=== PATIENT | female | born 1980 | race Caucasian/White ===

== ENCOUNTER 2018-02-23 15:54 | Observation (INO) | payer BC, MEDICARE, MEDICAID, SELFPAY ==
[2018-02-23] VITALS (9 sets, daily range): BP systolic 96–131; BP diastolic 49–90; PULSE 81–98; RESP 16–18; TEMP 36.4–37.1; O2SAT 94–100; BMI 45.9; BMI 45.8
[2018-02-23 12:50] LABS: Bedside Glucose 111 mg/dL (70-110)
--- NOTE | 2018-02-23 14:00 | AMP_PTH ---
PATIENT: PAPITOOCTOBER FABIENNE LOC: 3 U#:[id number] AGE/SX: 37/F ROOM: VT310 RE02/23/[address]: Dr. Analia Benavides MD : 1980 BED: 1 DIS: 02/24/2018 SPEC #: [id number] RECD: 02/24/18 13:28 STATUS: TATE REQ #: [id number] JIM: 02/23/18 14:[address]: Aroldo Mon DEPT: SURGICAL PATHOLOGY RECD BY: Jin Rosales ENTERED: 02/24/18 13:32 SP TYPE: Amputation OTHR DR: MD Dr. Aroldo Oneal, DPM M ADELINA Bullock Tissues: A - Bone of foot, NOS B - Bone of foot, NOS C - Bone of foot, NOS D - Foot, NOS Procedures: Decalcification bone/plaque Surgery Specimen Level IV Surgery Specimen Level V Comments: @ Ordering doctor for DEC edited from to @ madhuri RAMOS at 02/24/18 153 @ Ordering doctor for SUIII edited from to @ madhuri RAMOS at 02/24/18 153 @ Ordering doctor for SUIV edited from to @ madhuri RAMOS at 02/24/18 1539 @ Submitting doctor edited from to @ madhuri RAMOS at 02/24/18 1539 HEADER OPERATION: Amputation transmetatarsal right foot PRE-OP DIAGNOSIS: Right transmetatarsal diabetic ulceration, hammertoes, possible osteomyelitis TISSUE SUBMITTED: A ? First metatarsal bone, B ? Third metatarsal bone, C ? Third toe, D ? Right transmetatarsal amputation MICROSCOPIC DIAGNOSIS A. First metatarsal bone, biopsy: Fragment of bone with mild reparative and reactive change. B. Third metatarsal bone, biopsy: Fragments of unremarkable bone. C. Bone of third toe, biopsy: Fragments of bone and overlying cartilage with reactive and focal reparative change. D. Right transmetatarsal amputation: Skin and soft tissue with ulceration and associated acute and chronic inflammation and early granulation. Bone underlying ulcer with reparative and reactive change. AM:namrata 02/27/18 COMMENT A-D. There is no evidence of osteomyelitis. Clinical correlation is suggested. MICROSCOPIC DESCRIPTION Slides are reviewed. GROSS DESCRIPTION A - Received in fixative is one container labeled with the patient's name and designated first metatarsal bone. The specimen consists of a piece of bone measuring 1 x 0.2 x 0.3 cm. The entire specimen is submitted in one cassette after decalcification. B - Received in fixative is one container labeled with the patient's name and designated third metatarsal bone. The specimen consists of two pieces of bone measuring in aggregate 1 x 0.3 x 0.3 cm. The entire specimen is submitted in one cassette after decalcification. C - Received in fixative is one container labeled with the patient's name and designated third toe. The specimen consists of a piece of bone measuring 1.1 x 1 x 0.4 cm. The entire specimen is submitted in one cassette after decalcification. D - Received in fixative is one container labeled with the patient's name and designated right metatarsal amputation. The specimen consists of a portion of foot containing four toes, second, third and fourth toes measuring 10 x 5 x 3.5 cm. The big toe is missing. The nails appear atrophic. A focal area of ulceration is noted at the tip of third toe measuring 1.5 x 1.5 cm. The resection margins appear unremarkable. A focal area of superficial ulceration is also noted at the medial surface of the third toe measuring 0.5 cm in greatest dimension. Software Program Manager sections are submitted in three cassettes as follows: 1 ? cutaneous resection margin, 2 ? ulcerated area at the tip of the third toe and medial surface of the toe, 3 ? bone underneath the ulcerated area and adjacent area of the toe after decalcification. / SJ:namrata 02/24/18 TC:2 CPT: 27498, 77881 x3, 21485 x4
--- NOTE | 2018-02-23 14:07 | OP.PCM_ITS ---
Report of Operation Date of Procedure: 02/23/18 Pre-Operative Diagnosis: diabetic foot ulceration. maria e. history of right 1st ray amputation Post-Operative Diagnosis: same Surgery/Procedure Performed:: right transmetatarsal amputation Description of Surgical Findings:: Patient is a 37 year old female with pmh for diabetic neuropathy who underwent first ray amputation of right foot last year for osteomyelitis. She did experience relative slow healing of that procedure but eventually went on to heal. In late winter, she developed wound to her right 2nd toe that was treated with local wound care and flexor tenotomy. The wound to 2nd toe eventually healed but prior to healing, she elected to avoid follow-up at her own choice as she felt that she was being a burden to our clinic. Apparently some time after the 2nd toe healed, she developed wound to her right 3rd toe but tried to treat the wound herself for several months. when the wound failed to improve, she presented to my clinic. When she presented to my clinic, she had a full thickness wound to her 3rd toe. xrays have not shown any signs of bone infection. Inflammatory markers including esr and crp have been elevated. she has been taking levaquin and her last dose was yesterday. I have discussed treatment options for this patient. I have proposed to this patient salvage of her toe and to attempt healing. she is tired of trying to heal this wound and would rather have this amputated. She has suggested that if this toe needs amputated, she would rather elect to have a procedure like the one that was done on her left foot, a transmetatarsal amputation. she does not wish to have a third toe amputation only to be left with 3 toes and then eventually require amputation of the remaining toes at future date. she wishes to have a transmetatarsal amputation at this time and be done with this. Again, I have discussed trying to salvage this toe but she has no interest in doing so. I have discussed alternatives to tma, that being 2nd,3rd, 4th and 5th toe amputation. she does not want this either. She would like to proceed with tma. I have discussed risk of tma not limited to infection, pain, swelling, bleeding, hematoma, wound dehiscence, need for advanced wound care not limited to wound vac. I have discussed possible equinus following procedure and I have discussed doing an achilles lengthening. She is not interested in achilles lengthening. when asked why she declines, she states she did not require on left foot and for that reason she is not interested. Further, she does not wish to have any procedure that could lengthen her recovery. She is fully aware that if she develops equinus following procedure, she could lead to ulceration. on exam, she has no evidence of equinus but certainly following tma , she could develop an equinus. again, we did discuss achilles lengthening and she again refused. I did discuss need to remain nwb following procedure. any walking can result in complications. she will have splint post-op and drain. drain will likely be removed several days post-op. All questions have been answered. no gurantees expressed. consent has been signed. Patient was transferred from pre-op holding area and was given spinal block by anesthesia department. She was later placed under mac anesthesia and tourniquet was applied to right ankle. She was administered light sedation. All hair of right foot that was along incision was shaved and cleansed. the right lower extremity was prepped and draped in usual aseptic technique. The right lower extremity was elevated and the tourniquet was inflated. Time out was performed making note of procedure and personal involved. A incision along the dorsal forefoot and then extending laterally along the first and 5th rays and then plantarly was performed. Full thickness flaps were made. Careful dissection was performed to avoid injury to any venous structures. all venous structures were clamped and bovied. I disarticulated toes 2-5 at mtpj. I passed the toes to the back table and they were placed on a separate table and no no cultures of these toes was performed until post-op dressing was applied. Inspection of deep space showed no evidence of infection. there was an abundant scar tissue present along the first ray amputation site and hypertrophic bone was present at distal 1st ray. Using a sagittal saw, the hypertrophic bone of first metatarsal was resected and the orientation of bone resection was proximal medial to distal lateral and dorsal distal to plantar proximal to avoid causing any plantar or medial bone prominence. The 2nd metatarsal was resected from dorsal distal to plantar proximal. In similar fashion, the 3rd and 4th metatarsals were resected dorsal distal to plantar proximal. Care was made to resect these bones with attention to metatarsal parabola. Lastly, the 5th metatarsal was resected with orientation proximal lateral to distal medial and dorsal distal to plantar proximal. Pulse lavage was performed with 3000 cc of normal saline. a bone sample was taken of first and 3rd metatarsal and sent for pathology and micro. Cautery was performed of all bleeding veins and digital artery. All bleeders were able to be slowed or completely stopped utilizing topical thrombin, gel foam, kendra and bovie. intra-operative xray was used to confirm bone resection. satisfactory alignment was noted. Tourniquet was deflated after 53 minutes and hemostasis was achieved and no bleeding was encountered. The deep tissue was reapproximated with 3-0 vicryl. TLS drain was placed percutaneous and directed at site of transmetatarsal amputation. The subcutaneous tissue was closed with 3-0 vicryl. skin was closed with 2-0 nylon in simple interrupted fashion. post -op injection was given using marcaine. post-op dressing was applied with adaptic, 4x4 guaze, alana, levine compression and posterior splint. she was awakened and found to be in stable condition. she was transferred to pacu in stable condition. counts were correct x 3 at time of closure. after patient was awakened, attention was directed to right 3rd toe. a sample of 3rd toe distal phalanx was sent for pathology and micro. of note, there was very minimal soft-tissue covering along distal tuft of right 3rd toe. Type of Anesthesia:: Spinal/Supplemental Specimen's removed: right 3rd toe distal phalanx. right 1st metatarsal. right 3rd metatarsal Drains: tls drain Estimated Blood Loss (mL): 75 - Complications none
--- NOTE | 2018-02-23 15:53 | PCM.HP.STD ---
Problem List (1) Diabetic foot ulcer Status: Acute Qualifiers: Diabetic foot ulcer location: toe Diabetes mellitus type: type 2 Laterality: right Non-pressure ulcer stage: with fat layer exposed Qualified Code(s): E11.621 - Type 2 diabetes mellitus with foot ulcer; L97.512 - Non-pressure chronic ulcer of other part of right foot with fat layer exposed; L97.512 - Non-pressure chronic ulcer of other part of right foot with fat layer exposed; L97.512 - Non-pressure chronic ulcer of other part of right foot with fat layer exposed; L97.512 - Non-pressure chronic ulcer of other part of right foot with fat layer exposed (2) Morbid obesity Status: Chronic (3) Diabetes mellitus type II, controlled Status: Chronic Qualifiers: Diabetes mellitus long wall mining machine helper insulin use: without snf use Diabetes mellitus complication status: with unspecified complications Qualified Code(s): E11.8 - Type 2 diabetes mellitus with unspecified complications (4) HTN (hypertension) Status: Chronic Qualifiers: Hypertension type: essential hypertension Qualified Code(s): I10 - Essential (primary) hypertension (5) GERD (gastroesophageal reflux disease) Status: Chronic Qualifiers: Esophagitis presence: esophagitis presence not specified Qualified Code(s): K21.9 - Gastro-esophageal reflux disease without esophagitis (6) Anxiety and depression Status: Chronic History of Present Illness Date of Admission: 02/23/18 Chief Complaint: R Non-healing diabetic foot ulcer for planned TMA The patient is a 37 y/o F w/ PMHx: HTN, Morbid obesity, GERD, Anxiety and Depression, Diabetes mellitus type II well controlled w/ recent HgBA1c 6% and normal vascular evaluations with history of BL LE diabetic foot and toe non-healing ulcers and wounds with eventual TMA of L foot who now presents to the [facility] on 02/23/18 for planned intervention per Dr. 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 She declined recommendation for focal 3rd toe intervention only secondary to desire to avoid recurrent surgical toe debridement. She underwent L TMA per Dr. Mon who requested hospitalist admission for observation overnight. Past Medical History Past Medical History (Chronic Problems): Chronic Problems Morbid obesity (Chronic) Diabetes mellitus type II, controlled (Chronic) HTN (hypertension) (Chronic) GERD (gastroesophageal reflux disease) (Chronic) Anxiety and depression (Chronic) Allergies No Known Allergies Allergy (Verified 02/19/18 15:05) Home Medications: Ambulatory Orders Medication Instructions Recorded Cholecalciferol (VIT D3) [Vitamin 2,000 unit PO DAILY 04/18/16 D3] Cyanocobalamin (Vitamin B-12) 100 mcg PO DAILY 04/18/16 [B-12] Duloxetine HCl 60 mg PO BID 04/18/16 Lisinopril [Zestril] 10 mg PO DAILY 04/18/16 Omeprazole 40 mg PO DAILY 06/12/17 buPROPion XL [Wellbutrin Xl] 150 mg PO DAILY 06/12/17 Levofloxacin [Levaquin] 500 mg PO DAILY 02/19/18 Meloxicam [Mobic] 15 mg PO DAILY 02/19/18 Surgical History: cholecystectomy, tonsillectomy, - - Left forefoot amputation, amputation of the proximal right great toe, Psychiatric History: Depression BUNDLE PACKER History: No pertinent BUNDLE PACKER history Smoking Status: Never smoker - *Family History Maternal History Items: Diabetes, Stroke Paternal History Items: Diabetes, Hypertension Review of Systems Constitutional: Denies: Chills, Fever, Weight Change HEENT: Denies: Head Aches, Sinus Congestion, Sinus Drainage Cardiovascular: Denies: Chest Pain, Palpitations Respiratory: Denies: Cough, Shortness of breath at rest, Sputum production Gastrointestinal: Denies: Abdominal Pain, Nausea, Vomiting Genitourinary: Denies: Dysuria Musculoskeletal: Denies: Joint Pain, Joint Tenderness Skin: Reports: Skin Changes, Wounds. Denies: Rash Neurological: Reports: Numbness, Tingling. Denies: Focal weakness Psychiatric: Reports: Anxiety, Depression. Denies: Homicidal Ideations, Suicidal Ideations Hematologic/ Lymphatic: Denies: Easy Bruising, Easy Bleeding VTE Information - Inpt Only VTE Present on Admission: No VTE Mechan Device Prophylaxis: SCD's VTE Pharm Prophylaxis ordered?: No Reason prophylaxis not ordered:: Medical Contraindication - Recent OR, defer chemoprophylaxis until AM given recent surgery. Subjective: Seated upright in the PACU bed, notes her diabetes well controlled, notes notable neuropathy but otherwise currently no acute complaints. Objective: Physical Examination: General: awake, alert, oriented x 3 and cooperative, seated upright in the PACU bed in no apparent distress. Skin: normal color, turgor, no icterus, cyanosis except s/p R TMA well appearing and L foot s/p prior 1st ray intervention and amputation w/ R 3rd toe w/ full thickness diabetic ulcer. HEENT: AT/NC, EOMI, PERRLA, MMM, no carotid bruits or JVD noted. Lungs: CTA bilaterally, moderate effort, mild decrease BL bases, no rales, ronchi or wheezing. Heart: Regular rate and rhythm; no gallop, rub audible. Abdomen: soft, morbidly obese, NTTP, ND, normal BS, no HSM; however, habitus makes examination difficult. Extremities: no cyanosis, clubbing, no marked edema, see skin. Neurological: patient awake, alert, oriented x 3; cognitive function intact; pupils equally reactive to light and accomodation; cranial nerves II-XII grossly normal, moving all 4 extremities, no focal deficits, strength mildly globally decreased. Psychiatric: affect appears normal, no acute evidence of depressive or anxiety feelings. - Physical Exam Vital Signs Temp Pulse Resp BP Pulse Ox 97.6 F L 89 16 115/79 100 02/23/18 12:39 02/23/18 12:39 02/23/18 12:39 02/23/18 12:39 02/23/18 12:39 Oxygen Delivery Method Room Air Weight: 320 lb 5.306 oz Body Mass Index (BMI) 45.9 Finger Stick Blood Glucose 99 POC Glucose 02/23/18 12:35 POC Glucose 111 H Assessment/Plan All Active Problems Right foot redness (Acute) Right foot drainage (Acute) Diabetic foot ulcer (Acute) The patient is a 37 y/o F w/ PMHx: HTN, Morbid obesity, GERD, Anxiety and Depression, Diabetes mellitus type II well controlled w/ recent HgBA1c 6% and normal vascular evaluations with history of BL LE diabetic foot and toe non-healing ulcers and wounds with eventual TMA of L foot who now presents to the [facility] on 02/23/18 for planned intervention per Dr. Mon with planned R TMA secondary to non-healing R 3rd toe full thickness ulcer. (1) RLE 3rd Toe Full Thickness Diabetic Wound, Ulcer: 02/23/18 OR R TMA per Dr. Mon. Following OR, will admit to [facility], maintain on oral antibiotics per Surgery discretion, noted allowance following OR for restart on her chronic mobic as was held pre-operatively, continue affected extremity elevation above heart when seated and in bed, planned PT for splint and training as non-weight bearing, PRN pain regimen, antiemetics, fall precautions. Planned discharge to home in AM. Nutrition consulted for education and teaching given DM history, although recent HgBA1c 6%, well controlled. (2) Diabetes mellitus type II, Diet controlled: Patient not on regimen, hemoglobin A1c 6%, will allow regular diet per patient insistence, given well controlled will defer Accu-Cheks at this time. (3) Morbid Obesity: Weight loss and lifestyle changes encouraged, nutrition consulted. (4) Hypertension: Continue home regimen including lisinopril, PRN hydralazine. (5) Anxiety and Depression: Continue home duloxetine regimen as well as Wellbutrin. (6) GERD: Continue home PPI. (7) DVT prophylaxis: SCDs, defer chemoprophylaxis until a.m. per discussion with podiatry given recent operative intervention. Code Visit OBSV E&M: 75527 Initial observation care L3
[2018-02-23] MEDS: Bupivacaine 0.5% PF 10 ML VIAL (17:30)
--- NOTE | 2018-02-23 18:01 | PCM.IMDPSTOP ---
Immediate Post-Op Note Date of Procedure: 02/23/18 Primary Surgeon/Physician: Aroldo Mon DPM hand turner: None hand turner: None Pre-Operative Diagnosis: hammertoe right 3rd toe with diabetic foot ulceration. history of first ray amputation Post-Operative Diagnosis: same Surgery/Procedure Performed:: right transmetatarsal amputation Description of Surgical Findings:: Patient is a 37 year old female with pmh for diabetic neuropathy who underwent first ray amputation of right foot last year for osteomyelitis. She did experience relative slow healing of that procedure but eventually went on to heal. In late winter, she developed wound to her right 2nd toe that was treated with local wound care and flexor tenotomy. The wound to 2nd toe eventually healed but prior to healing, she elected to avoid follow-up at her own choice as she felt that she was being a burden to our clinic. Apparently some time after the 2nd toe healed, she developed wound to her right 3rd toe but tried to treat the wound herself for several months. when the wound failed to improve, she presented to my clinic. When she presented to my clinic, she had a full thickness wound to her 3rd toe. xrays have not shown any signs of bone infection. Inflammatory markers including esr and crp have been elevated. she has been taking levaquin and her last dose was yesterday. I have discussed treatment options for this patient. I have proposed to this patient salvage of her toe and to attempt healing. she is tired of trying to heal this wound and would rather have this amputated. She has suggested that if this toe needs amputated, she would rather elect to have a procedure like the one that was done on her left foot, a transmetatarsal amputation. she does not wish to have a third toe amputation only to be left with 3 toes and then eventually require amputation of the remaining toes at future date. she wishes to have a transmetatarsal amputation at this time and be done with this. Again, I have discussed trying to salvage this toe but she has no interest in doing so. I have discussed alternatives to tma, that being 2nd,3rd, 4th and 5th toe amputation. she does not want this either. She would like to proceed with tma. I have discussed risk of tma not limited to infection, pain, swelling, bleeding, hematoma, wound dehiscence, need for advanced wound care not limited to wound vac. I have discussed possible equinus following procedure and I have discussed doing an achilles lengthening. She is not interested in achilles lengthening. when asked why she declines, she states she did not require on left foot and for that reason she is not interested. Further, she does not wish to have any procedure that could lengthen her recovery. She is fully aware that if she develops equinus following procedure, she could lead to ulceration. on exam, she has no evidence of equinus but certainly following tma, she could develop an equinus. again, we did discuss achilles lengthening and she again refused. I did discuss need to remain nwb following procedure. any walking can result in complications. she will have splint post-op and drain. drain will likely be removed several days post-op. All questions have been answered. no gurantees expressed. consent has been signed. Patient was transferred from pre-op holding area and was given spinal block by anesthesia department. She was later placed under mac anesthesia and tourniquet was applied to right ankle. She was administered light sedation. the right lower extremity was prepped and draped in usual aseptic technique. The right lower extremity was elevated and the tourniquet was inflated. Estimated Blood Loss: 75 cc Specimen's removed: first metatarsal. 3rd metatarsal. 3rd toe distal phalanx. all for pathology and micro Type of Anesthesia:: Spinal/Supplemental ASA Class: ASA3 Severe Disease
[2018-02-23 18:06] LABS: Bedside Glucose 107 mg/dL (70-110)
[2018-02-23] MEDS: Amox/Clavulanate 875 MG Tablet PO (21:40)
[2018-02-23] MEDS: DULoxetine Hcl 60 MG Capsule PO (21:40)
[2018-02-23] MEDS: Senna/Docusate Sodium 1 Tablet 2 TABLET PO (21:40)
[2018-02-23 21:56] LABS: Bedside Glucose 145 mg/dL (70-110)
[2018-02-23 23:55] LABS: Absolute Lymphocyte Count 2.18 X10^3/ul (0.83-4.51); Absolute Neutrophil Count 4.8 X10^3/uL (2.0-7.7); Basophil# 0.04 X10^3/uL; Basophil% 0.5 % (0-1); Eosinophil# 0.16 X10^3/uL; Eosinophils% 2.1 % (0-5); Hematocrit 33.2 % (37-47); Hemoglobin 10.5 g/dl (12.0-15.0); Lymphocyte # 2.18 X10^3/ul (4.0); Lymphocyte % 28.1 % (19-41); Mean Corp Hgb Conc 31.6 g/gl (32-36); Mean Corpuscular Hgb 27.1 pg (27.0-32.0); Mean Corpuscular Volume 85.6 fL (81-99); Mean Platelet Vol. 9.5 fl (6.2-12.0); Monocyte# 0.51 X10^3/uL; Monocyte% 6.6 % (0-10); Neutrophil # 4.82 X10^3/uL (2.7-7.7); Neutrophil % 62.1 % (47-70); Platelet Count 248 K/mm3 (150-450); RBC Distribution Width CV 15.1 % (11.6-14.6); RBC Distribution Width SD 46.6 fl (35.1-43.9); Red Blood Count 3.88 M/mm3 (4.2-5.4); White Blood Count 7.8 K/mm3 (4.4-11.0)
[2018-02-23 23:56] LABS: POSITIVE COUNT NO; POSITIVE DIFFERENTIAL NO; POSITIVE MORPHOLOGY NO
[2018-02-23] MEDS: HYDROcodone Bitartrate/Apap 5/325 Tablet PO (23:58)
[2018-02-24 00:04] LABS: Magnesium 2.2 mg/dL (1.6-2.6)
[2018-02-24 03:30] VITALS: BP 103/58; PULSE 78; RESP 16; TEMP 36.6; O2SAT 97
[2018-02-24 06:31] LABS: Absolute Lymphocyte Count 2.19 X10^3/ul (0.83-4.51); Absolute Neutrophil Count 5.4 X10^3/uL (2.0-7.7); Basophil# 0.06 X10^3/uL; Basophil% 0.7 % (0-1); Eosinophil# 0.18 X10^3/uL; Eosinophils% 2.1 % (0-5); Hematocrit 34.2 % (37-47); Hemoglobin 10.8 g/dl (12.0-15.0); Lymphocyte # 2.19 X10^3/ul (4.0); Lymphocyte % 25.6 % (19-41); Mean Corp Hgb Conc 31.6 g/gl (32-36); Mean Corpuscular Hgb 27.4 pg (27.0-32.0); Mean Corpuscular Volume 86.8 fL (81-99); Mean Platelet Vol. 9.4 fl (6.2-12.0); Monocyte# 0.72 X10^3/uL; Monocyte% 8.4 % (0-10); Neutrophil # 5.35 X10^3/uL (2.7-7.7); Neutrophil % 62.4 % (47-70); Platelet Count 219 K/mm3 (150-450); RBC Distribution Width CV 15.2 % (11.6-14.6); RBC Distribution Width SD 47.2 fl (35.1-43.9); Red Blood Count 3.94 M/mm3 (4.2-5.4); White Blood Count 8.6 K/mm3 (4.4-11.0)
[2018-02-24 06:36] LABS: POSITIVE COUNT NO; POSITIVE DIFFERENTIAL NO; POSITIVE MORPHOLOGY NO
[2018-02-24 06:50] LABS: Anion Gap 10 (5-15); BUN 10 mg/dL (7-18); BUN/Creat Ratio 10.8 RATIO (10-20); Calcium,Total 8.5 mg/dL (8.5-10.1); Chloride 108 mmol/L (98-107); Creatinine, Serum 0.93 mg/dL (0.55-1.02); EST Glomerular Filtration Rate 72 mL/min (>60); Est Glom Filt Rate - Afr Amer 87 mL/min (>60); Estimated Creatinine Clearance 88.69 ml/min; Glucose 112 mg/dL (74-106); Potassium 4.3 mmol/L (3.5-5.1); Sodium Level 140 mmol/L (136-145)
--- NOTE | 2018-02-24 07:42 | PCM.PN.SRG ---
Subjective: patient seen at bedside with no complaints. pain controlled. no nausea, vomiting, fever or chills. trying to stay nwb. only gets up to use restroom. wants to go home today. Objective: alert and orientated x 3. no acute distress. Dressing clean and dry and intact. no strike through. There is percutaneous drain that has about 5 cc of blood collection. no evidence of fluctuance to surgical incision. wound edges appear healthy with no duskyness or necrosis. no drainage. no erythema. no local signs of infection. no deep calf pain. protective sensation is intact to right foot. no pressure sores noted to right foot. - Physical Exam Vital Signs Temp Pulse Resp BP Pulse Ox 98 F 78 16 103/58 L 97 02/24/18 03:30 02/24/18 03:30 02/24/18 03:30 02/24/18 03:30 02/24/18 03:30 Oxygen Delivery Method Room Air Weight: 145.3 kg Body Mass Index (BMI) 45.8 Finger Stick Blood Glucose 107 Intake and Output for Last 24 Hours 02/22/18 02/23/18 02/24/18 23:59 23:59 23:59 Intake Total 1999 994.3 / 994.3 Output Total 2040 / 2040 Balance 1993 / 1993 -1046.7 / -1046.7 Laboratory Tests Past 24 Hrs 02/23/18 02/23/18 02/24/18 23:07 23:28 06:14 WBC 7.8 8.6 RBC 3.88 L 3.94 L Hgb 10.5 L 10.8 L Hct 33.2 L 34.2 L MCV 85.6 86.8 MCH 27.1 27.4 MCHC 31.6 L 31.6 L RDW 15.1 H 15.2 H RDW Differential 46.6 H 47.2 H Plt Count 248 219 MPV 9.5 9.4 Immature Gran % (Auto) 0.600 0.800 Neut % (Auto) 62.1 62.4 Lymph % (Auto) 28.1 25.6 J[place] % (Auto) 6.6 8.4 Eos % (Auto) 2.1 2.1 Baso % (Auto) 0.5 0.7 Absolute Neuts (auto) 4.8 5.4 Absolute Lymphs (auto) 2.18 2.19 Total Counted Not Reportable Not Reportable Sodium Potassium Chloride Carbon Dioxide Anion Gap BUN Creatinine Estim Creat Clear Calc Est GFR (MDRD) Af Amer Est GFR (MDRD) Non-Af BUN/Creatinine Ratio Glucose Calcium Magnesium 2.2 02/24/18 06:14 WBC RBC Hgb Hct MCV MCH MCHC RDW RDW Differential Plt Count MPV Immature Gran % (Auto) Neut % (Auto) Lymph % (Auto) J[place] % (Auto) Eos % (Auto) Baso % (Auto) Absolute Neuts (auto) Absolute Lymphs (auto) Total Counted Sodium 140 Potassium 4.3 Chloride 108 H Carbon Dioxide 22.0 Anion Gap 10 BUN 10 Creatinine 0.93 Estim Creat Clear Calc 88.69 Est GFR (MDRD) Af Amer 87 Est GFR (MDRD) Non-Af 72 BUN/Creatinine Ratio 10.8 Glucose 112 H Calcium 8.5 Magnesium POC Glucose 02/23/18 02/23/18 02/23/18 21:37 18:01 12:35 POC Glucose 145 H 107 111 H Medical Necessity - Tobacco Use Smoking Status: Never smoker Assessment/Plan All Active Problems Right foot redness (Acute) Right foot drainage (Acute) Diabetic foot ulcer (Acute) Patient was examined today and is doing very well. her pain is well controlled on percocet. she has no acute issues. Her drain has about 5 cc of blood collection. Patient reports that this was changed twice in evening. Each time had about 5-6 cc per patient. I informed patient that post-op bleeding is potential risk following transmetatarsal amputation. I did discuss opening incision and assuring no active bleeding. She tells me that this is not an option. she desires to go home. Hemoglobin has increased from surgery from 10.5--10.8. I will repeat this at 10:00. In presence of chavies nursing staff, I did discuss opening incision to assure no active bleeding. She declined this option. Patient informed of risks of post-op bleeding not limited to hematoma, wound healing complications and . she understands this. Surgical dressing changed today. new dressing consisting of adaptic, 4x4 guaze, alana, compressive gabriele and levine compression with splint applied. she is to remain nwb. I did discuss dvt prophylaxis. she is not interested in lovenox. I would have her start asa 81 mg bid once blood collection in drain appears to lessen. I will give her percocet for pain. she will take every 4 hours I will give augmentin for antibiotic prophylaxis. she will f/u in my clinic tomorrow if she is medically stable, she can elect for discharge
[2018-02-24 07:45] VITALS: O2SAT 95
[2018-02-24 07:46] LABS: Bedside Glucose 128 mg/dL (70-110)
[2018-02-24] MEDS: HYDROcodone Bitartrate/Apap 5/325 Tablet PO (07:48)
[2018-02-24 07:56] VITALS: BP 114/61; PULSE 77; RESP 18; TEMP 36.5; O2SAT 96
--- NOTE | 2018-02-24 08:36 | NURSING ---
was consulted on patient for right transmetatarsal amputation. Pt had surgery yesterday per Dr Mon. was already in this am and changed dressing. plan is for patient to be discharged home today and will follow up in his office tomorrow. Did not removed dressing since it was just changed per MD.
[2018-02-24] MEDS: Amox/Clavulanate 875 MG Tablet PO (09:05)
[2018-02-24] MEDS: DULoxetine Hcl 60 MG Capsule PO (09:05)
[2018-02-24] MEDS: Aspirin 81 MG TAB.CHEW PO (09:05)
[2018-02-24] MEDS: Meloxicam 15 MG Tablet PO (09:06)
[2018-02-24] MEDS: Pantoprazole Sodium 40 MG Tablet PO (09:06)
[2018-02-24] MEDS: Senna/Docusate Sodium 1 Tablet 2 TABLET PO (09:06)
[2018-02-24] MEDS: buPROPion (XL) 150 MG TABLET.XL PO (09:07)
[2018-02-24] MEDS: Lisinopril 10 MG Tablet PO (09:07)
--- NOTE | 2018-02-24 10:02 | PCM.DC ---
- Discharge Diagnoses Current Active Problems: Current Active and Chronic Problems (1) RLE 3rd Toe Full Thickness Diabetic Wound, Ulcer s/p 02/23/18 OR R TMA per Dr. Mon (2) Diabetes mellitus type II, Diet controlled (3) Morbid Obesity (4) Hypertension (5) Anxiety and Depression (6) GERD You will use the following diet at home:: Calorie/Carbohydrate Controlled (specify 1200, 1400, etc) - Recommend continued diet choices to avoid worsened increased blood sugars given your well controlled diabetes at this time. We also recommend strongtly portion control., Cardiac Your food should be the consistency of: Regular Your liquids should be the consistency of: Regular/Thin Discharge Activity: - - Must use offloading parameters per Dr. Mon direction. Weight Bearing Status: No weight bearing Keep extremity elevated above heart level: Operative Extremity Call your doctor if your incision/area has: Continuous Slow Oozing, Sudden Increased Bleeding, Increased Pain/ Swelling, Increased Redness, Foul Smelling Discharge, Swelling at the incision site Call your doctor if you observe: Fever of 101 or Higher, Inability to urinate, Inability to have a bowel movement, Shortness of breath, Chest pain, Uncontrolled pain Instructions: Weight Management: Overcoming Your Barriers, Understanding Body Mass Index (BMI), Weight Management: Healthy Eating, Weight Management: Exercise and Activity, Weight Management: Take it Off and Keep it Off, Weight Management: Fact and Fiction Additional Instructions: Per Dr. Mon direction please continue aspirin therapy 81 mg twice daily for prevent of lower extremity clot once the drainage has decreased from operative drain. Maintain complete non-weight bearing status until altered directly per Dr. Mon. Recommend near complete elevation of operative extremity while laying or seated above the heart. Further care, bathing, dressing changes per Dr. Mon direct therefore please contact him if any concerns or questions upon discharge. Allergies/Adverse Reactions: Allergies No Known Allergies Allergy (Verified 02/19/18 15:05) Medications to take at Discharge Cholecalciferol (VIT D3) [Vitamin D3] 2,000 unit PO DAILY 04/18/16 Cyanocobalamin (Vitamin B-12) [B-12] 100 mcg PO DAILY 04/18/16 Duloxetine HCl 60 mg PO BID 04/18/16 Lisinopril [Zestril] 10 mg PO DAILY 04/18/16 Omeprazole 40 mg PO DAILY 06/12/17 buPROPion XL [Wellbutrin Xl] 150 mg PO DAILY 06/12/17 Meloxicam [Mobic] 15 mg PO DAILY 02/19/18 Amox/Clavulanate Tablet [Augmentin Tablet] 875 mg PO BIDCM 7 Days #14 tab 02/24/18 Aspirin [Aspirin, Baby] 81 mg PO BIDCM #60 tab.chew 02/24/18 Hydrocodone Bitart/Apap 5-325 [[place] 5/325] 1 tab PO Q4H PRN PRN 6 Days #30 tab 02/24/18 The following prescriptions were given: Hydrocodone Bitart/Apap 5-325 [[place] 5/325] 1 tab PO Q4H PRN PRN 6 Days #30 tab PRN Reason: Moderate-severe pain Amox/Clavulanate Tablet [Augmentin Tablet] 875 mg PO BIDCM 7 Days #14 tab Aspirin [Aspirin, Baby] 81 mg PO BIDCM #60 tab.chew Primary Care Physician: Annie Regan PA [Primary Care Provider] - Please follow up with your Primary Care Physician in: Follow-up within 3-5 days to review admission. Test Results: Test results from this visit will be discussed in further detail at your follow-up appointment, if applicable. Please Follow Up With: Aroldo Mon DPM When: Follow-up on 02/25/[address] Mon. Proposed Discharge Date: 02/24/18
[2018-02-24 10:05] LABS: Hemoglobin 10.6 g/dl (12.0-15.0)
--- NOTE | 2018-02-24 10:08 | PCM.DC.SUM ---
Discharge Date and Diagnosis Date of Admission: 02/23/18 Date of Discharge: 02/24/18 - Primary Discharge Diagnosis (1) RLE 3rd Toe Full Thickness Diabetic Wound, Ulcer s/p 02/23/18 OR R TMA per Dr. Mon (2) Diabetes mellitus type II, Diet controlled (3) Morbid Obesity (4) Hypertension (5) Anxiety and Depression (6) GERD - Secondary Discharge Diagnosis Chronic Problems Morbid obesity (Chronic) Diabetes mellitus type II, controlled (Chronic) HTN (hypertension) (Chronic) GERD (gastroesophageal reflux disease) (Chronic) Anxiety and depression (Chronic) Hospital Course and Treatment Consultations 02/23/18 15:55 Consult: Onc/Wound/psychology physician Routine Comment: Dr. Mon Podiatry Operations: - - 02/23/[address] Mon. Procedures: None Summary of Care Provided: The patient is a 37 y/o F w/ PMHx: HTN, Morbid obesity, GERD, Anxiety and Depression, Diabetes mellitus type II well controlled w/ recent HgBA1c 6% and normal vascular evaluations with history of BL LE diabetic foot and toe non-healing ulcers and wounds with eventual TMA of L foot who presented to the [facility] on 02/23/18 for planned intervention per Dr. 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 She declined recommendation for focal 3rd toe intervention only secondary to desire to avoid recurrent surgical toe debridement. She underwent 02/23/[address] Mon who requested hospitalist admission for observation overnight with no perioperative complications. She was discharged to home in the AM on regimen augmentin, pain regimen and start on aspirin 81 mg twice daily for prevention DVT once the bleeding has decreased from operative drain. Patient encouraged strongly to maintain elevation of extremity above the heart for majority of the time especially while seated and in bed. Patient discharged w/ requested follow-up with her PCP and also w/ Dr. Mon on 02/25/18. Patient notes home walker already in place and declined any training with PT. DAY OF DISCHARGE PROGRESS NOTE: Subjective: Patient without acute event overnight per self and nursing report. [facility] notes pain well controlled but does have notable neuropathy. Patient denies fever, chills, nausea, emesis, abdominal pain, chest pain or dyspnea. Patient agreeable to discharge to home with planned early 02/25/18 office follow-up with Dr. Mon. Patient will be discharged with follow-up with primary care physician within 3-5 days in addition to Dr. Mon on 02/25/18 for re-assessment. Objective: T 97.7, heart rate 77, BP 114/61, respiratory rate 18, 96% on room air. Physical Examination: General: awake, alert, oriented x 3 and cooperative, seated upright in the bed in no apparent distress. Skin: normal color, turgor, no icterus, cyanosis except s/p recent L TMA w/ dressing in place, some serosanguinous drainage into operative drain. HEENT: AT/NC, EOMI, PERRLA, MMM. Lungs: CTA bilaterally, moderate effort, mild decrease BL bases, no rales, ronchi or wheezing. Heart: Regular rate and rhythm; no gallop, rub audible. Abdomen: soft, morbidly obese, NTTP, ND, normal BS. Extremities: no cyanosis, clubbing, see skin, s/p prior L TMA. Neurological: patient awake, alert, oriented x 3; cognitive function intact; pupils equally reactive to light and accomodation; cranial nerves II-XII grossly normal, moving all 4 extremities, no focal deficits, strength mildly to moderately globally decreased given recent operative intervention. Psychiatric: affect appears normal, no acute evidence of depressive or anxiety feelings. Assessment and Plan: Please see hospital summary above. Discharge Activity: - - Must use offloading parameters per Dr. Mon direction. Weight Bearing Status: No weight bearing Keep extremity elevated above heart level: Operative Extremity Call your doctor if your incision/area has: Continuous Slow Oozing, Sudden Increased Bleeding, Increased Pain/ Swelling, Increased Redness, Foul Smelling Discharge, Swelling at the incision site Call your doctor if you observe: Fever of 101 or Higher, Inability to urinate, Inability to have a bowel movement, Shortness of breath, Chest pain, Uncontrolled pain Home Medications: Medications to take at Discharge Cholecalciferol (VIT D3) [Vitamin D3] 2,000 unit PO DAILY 04/18/16 Cyanocobalamin (Vitamin B-12) [B-12] 100 mcg PO DAILY 04/18/16 Duloxetine HCl 60 mg PO BID 04/18/16 Lisinopril [Zestril] 10 mg PO DAILY 04/18/16 Omeprazole 40 mg PO DAILY 06/12/17 buPROPion XL [Wellbutrin Xl] 150 mg PO DAILY 06/12/17 Meloxicam [Mobic] 15 mg PO DAILY 02/19/18 Amox/Clavulanate Tablet [Augmentin Tablet] 875 mg PO BIDCM 7 Days #14 tab 02/24/18 Aspirin [Aspirin, Baby] 81 mg PO BIDCM #60 tab.chew 02/24/18 Hydrocodone Bitart/Apap 5-325 [[place] 5/325] 1 tab PO Q4H PRN PRN 6 Days #30 tab 02/24/18 Following Prescrptions Were Given to Patient: Hydrocodone Bitart/Apap 5-325 [[place] 5/325] 1 tab PO Q4H PRN PRN 6 Days #30 tab PRN Reason: Moderate-severe pain Amox/Clavulanate Tablet [Augmentin Tablet] 875 mg PO BIDCM 7 Days #14 tab Aspirin [Aspirin, Baby] 81 mg PO BIDCM #60 tab.chew Primary Care Physician: Annie Regan PA [Primary Care Provider] - Please follow up with your Primary Care Physician in: Follow-up within 3-5 days to review admission. Please Follow Up With: Aroldo Mon DPM When: Follow-up on 02/25/[address] Mon. Patient Instructions: Weight Management: Overcoming Your Barriers, Understanding Body Mass Index (BMI), Weight Management: Healthy Eating, Weight Management: Exercise and Activity, Weight Management: Take it Off and Keep it Off, Weight Management: Fact and Fiction Disposition: Home Minutes spent on discharge:: 20 Patient Condition:: Fair Medical Necessity - Tobacco Use Smoking Status: Never smoker Meaningful Use Info Meaningful Use Diagnoses (Choose all that apply): None applicable Code Visit OBSV E&M: 23031 Observation care discharge
[2018-02-24 10:59] VITALS: BP 114/61; PULSE 77; RESP 18; TEMP 36.5; O2SAT 96
== END 2018-02-24 11:00 | disposition home or self-care (01) ==
LOC: SDC 16:18 → MS3 02-24 02:52
PROVIDERS: Podiatrist Foot & Ankle Surgery; Admitting Provider Family Medicine; Family Provider Physician Assistant; PCP Physician Assistant; Visit Provider Family Medicine
PROC: (CPT 28805; principal; 2018-02-23 13:45)
DX: E11.621 Type 2 diabetes mellitus with foot ulcer (principal); E11.40 Type 2 diabetes mellitus with diabetic neuropathy, unspecified; L97.512 Non-pressure chronic ulcer of other part of right foot with fat layer exposed; E66.01 Morbid (severe) obesity due to excess calories; Z68.42 Body mass index [BMI] 45.0-49.9, adult; Z71.3 Dietary counseling and surveillance; I10 Essential (primary) hypertension; K21.9 Gastro-esophageal reflux disease without esophagitis; F41.9 Anxiety disorder, unspecified; F32.9 Major depressive disorder, single episode, unspecified; Z79.899 Other long term (current) drug therapy; M20.41 Other hammer toe(s) (acquired), right foot
CPT/HCPCS: 28805; 36415; 73630; 76000; 80048; 82962; 83735; 85018; 85025; 87070; 87075; 87077; 87186; 87205; 88304; 88305; 88307; 88311; 99218; J7120; G0378; G0379

== ENCOUNTER → 2018-03-12 11:07 | Outpatient (CLI) | payer BC, MEDICARE, MEDICAID, SELFPAY | PROVIDERS: Family Provider Physician Assistant; PCP Physician Assistant; Visit Provider Podiatrist Foot & Ankle Surgery | DX: S80.11XA Contusion of right lower leg, initial encounter (principal); X58.XXXA Exposure to other specified factors, initial encounter; Y93.9 Activity, unspecified; Y92.9 Unspecified place or not applicable; Y99.9 Unspecified external cause status | CPT/HCPCS: 76882 ==

== ENCOUNTER 2019-01-22 20:13 | Emergency (ER) | payer BC, MEDICARE, MEDICAID, SELFPAY ==
[2019-01-22 20:14] VITALS: BP 120/82; PULSE 102; RESP 16; TEMP 36.7; O2SAT 98; BMI 45.9
--- NOTE | 2019-01-22 21:12 | ED.VIS.GEN ---
History of Present Illness Chief Complaint: Lower Extremity Injury Informant: Patient Onset: Today Context: Sudden Onset Timing: Continuous - Pain posterior right ankle Quality: Pain, tingling and burning Location: Posterior right ankle/Achilles tendon Current Severity: Mild Maximum Severity: Severe Worsened by: Weightbearing Relieved by: Better with rest Associated Symptoms: Tingling and burning sensation Narrative: Patient is a 38-year-old woman with history of borderline diabetes, neuropathy and hypertension who presents with pain that she localizes over the insertion site of the Achilles tendon right ankle. She states she was walking when she had severe pain and felt a pop. She states she has no feeling in her foot. She is status post amputation of the toes right side. She states she has chronic infections that do not heal. She denies trauma. She denies fall. She has no other symptoms or complaints. Prior similar symptoms: No Recent Illness/Hospitalization: No - Past Medical History (1) Diabetic foot ulcer Status: Acute (2) Anxiety and depression Status: Chronic (3) Diabetes mellitus type II, controlled Status: Chronic (4) GERD (gastroesophageal reflux disease) Status: Chronic (5) HTN (hypertension) Status: Chronic (6) Morbid obesity Status: Chronic Past Medical History - Allergies and Home Meds Allergies/Adverse Reactions: Allergies No Known Allergies Allergy (Verified 01/22/19 20:16) Primary Care Physician: Annie Regan PA [Primary Care Provider] - Prior records reviewed: Yes Surgical History: cholecystectomy, tonsillectomy, - - Left forefoot amputation, amputation of the proximal right great toe, Lives: Spouse/ Significant Other, With Family Smoking Status: Never smoker Alcohol: None Drugs: None - Family History Maternal Family History: Reports: Diabetes, Stroke Paternal Family History: Reports: Diabetes, Hypertension Review of Systems Musculoskeletal: Reports: Extremity Pain. Denies: Myalgias, Arthralgias, Neck pain, Back pain, Swelling Skin: Denies: Rash, Abrasions, Wounds Neurological: Reports: Numbness. Denies: Weakness, Parasthesia Hematologic: Denies: Easy bruising, Easy bleeding Physical Exam Vital Signs/Narrative: Vital Signs Temp Pulse Resp BP Pulse Ox 01/22/19 20:14 98.0 F 102 H 16 120/82 H 98 Inital Vital Signs reviewed: Yes General: Well nourished, Well developed, No Acute Distress Head: Normocephalic, Atraumatic Eyes: Perrl, EOMI Cardiovascular: Regular rate, Regular rhythm Respiratory: No distress Back: Nontender, Normal Inspection Extremities: No edema, Tenderness - There is over the Achilles tendon. The Achilles tendon is functionally intact. She is able to dorsi and plantar flex her foot. She complains of pain at insertion site of the Achilles tendon/calcaneus. There is a wound plantar surface midfoot noted. There is no lymphangitis. There is no fluctuance.. Negative for: Nontender Skin: Normal color, No Trauma. Negative for: Cyanosis, Diaphoresis, Jaundice Neurological: Alert, Oriented x3, Cranial nerves II-XII grossly intact, Normal Strength, Normal Sensation Psychological: Normal affect Diagnostic/Tx/Re-eval Chest X-Ray - ED: Read by ED Physician, - - BX of the right ankle was obtained. There is no abnormality of the lateral or medial malleolus. There is no asymmetry of the mortise. There is no evidence of osteomyelitis, soft tissue swelling or subtenons air. There is irregularity of the skin over the Achilles tendon. The Achilles tendon appears intact. - Medical Decision Making Will obtain x-ray to see if there is an associated injury to the calcaneus. Functionally the Achilles tendon is intact. Palpation of the Achilles tendon is unremarkable for deficit or indentation. With history of diabetes, hypertension neuropathy reluctant to treat with NSAIDs. Will give short course of opiate analgesia and crutches to weight-bear as tolerated. She was instructed to follow-up with her foot surgeon. ED Disposition - Plan for ED Patient: Disposition: Home or Assisted Living Diagnosis: Achilles tendon sprain Prescriptions: Hydrocodone Bitart/Apap 5-325 [[place] 5MG-325MG] 1 tab PO Q6H PRN PRN 3 Days #10 tab PRN Reason: Pain Prescription Printed Referrals: Annie Regan PA [Primary Care Provider] - 3-5 Days if not improving Additional Instructions: Use crutches and weight-bear as tolerated. You sprained your Achilles tendon. There is no evidence of rupture. Because of your past medical history you are treated with [place] for pain. Recommend following up with your marketing proposal specialist.
--- NOTE | 2019-01-22 21:20 | RAD_ITS ---
STUDY: X-RAY - RIGHT ANKLE REASON FOR EXAM: Female, 38 years old. Pain, swelling TECHNIQUE: 3 view(s) of the ankle. COMPARISON: None. FINDINGS: Normal visualized distal tibia and fibula. Normal medial and lateral malleoli. Normal tibiotalar articulation and ankle mortise. Normal visualized talus and calcaneus. The visualized subtalar, talonavicular, calcaneocuboid and tarsal articulations are normal. Transmetatarsal amputation of the foot. There is thickening of the Achilles tendon requiring further evaluation. RAD/Ankle min 3 Views IMPRESSION: There is significant thickening of the Achilles tendon diffusely. Electronically Signed: Andrea Francis DO at 21:35 EDT Tel [phone], Service support ,
[2019-01-22] MEDS: HYDROcodone Bitartrate/Apap 5/325 Tablet PO (22:43)
[2019-01-22 22:46] VITALS: BP 154/81; PULSE 73; RESP 18; O2SAT 97
--- NOTE | 2019-01-22 22:47 | ED.RN ---
PT GIVEN WRITTEN AND VERBAL DISCHARGE INSTRUCTIONS AND HOME GOING PRESCRIPTIONS. PT VERBALIZES UNDERSTANDING AND DENIES ANY FURTHER QUESTIONS. PT REFUSING CRUTCHES, REPORTS, I HAVE A WHEELCHAIR AND A WALKER AT HOME, I DO NOT WANT THE CRUTCHES.
== END 2019-01-22 22:48 | disposition home or self-care (01) ==
PROVIDERS: Emergency Provider Emergency Medicine; Family Provider Physician Assistant; PCP Physician Assistant
DX: S86.011A Strain of right Achilles tendon, initial encounter (principal); I10 Essential (primary) hypertension; Z89.421 Acquired absence of other right toe(s); K21.9 Gastro-esophageal reflux disease without esophagitis; E11.9 Type 2 diabetes mellitus without complications; E66.01 Morbid (severe) obesity due to excess calories; X58.XXXA Exposure to other specified factors, initial encounter; Y93.01 Activity, walking, marching and hiking; Y92.9 Unspecified place or not applicable; Y99.9 Unspecified external cause status
CPT/HCPCS: 73610; 99283

== ENCOUNTER 2019-04-16 00:27 | Emergency (ER) | payer BC, MEDICARE, MEDICAID, SELFPAY ==
[2019-04-16 00:28] VITALS: BP 150/85; PULSE 105; RESP 16; TEMP 36.6; O2SAT 97; BMI 44.4
--- NOTE | 2019-04-16 00:35 | RAD_ITS ---
HISTORY: [facility] - Chest EXAM: XR Chest 2 Views: COMPARISON: None FINDINGS: # of images incl. paperwork: 2 Lungs are clear. Heart is not enlarged. Bones are normal. Pulmonary vascularity is distinct. No effusions. RAD/Chest PA and Lateral IMPRESSION: Normal. at 0136 Reported and signed by: Ben Vásquez MD Electronically Signed: Ben Vásquez MD at 1:35 EDT Tel , Service support ,
--- NOTE | 2019-04-16 00:35 | ED.VIS.GEN ---
History of Present Illness Chief Complaint: Cough Informant: Patient Narrative: for last 4 to 5 days she has had runny nose stuffy nose and a cough. Cough is nonproductive. No sick contacts. She is using Tylenol for sinus headache. She is using Mucinex for the cough. Comes in for further evaluation. No history pneumonia. Non-smoker. Current severity is mild to moderate. Denies any fevers or chills. Denies shortness of breath. - Past Medical History (1) Anxiety and depression Status: Chronic (2) Diabetes mellitus type II, controlled Status: Chronic (3) Diabetic foot ulcer Status: Acute (4) GERD (gastroesophageal reflux disease) Status: Chronic (5) HTN (hypertension) Status: Chronic (6) Morbid obesity Status: Chronic (7) Right foot drainage Status: Acute (8) Right foot redness Status: Acute Past Medical History - Allergies and Home Meds Allergies/Adverse Reactions: Allergies No Known Allergies Allergy (Verified 04/16/19 00:37) Primary Care Physician: Annie Regan PA [Primary Care Provider] - Prior records reviewed: Yes Past Medical History: - - See problem list Surgical History: cholecystectomy, tonsillectomy, - - Left forefoot amputation, amputation of the proximal right great toe, Smoking Status: Never smoker Alcohol: None Drugs: None - Family History Maternal Family History: Reports: Diabetes, Stroke Paternal Family History: Reports: Diabetes, Hypertension Review of Systems General: Denies: Chills, Fever, Sweats Eyes: Denies: Visual changes - bilaterally, Diplopia ENT: Reports: Rhinorrhea. Denies: Sore throat Cardiovascular: Denies: Chest pain, Palpitations Respiratory: Reports: Cough. Denies: Dyspnea, Dyspnea on exertion Gastrointestinal: Denies: Abdominal pain, Nausea, Vomiting, Diarrhea, Melena, Hematochezia Genitourinary: Denies: Dysuria, Hematuria, Frequency Musculoskeletal: Denies: Back pain, Extremity Pain Skin: Denies: Rash, Wounds Neurological: Denies: Headache, Weakness, Numbness Physical Exam Vital Signs/Narrative: Vital Signs Temp Pulse Resp BP Pulse Ox 04/16/19 00:28 97.9 F 105 H 16 150/85 H 97 General: Well nourished, Well developed, No Acute Distress Head: Normocephalic, Atraumatic Eyes: Perrl, EOMI ENT: Moist mucous membranes, Nasal congestion Neck: Supple, Nontender Cardiovascular: Regular rate, Regular rhythm, No murmurs Respiratory: No distress, CTA bilaterally, Chest nontender Abdomen: Soft, Nontender, Nondistended, Normal bowel sounds Back: Nontender, Normal Inspection Extremities: Nontender, No edema Skin: Normal color, No rash Neurological: Alert, Oriented x3, Cranial nerves II-XII grossly intact, Normal Strength, Normal Sensation Psychological: Normal affect, Normal Mood Diagnostic/Tx/Re-eval - Medical Decision Making Patient given Tessalon Perles at her request. Chest x-ray obtained. 2 view chest x-ray read by emergency physician shows no acute pneumonia. Mild bronchial thickening. At this time I feel the patient has upper respiratory infection. Given a prescription for Tessalon Perles. We will continue Mucinex and symptomatic treatment. I do not feel she needs antibiotics. ED Disposition - Plan for ED Patient: Disposition: Home or Assisted Living Diagnosis: Upper respiratory infection Instructions: Adult Self-Care for Colds and Flu Prescriptions: Benzonatate [Tessalon Perle] 200 mg PO TID PRN PRN #20 cap PRN Reason: Cough Prescription Printed Referrals: Annie Regan PA [Primary Care Provider] -
[2019-04-16] MEDS: Benzonatate 100 MG Capsule 200 MG PO (01:03)
[2019-04-16 01:08] VITALS: RESP 16
== END 2019-04-16 01:10 | disposition home or self-care (01) ==
PROVIDERS: Emergency Provider Emergency Medicine; Family Provider Physician Assistant; PCP Physician Assistant
DX: J06.9 Acute upper respiratory infection, unspecified (principal); F41.9 Anxiety disorder, unspecified; F32.9 Major depressive disorder, single episode, unspecified; E11.621 Type 2 diabetes mellitus with foot ulcer; L97.519 Non-pressure chronic ulcer of other part of right foot with unspecified severity; K21.9 Gastro-esophageal reflux disease without esophagitis; I10 Essential (primary) hypertension; E66.01 Morbid (severe) obesity due to excess calories; Z79.899 Other long term (current) drug therapy
CPT/HCPCS: 71046; 99283

== ENCOUNTER 2021-01-01 10:49 | Emergency (ER) | payer BC, MEDICARE, MEDICAID, SELFPAY ==
[2021-01-01 10:49] VITALS: BP 123/74; PULSE 119; RESP 18; TEMP 36.2; O2SAT 97; BMI 42.4
--- NOTE | 2021-01-01 11:17 | EDS_ITS ---
HPI HPI - GI History of Present Illness Chief Complaint: Flank Pain Narrative Narrative: 40-year-old female presented with right lower quadrant pain. Right lower a patient states she has nausea but is not vomiting. Patient states her symptoms started today and she had a fever overnight of 101. She denies any urinary complaints or history of kidney stones. She denies constipation. She has no symptoms of cough or cold. She does complain of myalgias. [facility] Medical History Amputated toe of left foot Amputated toe of right foot Diabetes Diabetic neuropathy Hypertension Home Medications cholecalciferol (vitamin D3) [Vitamin D3] 2,000 unit PO DAILY 04/18/16 [History Last Taken 06/12/17] cyanocobalamin (vitamin B-12) 100 mcg PO DAILY 04/18/16 [History Last Taken 06/12/17] duloxetine 60 mg PO BID 04/18/16 [History Last Taken 06/12/17] lisinopril 10 mg PO DAILY 04/18/16 [History Last Taken 02/23/18 08:00] bupropion HCl 150 mg PO DAILY 06/12/17 [History Last Taken 06/12/17] omeprazole 40 mg PO DAILY 06/12/17 [History Last Taken 06/12/17] amitriptyline 10 mg PO QHS 01/01/21 [History Last Taken Unknown] duloxetine [Cymbalta] 60 mg PO BID 01/01/21 [History Last Taken Unknown] ferrous sulfate 324 mg PO BID 01/01/21 [History Last Taken Unknown] insulin degludec [Tresiba U-100 Insulin] 10 unit SUBCUT DAILY 01/01/21 [History Last Taken Unknown] metformin 1,000 mg PO BID 01/01/21 [History Last Taken Unknown] oxaprozin 600 mg PO DAILY 01/01/21 [History Last Taken Unknown] semaglutide [Ozempic] 0.25 mg SUBCUT QWEEK 01/01/21 [History Last Taken Unknown] topiramate 25 mg PO BID 01/01/21 [History Last Taken Unknown] Allergy/AdvReac Type Severity Reaction Status Date / Time gabapentin [From Gabarone] Allergy Angioedema Verified 01/01/21 10:51 Social History Smoking Status: Never smoker ROS ROS ED Constitutional Constitutional ED: Reports fever(s); Denies subjective ENT ENT ED: Denies rhinorrhea or sore throat Cardiovascular Cardiovascular: Denies chest pain or palpitations Respiratory/Chest Respiratory/Chest: Denies cough or dyspnea Gastrointestinal Gastrointestinal: Reports abdominal pain and nausea; Denies constipation or diarrhea Genitourinary Genitourinary ED: Denies dysuria or hematuria Musculoskeletal Musculoskeletal: Denies arthralgias or myalgias Integumentary Denies abscess or rash Neurologic Neurologic: Reports headache(s); Denies paresthesias or weakness Psychiatric Psychiatric: Denies anxiety or depression EXAM Physical Exam Const Vital Signs: 01/01/21 10:49 01/01/21 13:02 01/01/21 14:43 Temperature 97.2 F L 100.1 F H Temperature Source Temporal Oral Pulse Rate 119 H 108 H 52 L Respiratory Rate 18 16 16 Blood Pressure 123/74 H 128/70 H 134/67 H Blood Pressure Mean 90 89 Pulse Ox 97 98 98 Oxygen Delivery Method Room Air Room Air Positive obese General Appearance ED: NAD Nutritional Appearance: obese HEENT normocephalic and atraumatic Eyes PERRL and EOMs intact bilaterally Resp normal respiratory effort and clear to auscultation bilaterally Cardio regular rate and regular rhythm GI GI Narrative: Tenderness to palpation right lower quadrant. No CVA tenderness. Palpation: soft Back/Spine no CVA tenderness Neuro Sensorium / Orientation: alert, oriented to person, oriented to place and oriented to time Psych mental status grossly normal Skin Lesions: no lesions Rashes: no rashes MDM MDM MDM Narrative Medical decision making narrative: Patient presenting with right-sided abdominal pain. She is also reporting a fever. She denies any urinary symptoms. I obtained lab work today which shows no leukocytosis. H&H are stable. Creatinine is slightly elevated at 1.10 however the rest of her electrolytes are normal. Urinalysis is slightly contaminated and does not appear to be consistent with infection. hCG is negative. Patient had CT of the abdomen and pelvis with IV contrast which shows no acute abdominal process. After this the patient began to have another fever of 100.1. Patient is not having any respiratory symptoms and her Covid antigen is negative. I feel the patient is stable for discharge at this time. She was given return precautions. Impression: 1. Right flank pain 2. Febrile illness Lab Data Attestation: I reviewed the patient's lab results. Labs: Laboratory Results - last 24 hr 01/01/21 01/01/21 01/01/21 11:15 11:15 11:15 WBC 10.1 RBC 5.13 Hgb 13.4 Hct 41.7 MCV 81.3 MCH 26.1 L MCHC 32.1 RDW Std Deviation 46.8 H RDW Coeff of Maria E 15.9 H Plt Count 249 MPV 9.4 Immature Gran % (Auto) 1.200 H Neut % (Auto) 83.9 H Lymph % (Auto) 7.2 L [place] % (Auto) 7.0 Eos % (Auto) 0.2 Baso % (Auto) 0.5 Absolute Neuts (auto) 8.5 H Absolute Lymphs (auto) 0.73 L Nucleated RBC % 0 Sodium 132 L Potassium 3.8 Chloride 97 L Carbon Dioxide 23.0 Anion Gap 12 BUN 9 Creatinine 1.10 H Estim Creat Clear Calc 75.23 Est GFR (MDRD) Af Amer 70 Est GFR (MDRD) Non-Af 58 L BUN/Creatinine Ratio 8.2 L Glucose 230 H Calcium 8.7 Total Bilirubin 0.90 AST 32 ALT 29 Alkaline Phosphatase 78 Troponin I High Sens < 3.0 L Total Protein 7.8 Albumin 3.3 Globulin 4.5 H Albumin/Globulin Ratio 0.7 L Serum , Qual NEGATIVE Urine Color Urine Clarity Urine pH Ur Specific [place] Urine Protein Urine Glucose (UA) Urine Ketones Urine Occult Blood Urine Nitrite Urine Bilirubin Urine Urobilinogen Ur Leukocyte Esterase Urine RBC Urine WBC Ur Squamous Epith Cells Urine Bacteria Urine Mucus 01/01/21 14:00 WBC RBC Hgb Hct MCV MCH MCHC RDW Std Deviation RDW Coeff of Mariae Plt Count MPV Immature Gran % (Auto) Neut % (Auto) Lymph % (Auto) [place] % (Auto) Eos % (Auto) Baso % (Auto) Absolute Neuts (auto) Absolute Lymphs (auto) Nucleated RBC % Sodium Potassium Chloride Carbon Dioxide Anion Gap BUN Creatinine Estim Creat Clear Calc Est GFR (MDRD) Af Amer Est GFR (MDRD) Non-Af BUN/Creatinine Ratio Glucose Calcium Total Bilirubin AST ALT Alkaline Phosphatase Troponin I High Sens Total Protein Albumin Globulin Albumin/Globulin Ratio Serum , Qual Urine Color Yellow Urine Clarity Sl. Cloudy Urine pH 6.5 Ur Specific [place] 1.010 Urine Protein 30 H Urine Glucose (UA) Normal Urine Ketones 5 H Urine Occult Blood 10 H Urine Nitrite Negative Urine Bilirubin Negative Urine Urobilinogen 1 H Ur Leukocyte Esterase 25 H Urine RBC 0 SEEN Urine WBC 0-5 SEEN Ur Squamous Epith Cells 0-5 SEEN Urine Bacteria RARE Urine Mucus 0 SEEN Radiography Diagnostic Testing: Radiology Impression Abdomen/Pelvis CT 01/01/21 12:15 IMPRESSION: Borderline splenomegaly. Mild hepatomegaly. Electronically Signed: Taqueria Figueroa MD at 12:50 EDT , Service support , Discharge Plan Triage Chief Complaint: Flank Pain ED Provider: Calderon Griffin Dx/Rx/DC Orders Instructions: ED FUO Adult, ED Flank Pain, Uncertain Cause Prescriptions: No Action cyanocobalamin (vitamin B-12) 1,000 MCG tablet 100 mcg PO DAILY RF: 0 lisinopril 10 MG tablet 10 mg PO DAILY RF: 0 duloxetine 60 MG capsule,delayed release(DR/EC) 60 mg PO BID RF: 0 cholecalciferol (vitamin D3) [Vitamin D3] 1,000 UNIT tablet 2,000 unit PO DAILY RF: 0 omeprazole 40 MG capsule,delayed release(DR/EC) 40 mg PO DAILY RF: 0 bupropion HCl 150 MG tablet extended release 24 hr 150 mg PO DAILY RF: 0 topiramate 25 mg Tablet 25 mg PO BID RF: 0 amitriptyline 10 mg Tablet 10 mg PO QHS RF: 0 metformin 1,000 mg Tablet 1,000 mg PO BID RF: 0 oxaprozin 600 mg Tablet 600 mg PO DAILY RF: 0 duloxetine [Cymbalta] 60 mg Capsule,Delayed Release(Dr/Ec) 60 mg PO BID RF: 0 ferrous sulfate 324 mg (65 mg iron) Tablet,Delayed Release (Dr/Ec) 324 mg PO BID RF: 0 Ozempic 0.25 mg or 0.5 mg(2 mg/1.5 mL) Pen Injector 0.25 mg SUBCUT QWEEK RF: 0 Tresiba U-100 Insulin 100 unit/mL Solution 10 unit SUBCUT DAILY RF: 0 Primary Care Provider: Annie Regan Referrals: Regan,M Ben PA, PA [Primary Care Provider] - Disposition Disposition: Home, Self Care Discharge Date/Time: 01/01/21 14:47
[2021-01-01 11:29] LABS: Absolute Lymphocyte Count 0.73 X10^3/uL (0.83-4.51); Absolute Neutrophil Count 8.5 X10^3/uL (2.0-7.7); Basophil# 0.05 X10^3/uL; Basophil% 0.5 % (0-1); Eosinophil# 0.02 X10^3/uL; Eosinophils% 0.2 % (0-5); Hematocrit 41.7 % (37-47); Hemoglobin 13.4 g/dL (12.0-15.0); Lymphocyte # 0.73 X10^3/ul (0.83-4.51); Lymphocyte % 7.2 % (19-41); Mean Corp Hgb Conc 32.1 g/dL (32-36); Mean Corpuscular Hgb 26.1 pg (27.0-32.0); Mean Corpuscular Volume 81.3 fL (81-99); Mean Platelet Vol. 9.4 fl (6.2-12.0); Monocyte# 0.71 X10^3/uL; NRBC Flagged by Analyzer 0 % (0-5); Neutrophil # 8.49 X10^3/uL (2.7-7.7); Neutrophil % 83.9 % (47-70); Platelet Count 249 K/mm3 (150-450); RBC Distribution Width CV 15.9 % (11.6-14.6); RBC Distribution Width SD 46.8 fl (35.1-43.9); Red Blood Count 5.13 M/mm3 (4.2-5.4); White Blood Count 10.1 K/mm3 (4.4-11.0)
[2021-01-01] MEDS: Morphine 4 MG/ML Syringe IV (11:29)
[2021-01-01] MEDS: Ondansetron 4 MG/2 ML Vial IV (11:29)
[2021-01-01 11:41] LABS: Internal QC Validated? YES +Cl - CLEAR BKGD; Pregnancy, Serum, hCG Quali. NEGATIVE Negative
[2021-01-01 11:43] LABS: ALB/GLOB Ratio 0.7 RATIO (0.9-2.4); AST(SGOT) 32 U/L (15-37); Alanine Aminotransfer ALT/SGPT 29 U/L (13-56); Albumin, Serum 3.3 g/dL (3.2-5.0); Alkaline Phosphatase 78 U/L (45-117); Anion Gap 12 (5-15); BUN 9 mg/dL (7-18); BUN/Creat Ratio 8.2 RATIO (10-20); Calcium,Total 8.7 mg/dL (8.5-10.1); Chloride 97 mmol/L (98-107); EST Glomerular Filtration Rate 58 mL/min (>60); Est Glom Filt Rate - Afr Amer 70 mL/min (>60); Estimated Creatinine Clearance 75.23 ml/min; Globulin 4.5 g/dL (2.2-4.2); Glucose 230 mg/dL (74-106); Potassium 3.8 mmol/L (3.5-5.1); Protein, Total 7.8 g/dL (6.4-8.2); Sodium Level 132 mmol/L (136-145); Troponin-I HS < 3.0 pg/mL (3.0-53.7)
--- NOTE | 2021-01-01 12:15 | CT_ITS ---
STUDY: CT ABDOMEN AND PELVIS WITH CONTRAST REASON FOR EXAM: Female, 40 years old. RLQ Pain RADIATION DOSAGE (If Supplied By Facility): CTDIvol = ( 15.91 ) mGy, DLP = ( 1147.75 ) mGycm TECHNIQUE: Transaxial images were obtained from the dome of the diaphragm to the symphysis pubis without oral contrast. IV 100ML ISOVUE 300 was administered. Sagittal and coronal images were reconstructed. Individualized dose optimization techniques were used for this CT. COMPARISON: Comparison is made with prior study dated 04/30/2013. FINDINGS: The visualized lung bases are unremarkable. The visualized portions of the heart are within normal limits. Mild hepatomegaly. The gallbladder is contracted. Borderline splenomegaly. Normal pancreas. Normal bilateral adrenal glands. Normal right kidney. Normal left kidney. There is a small hiatal hernia. Normal small intestine. Normal colon. The appendix is visualized and appears normal. Normal abdominal aorta. Normal inferior vena cava. There is borderline retroperitoneal lymphadenopathy with enlarged nodes no greater than 10mm in the short axis diameter. Normal urinary bladder. There is absence of the uterus consistent with a prior hysterectomy. Normal abdominal wall. Disc space narrowing and degeneration at the L5-S1 level. There is spondylolysis of the pars interarticularis of the L5 vertebrae. CT/Abdomen/Pelvis W IV Cont ONLY IMPRESSION: Borderline splenomegaly. Mild hepatomegaly. Electronically Signed: Taqueria Figueroa MD at 12:50 EDT , Service support ,
[2021-01-01 13:02] VITALS: BP 128/70; PULSE 108; RESP 16; TEMP 37.8; O2SAT 98
[2021-01-01] MEDS: Acetaminophen 500 MG Tablet 1000 MG PO (14:13)
[2021-01-01 14:14] LABS: Mucous, Urine 0 SEEN /hpf (<or=2+); Red Blood Cells-Urine 0 SEEN /hpf (0-5)
[2021-01-01 14:16] LABS: Color, Urine Yellow (Yellow); Glucose, Dipstick Normal (Normal); Ketone-Dipstick 5 mg/dl (Negative); Leukocyte Esterase-Dipstick 25 /ul (Negative); Nitrite-Dipstick Negative (Negative); Occult Blood-Urine 10 /ul (Negative); Protein-Dipstick 30 mg/dl (Negative); Urine Bilirubin Dipstick Negative (Negative); Urine Clarity Sl. Cloudy (Clear); Urine Urobilinogen 1 mg/dl (Normal); Urine pH 6.5 (5.0 - 8.0)
[2021-01-01 14:24] LABS: Squamous Epithelial Cells - UA 0-5 SEEN /hpf (5-10)
[2021-01-01 14:25] LABS: White Blood Cells 0-5 SEEN /hpf (0-5)
[2021-01-01 14:26] LABS: Bacteria RARE /hpf (None Seen)
[2021-01-01 14:43] VITALS: BP 134/67; PULSE 52; RESP 16; O2SAT 98
== END 2021-01-01 14:47 | disposition home or self-care (01) ==
LOC: ED 12:39
PROVIDERS: Emergency Provider Student in an Organized Health Care Education/Training Program; PCP Physician Assistant
DX: R10.9 Unspecified abdominal pain (principal); R16.2 Hepatomegaly with splenomegaly, not elsewhere classified; R50.9 Fever, unspecified; E66.9 Obesity, unspecified; I10 Essential (primary) hypertension; E11.40 Type 2 diabetes mellitus with diabetic neuropathy, unspecified; M79.10 Myalgia, unspecified site; Z79.4 Long term (current) use of insulin; Z79.899 Other long term (current) drug therapy
CPT/HCPCS: 74177; 80053; 81001; 84484; 84703; 85025; 87426; 96374; 96375; 99285; Q9967; A4216; J2405

== ENCOUNTER 2021-01-02 14:59 | Inpatient (IN) | payer BC, MEDICARE, MEDICAID, SELFPAY ==
[2021-01-01 10:49] VITALS: BMI 42.4
[2021-01-02 15:00] VITALS: BP 123/77; PULSE 112; RESP 18; TEMP 37.2; O2SAT 98; BMI 41.9
--- NOTE | 2021-01-02 15:18 | EKG12_ITS ---
Test Reason : LOWER EXTREMITY PAIN Blood Pressure : / mmHG Vent. Rate : 107 BPM Atrial Rate : 107 BPM P-R Int : 156 ms QRS Dur : 074 ms QT Int : 312 ms P-R-T Axes : 038 -01 -11 degrees QTc Int : 416 ms Sinus tachycardia Inferior infarct , age undetermined Abnormal ECG Confirmed by BRITNEY JOHNSON, HARPER ([id number]), film or videotape editor JACOB ROMANO ([id number]) on 01/03/2021 10:41:05 AM Referred By: LALITA Confirmed By:HARPER TAN MD
--- NOTE | 2021-01-02 15:26 | ED.VIS.LOWEX ---
HPI History of Present Illness Chief Complaint: Lower Extremity Injury Narrative Narrative: 40-year-old female presenting with left foot drainage. She states she has a history of diabetic ulcers had multiple amputations. She states she is currently following with the wound care clinic and her current food service supervisor is Nuris Iraheta. Patient states he started seeing her when her previous food service supervisor Jose Mon was out on leave. Patient states her last surgery was actually done by him. She has been following with her new food service supervisor and wound care for some time. Patient states he tried to call her food service supervisor and her wound care clinic today because she is noted drainage and swelling of the left foot which has already been partially amputated. Patient was seen yesterday in the ED by myself for flank pain along with fever and chills. Ultimately her work-up was negative. Her Covid testing was negative. Patient stated at that time that her foot was not bothering her and did not appear to be any different than usual. Overnight she stated it started to swell and become more erythematous. She states that she still having fevers nausea and vomiting. [facility] Medical History (Updated 01/02/21 @ 18:06 by Kolby SAHU) Amputated toe of left foot Amputated toe of right foot Amputation of left foot Anxiety and depression Diabetes Diabetes mellitus type II, controlled Diabetic neuropathy GERD (gastroesophageal reflux disease) Hypertension Morbid obesity Home Medications cholecalciferol (vitamin D3) [Vitamin D3] 2,000 unit PO DAILY 04/18/16 [History Last Taken 12/30/20] cyanocobalamin (vitamin B-12) 100 mcg PO DAILY 04/18/16 [History Last Taken 12/30/20] duloxetine 60 mg PO DAILY 04/18/16 [History Last Taken 12/30/20] lisinopril 10 mg PO DAILY 04/18/16 [History Last Taken 12/30/20] bupropion HCl 150 mg PO DAILY 06/12/17 [History Last Taken 12/30/20] omeprazole 40 mg PO DAILY 06/12/17 [History Last Taken 12/30/20] amitriptyline 10 mg PO QHS 01/01/21 [History Last Taken 12/30/20] insulin degludec [Tresiba U-100 Insulin] 10 unit SUBCUT DAILY 01/01/21 [History Last Taken 12/30/20] semaglutide [Ozempic] 0.25 mg SUBCUT WE 01/01/21 [History Last Taken 12/27/20] topiramate 25 mg PO BID 01/01/21 [History Last Taken Unknown] metformin 1,000 mg PO BID 01/02/21 [History Last Taken 12/30/20] Allergy/AdvReac Type Severity Reaction Status Date / Time gabapentin [From Gabarone] Allergy Angioedema Verified 01/02/21 15:02 Surgical History (Updated 01/02/21 @ 18:03 by Missy Arteaga) H/O amputation H/O: hysterectomy History of cholecystectomy History of tonsillectomy Social History (Updated 01/02/21 @ 18:02 by Kolby SAHU) household members: spouse, family, children and other details: Father in law Smoking Status: Never smoker alcohol intake: never substance use type: does not use ROS ROS ED Constitutional Constitutional ED: Reports chills and fever(s) Eyes Eyes: Denies blurry vision or change in vision ENT ENT ED: Denies rhinorrhea or sore throat Cardiovascular Cardiovascular: Denies chest pain or palpitations Respiratory/Chest Respiratory/Chest: Denies cough or dyspnea Gastrointestinal Gastrointestinal: Reports abdominal pain and nausea; Denies constipation, diarrhea or vomiting Genitourinary Genitourinary ED: Denies dysuria or hematuria Musculoskeletal Musculoskeletal: Reports myalgias; Denies arthralgias or neck pain Integumentary Reports abscess and rash Neurologic Neurologic: Reports headache(s) Psychiatric Psychiatric: Denies anxiety or depression EXAM Physical Exam Const Vital Signs: 01/02/21 15:00 01/02/21 15:50 Temperature 98.9 F Temperature Source Oral Pulse Rate 112 H Respiratory Rate 18 Blood Pressure 123/77 H Blood Pressure Mean 92 Pulse Ox 98 Oxygen Delivery Method Room Air Room Air Positive well nourished General Appearance ED: NAD HEENT Reports moist mucous membranes normocephalic Eyes PERRL Resp normal respiratory effort and clear to auscultation bilaterally Cardio regular rhythm Rate: tachycardic GI non-distended Palpation: soft Extremity Extremity Narrative: Increased swelling over the distal aspect of the stump on the left foot. There is drainage at the plantar surface. There is a small ulceration on the lateral aspect of the left foot which does not appear to be draining. There is no erythema over the dorsum of the foot which extends proximally. Neuro oriented x3 Sensorium / Orientation: alert Psych mental status grossly normal Skin Skin Narrative: Left foot wounds as described above MDM MDM MDM Narrative Medical decision making narrative: Patient presenting with foot pain which is worsened overnight. I did evaluate the left foot yesterday and it did not appear to be swollen or erythematous. Patient did have a fever yesterday but was complaining more of flank pain. Her work-up yesterday was ultimately negative. Given that she has tachycardia on arrival and is known to have a fever documented last evening and she states she continues to have them I did do a septic work-up. Patient has a leukocytosis of 12.9 which is changed from 10.1 overnight., Hemoglobin hematocrit are stable. Platelets 211. Patient is slightly hyponatremic at 128, potassium is normal, BUN/creatinine are normal. Lactic acid 1.4. PT/PTT are slightly elevated however INR is normal. Wound culture was taken of the foot. Patient states she has a history of MRSA so vancomycin and Zosyn were ordered. I did speak with her Dr. Mon regarding the infection. He did come and evaluate the patient. He did recommend admission. Discussed with the hospitalist who did accept admission. Patient will be admitted in stabilized condition. Cultures are pending. I did not check a urinalysis today because her UA was negative yesterday. Impression: 1. Left foot cellulitis 2. Sepsis Lab Data Attestation: I reviewed the patient's lab results. Labs: Laboratory Results - last 24 hr 01/02/21 01/02/21 01/02/21 15:40 15:40 15:40 WBC 12.9 H RBC 4.89 Hgb 12.7 Hct 39.8 MCV 81.4 MCH 26.0 L MCHC 31.9 L RDW Std Deviation 46.9 H RDW Coeff of Maria E 15.9 H Plt Count 211 MPV 10.1 Immature Gran % (Auto) 1.100 H Neut % (Auto) 78.3 H Lymph % (Auto) 10.8 L [place] % (Auto) 9.0 Eos % (Auto) 0.5 Baso % (Auto) 0.3 Absolute Neuts (auto) 10.1 H Absolute Lymphs (auto) 1.39 Nucleated RBC % 0 PT Cancelled INR Cancelled APTT Cancelled Sodium 128 L Potassium 4.7 Chloride 97 L Carbon Dioxide 22.0 Anion Gap 9 BUN 7 Creatinine 0.97 Estim Creat Clear Calc 85.31 Est GFR (MDRD) Af Amer 82 Est GFR (MDRD) Non-Af 68 BUN/Creatinine Ratio 7.2 L Glucose 180 H Lactic Acid Calcium 9.0 Total Bilirubin 1.00 AST 61 H ALT 37 Alkaline Phosphatase 83 Total Protein 8.5 H Albumin 3.1 L Globulin 5.4 H Albumin/Globulin Ratio 0.6 L 01/02/21 01/02/21 01/02/21 15:45 16:30 17:18 WBC RBC Hgb Hct MCV MCH MCHC RDW Std Deviation RDW Coeff of Maria E Plt Count MPV Immature Gran % (Auto) Neut % (Auto) Lymph % (Auto) [place] % (Auto) Eos % (Auto) Baso % (Auto) Absolute Neuts (auto) Absolute Lymphs (auto) Nucleated RBC % PT Cancelled 15.3 H INR Cancelled 1.3 APTT Cancelled 42.4 H Sodium Potassium Chloride Carbon Dioxide Anion Gap BUN Creatinine Estim Creat Clear Calc Est GFR (MDRD) Af Amer Est GFR (MDRD) Non-Af BUN/Creatinine Ratio Glucose Lactic Acid 1.4 Calcium Total Bilirubin AST ALT Alkaline Phosphatase Total Protein Albumin Globulin Albumin/Globulin Ratio Radiography Diagnostic Testing: Radiology Impression Chest X-Ray 01/02/21 16:16 IMPRESSION: Normal x-ray examination of the chest. Electronically Signed: Rashel Vinson MD at 16:27 EDT Tel , Service support , Foot X-Ray 01/02/21 16:16 IMPRESSION: Normal x-ray examination of the foot after transmetatarsal amputation. No radiographic evidence of osteomyelitis. Electronically Signed: Rashel Vinson MD at 16:28 EDT Tel , Service support , Discharge Plan Disposition Disposition: Acute Care Hospital [facility] Discharge Date/Time: 01/02/21 18:15
[2021-01-02] MEDS: Morphine 4 MG/ML Syringe IV (15:51)
[2021-01-02] MEDS: Ondansetron 4 MG/2 ML Vial IV (15:51)
--- NOTE | 2021-01-02 16:16 | RAD_ITS ---
STUDY: X-RAY - LEFT FOOT CLINICAL: Female, 40 years old. swelling TECHNIQUE: 3 view(s) of the foot. COMPARISON: None. FINDINGS: Normal talus, calcaneus, and tarsal bones. Normal visualized subtalar, talonavicular, calcaneocuboid, tarsal and tarsometatarsal articulations. Status post transmetatarsal amputation of the foot.. The soft tissue structures are unremarkable. RAD/Foot min 3 Views IMPRESSION: Normal x-ray examination of the foot after transmetatarsal amputation. No radiographic evidence of osteomyelitis. Electronically Signed: Rashel Vinson MD at 16:28 EDT Tel , Service support ,
--- NOTE | 2021-01-02 16:16 | RAD_ITS ---
STUDY: X-RAY CHEST REASON FOR EXAM: Female, 40 years old. fever TECHNIQUE: Single AP portable view of the chest. COMPARISON: 04/16/2019 FINDINGS: The lungs are clear and expanded. There is no demonstrated pleural abnormality. Normal size heart. Normal mediastinum and thien. Normal visualized pulmonary arteries. Normal visualized aortic arch and descending thoracic aorta. Normal visualized thoracic spine. Normal visualized ribs, clavicles, and shoulders. There is no demonstrated abnormality of the visualized soft tissue structures of the upper abdomen. RAD/Chest 1 View (Portable) IMPRESSION: Normal x-ray examination of the chest. Electronically Signed: Rashel Vinson MD at 16:27 EDT Tel , Service support ,
[2021-01-02 16:20] LABS: Absolute Lymphocyte Count 1.39 X10^3/uL (0.83-4.51); Absolute Neutrophil Count 10.1 X10^3/uL (2.0-7.7); Basophil# 0.04 X10^3/uL; Basophil% 0.3 % (0-1); Eosinophil# 0.06 X10^3/uL; Eosinophils% 0.5 % (0-5); Hematocrit 39.8 % (37-47); Hemoglobin 12.7 g/dL (12.0-15.0); Lymphocyte # 1.39 X10^3/ul (0.83-4.51); Lymphocyte % 10.8 % (19-41); Mean Corp Hgb Conc 31.9 g/dL (32-36); Mean Corpuscular Volume 81.4 fL (81-99); Mean Platelet Vol. 10.1 fl (6.2-12.0); Monocyte# 1.17 X10^3/uL; NRBC Flagged by Analyzer 0 % (0-5); Neutrophil # 10.13 X10^3/uL (2.7-7.7); Neutrophil % 78.3 % (47-70); Platelet Count 211 K/mm3 (150-450); RBC Distribution Width CV 15.9 % (11.6-14.6); RBC Distribution Width SD 46.9 fl (35.1-43.9); Red Blood Count 4.89 M/mm3 (4.2-5.4); White Blood Count 12.9 K/mm3 (4.4-11.0)
[2021-01-02 16:27] LABS: ALB/GLOB Ratio 0.6 RATIO (0.9-2.4); AST(SGOT) 61 U/L (15-37); Alanine Aminotransfer ALT/SGPT 37 U/L (13-56); Albumin, Serum 3.1 g/dL (3.2-5.0); Alkaline Phosphatase 83 U/L (45-117); Anion Gap 9 (5-15); BUN 7 mg/dL (7-18); BUN/Creat Ratio 7.2 RATIO (10-20); Chloride 97 mmol/L (98-107); Creatinine, Serum 0.97 mg/dL (0.55-1.02); EST Glomerular Filtration Rate 68 mL/min (>60); Est Glom Filt Rate - Afr Amer 82 mL/min (>60); Estimated Creatinine Clearance 85.31 ml/min; Globulin 5.4 g/dL (2.2-4.2); Glucose 180 mg/dL (74-106); Potassium 4.7 mmol/L (3.5-5.1); Protein, Total 8.5 g/dL (6.4-8.2); Sodium Level 128 mmol/L (136-145)
[2021-01-02 16:33] LABS: Lactic Acid 1.4 mmol/L (0.4-1.9)
[2021-01-02 17:40] LABS: International Normalized Ratio 1.3; Prothrombin Time (Protime)PT. 15.3 SECONDS (11.7-14.9)
[2021-01-02 17:41] LABS: Partial Thromboplast Time 42.4 Seconds (24.1-36.2)
--- NOTE | 2021-01-02 17:47 | HP.PCM.HOS_ITS ---
Documented by User: Kolby SAHU 01/02/21 18:20 HPI - General General Date of Admission: 01/02/21 HPI Narrative Patient patient is a 40-year-old female presents to ED with [address] [place] [address] on 03/2021 with a chief complaint of fever and left draining foot wound which has already been partially amputated. For the past 3 days patient has had an ongoing fever that has been getting progressively worse. Patient presented to the ED on 01/01 with the same symptoms and was assessed for a bladder and kidney infection, which came up negative. Patient represents today with symptoms described as above. Review of systems was positive for fevers, chills, nausea, diffuse body aches. Patient denies difficulty urinating or defecating. Denies chest pain, shortness of breath, hemoptysis, sputum production, lower extremity pain/swelling. Of note, patient follows with operator receptionist Dr. Jose Mon for LLE wond managment. Patient is tachycardic at a rate of 112 bpm. Past medical history is significant for multiple surgeries on the left lower extremity and di abetes. Other vital signs stable and patient is afebrile. CBC demonstrates a mildly elevated leukocytosis 13,000, which was not patient on present evaluation yesterday. BMP demonstrates hyponatremia at 120. Urinalysis from evaluation on unremarkable. X-ray of the left foot demonstrated a normal foot after transmetatarsal amputation and showed no evidence of osteomyelitis. CT of the abdomen and pelvis obtained on 01/01 was overall unremarkable and only demonstrated mild hepatosplenomegaly. Patient was given morphine, Zofran and fluids in the ED. [facility] Medical History (Updated 01/02/21 @ 18:06 by Kolby SAHU) Amputated toe of left foot Amputated toe of right foot Amputation of left foot Anxiety and depression Diabetes Diabetes mellitus type II, controlled Diabetic neuropathy GERD (gastroesophageal reflux disease) Hypertension Morbid obesity Home Medications cholecalciferol (vitamin D3) [Vitamin D3] 2,000 unit PO DAILY 04/18/16 [History Last Taken 12/30/20] cyanocobalamin (vitamin B-12) 100 mcg PO DAILY 04/18/16 [History Last Taken 12/30/20] duloxetine 60 mg PO DAILY 04/18/16 [History Last Taken 12/30/20] lisinopril 10 mg PO DAILY 04/18/16 [History Last Taken 12/30/20] bupropion HCl 150 mg PO DAILY 06/12/17 [History Last Taken 12/30/20] omeprazole 40 mg PO DAILY 06/12/17 [History Last Taken 12/30/20] amitriptyline 10 mg PO QHS 01/01/21 [History Last Taken 12/30/20] insulin degludec [Tresiba U-100 Insulin] 10 unit SUBCUT DAILY 01/01/21 [History Last Taken 12/30/20] semaglutide [Ozempic] 0.25 mg SUBCUT WE 01/01/21 [History Last Taken 12/27/20] topiramate 25 mg PO BID 01/01/21 [History Last Taken Unknown] metformin 1,000 mg PO BID 01/02/21 [History Last Taken 12/30/20] Allergy/AdvReac Type Severity Reaction Status Date / Time gabapentin [From Gabarone] Allergy Angioedema Verified 01/02/21 15:02 Family History (Updated 01/02/21 @ 19:[address] Praveen Cui MD) Mother Diabetes CVA (cerebral vascular accident) Father Hypertension Surgical History (Updated 01/02/21 @ 18:03 by Missy Arteaga) H/O amputation H/O: hysterectomy History of cholecystectomy History of tonsillectomy Social History (Updated 01/02/21 @ 18:02 by Kolby SAHU) household members: spouse, family, children and other details: Father in law Smoking Status: Never smoker alcohol intake: never substance use type: does not use ROS Constitutional Constitutional: Reports chills, fatigue, fever(s), malaise and weakness; Denies anorexia, change in weight, night sweats or other Eyes Eyes: Denies blurry vision, change in eye color, change in vision, discharge from eye(s), double vision, erythema, eye pain, loss of vision or other ENT HEENT: Reports headache(s); Denies abnormal hearing, dysphagia, ear pain, epi staxis, hearing loss, nasal congestion, nasal discharge, post nasal drip, sinus pressure, sore throat or other Cardiovascular Cardiovascular: Denies chest pain, claudication, dyspnea on exertion, edema, lightheadedness, orthopnea, palpitations, paroxysmal nocturnal dyspnea, rapid heart rate, syncope or other Respiratory/Chest Respiratory/Chest: Denies cough, dyspnea, excessive phlegm production, hemoptysis, productive cough, shortness of breath at rest, shortness of breath with exertion, wheezing or other Gastrointestinal Gastrointestinal: Reports nausea; Denies abdominal pain, coffee ground emesis, constipation, diarrhea, dyspepsia, hematemesis, hematochezia, loose stools, melena, vomiting or other Genitourinary Genitourinary: Denies burning urination, difficulty urinating, dysuria, hematuria, nocturia, urinary frequency, urinary hesitancy, urinary incontinence, urinary urgency or other Musculoskeletal Musculoskeletal: Reports back pain and other Neurologic Neurologic: Reports headache(s); Denies abnormal gait, abnormal speech, confusion, disequilibrium, dizziness, focal weakness, numbness, paresthesias, seizure-like activity, seizures, syncope, tingling, tremor(s) or other Psychiatric Psychiatric: Denies anxiety, depression, homicidal ideation, suicidal ideation or other Endocrine Endocrinology: Denies change in body appearance, cold intolerance, excessive sweating, heat intolerance, polydipsia, polyuria or other Hematologic/Lymphatic Hematologic/Lymphatic: Denies anemia, easy bleeding, easy bruising, lymphadenopathy or other Allergic/Immunologic Allergic/Immunologic: Denies rhinitis, hives, eczemia, asthma or other Vital Signs Vital Signs Vital Signs: 01/02/21 15:00 01/02/21 15:50 Temperature 98.9 F Temperature Source Oral Pulse Rate 112 H Respiratory Rate 18 Blood Pressure 123/77 H Blood Pressure Mean 92 Pulse Ox 98 Oxygen Delivery Method Room Air Room Air Weight Weight: 300 lb 11 oz Body Mass Index (BMI) 41.9 Physical Exam Const alert and oriented x3 General Appearance: cooperative, ill appearing and diaphoretic Nutritional Appearance: morbidly obese HEENT normocephalic, head/scalp atraumatic, hearing grossly normal bilaterally and moist oral mucous membranes Eyes EOMs intact bilaterally and conjunctivae normal Neck no lymphadenopathy, supple and no JVD Resp normal respiratory effort, no retractions, no use of accessory muscles and clear to auscultation bilaterally Cardio regular rate, regular rhythm, no murmurs and no JVD GI normal to inspection, nondistended, normoactive bowel sounds, soft to palpation and non-tender GI Narrative: Patient endorses pain about the back and flanks. Extremity normal to inspection, full ROM and no clubbing, cyanosis or edema Skin no rashes or lesions noted, no wounds and no jaundice Neuro CN's II-XII intact bilaterally Psych affect normal Results Lab / Micro Data Result Diagrams: 01/02/21 15:40 01/02/21 15:40 Labs: Laboratory Results - last 24 hr 01/02/21 01/02/21 01/02/21 15:40 15:40 15:40 WBC 12.9 H RBC 4.89 Hgb 12.7 Hct 39.8 MCV 81.4 MCH 26.0 L MCHC 31.9 L RDW Std Deviation 46.9 H RDW Coeff of Maria E 15.9 H Plt Count 211 MPV 10.1 Immature Gran % (Auto) 1.100 H Neut % (Auto) 78.3 H Lymph % (Auto) 10.8 L [place] % (Auto) 9.0 Eos % (Auto) 0.5 Baso % (Auto) 0.3 Absolute Neuts (auto) 10.1 H Absolute Lymphs (auto) 1.39 Nucleated RBC % 0 PT Cancelled INR Cancelled APTT Cancelled Sodium 128 L Potassium 4.7 Chloride 97 L Carbon Dioxide 22.0 Anion Gap 9 BUN 7 Creatinine 0.97 Estim Creat Clear Calc 85.31 Est GFR (MDRD) Af Amer 82 Est GFR (MDRD) Non-Af 68 BUN/Creatinine Ratio 7.2 L Glucose 180 H Lactic Acid Calcium 9.0 Total Bilirubin 1.00 AST 61 H ALT 37 Alkaline Phosphatase 83 Total Protein 8.5 H Albumin 3.1 L Globulin 5.4 H Albumin/Globulin Ratio 0.6 L 01/02/21 01/02/21 01/02/21 15:45 16:30 17:18 WBC RBC Hgb Hct MCV MCH MCHC RDW Std Deviation RDW Coeff of Maria E Plt Count MPV Immature Gran % (Auto) Neut % (Auto) Lymph % (Auto) [place] % (Auto) Eos % (Auto) Baso % (Auto) Absolute Neuts (auto) Absolute Lymphs (auto) Nucleated RBC % PT Cancelled 15.3 H INR Cancelled 1.3 APTT Cancelled 42.4 H Sodium Potassium Chloride Carbon Dioxide Anion Gap BUN Creatinine Estim Creat Clear Calc Est GFR (MDRD) Af Amer Est GFR (MDRD) Non-Af BUN/Creatinine Ratio Glucose Lactic Acid 1.4 Calcium Total Bilirubin AST ALT Alkaline Phosphatase Total Protein Albumin Globulin Albumin/Globulin Ratio Radiology Impression Chest X-Ray 01/02/21 16:16 IMPRESSION: Normal x-ray examination of the chest. Electronically Signed: Rashel Vinson MD at 16:27 EDT Tel , Service support , Foot X-Ray 01/02/21 16:16 IMPRESSION: Normal x-ray examination of the foot after transmetatarsal amputation. No radiographic evidence of osteomyelitis. Electronically Signed: Rashel Vinson MD at 16:28 EDT Tel , Service support , Assessment & Plan Assessment/Plan (1) Anxiety and depression: (2) GERD (gastroesophageal reflux disease): QUALIFIERS: Esophagitis presence: esophagitis presence not specified Qualified Code(s): K21.9 - Gastro-esophageal reflux disease without esophagitis (3) HTN (hypertension): QUALIFIERS: Hypertension type: essential hypertension Qualified Code(s): I10 - Essential (primary) hypertension (4) Morbid obesity: (5) Diabetic foot ulcer: QUALIFIERS: Diabetes mellitus type: type 2 Diabetic foot ulcer location: toe Laterality: right Non-pressure ulcer stage: with fat layer exposed Qualified Code(s): E11.621 - Type 2 diabetes mellitus with foot ulcer; L97.512 - Non-pressure chronic ulcer of other part of right foot with fat layer exposed; L97.512 - Non-pressure chronic ulcer of other part of right foot with fat layer exposed; L97.512 - Non-pressure chronic ulcer of other part of right foot with fat layer exposed; L97.512 - Non-pressure chronic ulcer of other part of right foot with fat layer exposed (6) Right foot drainage: (7) Right foot redness: (8) Diabetes mellitus type II, controlled: QUALIFIERS: Diabetes mellitus complication status: with unspecified complications Diabetes mellitus nursing home insulin use: without 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 Patient meets SIRS criteria for sepsis: Tachycardia at a rate of 112, elevated leukocytosis at 13,000 WBCs in the setting of a draining left foot wound. Patient's operator receptionist Dr. Mon was in the room at the time of my evaluation and would like a MRI of the left lower extremity to assess for osteomyelitis. Dr. Mon believes the patient has good blood flow at this time and sees no need for arterial studies. Plan; [facility], MRI of the left lower extremity, BMP and CBC in a.m., initiate vancomycin and Zosyn, wound and blood cultures ordered, IV fluids, podiatry consult ordered for Dr. Mon. 2) DM2 w/ Neuropathy Complicates #1. Most recent hemoglobin A1c was completed 2017 and was 5.7. Plan; slight scale insulin ordered, 15 units of NPH ordered bedside glucose testing ordered, calorie controlled diet ordered, continue topiramate and amitriptyline for neuropathy. 3) HTN Stable, continue home lisinopril. 4) GERD Continue PPI. 5) anxiety/depression Continue bupropion and duloxetine. 6) morbid obesity Weight is 300 pounds with a BMI of 41.9. Plan; weight loss advised, calorie controlled diet ordered. DVT prophylaxis - Heparin CODE STATUS: Full code Patient seen by Kolby De León PA-C, under the supervision of Dr. Cui. Documented by User: Dr. Praveen Cui MD 01/02/21 19:17 HPI - General General Date of Admission: 01/02/21 [facility] Medical History (Updated 01/02/21 @ 18:06 by Kolby SAHU) Amputated toe of left foot Amputated toe of right foot Amputation of left foot Anxiety and depression Diabetes Diabetes mellitus type II, controlled Diabetic neuropathy GERD (gastroesophageal reflux disease) Hypertension Morbid obesity Home Medications cholecalciferol (vitamin D3) [Vitamin D3] 2,000 unit PO DAILY 04/18/16 [History Last Taken 12/30/20] cyanocobalamin (vitamin B-12) 100 mcg PO DAILY 04/18/16 [History Last Taken 12/30/20] duloxetine 60 mg PO DAILY 04/18/16 [History Last Taken 12/30/20] lisinopril 10 mg PO DAILY 04/18/16 [History Last Taken 12/30/20] bupropion HCl 150 mg PO DAILY 06/12/17 [History Last Taken 12/30/20] omeprazole 40 mg PO DAILY 06/12/17 [History Last Taken 12/30/20] amitriptyline 10 mg PO QHS 01/01/21 [History Last Taken 12/30/20] insulin degludec [Tresiba U-100 Insulin] 10 unit SUBCUT DAILY 01/01/21 [History Last Taken 12/30/20] semaglutide [Ozempic] 0.25 mg SUBCUT WE 01/01/21 [History Last Taken 12/27/20] topiramate 25 mg PO BID 01/01/21 [History Last Taken Unknown] metformin 1,000 mg PO BID 01/02/21 [History Last Taken 12/30/20] Allergy/AdvReac Type Severity Reaction Status Date / Time gabapentin [From Gabarone] Allergy Angioedema Verified 01/02/21 15:02 Family History (Updated 01/02/21 @ 19:[address] Praveen Cui MD) Mother Diabetes CVA (cerebral vascular accident) Father Hypertension Surgical History (Updated 01/02/21 @ 18:03 by Missy Artaega) H/O amputation H/O: hysterectomy History of cholecystectomy History of tonsillectomy Social History (Updated 01/02/21 @ 18:02 by Kolby SAHU) household members: spouse, family, children and other details: Father in law Smoking Status: Never smoker alcohol intake: never substance use type: does not use Results Lab / Micro Data Result Diagrams: 01/02/21 15:40 01/02/21 15:40 Charges/Coding Addendum Addendum: Dr. Cui: I personally reviewed the chart and examined the patient, and agree with the above findings. 40-year-old presents from home with left foot drainage consistent with a diabetic ulcer. She had presented to the hospital yesterday but was complaining more of back pain and flank pain and the ED physician worked her up more for a kidney stone. She said that at the time she was having the same foot issues but she was more concerned about her headache and her flank pain, all of which started on Friday. She has a slight white count of 12.9 and she was only temporarily tachycardic. Will provide with IV fluids as well as vancomycin and Zosyn for the infection. Podiatry will evaluate with an MRI to determine whether or not she has osteomyelitis and to take her to the OR. Visit Charges Inpatient E&M: 92769 Init Hosp L3
--- NOTE | 2021-01-02 17:48 | PCM.HP.STD ---
HPI - General General Date of Admission: 01/02/21 HPI Narrative QUINTIN COBOS, is a [address] [facility] for cellulitis of left foot. patient has ulcertion of left foot that has been present for many years. she had been treated by me in the past with local wound care, debridement and PRANAV. She had been transferred to Dr. Iraheta as I had been off on parental leave. she has been treated recently by Dr. Nuris Iraheta in [place] and has been receiving ultrasonic debridement and the wound has been improving. she had been offered revised tma of the left foot but since instituting the ultrasonic debridement, she has improved. she states that over the last few days, she has been experiencing right sided flank pain. she went to the emergency room last night and had ct scan that was unremarkable. she was discharged home. this morning, she woke up and her left foot was swollen, red and painful. she presented to the emergency room and she has wbc >12. she is going to be admitted to the hospital. she has started antibiotics and I am seeing patient in the emergency room with ER staff and admitting staff. [facility] Medical History (Updated 01/02/21 @ 18:06 by Kolby SAHU) Amputated toe of left foot Amputated toe of right foot Amputation of left foot Anxiety and depression Diabetes Diabetes mellitus type II, controlled Diabetic neuropathy GERD (gastroesophageal reflux disease) Hypertension Morbid obesity Home Medications cholecalciferol (vitamin D3) [Vitamin D3] 2,000 unit PO DAILY 04/18/16 [History Last Taken 12/30/20] cyanocobalamin (vitamin B-12) 100 mcg PO DAILY 04/18/16 [History Last Taken 12/30/20] duloxetine 60 mg PO DAILY 04/18/16 [History Last Taken 12/30/20] lisinopril 10 mg PO DAILY 04/18/16 [History Last Taken 12/30/20] bupropion HCl 150 mg PO DAILY 06/12/17 [History Last Taken 12/30/20] omeprazole 40 mg PO DAILY 06/12/17 [History Last Taken 12/30/20] amitriptyline 10 mg PO QHS 01/01/21 [History Last Taken 12/30/20] insulin degludec [Tresiba U-100 Insulin] 10 unit SUBCUT DAILY 01/01/21 [History Last Taken 12/30/20] semaglutide [Ozempic] 0.25 mg SUBCUT WE 01/01/21 [History Last Taken 12/27/20] topiramate 25 mg PO BID 01/01/21 [History Last Taken Unknown] metformin 1,000 mg PO BID 01/02/21 [History Last Taken 12/30/20] Allergy/AdvReac Type Severity Reaction Status Date / Time gabapentin [From Gabarone] Allergy Angioedema Verified 01/02/21 15:02 Surgical History (Updated 01/02/21 @ 18:03 by Missy Arteaga) H/O amputation H/O: hysterectomy History of cholecystectomy History of tonsillectomy Social History (Updated 01/02/21 @ 18:02 by Kolby SAHU) household members: spouse, family, children and other details: Father in law Smoking Status: Never smoker alcohol intake: never substance use type: does not use ROS Constitutional Constitutional: Reports body ache(s), difficulty sleeping, excessive sweating and fever(s) Respiratory/Chest Respiratory/Chest: Denies systems reviewed and no addt'l complaints, except as documented, as per HPI, none, change in mental status, change in phlegm color, chest congestion, chest tightness, cough, difficulty clearing secretions, dry cough, dusky skin, dyspnea, dyspnea on exertion, excessive phlegm production, hemoptysis, hoarseness, inability to speak, mouth breathing, nail bed cyanosis, non-rest sleep EDS, pain on inspiration, pain with cough, pale skin, keesha-oral cyanosis, portable oxygen @ home, productive cough, red skin, restlessness, shortness of breath at rest, shortness of breath with exertion, snoring, stridor, tachypnea, wheezing, witnessed apneas, breast mass, breast pain, breast skin changes, breast swelling, change in breast shape, nipple discharge or other Integumentary Integumentary: Reports non-healing lesions Vital Signs Vital Signs Vital Signs: 01/02/21 15:00 01/02/21 15:50 Temperature 98.9 F Temperature Source Oral Pulse Rate 112 H Respiratory Rate 18 Blood Pressure 123/77 H Blood Pressure Mean 92 Pulse Ox 98 Oxygen Delivery Method Room Air Room Air Weight Weight: 136.39 kg Body Mass Index (BMI) 41.9 Physical Exam Narrative patient is alert and orientated x 3. She does not appear in any distress vascular: DP and PT pulses are palpable to the left lower extremity. CFT is brisk to stump of b/l lower extremity. + redness present to left foot. There is swelling of left foot. no calf pain present. Neuro: protective sensation is absent b/l. m/s: there is b/l tma. ROM of b/l lower extremity is full without equinus derm: there is small wound to plantar left forefoot that measures 4 mm x 5 mm. this wound was evaluated under sterile conditions. there is very superficial collection of purulent drainage which was expressed and irrigated. there is undermining medially and distally. no undermining proximally or laterally. tiny eschar to the left lateral fibula. no signs of infection to lateral fibula. no wounds to right foot. xrays of left foot reviewed. there is no evidence of osteomyelitis. no gas in soft-tissue. Results Lab / Micro Data Result Diagrams: 01/02/21 15:40 01/02/21 15:40 Labs: Laboratory Results - last 24 hr 01/02/21 01/02/21 01/02/21 15:40 15:40 15:40 WBC 12.9 H RBC 4.89 Hgb 12.7 Hct 39.8 MCV 81.4 MCH 26.0 L MCHC 31.9 L RDW Std Deviation 46.9 H RDW Coeff of Maria E 15.9 H Plt Count 211 MPV 10.1 Immature Gran % (Auto) 1.100 H Neut % (Auto) 78.3 H Lymph % (Auto) 10.8 L [place] % (Auto) 9.0 Eos % (Auto) 0.5 Baso % (Auto) 0.3 Absolute Neuts (auto) 10.1 H Absolute Lymphs (auto) 1.39 Nucleated RBC % 0 PT Cancelled INR Cancelled APTT Cancelled Sodium 128 L Potassium 4.7 Chloride 97 L Carbon Dioxide 22.0 Anion Gap 9 BUN 7 Creatinine 0.97 Estim Creat Clear Calc 85.31 Est GFR (MDRD) Af Amer 82 Est GFR (MDRD) Non-Af 68 BUN/Creatinine Ratio 7.2 L Glucose 180 H Lactic Acid Calcium 9.0 Total Bilirubin 1.00 AST 61 H ALT 37 Alkaline Phosphatase 83 Total Protein 8.5 H Albumin 3.1 L Globulin 5.4 H Albumin/Globulin Ratio 0.6 L 06/29/21 06/29/21 06/29/21 15:45 16:30 17:18 WBC RBC Hgb Hct MCV MCH MCHC RDW Std Deviation RDW Coeff of Maria E Plt Count MPV Immature Gran % (Auto) Neut % (Auto) Lymph % (Auto) [place] % (Auto) Eos % (Auto) Baso % (Auto) Absolute Neuts (auto) Absolute Lymphs (auto) Nucleated RBC % PT Cancelled 15.3 H INR Cancelled 1.3 APTT Cancelled 42.4 H Sodium Potassium Chloride Carbon Dioxide Anion Gap BUN Creatinine Estim Creat Clear Calc Est GFR (MDRD) Af Amer Est GFR (MDRD) Non-Af BUN/Creatinine Ratio Glucose Lactic Acid 1.4 Calcium Total Bilirubin AST ALT Alkaline Phosphatase Total Protein Albumin Globulin Albumin/Globulin Ratio Radiology Impression Chest X-Ray 01/02/21 16:16 IMPRESSION: Normal x-ray examination of the chest. Electronically Signed: Rashel Vinson MD at 16:27 EDT Tel , Service support , Foot X-Ray 01/02/21 16:16 IMPRESSION: Normal x-ray examination of the foot after transmetatarsal amputation. No radiographic evidence of osteomyelitis. Electronically Signed: Rashel Vinson MD at 16:28 EDT Tel , Service support , Assessment & Plan Assessment/Plan (1) Diabetic foot ulcer: QUALIFIERS: Diabetes mellitus type: type 2 Diabetic foot ulcer location: toe Laterality: right Non-pressure ulcer stage: with fat layer exposed Qualified Code(s): E11.621 - Type 2 diabetes mellitus with foot ulcer; L97.512 - Non-pressure chronic ulcer of other part of right foot with fat layer exposed; L97.512 - Non-pressure chronic ulcer of other part of right foot with fat layer exposed; L97.512 - Non-pressure chronic ulcer of other part of right foot with fat layer exposed; L97.512 - Non-pressure chronic ulcer of other part of right foot with fat layer exposed PLAN: patient was examined today at bedside in presence of ER staff. on exam, she does have very small ulceration but upon further inspection, there appears to be superficial abscess. this wound under sterile technique was cleansed and irrigated. I do agree with admission and starting of IV antibiotics. xrays at this time show no evidence of osteomyelitis. I am going to recommend MRI to access for osteomyelitis of proximal tma and/or deep abscess. if any residual osteomyelitis present, may require more proximal amputation. I informed patient that if a more proximal amputation is required, it will alter the biomechanics of her foot. she understands this. We also discussed BKA as an option. she is not interested in bka. I irrigated the foot at bedside. will start IV antibiotics. await mri. the wound was dressed with betadine, 4x4 guaze and kerlix. she is to remain nwb to left foot. Charges/Coding Visit Charges Office Visits / Consults: [id number] OV L3 New
[2021-01-02 17:58] VITALS: BP 132/67; PULSE 100; RESP 16; TEMP 37.2; O2SAT 99
[2021-01-02 18:18] VITALS: BMI 42.4
[2021-01-02 18:27] VITALS: BP 117/64; PULSE 92; RESP 16; TEMP 37.1; O2SAT 100
--- NOTE | 2021-01-02 18:30 | MRI_ITS ---
STUDY: MRI LEFT FOREFOOT WITH AND WITHOUT CONTRAST REASON FOR EXAM: Diabetic foot infection at [facility], multiple prior surgeries. TECHNIQUE: Standardized fat and water weighted pulse sequences were obtained in all 3 orthogonal planes, post contrast administration. IV 27ml Dotarem was administered for the contrast portion of the examination. COMPARISON: Radiographs 01/02/2021. FINDINGS: There is amputation of the first digit at the level of the proximal metatarsal diaphysis with mild bone edema at the plantar aspect of the remaining first metatarsal (inversion recovery sagittal images 10-12) with contrast enhancement (T1 sagittal images 11, 12) worrisome for osteomyelitis. There is a fluid collection at the stump of the amputated first digit extending to the plantar aspect of the remaining first metatarsal (inversion recovery sagittal images 7-11) measuring 2.0 x 2.4 x 3.5 cm (AP x transverse x length) with contrast enhancement of the wall consistent with an abscess (postcontrast T1 sagittal images 8-10). There is edema in the subcutis adipose space of the distal amputated foot with contrast enhancement consistent with cellulitis. There is amputation of the second through fifth digits at the level of the metatarsal diaphyses with myositis ossificans between the third through fifth metatarsals (T2 series 8 images 10-17). There is no bone edema of the residual second through fifth metatarsals to indicate osteomyelitis. There is arthrosis with chondral thinning and small marginal osteophytes of the fourth and fifth tarsometatarsal articulations (T1 sagittal images 22-25). Normal first through third tarsometatarsal articulations. There is slight bone edema in the plantar aspect of the cuboid (inversion recovery sagittal image 20), likely a stress phenomenon. Otherwise, unremarkable tarsal bones of the midfoot. There is atrophy with fat replacement of the intrinsic muscles of the foot (T1 sagittal images 12-23) consistent with peripheral neuropathy. There is fluid in the flexor tendon sheaths at the level of the midfoot/proximal forefoot (inversion recovery series 7 images 6-21) with adjacent contrast enhancement (postcontrast T1 series 10 images 10-22) consistent with tenosynovitis. There is mild tenosynovitis with contrast enhancement of the peroneal tendons near the level of the peroneal tubercle (T1 series 10 images 1, 2). MRI/Lower Ext No Joint W/WO Cont IMPRESSION: Soft tissue abscess at the stump of the amputated first digit with mild bone edema at the plantar aspect of the remaining first metatarsal worrisome for osteomyelitis. Flexor tenosynovitis. Mild peroneal tenosynovitis. Amputation of the second through fifth digits at the metatarsal diaphyses with myositis ossificans. 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 Peripheral neuropathy. Electronically Signed: Asif Miranda MD at 7:47 EDT Tel , Service support ,
--- NOTE | 2021-01-02 20:08 | PCM.RX.CS ---
Consult Pharmacy has been consulted to manage selected antiobiotic: Vancomycin Type of Consult: New start Suspected Infection: Skin/Soft tissue Labs: Sodium 128 mmol/L (136-145) L 01/02/21 15:40 Potassium 4.7 mmol/L (3.5-5.1) 01/02/21 15:40 Chloride 97 mmol/L (98-107) L 01/02/21 15:40 Carbon Dioxide 22.0 mmol/L (21.0-32.0) 01/02/21 15:40 Anion Gap 9 (5-15) 01/02/21 15:40 BUN 7 mg/dL (7-18) 01/02/21 15:40 Creatinine 0.97 mg/dL (0.55-1.02) 01/02/21 15:40 Est GFR (MDRD) Af Amer 82 mL/min (>60) 01/02/21 15:40 Est GFR (MDRD) Non-Af 68 mL/min (>60) 01/02/21 15:40 BUN/Creatinine Ratio 7.2 RATIO (10-20) L 01/02/21 15:40 Glucose 180 mg/dL (74-106) H 01/02/21 15:40 Weight used for dosin kg Estimated Creatinine Clearance: 117mls/min Goal Trough: 15-20 mcg/mL Pharmacy Plan for Drug Dosing: NEW START IV VANCOMYCIN Consulting Physician: See Indication: Left Foot Diabetic Ulcer Goal Trough: 15-20 SrCr: 0.97 CrCl: 117mls/min (using an adjusted body weight of 98kg) Comments: Pt to receive a 25mg/kg loading dose of Vancomycin 2000mg 01/02/21 at 2000 Vancomcyin Dose: based off of pts weight and renal function, recommend an initial dose of Vancomycin 1500mg IV q8h starting 01/03/21 at 0400. Trough before the 4th total dose Pending Level: 01/03/21 at 1930 Pharmacy Service will continue to monitor and adjust dosing as required. Follow-Up Labs: Trough Vancomycin - 01/03/21 at 1930
[2021-01-02] MEDS: 0.9% Normal Saline 1,000 ML 100 ML IV (20:19)
[2021-01-02] MEDS: Insulin Lispro 100 UNIT/ML INSULN.PEN SC (22:34)
[2021-01-02] MEDS: Topiramate 25 MG Tablet PO (22:34)
[2021-01-02] MEDS: Amitriptyline 10 MG Tablet PO (22:38)
[2021-01-02 22:50] LABS: Bedside Glucose 161 mg/dL (70-110)
[2021-01-03 00:27] VITALS: BP 111/58; PULSE 87; RESP 16; TEMP 37.2; O2SAT 98
[2021-01-03 06:27] VITALS: BP 111/58; PULSE 74; RESP 16; TEMP 36.7; O2SAT 99
[2021-01-03 06:31] LABS: Absolute Neutrophil Count 6.7 X10^3/uL (2.0-7.7); Basophil# 0.03 X10^3/uL; Basophil% 0.3 % (0-1); Eosinophil# 0.11 X10^3/uL; Eosinophils% 1.1 % (0-5); Hematocrit 34.3 % (37-47); Hemoglobin 10.7 g/dL (12.0-15.0); Lymphocyte % 17.5 % (19-41); Mean Corp Hgb Conc 31.2 g/dL (32-36); Mean Corpuscular Hgb 25.7 pg (27.0-32.0); Mean Corpuscular Volume 82.5 fL (81-99); Mean Platelet Vol. 9.5 fl (6.2-12.0); Monocyte# 1.04 X10^3/uL; Monocyte% 10.7 % (0-10); NRBC Flagged by Analyzer 0 % (0-5); Neutrophil # 6.74 X10^3/uL (2.7-7.7); Neutrophil % 69.4 % (47-70); Platelet Count 195 K/mm3 (150-450); RBC Distribution Width CV 15.8 % (11.6-14.6); RBC Distribution Width SD 47.2 fl (35.1-43.9); Red Blood Count 4.16 M/mm3 (4.2-5.4); White Blood Count 9.7 K/mm3 (4.4-11.0)
[2021-01-03] MEDS: Insulin Lispro 100 UNIT/ML INSULN.PEN SC ×2 (06:35→12:47)
[2021-01-03 06:53] LABS: Anion Gap 6 (5-15); BUN 7 mg/dL (7-18); BUN/Creat Ratio 8.1 RATIO (10-20); Calcium,Total 8.4 mg/dL (8.5-10.1); Chloride 104 mmol/L (98-107); Creatinine, Serum 0.86 mg/dL (0.55-1.02); EST Glomerular Filtration Rate 77 mL/min (>60); Est Glom Filt Rate - Afr Amer 93 mL/min (>60); Estimated Creatinine Clearance 96.22 ml/min; Glucose 189 mg/dL (74-106); Potassium 3.4 mmol/L (3.5-5.1); Sodium Level 136 mmol/L (136-145)
--- NOTE | 2021-01-03 07:12 | PCM.PROGNOTE ---
Subjective Subjective Patient seen at bedside this morning. she feels much better. she actually requesting to go home. she is not really interested in surgery at this time. she would prefer to be discharged and continue with care at [facility] and have both myself and my colleague Dr. Iraheta communicate what next steps would be. patient denies any n/v/f/c. Objective Data Objective Data Vital Signs: Vital Signs Temp Pulse Resp BP Pulse Ox 98.0 F 74 16 111/58 L 99 01/03/21 06:27 01/03/21 06:27 01/03/21 06:27 01/03/21 06:27 01/03/21 06:27 Oxygen Delivery Method Room Air Weight: 138.074 kg Body Mass Index (BMI) 42.4 Intake & Output: Intake and Output for Last 24 Hours 01/01/21 01/02/21 01/03/21 23:59 23:59 23:59 Intake Total 1040 / 1440 750 / 750 Output Total 300 / 300 Balance 1040 / 1440 450 / 450 Lab / Micro Data Result Diagrams: 01/03/21 06:04 01/03/21 06:04 Labs: Laboratory Results - last 24 hr 01/02/21 01/02/21 01/02/21 15:40 15:40 15:40 WBC 12.9 H RBC 4.89 Hgb 12.7 Hct 39.8 MCV 81.4 MCH 26.0 L MCHC 31.9 L RDW Std Deviation 46.9 H RDW Coeff of Maria E 15.9 H Plt Count 211 MPV 10.1 Immature Gran % (Auto) 1.100 H Neut % (Auto) 78.3 H Lymph % (Auto) 10.8 L [place] % (Auto) 9.0 Eos % (Auto) 0.5 Baso % (Auto) 0.3 Absolute Neuts (auto) 10.1 H Absolute Lymphs (auto) 1.39 Nucleated RBC % 0 PT Cancelled INR Cancelled APTT Cancelled Sodium 128 L Potassium 4.7 Chloride 97 L Carbon Dioxide 22.0 Anion Gap 9 BUN 7 Creatinine 0.97 Estim Creat Clear Calc 85.31 Est GFR (MDRD) Af Amer 82 Est GFR (MDRD) Non-Af 68 BUN/Creatinine Ratio 7.2 L Glucose 180 H Lactic Acid Calcium 9.0 Total Bilirubin 1.00 AST 61 H ALT 37 Alkaline Phosphatase 83 Total Protein 8.5 H Albumin 3.1 L Globulin 5.4 H Albumin/Globulin Ratio 0.6 L POC Glucose 01/02/21 01/02/21 01/02/21 15:45 16:30 17:18 WBC RBC Hgb Hct MCV MCH MCHC RDW Std Deviation RDW Coeff of Maria E Plt Count MPV Immature Gran % (Auto) Neut % (Auto) Lymph % (Auto) [place] % (Auto) Eos % (Auto) Baso % (Auto) Absolute Neuts (auto) Absolute Lymphs (auto) Nucleated RBC % PT Cancelled 15.3 H INR Cancelled 1.3 APTT Cancelled 42.4 H Sodium Potassium Chloride Carbon Dioxide Anion Gap BUN Creatinine Estim Creat Clear Calc Est GFR (MDRD) Af Amer Est GFR (MDRD) Non-Af BUN/Creatinine Ratio Glucose Lactic Acid 1.4 Calcium Total Bilirubin AST ALT Alkaline Phosphatase Total Protein Albumin Globulin Albumin/Globulin Ratio POC Glucose 01/02/21 01/03/21 01/03/21 22:33 06:04 06:04 WBC 9.7 RBC 4.16 L Hgb 10.7 L Hct 34.3 L MCV 82.5 MCH 25.7 L MCHC 31.2 L RDW Std Deviation 47.2 H RDW Coeff of Maria E 15.8 H Plt Count 195 MPV 9.5 Immature Gran % (Auto) 1.000 H Neut % (Auto) 69.4 Lymph % (Auto) 17.5 L [place] % (Auto) 10.7 H Eos % (Auto) 1.1 Baso % (Auto) 0.3 Absolute Neuts (auto) 6.7 Absolute Lymphs (auto) 1.70 Nucleated RBC % 0 PT INR APTT Sodium 136 Potassium 3.4 L Chloride 104 Carbon Dioxide 26.0 Anion Gap 6 BUN 7 Creatinine 0.86 Estim Creat Clear Calc 96.22 Est GFR (MDRD) Af Amer 93 Est GFR (MDRD) Non-Af 77 BUN/Creatinine Ratio 8.1 L Glucose 189 H Lactic Acid Calcium 8.4 L Total Bilirubin AST ALT Alkaline Phosphatase Total Protein Albumin Globulin Albumin/Globulin Ratio POC Glucose 161 H Radiography Diagnostic Testing: Radiology Impression Chest X-Ray 01/02/21 16:16 IMPRESSION: Normal x-ray examination of the chest. Electronically Signed: Rashel Vinson MD at 16:27 EDT Tel , Service support , Foot X-Ray 01/02/21 16:16 IMPRESSION: Normal x-ray examination of the foot after transmetatarsal amputation. No radiographic evidence of osteomyelitis. Electronically Signed: Rashel Vinson MD at 16:28 EDT Tel , Service support , Physical Exam Narrative patient is alert and orientated x 3. she does not appear in any distress vascular: Left foot dorsalis pedis and posterior tibial pulses are palpable. CFT is brisk to tma stump. there is no erythema noted. Derm: there is very small ulceration of left plantar medial forefoot but on exam, this ulceration does undermine medially and dorsally . on exam today, there was small collection of serous drainage and blood but no purulence was expressed . m/s: no calf pain present to left foot. Assessment & Plan Assessment/Plan (1) Diabetic foot ulcer: QUALIFIERS: Diabetes mellitus type: type 2 Diabetic foot ulcer location: toe Laterality: right Non-pressure ulcer stage: with fat layer exposed Qualified Code(s): E11.621 - Type 2 diabetes mellitus with foot ulcer; L97.512 - Non-pressure chronic ulcer of other part of right foot with fat layer exposed; L97.512 - Non-pressure chronic ulcer of other part of right foot with fat layer exposed; L97.512 - Non-pressure chronic ulcer of other part of right foot with fat layer exposed; L97.512 - Non-pressure chronic ulcer of other part of right foot with fat layer exposed PLAN: Patient was examined today at bedside. Her left foot does appear to look better than it did last night with regards to swelling and redness. On exam, there is no purulence and wbc does appear to be trending down. patient feels much better. I explored the plantar ulceration and did probe with sterile instrument and there was no visualized purulence expressed from wound. I reviewed mri. mri report was pending when I saw patient this morning. there is nonspecific edema in the plantar forefoot. Certainly this raises suspicion of phlegmon or abscess. I see no drainage on exam. at time of seeing patient today, no dictation on mri. mri was dictated however as possible early changes of osteomyelitis of first metatarsal stump and abscess of left foot. I did round on patient at lunch time and her dressing was taken down and her foot looks stable, no redness and no drainage. I probed the wound a subsequent time and there was no drainage. the wound was again dressed with aquacel and dry dressing Prior to coming to hospital, patient was doing better. her foot was improving with ultrasonic debridement. she had originally wanted to hold on any surgery. when I told patient about mri concerning for abscess and early osteomyelitis, we discussed options. i discussed revised tma with I&D. patient would really like to have this done with both myself and Dr. Iraheta. the plan if surgery was to be done would be to have this done as an outptaient by Dr. Iraheta and myself as this tma will be more complicated in that it will require more extensive bone resection. I discussed the presence of possible abscess on mri. clinically her foot looks stable. she really would like to go home and do this surgery as outpatient next week in [place] with both Dr. iraheta and me. since her foot is stable, I will have her go home with oral antibiotic. if her foot infection were to reverse and become severe, she is to present to [facility] for admission and would have dr. iraheta and myself consulted. otherwise, will plan for revised tma next week. I did offer procedure for this evening but she made it clear she would like to have done next week. we discussed other options not limited to lisfranc amputation in event she does have confirmed osteomyelitis. I do fear that lisfranc amputation places this pt at risk of biomechanical deformity, ie varus and/or charcot given her weight. if she were to develop such deformity, she would be at risk of bka. I do think revised tma with possible antibiotics may be this patient's best option. I would have her continue wiht nwb of left foot. Today, left foot was irrigated with normal saline. aquacel was applied to left foot. wound was again evaluated at lunch with nursing staff and her foot appeared stable. she will take augmentin and cipro. will plan for discharge and Charges/Coding Visit Charges OBSV E&M: 28941 Subsequent observation care L2
[2021-01-03 07:31] LABS: Bedside Glucose 199 mg/dL (70-110)
[2021-01-03 07:48] VITALS: BP 114/64; PULSE 82; RESP 18; TEMP 36.8; O2SAT 99
--- NOTE | 2021-01-03 08:08 | NURSING ---
MRI faxed to Dr. britt office and their office called w/ this RN's call back number
[2021-01-03] MEDS: Insulin NPH Human 100 UNITS/ML PEN 15 UNITS SC (09:20)
[2021-01-03] MEDS: Pantoprazole Sodium 40 MG Tablet PO (09:29)
[2021-01-03] MEDS: Topiramate 25 MG Tablet PO (09:29)
[2021-01-03] MEDS: buPROPion (XL) 150 MG TABLET.XL PO (09:29)
[2021-01-03] MEDS: DULoxetine Hcl 60 MG Capsule PO (09:29)
[2021-01-03] MEDS: Lisinopril 10 MG Tablet PO (09:29)
[2021-01-03] MEDS: Enoxaparin 40 MG/0.4 ML Syringe SC (09:29)
[2021-01-03] MEDS: Potassium Chloride Oral Tablet 20 MEQ 60 MEQ PO (09:30)
--- NOTE | 2021-01-03 10:11 | CASEMGMT ---
YUDITH PETTY DIGITAL ACCOUNT COORDINATOR CM to room to meet with patient for initial transition planning/care coordination assessment. YUDITH PETTY introduced self and role at [facility]. Pt voices understanding and consents to assessment at this time. Pt sitting up in bed in no distress at this time. Pt is A/O at this time and answers all questions appropriately. Care providers, pharmacy, and demographics verified/updated at this time. PCP: ADELINA Bullock Specialists: Dr Iraheta-podiatry @ [facility]. Dr Mon Preferred Pharmacy: [facility] Insurance:[facility] Dual Prescription Benefit: Yes Living Will/HPOA: Pt does not currently have LW/HCPOA and declines info at this time. LNOK: , Miguel Living Arrangements: Lives w/her , Miguel, and 2 children. Independent. Transportation: Pt states drives self and states no transportation concerns at this time. also drives DME: States has/uses the following DME: functioning glucometer w/supplies. Also has available, but does not use: shower chair, walker, W/C, BSC Pt states no need for further DME at this time. HHC/SNF: No history of either. Denies need for HHC or therapy. Pt wishes to return home and states has no concerns with going home at time of discharge. She states she just spoke w/Dr Mon and the plan is for her to discharge home today and then to have surgery next week in [place]. Pt voices no concerns/needs at this time. PLAN: Home w/spousal support and discharge plans in place. Harris SILVA RN, CM
--- NOTE | 2021-01-03 10:54 | PCM.DC.SUM ---
Providers Date of Admission: 01/02/21 Primary Care Physician: ADELINA Sood Reason For Visit: LEFT FOOT DM ULCER Diagnosis Discharge Diagnosis (1) Diabetic foot ulcer: Status: Acute Code(s): E11.621 - Type 2 diabetes mellitus with foot ulcer; L97.509 - Non-pressure chronic ulcer of other part of unspecified foot with unspecified severity Qualifiers: Diabetic foot ulcer location: toe Diabetes mellitus type: type 2 Laterality: right Non-pressure ulcer stage: with fat layer exposed Qualified Code(s): E11.621 - Type 2 diabetes mellitus with foot ulcer; L97.512 - Non-pressure chronic ulcer of other part of right foot with fat layer exposed; L97.512 - Non-pressure chronic ulcer of other part of right foot with fat layer exposed; L97.512 - Non-pressure chronic ulcer of other part of right foot with fat layer exposed; L97.512 - Non-pressure chronic ulcer of other part of right foot with fat layer exposed Medications at Discharge Home Medications cholecalciferol (vitamin D3) [Vitamin D3] 2,000 unit PO DAILY 04/18/16 cyanocobalamin (vitamin B-12) 100 mcg PO DAILY 04/18/16 duloxetine 60 mg PO DAILY 04/18/16 lisinopril 10 mg PO DAILY 04/18/16 bupropion HCl 150 mg PO DAILY 06/12/17 omeprazole 40 mg PO DAILY 06/12/17 amitriptyline 10 mg PO QHS 01/01/21 insulin degludec [Tresiba U-100 Insulin] 10 unit SUBCUT DAILY 01/01/21 semaglutide [Ozempic] 0.25 mg SUBCUT WE 01/01/21 topiramate 25 mg PO BID 01/01/21 metformin 1,000 mg PO BID 01/02/21 Weight / BMI Weight Weight: 304 lb 6.417 oz Body Mass Index (BMI) 42.4 ABG / Lab / Microbiology Data Result Diagrams: 01/03/21 06:04 01/03/21 06:04 Laboratory: Laboratory Results - last 24 hr 01/02/21 01/02/21 01/02/21 15:40 15:40 15:40 WBC 12.9 H RBC 4.89 Hgb 12.7 Hct 39.8 MCV 81.4 MCH 26.0 L MCHC 31.9 L RDW Std Deviation 46.9 H RDW Coeff of Maria E 15.9 H Plt Count 211 MPV 10.1 Immature Gran % (Auto) 1.100 H Neut % (Auto) 78.3 H Lymph % (Auto) 10.8 L [place] % (Auto) 9.0 Eos % (Auto) 0.5 Baso % (Auto) 0.3 Absolute Neuts (auto) 10.1 H Absolute Lymphs (auto) 1.39 Nucleated RBC % 0 PT Cancelled INR Cancelled APTT Cancelled Sodium 128 L Potassium 4.7 Chloride 97 L Carbon Dioxide 22.0 Anion Gap 9 BUN 7 Creatinine 0.97 Estim Creat Clear Calc 85.31 Est GFR (MDRD) Af Amer 82 Est GFR (MDRD) Non-Af 68 BUN/Creatinine Ratio 7.2 L Glucose 180 H Lactic Acid Calcium 9.0 Total Bilirubin 1.00 AST 61 H ALT 37 Alkaline Phosphatase 83 Total Protein 8.5 H Albumin 3.1 L Globulin 5.4 H Albumin/Globulin Ratio 0.6 L POC Glucose 01/02/21 01/02/21 01/02/21 15:45 16:30 17:18 WBC RBC Hgb Hct MCV MCH MCHC RDW Std Deviation RDW Coeff of Maria E Plt Count MPV Immature Gran % (Auto) Neut % (Auto) Lymph % (Auto) [place] % (Auto) Eos % (Auto) Baso % (Auto) Absolute Neuts (auto) Absolute Lymphs (auto) Nucleated RBC % PT Cancelled 15.3 H INR Cancelled 1.3 APTT Cancelled 42.4 H Sodium Potassium Chloride Carbon Dioxide Anion Gap BUN Creatinine Estim Creat Clear Calc Est GFR (MDRD) Af Amer Est GFR (MDRD) Non-Af BUN/Creatinine Ratio Glucose Lactic Acid 1.4 Calcium Total Bilirubin AST ALT Alkaline Phosphatase Total Protein Albumin Globulin Albumin/Globulin Ratio POC Glucose 01/02/21 01/03/21 01/03/21 22:33 06:04 06:04 WBC 9.7 RBC 4.16 L Hgb 10.7 L Hct 34.3 L MCV 82.5 MCH 25.7 L MCHC 31.2 L RDW Std Deviation 47.2 H RDW Coeff of Maria E 15.8 H Plt Count 195 MPV 9.5 Immature Gran % (Auto) 1.000 H Neut % (Auto) 69.4 Lymph % (Auto) 17.5 L [place] % (Auto) 10.7 H Eos % (Auto) 1.1 Baso % (Auto) 0.3 Absolute Neuts (auto) 6.7 Absolute Lymphs (auto) 1.70 Nucleated RBC % 0 PT INR APTT Sodium 136 Potassium 3.4 L Chloride 104 Carbon Dioxide 26.0 Anion Gap 6 BUN 7 Creatinine 0.86 Estim Creat Clear Calc 96.22 Est GFR (MDRD) Af Amer 93 Est GFR (MDRD) Non-Af 77 BUN/Creatinine Ratio 8.1 L Glucose 189 H Lactic Acid Calcium 8.4 L Total Bilirubin AST ALT Alkaline Phosphatase Total Protein Albumin Globulin Albumin/Globulin Ratio POC Glucose 161 H 01/03/21 06:31 WBC RBC Hgb Hct MCV MCH MCHC RDW Std Deviation RDW Coeff of Maria E Plt Count MPV Immature Gran % (Auto) Neut % (Auto) Lymph % (Auto) [place] % (Auto) Eos % (Auto) Baso % (Auto) Absolute Neuts (auto) Absolute Lymphs (auto) Nucleated RBC % PT INR APTT Sodium Potassium Chloride Carbon Dioxide Anion Gap BUN Creatinine Estim Creat Clear Calc Est GFR (MDRD) Af Amer Est GFR (MDRD) Non-Af BUN/Creatinine Ratio Glucose Lactic Acid Calcium Total Bilirubin AST ALT Alkaline Phosphatase Total Protein Albumin Globulin Albumin/Globulin Ratio POC Glucose 199 H Radiography Diagnostic Testing: Radiology Impression Chest X-Ray 01/02/21 16:16 IMPRESSION: Normal x-ray examination of the chest. Electronically Signed: Rashel Vinson MD at 16:27 EDT Tel , Service support , Foot X-Ray 01/02/21 16:16 IMPRESSION: Normal x-ray examination of the foot after transmetatarsal amputation. No radiographic evidence of osteomyelitis. Electronically Signed: Rashel Vinson MD at 16:28 EDT Tel , Service support , Lower Extremity MRI 01/02/21 18:30 IMPRESSION: Soft tissue abscess at the stump of the amputated first digit with mild bone edema at the plantar aspect of the remaining first metatarsal worrisome for osteomyelitis. Flexor tenosynovitis. Mild peroneal tenosynovitis. Amputation of the second through fifth digits at the metatarsal diaphyses with myositis ossificans. 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 Peripheral neuropathy. Electronically Signed: Asif Miranda MD at 7:47 EDT Tel , Service support , Discharge Plan Admission Admit Date/Time: 01/02/21 17:38 Attending Provider: Mariposa Sethi Primary Care Provider: Annie Regan Discharge Orders/Prescriptions Prescriptions: No Action cyanocobalamin (vitamin B-12) 1,000 MCG tablet 100 mcg PO DAILY RF: 0 lisinopril 10 MG tablet 10 mg PO DAILY RF: 0 duloxetine 60 MG capsule,delayed release(DR/EC) 60 mg PO DAILY RF: 0 cholecalciferol (vitamin D3) [Vitamin D3] 1,000 UNIT tablet 2,000 unit PO DAILY RF: 0 omeprazole 40 MG capsule,delayed release(DR/EC) 40 mg PO DAILY RF: 0 bupropion HCl 150 MG tablet extended release 24 hr 150 mg PO DAILY RF: 0 topiramate 25 mg Tablet 25 mg PO BID RF: 0 amitriptyline 10 mg Tablet 10 mg PO QHS RF: 0 Ozempic 0.25 mg or 0.5 mg(2 mg/1.5 mL) Pen Injector 0.25 mg SUBCUT WE RF: 0 Tresiba U-100 Insulin 100 unit/mL Solution 10 unit SUBCUT DAILY RF: 0 metformin 500 mg tablet extended release 24 hr 1,000 mg PO BID RF: 0
--- NOTE | 2021-01-03 10:56 | PCM.DC ---
Discharge Instructions Diet Discharge Diet: No restrictions Activity Discharge Activity: Return to Normal Activity Follow Up Care Test Results: Test results from this visit will be discussed in further detail at your follow-up appointment, if applicable. Discharge Plan Admission Admit Date/Time: 01/02/21 17:38 Primary Reason for Your Visit: Diabetic foot ulcer Attending Provider: Mariposa Sethi Primary Care Provider: Annie Regan Discharge Orders/Prescriptions Prescriptions: New amoxicillin-pot clavulanate [Augmentin] 875-125 mg tablet 1 tab PO BID Qty: 14 RF: 0 ciprofloxacin HCl 750 mg tablet 750 mg PO BID Qty: 14 RF: 0 Continued cyanocobalamin (vitamin B-12) 1,000 MCG tablet 100 mcg PO DAILY RF: 0 lisinopril 10 MG tablet 10 mg PO DAILY RF: 0 duloxetine 60 MG capsule,delayed release(DR/EC) 60 mg PO DAILY RF: 0 cholecalciferol (vitamin D3) [Vitamin D3] 1,000 UNIT tablet 2,000 unit PO DAILY RF: 0 omeprazole 40 MG capsule,delayed release(DR/EC) 40 mg PO DAILY RF: 0 bupropion HCl 150 MG tablet extended release 24 hr 150 mg PO DAILY RF: 0 topiramate 25 mg Tablet 25 mg PO BID RF: 0 amitriptyline 10 mg Tablet 10 mg PO QHS RF: 0 Ozempic 0.25 mg or 0.5 mg(2 mg/1.5 mL) Pen Injector 0.25 mg SUBCUT WE RF: 0 Tresiba U-100 Insulin 100 unit/mL Solution 10 unit SUBCUT DAILY RF: 0 metformin 500 mg tablet extended release 24 hr 1,000 mg PO BID RF: 0 Referrals / Follow Up: Aroldo Mon DPM [STAFF PHYSICIAN] - Within 1 Week Annie Regan PA [Primary Care Provider] - Within 2 Weeks Disposition Disposition (needs filled in before D/C Order can be placed): Home, Self Care
[2021-01-03 12:01] LABS: Bedside Glucose 202 mg/dL (70-110)
[2021-01-03 12:27] VITALS: BP 112/64; PULSE 89; RESP 18; TEMP 37.2; O2SAT 100
--- NOTE | 2021-01-03 13:16 | PCM.DC.SUM ---
Documented by User: Kolby SAHU 01/03/21 13:28 Providers Date of Admission: 01/02/21 Primary Care Physician: ADELINA Sood Reason For Visit: LEFT FOOT DM ULCER Diagnosis Discharge Diagnosis (1) Diabetic foot ulcer: Status: Acute Code(s): E11.621 - Type 2 diabetes mellitus with foot ulcer; L97.509 - Non-pressure chronic ulcer of other part of unspecified foot with unspecified severity Qualifiers: Diabetes mellitus type: type 2 Diabetic foot ulcer location: toe Laterality: right Non-pressure ulcer stage: with fat layer exposed Qualified Code(s): E11.621 - Type 2 diabetes mellitus with foot ulcer; L97.512 - Non-pressure chronic ulcer of other part of right foot with fat layer exposed; L97.512 - Non-pressure chronic ulcer of other part of right foot with fat layer exposed; L97.512 - Non-pressure chronic ulcer of other part of right foot with fat layer exposed; L97.512 - Non-pressure chronic ulcer of other part of right foot with fat layer exposed Medications at Discharge Home Medications cholecalciferol (vitamin D3) [Vitamin D3] 2,000 unit PO DAILY 04/18/16 cyanocobalamin (vitamin B-12) 100 mcg PO DAILY 04/18/16 duloxetine 60 mg PO DAILY 04/18/16 lisinopril 10 mg PO DAILY 04/18/16 bupropion HCl 150 mg PO DAILY 06/12/17 omeprazole 40 mg PO DAILY 06/12/17 Ozempic 0.25 mg SUBCUT WE 01/01/21 Tresiba U-100 Insulin 10 unit SUBCUT DAILY 01/01/21 amitriptyline 10 mg PO QHS 01/01/21 topiramate 25 mg PO BID 01/01/21 metformin 1,000 mg PO BID 01/02/21 amoxicillin-pot clavulanate [Augmentin] 1 tab PO BID #14 tab 01/03/21 ciprofloxacin HCl 750 mg PO BID #14 tab 01/03/21 Hospital Course Summary of Care Provided Minutes Spent on Discharge: 35 Hospital Course: 1) sepsis secondary to diabetic L. ulcer status post transmetatarsal amputation of the left foot Dr. Mon follows on an outpatient basis, and has followed this case from admission. MRI of the LLE did show concern for potential osteomyelitis. Dr. Mno has reviewed MRI and not convinced this is a Osteomyelitis case. Patient has already been scheduled for potential surgery next Friday, Dr. Mon requests that patient be discharged on antibiotics and be allowed to follow-up with her appointment. Patient is subjectively better from yesterday, no longer meets SIRS criteria for sepsis and is otherwise stable. Hospital medicine team in agreement that the patient can be discharged and be allowed to follow-up with her public affairs specialist as scheduled. Plan; discharge today, initiate Augmentin x7 days and ciprofloxacin x7 days, follow-up with Dr. Mon at scheduled appointment. 2) DM2 w/ Neuropathy Continue home diabetic regimen. Follow-up with primary care provider within the next 2 weeks. 3) HTN Stable, continue home lisinopril. 4) GERD Continue PPI. 5) anxiety/depression Continue bupropion and duloxetine. 6) morbid obesity Weight loss advised and counseled. Patient seen by Kolby De León PA-C, under the supervision of Dr. Sethi. Physical Exam Narrative Patient is a 40-year-old female who is comfortably resting in bed, alert and oriented x3. Patient reports subjective improvement in regards to her fevers and diffuse pain from yesterday. Denies chest pain, shortness of breath, palpitations, fever, chills, N/V/D. Const alert, oriented x3 and no apparent distress HEENT normocephalic, head/scalp atraumatic and hearing grossly normal bilaterally Eyes EOMs intact bilaterally and conjunctivae normal Neck no lymphadenopathy, supple and no JVD Resp normal respiratory effort, no retractions, no use of accessory muscles and clear to auscultation bilaterally Cardio regular rate, regular rhythm, no murmurs and no JVD GI normal to inspection, nondistended, normoactive bowel sounds, soft to palpation and non-tender Extremity Extremity Narrative: Left lower extremity has been appropriately bandaged, wound dressings appear dry and do not appear to be covered in serous or purulent discharge. Skin no rashes or lesions noted Skin Narrative: See extremities. Neuro CN's II-XII intact bilaterally Psych affect normal Weight / BMI Weight Weight: 304 lb 6.417 oz Body Mass Index (BMI) 42.4 ABG / Lab / Microbiology Data Result Diagrams: 01/03/21 06:04 01/03/21 06:04 Laboratory: Laboratory Results - last 24 hr 01/02/21 01/02/21 01/02/21 15:40 15:40 15:40 WBC 12.9 H RBC 4.89 Hgb 12.7 Hct 39.8 MCV 81.4 MCH 26.0 L MCHC 31.9 L RDW Std Deviation 46.9 H RDW Coeff of Maria E 15.9 H Plt Count 211 MPV 10.1 Immature Gran % (Auto) 1.100 H Neut % (Auto) 78.3 H Lymph % (Auto) 10.8 L Island % (Auto) 9.0 Eos % (Auto) 0.5 Baso % (Auto) 0.3 Absolute Neuts (auto) 10.1 H Absolute Lymphs (auto) 1.39 Nucleated RBC % 0 PT Cancelled INR Cancelled APTT Cancelled Sodium 128 L Potassium 4.7 Chloride 97 L Carbon Dioxide 22.0 Anion Gap 9 BUN 7 Creatinine 0.97 Estim Creat Clear Calc 85.31 Est GFR (MDRD) Af Amer 82 Est GFR (MDRD) Non-Af 68 BUN/Creatinine Ratio 7.2 L Glucose 180 H Lactic Acid Calcium 9.0 Total Bilirubin 1.00 AST 61 H ALT 37 Alkaline Phosphatase 83 Total Protein 8.5 H Albumin 3.1 L Globulin 5.4 H Albumin/Globulin Ratio 0.6 L POC Glucose 01/02/21 01/02/21 01/02/21 15:45 16:30 17:18 WBC RBC Hgb Hct MCV MCH MCHC RDW Std Deviation RDW Coeff of Maria E Plt Count MPV Immature Gran % (Auto) Neut % (Auto) Lymph % (Auto) Island % (Auto) Eos % (Auto) Baso % (Auto) Absolute Neuts (auto) Absolute Lymphs (auto) Nucleated RBC % PT Cancelled 15.3 H INR Cancelled 1.3 APTT Cancelled 42.4 H Sodium Potassium Chloride Carbon Dioxide Anion Gap BUN Creatinine Estim Creat Clear Calc Est GFR (MDRD) Af Amer Est GFR (MDRD) Non-Af BUN/Creatinine Ratio Glucose Lactic Acid 1.4 Calcium Total Bilirubin AST ALT Alkaline Phosphatase Total Protein Albumin Globulin Albumin/Globulin Ratio POC Glucose 01/02/21 01/03/21 01/03/21 22:33 06:04 06:04 WBC 9.7 RBC 4.16 L Hgb 10.7 L Hct 34.3 L MCV 82.5 MCH 25.7 L MCHC 31.2 L RDW Std Deviation 47.2 H RDW Coeff of Maria E 15.8 H Plt Count 195 MPV 9.5 Immature Gran % (Auto) 1.000 H Neut % (Auto) 69.4 Lymph % (Auto) 17.5 L Island % (Auto) 10.7 H Eos % (Auto) 1.1 Baso % (Auto) 0.3 Absolute Neuts (auto) 6.7 Absolute Lymphs (auto) 1.70 Nucleated RBC % 0 PT INR APTT Sodium 136 Potassium 3.4 L Chloride 104 Carbon Dioxide 26.0 Anion Gap 6 BUN 7 Creatinine 0.86 Estim Creat Clear Calc 96.22 Est GFR (MDRD) Af Amer 93 Est GFR (MDRD) Non-Af 77 BUN/Creatinine Ratio 8.1 L Glucose 189 H Lactic Acid Calcium 8.4 L Total Bilirubin AST ALT Alkaline Phosphatase Total Protein Albumin Globulin Albumin/Globulin Ratio POC Glucose 161 H 01/03/21 01/03/21 06:31 11:51 WBC RBC Hgb Hct MCV MCH MCHC RDW Std Deviation RDW Coeff of Maria E Plt Count MPV Immature Gran % (Auto) Neut % (Auto) Lymph % (Auto) Island % (Auto) Eos % (Auto) Baso % (Auto) Absolute Neuts (auto) Absolute Lymphs (auto) Nucleated RBC % PT INR APTT Sodium Potassium Chloride Carbon Dioxide Anion Gap BUN Creatinine Estim Creat Clear Calc Est GFR (MDRD) Af Amer Est GFR (MDRD) Non-Af BUN/Creatinine Ratio Glucose Lactic Acid Calcium Total Bilirubin AST ALT Alkaline Phosphatase Total Protein Albumin Globulin Albumin/Globulin Ratio POC Glucose 199 H 202 H Microbiology: Microbiology 01/02/21 15:55 Wound Culture - Preliminary Wound - Left Foot Staphylococcus species Beta streptococcus Microbiology 01/02/21 15:55 Wound - Left Foot Wound Culture - Preliminary Staphylococcus species Beta streptococcus Radiography Diagnostic Testing: Radiology Impression Chest X-Ray 01/02/21 16:16 IMPRESSION: Normal x-ray examination of the chest. Electronically Signed: Rashel Vinson MD at 16:27 EDT Tel , Service support , Foot X-Ray 01/02/21 16:16 IMPRESSION: Normal x-ray examination of the foot after transmetatarsal amputation. No radiographic evidence of osteomyelitis. Electronically Signed: Rashel Vinson MD at 16:28 EDT Tel , Service support , Lower Extremity MRI 01/02/21 18:30 IMPRESSION: Soft tissue abscess at the stump of the amputated first digit with mild bone edema at the plantar aspect of the remaining first metatarsal worrisome for osteomyelitis. Flexor tenosynovitis. Mild peroneal tenosynovitis. Amputation of the second through fifth digits at the metatarsal diaphyses with myositis ossificans. 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 Peripheral neuropathy. Electronically Signed: Asif Miranda MD at 7:47 EDT Tel , Service support , D/C Instructions Discharge Diet: No restrictions Meaningful Use Info Meaningful Use Diagnoses (Choose all that apply): None applicable Discharge Plan Admission Admit Date/Time: 01/02/21 17:38 Primary Reason for Your Visit: Diabetic foot ulcer Attending Provider: Mariposa Sethi Primary Care Provider: Annie Regan Discharge Orders/Prescriptions Prescriptions: New amoxicillin-pot clavulanate [Augmentin] 875-125 mg tablet 1 tab PO BID Qty: 14 RF: 0 ciprofloxacin HCl 750 mg tablet 750 mg PO BID Qty: 14 RF: 0 Continued cyanocobalamin (vitamin B-12) 1,000 MCG tablet 100 mcg PO DAILY RF: 0 lisinopril 10 MG tablet 10 mg PO DAILY RF: 0 duloxetine 60 MG capsule,delayed release(DR/EC) 60 mg PO DAILY RF: 0 cholecalciferol (vitamin D3) [Vitamin D3] 1,000 UNIT tablet 2,000 unit PO DAILY RF: 0 omeprazole 40 MG capsule,delayed release(DR/EC) 40 mg PO DAILY RF: 0 bupropion HCl 150 MG tablet extended release 24 hr 150 mg PO DAILY RF: 0 topiramate 25 mg Tablet 25 mg PO BID RF: 0 amitriptyline 10 mg Tablet 10 mg PO QHS RF: 0 Ozempic 0.25 mg or 0.5 mg(2 mg/1.5 mL) Pen Injector 0.25 mg SUBCUT WE RF: 0 Tresiba U-100 Insulin 100 unit/mL Solution 10 unit SUBCUT DAILY RF: 0 metformin 500 mg tablet extended release 24 hr 1,000 mg PO BID RF: 0 Referrals / Follow Up: Aroldo Mon DPM [STAFF PHYSICIAN] - Within 1 Week Annie Regan PA [Primary Care Provider] - Within 2 Weeks Disposition Disposition (needs filled in before D/C Order can be placed): Home, Self Care Documented by User: Dr. Mariposa Sethi MD 01/03/21 15:17 Providers Date of Admission: 01/02/21 Reason For Visit: LEFT FOOT DM ULCER Medications at Discharge Home Medications cholecalciferol (vitamin D3) [Vitamin D3] 2,000 unit PO DAILY 04/18/16 cyanocobalamin (vitamin B-12) 100 mcg PO DAILY 04/18/16 duloxetine 60 mg PO DAILY 04/18/16 lisinopril 10 mg PO DAILY 04/18/16 bupropion HCl 150 mg PO DAILY 06/12/17 omeprazole 40 mg PO DAILY 06/12/17 Ozempic 0.25 mg SUBCUT WE 01/01/21 Tresiba U-100 Insulin 10 unit SUBCUT DAILY 01/01/21 amitriptyline 10 mg PO QHS 01/01/21 topiramate 25 mg PO BID 01/01/21 metformin 1,000 mg PO BID 01/02/21 amoxicillin-pot clavulanate [Augmentin] 1 tab PO BID #14 tab 01/03/21 ciprofloxacin HCl 750 mg PO BID #14 tab 01/03/21 ABG / Lab / Microbiology Data Result Diagrams: 01/03/21 06:04 01/03/21 06:04 Discharge Plan Admission Admit Date/Time: 01/02/21 17:38 Primary Reason for Your Visit: Diabetic foot ulcer Attending Provider: Mariposa Sethi Primary Care Provider: Annie Regan Discharge Orders/Prescriptions Prescriptions: New amoxicillin-pot clavulanate [Augmentin] 875-125 mg tablet 1 tab PO BID Qty: 14 RF: 0 ciprofloxacin HCl 750 mg tablet 750 mg PO BID Qty: 14 RF: 0 Continued cyanocobalamin (vitamin B-12) 1,000 MCG tablet 100 mcg PO DAILY RF: 0 lisinopril 10 MG tablet 10 mg PO DAILY RF: 0 duloxetine 60 MG capsule,delayed release(DR/EC) 60 mg PO DAILY RF: 0 cholecalciferol (vitamin D3) [Vitamin D3] 1,000 UNIT tablet 2,000 unit PO DAILY RF: 0 omeprazole 40 MG capsule,delayed release(DR/EC) 40 mg PO DAILY RF: 0 bupropion HCl 150 MG tablet extended release 24 hr 150 mg PO DAILY RF: 0 topiramate 25 mg Tablet 25 mg PO BID RF: 0 amitriptyline 10 mg Tablet 10 mg PO QHS RF: 0 Ozempic 0.25 mg or 0.5 mg(2 mg/1.5 mL) Pen Injector 0.25 mg SUBCUT WE RF: 0 Tresiba U-100 Insulin 100 unit/mL Solution 10 unit SUBCUT DAILY RF: 0 metformin 500 mg tablet extended release 24 hr 1,000 mg PO BID RF: 0 Referrals / Follow Up: Aroldo Mon DPM [STAFF PHYSICIAN] - Within 1 Week Annie Regan PA [Primary Care Provider] - Within 2 Weeks Disposition Disposition (needs filled in before D/C Order can be placed): Home, Self Care Charges/Coding Addendum Addendum: Patient seen by Kolby De León PA-C under my supervision Patient is a 40 y/o F with a PMH as outlined who was admitted with a complaint of cellulitis and ulceration of the left foot. She had been treated on outpatient basis with wound care and debridement as well as antibiotics. She had recently been treated by a public affairs specialist in [place] and had been receiving ultrasonic debridement and the wound had been improving. SHe had had revised TMA of the left foot, but this was improving since debridement. She had associated right flank pain as well. She was admitted and managed for diabetic foot infection and started on IV antibiotics. WBC was mildly elevated. Podiatry was consulted. Xrays showed no evidence of osteomyelitis. MRI of the left foot showed soft tissue abscess of the stump of the amputated first digit with mild bony edema at the plantar aspect of the remaining first metatarsal worrisome for osteomyelitis. Despite counseling by podiatry to stay for surgery, patient however requested to be discharged on oral antibiotics and she preferred to follow-up with her primary public affairs specialist in [place] for the surgery next week. This was discussed with podiatry here who was agreeable to patient being discharged and so she was discharged on p.o. ciprofloxacin and p.o. Augmentin for 1 week. She is follow-up with her primary public affairs specialist within 1 week in [place]. Patient seen and examined prior to discharge. She had no complaints and felt well. Review of systems otherwise negative. Labs and vitals reviewed. Home medication reviewed and reconciled. Patient was seen and examined and plan is for discharge home today as above. Rest as per Kolby De León PA-C's note which I have reviewed and endorsed Visit Charges Inpatient E&M: [id number] Disch Hosp
--- NOTE | 2021-01-04 15:16 | CASEMGMT ---
RN CM Discharge Follow Up Phone Call: RADHA: Raymond Strata: 3 Call Date: 01.04.21 Discharge Date: 01.03.21 Time of Call: 1516 Duration: <1 min Admitting Dx: Diabetic foot ulcer RN CM attempted to complete follow up phone call after recent hospitalization. No answer, received unidentified voicemail, no message left.
== END 2021-01-03 13:10 | disposition home or self-care (01) | DRG 872 ==
LOC: ED 15:56 → MS3 17:57
PROVIDERS: Admitting Provider Family Medicine; Emergency Provider Student in an Organized Health Care Education/Training Program; PCP Physician Assistant; Visit Provider Student in an Organized Health Care Education/Training Program
DX: A41.9 Sepsis, unspecified organism (principal); Z68.41 Body mass index [BMI] 40.0-44.9, adult; L03.116 Cellulitis of left lower limb; E11.621 Type 2 diabetes mellitus with foot ulcer; L97.512 Non-pressure chronic ulcer of other part of right foot with fat layer exposed; E11.40 Type 2 diabetes mellitus with diabetic neuropathy, unspecified; K21.9 Gastro-esophageal reflux disease without esophagitis; E66.01 Morbid (severe) obesity due to excess calories; I10 Essential (primary) hypertension; F32.9 Major depressive disorder, single episode, unspecified; F41.9 Anxiety disorder, unspecified; Z90.49 Acquired absence of other specified parts of digestive tract; Z82.49 Family history of ischemic heart disease and other diseases of the circulatory system; Z86.73 Personal history of transient ischemic attack (TIA), and cerebral infarction without residual deficits; Z90.710 Acquired absence of both cervix and uterus; Z83.3 Family history of diabetes mellitus
CPT/HCPCS: 36415; 71045; 73630; 73720; 80048; 80053; 82962; 83605; 85025; 85610; 85730; 87040; 87070; 87075; 87077; 87186; 87205; 93005; 97802; 99284; A9575; J7030; J7040; A4216; J2405

== ENCOUNTER 2021-02-17 02:29 | Emergency (ER) | payer BC, MEDICARE, MEDICAID, SELFPAY ==
[2021-02-17 02:29] VITALS: BP 136/91; PULSE 96; RESP 18; TEMP 37; O2SAT 95; BMI 43.5
--- NOTE | 2021-02-17 02:43 | RAD_ITS ---
STUDY: X-RAY - RIGHT KNEE REASON FOR EXAM: Female, 40 years old. Pain TECHNIQUE: 4 view(s) of the knee. COMPARISON: None. FINDINGS: Normal visualized distal femur. Normal visualized proximal tibia and fibula. Normal proximal tibiofibular articulation. There is mild degenerative arthrosis of the medial femorotibial compartment. There is mild degenerative arthrosis of the lateral femorotibial compartment. There is moderate degenerative arthrosis of the patellofemoral articulation. Small superficial soft tissue edema of the level of the patellar tendon. RAD/Knee 4 or More Views IMPRESSION: Degenerative change. Superficial soft tissue edema no visualized fracture. Electronically Signed: Cyndi Soto MD at 3:19 EDT Tel , Service support ,
--- NOTE | 2021-02-17 02:45 | ED.VIS.LOWEX ---
HPI History of Present Illness Chief Complaint: Lower Extremity Injury Informant: patient Onset/Context/Timing Onset: Today (several hours ago) Context: Sudden Onset (Suddenly noticed when stood up out of wheelchair) Timing: Continuous Quality of Pain: Aching Location: Right knee, distal anterior Current Severity: Mild Maximum Severity: Severe Worsened by: Moving knee and trying to walk Relieved by: Remaining still Associated Symptoms Associated Symptoms: Negative for Parasthesia, Weakness and Loss of Funtion Narrative Narrative: Patient denies any injury, sudden onset of right knee pain when she went to stand up from a wheelchair. She did not have any cracks or pops or swelling in her knee joint. Bending it and putting weight on it makes it hurt worse. She states it really does not hurt much when she is remaining still. She denies any fevers or systemic symptoms. She recently had osteomyelitis and some toes which were surgically removed, this was several weeks ago and she is in a wheelchair because of recovering from these surgeries. She is a diabetic. She denies any known history of gout or problems with her knees in the past. Denies any repetitive motions with her knee or lots of walking recently since she has been in a wheelchair. She denies any calf or thigh pain. She denies any skin color changes in the affected area. [facility] Medical History Amputated toe of left foot Amputated toe of right foot Amputation of left foot Anxiety and depression Diabetes Diabetes mellitus type II, controlled Diabetic neuropathy GERD (gastroesophageal reflux disease) Hypertension Morbid obesity Home Medications cholecalciferol (vitamin D3) [Vitamin D3] 2,000 unit PO DAILY 04/18/16 [History Last Taken 12/30/20] cyanocobalamin (vitamin B-12) 100 mcg PO DAILY 04/18/16 [History Last Taken 12/30/20] duloxetine 60 mg PO DAILY 04/18/16 [History Last Taken 12/30/20] lisinopril 10 mg PO DAILY 04/18/16 [History Last Taken 12/30/20] bupropion HCl 150 mg PO DAILY 06/12/17 [History Last Taken 12/30/20] omeprazole 40 mg PO DAILY 06/12/17 [History Last Taken 12/30/20] Ozempic 0.25 mg SUBCUT WE 01/01/21 [History Last Taken 12/27/20] Tresiba U-100 Insulin 10 unit SUBCUT DAILY 01/01/21 [History Last Taken 12/30/20] amitriptyline 10 mg PO QHS 01/01/21 [History Last Taken 12/30/20] topiramate 25 mg PO BID 01/01/21 [History Last Taken Unknown] metformin 1,000 mg PO BID 01/02/21 [History Last Taken 12/30/20] amoxicillin-pot clavulanate [Augmentin] 1 tab PO BID #14 tab 01/03/21 [Rx Last Taken Unknown] oxycodone-acetaminophen 1 tab PO Q6H PRN PRN 2 Days #6 tablet 02/17/21 [Rx Last Taken Unknown] Allergy/AdvReac Type Severity Reaction Status Date / Time gabapentin [From Gabarone] Allergy Angioedema Verified 02/17/21 02:29 Family History (Updated 01/02/21 @ 19:[address] Praveen Cui MD) Mother Diabetes CVA (cerebral vascular accident) Father Hypertension Surgical History H/O amputation H/O: hysterectomy History of cholecystectomy History of tonsillectomy Social History household members: spouse, family, children and other details: Father in law Smoking Status: Never smoker alcohol intake: never substance use type: does not use ROS ROS ED Constitutional Constitutional ED: Denies chills or fever(s) Musculoskeletal Musculoskeletal: Reports extremity pain; Denies neck pain Integumentary Denies Abrasions, rash or wounds Neurologic Neurologic: Denies paresthesias or weakness EXAM Physical Exam Const Vital Signs: 02/17/21 02:29 Temperature 98.6 F Temperature Source Temporal Pulse Rate 96 Respiratory Rate 18 Blood Pressure 136/91 H Blood Pressure Mean 106 Pulse Ox 95 Oxygen Delivery Method Room Air Positive well nourished and well developed General Appearance ED: well developed and NAD Neck full ROM and supple Back/Spine normal ROM and normal to inspection Extremity normal to inspection and full ROM Extremity Narrative: Able to bend right knee but with pain. She is point tender at the tibial tuberosity of the right as well as bony proximal tibia/soft tissues just medial but not necessarily as far as the Pes anserine bursa, which does not feel swollen and is also tender. No effusion. No skin abnormalities or palpable abscess/subcutaneous nodule of any type. The patella itself and the patellar tendon and ligament close to the patella are nontender. All compartments of the right lower extremity are soft. Extensor mechanism intact. All ligaments are stable with short endpoints and no pain on stressing. Negative anterior and posterior drawer signs. Neuro oriented x3, no focal motor deficits and no sensory deficits noted Sensorium / Orientation: alert Psych mental status grossly normal and thought process normal Skin no wounds Rashes: no rashes MDM MDM MDM Narrative Medical decision making narrative: 4 view right knee x-ray series obtained and on my interpretation is negative for nothing acute. Do not think she needs a joint aspiration at this time or any blood work, this is examining like an acute musculoskeletal issue. She has neurovascularly intact distally. She was given oxycodone here for pain because she was taking that recently postoperatively and asked for it. Placed in an Yony wrap and given a prescription for a couple days she can follow-up. Radiography Diagnostic Testing: Radiology Impression Knee X-Ray 02/17/21 02:43 IMPRESSION: Degenerative change. Superficial soft tissue edema no visualized fracture. Electronically Signed: Cyndi Soto MD at 3:19 EDT Tel , Service support , Discharge Plan Triage Chief Complaint: Lower Extremity Injury ED Provider: Chris Choudhary Dx/Rx/DC Orders Clinical Impression: Acute pain of right knee Instructions: Knee Pain Prescriptions: New oxycodone-acetaminophen 5-325 mg tablet 1 tab PO Q6H PRN PRN (Reason: Pain) 2 Days Qty: 6 RF: 0 No Action cyanocobalamin (vitamin B-12) 1,000 MCG tablet 100 mcg PO DAILY RF: 0 lisinopril 10 MG tablet 10 mg PO DAILY RF: 0 duloxetine 60 MG capsule,delayed release(DR/EC) 60 mg PO DAILY RF: 0 cholecalciferol (vitamin D3) [Vitamin D3] 1,000 UNIT tablet 2,000 unit PO DAILY RF: 0 omeprazole 40 MG capsule,delayed release(DR/EC) 40 mg PO DAILY RF: 0 bupropion HCl 150 MG tablet extended release 24 hr 150 mg PO DAILY RF: 0 topiramate 25 mg Tablet 25 mg PO BID RF: 0 amitriptyline 10 mg Tablet 10 mg PO QHS RF: 0 Ozempic 0.25 mg or 0.5 mg(2 mg/1.5 mL) Pen Injector 0.25 mg SUBCUT WE RF: 0 Tresiba U-100 Insulin 100 unit/mL Solution 10 unit SUBCUT DAILY RF: 0 metformin 500 mg tablet extended release 24 hr 1,000 mg PO BID RF: 0 amoxicillin-pot clavulanate [Augmentin] 875-125 mg tablet 1 tab PO BID Qty: 14 RF: 0 Primary Care Provider: Annie Regan Referrals: Annie Regan, PA [Primary Care Provider] - 1 Week if not improving Disposition Disposition: Home, Self Care
[2021-02-17] MEDS: oxyCODONE 5 MG Tablet PO (02:51)
[2021-02-17 03:48] VITALS: RESP 16
== END 2021-02-17 03:49 | disposition home or self-care (01) ==
PROVIDERS: Emergency Provider Emergency Medicine; PCP Physician Assistant
DX: M25.561 Pain in right knee (principal); E11.40 Type 2 diabetes mellitus with diabetic neuropathy, unspecified; E66.01 Morbid (severe) obesity due to excess calories; F32.9 Major depressive disorder, single episode, unspecified; F41.9 Anxiety disorder, unspecified; I10 Essential (primary) hypertension; K21.9 Gastro-esophageal reflux disease without esophagitis; Z79.4 Long term (current) use of insulin; Z79.899 Other long term (current) drug therapy
CPT/HCPCS: 73564; 99283

== ENCOUNTER 2021-02-19 15:48 | Emergency (ER) | payer BC, MEDICARE, MEDICAID, SELFPAY ==
[2021-02-19 15:50] VITALS: BP 146/97; PULSE 110; RESP 18; TEMP 35.8; O2SAT 96; BMI 43.0
--- NOTE | 2021-02-19 16:01 | VDLE_ITS ---
Reason For Study: Swelling RIGHT GSV is normal. CFV is compressible, spontaneous, phasic, competent and demonstrates normal augmentation. FV is compressible, spontaneous, phasic, competent and demonstrates normal augmentation. POP V is compressible, spontaneous, phasic, competent and demonstrates normal augmentation. T/P Trunk is compressible. PTV is compressible. RT PerV is compressible. Procedure Exam performed portable in ED. This is a venous duplex using B-mode, color flow and spectral Doppler. A preliminary report was called and/or faxed to Dr. oHoker. VL/Venous Duplex US, Unilateral Interpretation Summary There is no evidence of right lower extremity deep vein thrombosis. Right great saphenous vein appears patent and compressible segmentally. Ordering Physician: Sergio Hooker Referring Physician: Ben Regan Performed By: Serena Rubi, DEBORAH, RVT
--- NOTE | 2021-02-19 16:03 | EDS_ITS ---
HPI History of Present Illness Chief Complaint: Lower Extremity Injury Detail of Chief Complaint: Atraumatic left lower extremity pain Informant: patient and spouse/S.O. Occured/Mechanism Comment: Recent surgery. Reports temperature to 104.8. 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 She reports temperature to 104.8 last week. Blood work that was obtained at the [facility] revealed a normal white count. ESR was 47 and CRP was 9.0. She had an outpatient noninvasive study which was negative. She reports with atraumatic right knee pain. She states she is unable to bear weight. She has to put weight on her heel and shuffle. If she attempts to bend the knee and place weight she will fall. She denies headache, visual, ocular auditory symptoms. She does report slight increased thirst and dry mouth. She denies respiratory or cardiac symptoms. She denies GI symptoms. She denies symptoms. Patient states she had x-rays of the knee on Friday which were unremarkable. She was seen on Friday and prescribed opiate analgesia for her pain. She states the medicine is not helping. There is a history of diabetic neuropathy. Tetanus Immunization: 5-10 years Prior similar symptoms: Yes Recent Illness/Hospitalization: Yes [facility] Medical History Amputated toe of left foot Amputated toe of right foot Amputation of left foot Anxiety and depression Diabetes Diabetes mellitus type II, controlled Diabetic neuropathy GERD (gastroesophageal reflux disease) Hypertension Morbid obesity Home Medications cholecalciferol (vitamin D3) [Vitamin D3] 2,000 unit PO DAILY 04/18/16 [History Last Taken 12/30/20] cyanocobalamin (vitamin B-12) 100 mcg PO DAILY 04/18/16 [History Last Taken 12/30/20] duloxetine 60 mg PO DAILY 04/18/16 [History Last Taken 12/30/20] lisinopril 10 mg PO DAILY 04/18/16 [History Last Taken 12/30/20] bupropion HCl 150 mg PO DAILY 06/12/17 [History Last Taken 12/30/20] omeprazole 40 mg PO DAILY 06/12/17 [History Last Taken 12/30/20] Ozempic 0.25 mg SUBCUT WE 01/01/21 [History Last Taken 12/27/20] Tresiba U-100 Insulin 10 unit SUBCUT DAILY 01/01/21 [History Last Taken 12/30/20] amitriptyline 10 mg PO QHS 01/01/21 [History Last Taken 12/30/20] topiramate 25 mg PO BID 01/01/21 [History Last Taken Unknown] metformin 1,000 mg PO BID 01/02/21 [History Last Taken 12/30/20] amoxicillin-pot clavulanate [Augmentin] 1 tab PO BID #14 tab 01/03/21 [Rx Last Taken Unknown] oxycodone-acetaminophen 1 tab PO Q6H PRN PRN 2 Days #6 tablet 02/17/21 [Rx Last Taken Unknown] oxycodone-acetaminophen 1 tab PO Q6H PRN PRN 3 Days #12 tablet 02/19/21 [Rx Last Taken Unknown] Allergy/AdvReac Type Severity Reaction Status Date / Time gabapentin [From Gabarone] Allergy Angioedema Verified 02/19/21 15:49 Family History Mother Diabetes CVA (cerebral vascular accident) Father Hypertension Surgical History H/O amputation H/O: hysterectomy History of cholecystectomy History of tonsillectomy Social History household members: spouse, family, children and other details: Father in law Smoking Status: Never smoker alcohol intake: never substance use type: does not use ROS ROS ED Constitutional Constitutional ED: Reports chills, fever(s), subjective and sweats; Denies weight loss Eyes Eyes: Denies blurry vision, change in vision or diplopia ENT ENT ED: Denies ear pain, rhinorrhea or sore throat Cardiovascular Cardiovascular: Denies chest pain, orthopnea, palpitations or paroxysmal nocturnal dyspnea Respiratory/Chest Respiratory/Chest: Denies cough, dyspnea, dyspnea on exertion, orthopnea, paroxysmal nocturnal dyspnea or sputum Gastrointestinal Gastrointestinal: Denies abdominal pain, diarrhea, nausea or vomiting Genitourinary Genitourinary ED: Denies dysuria, hematuria or urinary frequency Musculoskeletal Musculoskeletal: Reports other Details: Right lower extremity pain. Pain is the most significant at the knee. ; Denies arthralgias, back pain, myalgias or neck pain Integumentary Denies abscess, Abrasions or rash Neurologic Neurologic: Reports paresthesias RLE and LUE (Due to diabetic neuropathy); Denies weakness Psychiatric Psychiatric: Reports anxiety and depression; Denies suicidal thoughts Endocrine Endocrinology: Denies polydipsia, polyphagia or polyuria Hematologic/Lymphatic Hematologic/Lymphatic: Denies easy bleeding or easy bruising EXAM Physical Exam Const Vital Signs: 02/19/21 15:50 Temperature 96.5 F L Temperature Source Temporal Pulse Rate 110 H Respiratory Rate 18 Blood Pressure 146/97 H Blood Pressure Mean 113 Pulse Ox 96 Oxygen Delivery Method Room Air Positive well nourished, well developed and obese General Appearance ED: well developed and other Patient appears uncomfortable Nutritional Appearance: obese HEENT Reports moist mucous membranes normocephalic and atraumatic Eyes PERRL Eyes Narrative: Extract muscles are intact. Sclerae anicteric. Conjunctive is pink. Neck full ROM and supple Chest Wall inspection of chest normal Resp normal respiratory effort and clear to auscultation bilaterally Cardio regular rhythm, S1 normal heart sound, S2 normal heart sound and no murmurs Rate: tachycardic GI non-tender and no masses Auscultation: normoactive bowel sounds Palpation: soft Back/Spine no CVA tenderness Thoracic Spine / Upper Back: Negative for thoracic spinal tenderness Lumbar Spine / Lower Back: Negative for lumbar spinal tenderness Extremity Negative for normal to inspection or full ROM Extremity Narrative: Patient has a discolored right leg which is 3 cm greater in circumference at the calf compared to the left. There is tenderness along the distribution of deep venous system. There is no effusion noted right knee. There is no joint line tenderness. Patient's pain is in the popliteal fossa. There is no fullness or mass appreciated. There is no pulsatile mass noted either. General Extremety ED: Yes edema and weight-bearing difficulty; Negative for cyanosis General Extremity: edema and weight-bearing difficulty; Negative for cyanosis Neuro oriented x3 and CN's II-XII intact bilaterally Sensorium / Orientation: alert and oriented to person Psych Psych Narrative: Affect is flat. Mood is depressed Skin no wounds Lesions: no lesions Rashes: no rashes MDM MDM MDM Narrative Medical decision making narrative: With no history of trauma, recent surgery and multiple findings concerning for DVT a venous duplex study was ordered. Because she reported temperature to 104.8 blood work was obtained to assess white count, H&H and differential. Because she is diabetic has not been taking her meds and has not checked her blood sugar BMP was obtained to assess glucose, anion gap and renal function. Lactate was obtained to determine if there is any evidence of organ dysfunction. Vital signs remarkable for tachycardia and hypothermia. The cause of pain is unknown. Patient is made aware of this. She was referred to orthopedics. Lab Data Attestation: I reviewed the patient's lab results. Lab results narrative: CBC is unremarkable other than anemia. Patient has history of anemia. Comprehensive metabolic panel is remarkable for glucose of 283 with a normal CO2 and anion gap. Liver enzymes are normal. Lactate is elevated 2.2. This is due to her type 2 diabetes. She is on Metformin which is known to cause mild elevations of lactate. Labs: Laboratory Results - last 24 hr 02/19/21 02/19/21 02/19/21 16:17 16:17 16:17 WBC 8.4 RBC 4.60 Hgb 11.4 L Hct 36.7 L MCV 79.8 L MCH 24.8 L MCHC 31.1 L RDW Std Deviation 43.0 RDW Coeff of Maria E 14.9 H Plt Count 286 MPV 9.2 Immature Gran % (Auto) 1.100 H Neut % (Auto) 60.3 Lymph % (Auto) 29.3 [place] % (Auto) 7.3 Eos % (Auto) 1.4 Baso % (Auto) 0.6 Absolute Neuts (auto) 5.0 Absolute Lymphs (auto) 2.45 Nucleated RBC % 0 Sodium 134 L Potassium 3.2 L Chloride 101 Carbon Dioxide 27.0 Anion Gap 6 BUN 8 Creatinine 0.80 Estim Creat Clear Calc 100.07 Est GFR (MDRD) Af Amer 101 Est GFR (MDRD) Non-Af 84 BUN/Creatinine Ratio 10.0 Glucose 283 H Lactic Acid 2.2 H* Calcium 8.9 Total Bilirubin 0.50 AST 9 L ALT 23 Alkaline Phosphatase 74 Total Protein 7.7 Albumin 3.2 Globulin 4.5 H Albumin/Globulin Ratio 0.7 L Radiography Diagnostic Testing: Venous duplex study was negative. There was no evidence of DVT. There were no other abnormalities noted either. Discharge Plan Triage Chief Complaint: Lower Extremity Injury ED Provider: Sergio Hooker Dx/Rx/DC Orders Clinical Impression: Acute pain of right knee, Localized swelling of right lower extremity Instructions: ED Knee Pain of Uncertain Cause Prescriptions: New oxycodone-acetaminophen [oxycodone-acetaminophen] 1 TABLET tablet 1 tab PO Q6H PRN PRN (Reason: Pain) 3 Days Qty: 12 RF: 0 No Action cyanocobalamin (vitamin B-12) 1,000 MCG tablet 100 mcg PO DAILY RF: 0 lisinopril 10 MG tablet 10 mg PO DAILY RF: 0 duloxetine 60 MG capsule,delayed release(DR/EC) 60 mg PO DAILY RF: 0 cholecalciferol (vitamin D3) [Vitamin D3] 1,000 UNIT tablet 2,000 unit PO DAILY RF: 0 omeprazole 40 MG capsule,delayed release(DR/EC) 40 mg PO DAILY RF: 0 bupropion HCl 150 MG tablet extended release 24 hr 150 mg PO DAILY RF: 0 topiramate 25 mg Tablet 25 mg PO BID RF: 0 amitriptyline 10 mg Tablet 10 mg PO QHS RF: 0 Ozempic 0.25 mg or 0.5 mg(2 mg/1.5 mL) Pen Injector 0.25 mg SUBCUT WE RF: 0 Tresiba U-100 Insulin 100 unit/mL Solution 10 unit SUBCUT DAILY RF: 0 metformin 500 mg tablet extended release 24 hr 1,000 mg PO BID RF: 0 amoxicillin-pot clavulanate [Augmentin] 875-125 mg tablet 1 tab PO BID Qty: 14 RF: 0 oxycodone-acetaminophen 5-325 mg tablet 1 tab PO Q6H PRN PRN (Reason: Pain) 2 Days Qty: 6 RF: 0 Primary Care Provider: Annie Regan Referrals: Magen Crum DO [STAFF PHYSICIAN] - 3-5 Days Regan,M Ben PA, PA [Primary Care Provider] - 3-5 Days if not improving Disposition Disposition: Home, Self Care
[2021-02-19] MEDS: 0.9% Normal Saline 1,000 ML 150 ML IV (16:15)
[2021-02-19] MEDS: Morphine 2 MG/ML Syringe IV (16:16)
[2021-02-19 16:31] LABS: Absolute Lymphocyte Count 2.45 X10^3/uL (0.83-4.51); Basophil# 0.05 X10^3/uL; Basophil% 0.6 % (0-1); Eosinophil# 0.12 X10^3/uL; Eosinophils% 1.4 % (0-5); Hematocrit 36.7 % (37-47); Hemoglobin 11.4 g/dL (12.0-15.0); Lymphocyte # 2.45 X10^3/ul (0.83-4.51); Lymphocyte % 29.3 % (19-41); Mean Corp Hgb Conc 31.1 g/dL (32-36); Mean Corpuscular Hgb 24.8 pg (27.0-32.0); Mean Corpuscular Volume 79.8 fL (81-99); Mean Platelet Vol. 9.2 fl (6.2-12.0); Monocyte# 0.61 X10^3/uL; Monocyte% 7.3 % (0-10); NRBC Flagged by Analyzer 0 % (0-5); Neutrophil # 5.03 X10^3/uL (2.7-7.7); Neutrophil % 60.3 % (47-70); Platelet Count 286 K/mm3 (150-450); RBC Distribution Width CV 14.9 % (11.6-14.6); White Blood Count 8.4 K/mm3 (4.4-11.0)
[2021-02-19 16:45] LABS: ALB/GLOB Ratio 0.7 RATIO (0.9-2.4); AST(SGOT) 9 U/L (15-37); Alanine Aminotransfer ALT/SGPT 23 U/L (13-56); Albumin, Serum 3.2 g/dL (3.2-5.0); Alkaline Phosphatase 74 U/L (45-117); Anion Gap 6 (5-15); BUN 8 mg/dL (7-18); Calcium,Total 8.9 mg/dL (8.5-10.1); Chloride 101 mmol/L (98-107); EST Glomerular Filtration Rate 84 mL/min (>60); Est Glom Filt Rate - Afr Amer 101 mL/min (>60); Estimated Creatinine Clearance 100.07 ml/min; Globulin 4.5 g/dL (2.2-4.2); Glucose 283 mg/dL (74-106); Potassium 3.2 mmol/L (3.5-5.1); Protein, Total 7.7 g/dL (6.4-8.2); Sodium Level 134 mmol/L (136-145)
[2021-02-19 17:06] LABS: Lactic Acid 2.2 mmol/L (0.4-1.9)
[2021-02-19 17:31] VITALS: PULSE 76; RESP 15; O2SAT 97
[2021-02-19 20:35] LABS: Reflex Lactate? Y
== END 2021-02-19 17:32 | disposition home or self-care (01) ==
PROVIDERS: Emergency Provider Emergency Medicine; PCP Physician Assistant
DX: M79.605 Pain in left leg (principal); R22.41 Localized swelling, mass and lump, right lower limb; M25.561 Pain in right knee; Z91.14 Patient's other noncompliance with medication regimen; E66.9 Obesity, unspecified; Z90.49 Acquired absence of other specified parts of digestive tract; K21.9 Gastro-esophageal reflux disease without esophagitis; I10 Essential (primary) hypertension; E10.40 Type 1 diabetes mellitus with diabetic neuropathy, unspecified; F32.9 Major depressive disorder, single episode, unspecified; F41.9 Anxiety disorder, unspecified
CPT/HCPCS: 80053; 83605; 85025; 93971; 96361; 96374; 99284; J7030; A4216

== ENCOUNTER 2021-08-29 08:37 | Outpatient (CLI) | payer BC, MEDICARE, MEDICAID, SELFPAY ==
--- NOTE | 2021-08-29 10:55 | NEURO ---
NCS and/or EMG Patient Report Ordering Doctor: Dereck Camejo DATE OF SERVICE: 08/29/21October presents for electrodiagnostic testing. She reports numbness and tingling in both legs, primarily below the knees. She has a long history of diabetes. The left leg is not tested today due to an open wound on her foot and a wrap on the lower leg. Electrodiagnostic findings: Absent right peroneal and tibial motor responses. Right-sided H reflex is prolonged. Absent right sural and superficial peroneal responses. Needle EMG testing was performed in the right lower limb. The right peroneus longus and right gastrocnemius demonstrate motor units of increased amplitude and duration. No acute denervation is noted. Electrodiagnostic impression: This is an abnormal study in the right lower limb. 1. The patient does not have obtainable motor or sensory responses in the right lower limb. Would consider correlation with the left lower limb in one upper limb when able to complete in order to get a more accurate assessment for peripheral polyneuropathy. 2. There is no electrodiagnostic evidence for right-sided lumbosacral radiculopathy.
== END 2021-08-29 23:59 | disposition home or self-care (01) ==
LOC: PSN 08:42
PROVIDERS: PCP Physician Assistant; Referring Provider Internal Medicine Endocrinology, Diabetes & Metabolism; Visit Provider Internal Medicine Endocrinology, Diabetes & Metabolism
DX: E11.42 Type 2 diabetes mellitus with diabetic polyneuropathy (principal)
CPT/HCPCS: 95886; 95909

== ENCOUNTER 2021-09-05 10:27 | Outpatient (CLI) | payer BC, MEDICARE, MEDICAID, SELFPAY ==
[2021-09-05 12:14] LABS: Anion Gap 8 (5-15); BUN 9 mg/dL (7-18); BUN/Creat Ratio 11.2 RATIO (10-20); Calcium,Total 9.4 mg/dL (8.5-10.1); Chloride 106 mmol/L (98-107); EST Glomerular Filtration Rate 83 mL/min (>60); Est Glom Filt Rate - Afr Amer 101 mL/min (>60); Glucose 136 mg/dL (74-106); Potassium 3.8 mmol/L (3.5-5.1); Sodium Level 138 mmol/L (136-145)
[2021-09-05 12:20] LABS: Vitamin B12 329 pg/mL (211-911); Vitamin D,25 Hydroxy 11.4 ng/mL
== END 2021-09-05 23:59 | disposition home or self-care (01) ==
LOC: BIMLAB 10:29
PROVIDERS: PCP Physician Assistant; Referring Provider Nurse Practitioner Family; Visit Provider Nurse Practitioner Family
DX: R20.2 Paresthesia of skin (principal)
CPT/HCPCS: 36415; 80048; 82306; 82607

== ENCOUNTER 2021-10-04 08:33 | Outpatient (RCR) | payer BC, MEDICARE, MEDICAID, SELFPAY ==
[2021-10-04 08:53] VITALS: BP 130/80; PULSE 97; TEMP 36.6
--- NOTE | 2021-10-04 09:46 | PCM.WC.HP ---
History of Present Illness Date of Service: 10/04/21 Chief Complaint: Left foot plantar ulceration History of Wound: This is a 41-year-old female who presents to the wound care center for a nonhealing plantar foot ulceration to the left foot. She has history of diabetes mellitus type 2 with peripheral polyneuropathy, bilateral transmetatarsal amputations. Her left foot has subsequently broken down to the plantar aspect subfirst metatarsal. She was following with another provider in [place] at the [facility] where she had undergone a Cam walking boot for offloading, skin grafting with Dermagraft, purapply, Dakin's, packing, surgical revision of her transmetatarsal amputation with posterior tendon lengthening on 01/12/2021, and better glucose control. She had an MRI of the left foot on 08/08/21 which demonstrated no osteomyelitis. They are continuing weekly debridement and weightbearing in a cam boot with Dakin's packing and Aquacel Ag and dry dressing for localized wound care to the foot. Despite these interventions she is still experiencing delayed healing and nonhealing of the ulceration site. She was referred to the wound care center by her provider for other options in her healing status. [facility] Medical History (Updated 10/04/21 @ 17:[address] Magen Yu, DPAnnie) Amputated toe of left foot Amputated toe of right foot Amputation of left foot Anxiety and depression Arthritis Diabetes Diabetes Diabetic neuropathy GERD (gastroesophageal reflux disease) H/O emotional problems Hypertension Microalbuminuria due to type 2 diabetes mellitus Obesity Polyneuropathy due to type 2 diabetes mellitus UTI (urinary tract infection) Home Medications cholecalciferol (vitamin D3) [Vitamin D3] 2,000 unit PO DAILY 04/18/16 [History Last Taken 12/30/20] cyanocobalamin (vitamin B-12) 100 mcg PO DAILY 04/18/16 [History Last Taken 12/30/20] duloxetine 60 mg PO DAILY 04/18/16 [History Last Taken 12/30/20] bupropion HCl 150 mg PO DAILY 06/12/17 [History Last Taken 12/30/20] omeprazole 40 mg PO DAILY 06/12/17 [History Last Taken 12/30/20] amitriptyline 10 mg PO QHS 01/01/21 [History Last Taken 12/30/20] topiramate 25 mg PO BID 01/01/21 [History Last Taken Unknown] metformin 1,000 mg PO BID 01/02/21 [History Last Taken 12/30/20] oxycodone-acetaminophen 1 tab PO Q6H PRN PRN 2 Days #6 tablet 02/17/21 [Rx Last Taken Unknown] oxycodone-acetaminophen 1 tab PO Q6H PRN PRN 3 Days #12 tablet 02/19/21 [Rx Last Taken Unknown] OneTouch Verio test strips #50 ea NS 07/27/21 [Rx Last Taken Unknown] Ozempic 0.5 mg SUBCUT QWEEK #1.5 ml NS 07/27/21 [Rx Last Taken Unknown] clindamycin HCl 300 mg capsule 300 mg PO cap 07/27/21 [History Last Taken Unknown] diclofenac potassium 50 mg tablet tablet PO 07/27/21 [History Last Taken Unknown] glimepiride 4 mg tablet 4 mg PO DAILY #30 tab 07/27/21 [Rx Last Taken Unknown] insulin degludec 100 unit/mL (3 mL) subcutaneous pen 30 unit SUBCUT DAILY #15 ml 07/27/21 [Rx Last Taken Unknown] lisinopril 20 mg tablet 20 mg PO DAILY #30 tab 07/27/21 [Rx Last Taken Unknown] pen needle, diabetic 32 gauge x 5/32 #50 ea 07/27/21 [Rx Last Taken Unknown] cholecalciferol (vitamin D3) 1,250 mcg (50,000 unit) capsule 1,250 mcg PO QWEEK #12 cap 09/05/21 [Rx Last Taken Unknown] glimepiride 2 mg tablet 2 mg PO QHS #30 tab 09/05/21 [Rx Last Taken Unknown] Allergy/AdvReac Type Severity Reaction Status Date / Time gabapentin [From Gabarone] Allergy Angioedema Verified 09/05/21 09:50 Family History Mother Diabetes CVA (cerebral vascular accident) Father Hypertension Other Alcohol abuse Anxiety Arthritis Blood clot in vein Depression H/O transfusion of whole blood Mental disorder Surgical History (Updated 10/04/21 @ 16:[address] Magen Yu DPM) H/O amputation H/O: hysterectomy History of cholecystectomy History of tonsillectomy Social History household members: spouse, family, children and other details: Father in law Smoking Status: Never smoker alcohol intake: never substance use type: does not use ROS Constitutional Constitutional: Denies chills, fatigue, fever(s) or malaise Eyes Eyes: Denies blurry vision, double vision or dry eyes ENT HEENT: Denies dysphagia, nasal congestion, nasal discharge or sore throat Cardiovascular Cardiovascular: Denies chest pain or palpitations Respiratory/Chest Respiratory/Chest: Denies cough, shortness of breath with exertion or wheezing Gastrointestinal Gastrointestinal: Denies abdominal pain, constipation, diarrhea, nausea or vomiting Genitourinary Genitourinary: Denies dysuria, hematuria, urinary frequency, urinary hesitancy or urinary urgency Musculoskeletal Musculoskeletal: Denies joint pain, joint stiffness or joint swelling Integumentary Integumentary: Denies dry skin, jaundice, lesions, pruritus or rash Neurologic Neurologic: Denies abnormal movements, dizziness, headache(s) or seizures Psychiatric Psychiatric: Denies anxiety or depression Endocrine Endocrinology: Denies cold intolerance, heat intolerance, polydipsia or polyuria Hematologic/Lymphatic Hematologic/Lymphatic: Denies easy bleeding or easy bruising Vital Signs Vital Signs Vital Signs: 10/04/21 08:53 Temperature 97.8 F Temperature Source Temporal Pulse Rate 97 Blood Pressure 130/80 H Blood Pressure Mean 96 Blood Pressure Source Monitor Blood Pressure Position Semi-Fowlers Blood Pressure Location Right Arm Physical Exam Const alert, oriented x3, no apparent distress and well nourished General Appearance: cooperative and comfortable HEENT normocephalic Eyes PERRL General Eye: normal appearance of both eyes Neck General: normal visual inspection Lymph Lymphatic: no lymphadenopathy noted and no lymphedema noted Resp normal respiratory effort Cardio regular rate and regular rhythm Back/Spine no CVA tenderness Extremity full ROM and normal capillary refill General Extremity: Negative for calf tenderness Peripheral Pulses: Yes posterior tibial pulses present Skin no rashes or lesions noted, skin turgor normal and no jaundice Wound Narrative: Left foot transmetatarsal amputation noted. Left plantar foot ulceration subfirst metatarsal measuring 2.3 cm x 1.5 cm x 0.2 cm. Ulceration demonstrates no localized signs of infection. Ulcerative base demonstrates red granular tissue with surrounding hyperkeratotic rim and xerotic skin at the distal stump. No palpable fluctuance or bogginess noted about the ulcerative site. No palpable bone subulcer or about the ulcerative site. Right foot transmetatarsal amputation noted. Site is stable. Neuro oriented x3 and moves all extremities Debridement Note Debridement Note Post-Debridement Measurements and Additional Note: Post-Debridement Measurements/Treatment - Nurse 1 - General Ulcer Assessment Start: 10/04/21 08:53 Freq: Status: Active Protocol: REED Activity Type Activity Date Activity User E-Sign Co-Sign Detail Recorded Client Recorded Date Recorded By Document 10/04/21 08:53 GRAEME [id number] 10/04/21 09:03 AK 10/04/21 08:53 WC - Today's Visit Information Type of service Initial Visit Arrival Mode Ambulatory Patient Identification Verified (Name & Yes ) Patient Requires Transmission-Based No Precautions Safety Precautions NA Finger Stick Blood Sugar(mg/dl) (if 131 indicated): Blood Sugar Stated by Patient Vital Signs Temperature (97.8 F-99.1 F) 97.8 F Temperature Source Temporal Pulse Rate (60-100) 97 Pulse Location Monitor Blood Pressure (90/60-120/80) 130/80 H Blood Pressure Mean 96 Source Monitor Position Semi-Fowlers Blood Pressure Location Right Arm History Since Last Visit- (Skip if this is Patient's initial visit) Have you changed medications since your No last visit? Had a fall/change in ADL's that may No increase risk of falls Have you been in the hospital since your No last visit? Has dressing in place as prescribed Yes Has compression in place as prescribed N/A Has offloadiing in place as prescribed Yes Experienced any changes in pain level or No management Left Footwear Removable Cast Walker/Walking Boot Right Footwear Regular Shoe Pain Scale: 0-10 Numeric Is Patient Pain Free? Yes - Nurse 1 - General Ulcer Measurement Start: 10/04/21 08:53 Freq: Status: Active Protocol: Activity Type Activity Date Activity User E-Sign Co-Sign Detail Recorded Client Recorded Date Recorded By Document 10/04/21 08:53 GRAEME [id number] 10/04/21 09:03 GRAEME 10/04/21 08:53 Wound Center Nurse 1 #1 Left Plantar -Current Size (cm) - Length 2.3 -Current Size (cm) - Width 1.5 -Current Size (cm) - Depth 0.2 -Total Square Cm 3.45 -Exudate Amt Small -Exudate Type Serosanguineous -Wound Margin Distinct, Outline Attached -Granulation Amt Medium (34-66%) -Granulation Quality Red -Necrosis Amt Small (1-33%) -Necrotic Tissue Type Adherent Slough -Texture (Fanny-wound Skin Appearance) Assessed, Scarring -Moisture (Fanny-wound Skin Appearance) No Abnormality, Assessed -Color (Fanny-wound Skin Appearance) No Abnormality, Assessed -Temperature (Fanny-wound Skin No Abnormality Appearance) (Pt Warm) -Tenderness on Palpation (Fanny-wound No Skin Appearance) -Ulcer Cleansing Rinsed/ Irrigated with Saline -Foul Odor after Cleansing No -Anesthetic Used 4% Lidocaine Solution Right Calf (cm) 39 Right Ankle (cm) 23 Left Calf (cm) 38 Left Ankle (cm) 23.6 - Nurse 3 - General Ulcer D/C NN Start: 10/04/21 08:53 Freq: Status: Active Protocol: Activity Type Activity Date Activity User E-Sign Co-Sign Detail Recorded Client Recorded Date Recorded By Document 10/04/21 09:41 ISAAC [id number] 10/04/21 09:41 ISAAC 10/04/21 09:41 Wound Care Nurse 3 #1 Left Plantar -Ulcer Cleansing Rinsed/ Irrigated with Saline -Other Dressing collogen powder -Primary Dressing Covered/Secured with Dry Gauze,Dry Gauze & Roll Gauze,Secured with Tape Pain Scale: 0-10 Numeric Is Patient Pain Free? 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 mellitus long term care social worker insulin use: with halfway use Diabetes mellitus type: type 2 Qualified Code(s): E11.65 - Type 2 diabetes mellitus with hyperglycemia; Z79.4 - 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 exterminator helper (current) use of insulin (4) Diabetic foot ulcer: CODE(S): E11.621 - Type 2 diabetes mellitus with foot ulcer; L97.509 - Non-pressure chronic ulcer of other part of unspecified foot with unspecified severity QUALIFIERS: Diabetes mellitus type: type 2 Diabetic foot ulcer location: toe Laterality: right Non-pressure ulcer stage: with fat layer exposed Qualified Code(s): E11.621 - Type 2 diabetes mellitus with foot ulcer; L97.512 - Non-pressure chronic ulcer of other part of right foot with fat layer exposed; L97.512 - Non-pressure chronic ulcer of other part of right foot with fat layer exposed; L97.512 - Non-pressure chronic ulcer of other part of right foot with fat layer exposed; L97.512 - Non-pressure chronic ulcer of other part of right foot with fat layer exposed (5) History of transmetatarsal amputation of left foot: CODE(S): Z89.432 - Acquired absence of left foot (6) History of transmetatarsal amputation of right foot: CODE(S): Z89.431 - Acquired absence of right foot (7) Microalbuminuria due to type 2 diabetes mellitus: CODE(S): E11.29 - Type 2 diabetes mellitus with other diabetic kidney complication; R80.9 - Proteinuria, unspecified (8) Obesity: CODE(S): E66.9 - Obesity, unspecified QUALIFIERS: Body mass index: BMI 40.0-44.9 Obesity classification: adult class 3 (BMI >= 40) Obesity type: due to excess calories Serious obesity comorbidity presence: with serious comorbidity Qualified Code(s): E66.01 - Morbid (severe) obesity due to excess calories; Z68.41 - Body mass index [BMI] 40.0-44.9, adult (9) Delayed wound healing: CODE(S): T14.8XXD - Other injury of unspecified body region, subsequent encounter PLAN: This is a 41-year-old female with a nonhealing plantar ulceration to the left foot. She has history of bilateral transmetatarsal amputations, diabetes mellitus type 2 with peripheral polyneuropathy, and delayed wound healing status.She was being followed by another provider at the [facility] in [place] and had underwent multiple interventions however with no resolution of her ulcerative site. I reviewed her case notes today from her provider and considered her previous treatments and interventions. Left foot transmetatarsal amputation site demonstrates plantar ulceration subfirst metatarsal. Ulcerative site measures 2.3 cm x 1.5 cm x 0.2 cm. Ulcerative site demonstrates no localized signs of infection. Ulcerative site demonstrates no palpable bony prominences wound bed or periwound. Healthy granular tissue is noted. Ulcerative site underwent debridement as noted above. Ulceration site dressed with collagen powder and PHMB and a dry sterile dressing. Offloading felt pad applied to inside of the cam boot to offload ulceration site. She was instructed to continue to wear her cam boot with the offloading pad at all times of ambulation. Dressings to be changed daily. I discussed localized signs of infection to observe for including localized redness about the ulceration site, red streaking up the leg, purulent drainage, malodor to the wound site. Or if she experiences any nausea, vomiting, fever, or chills that these are progressing signs of infection and she should report to the ED. Patient voices understanding of this. I discussed continued glycemic control to ensure proper healing. Patient encouraged to ensure proper nutrition including nutritional supplements to encourage wound healing. I reviewed and discussed his case today. Debridement was performed today as noted in the clinical panel to all of the ulcer sites. The following work up and care recommendations were made: Dressing: Collagen powder and pHMB dry sterile dressing Wash: Soap and water Tissue growth optimization: Collagen powder and pHMB Offload: Cam boot with offloading pad Vascular: Adequate perfusion to stump site Edema: May elevate lower extremity to control edema while at rest Infection: No localized signs of infection Pain: May take [id number] Tylenol extra strength for any pain or discomfort Host factors: Diabetes mellitus type 2 with peripheral polyneuropathy, history of bilateral transmetatarsal amputation I answered all the patient's questions. To return to the wound healing center in 1 week or call sooner if the patient has any questions or concerns. The problems addressed require a low medical decision making level which includes two or more minor problems, a stable chronic illness, or an acute uncomplicated illness or injury. The medical decision making level is low. There is noted low risk of morbidity after considering this treatment plan and diagnostic data. Note: [employer] speech recognition floor nurse software was used to create portions of this document. Sound-alike and misspelled words, as well as other floor nurse errors may be contained in the documentation.
== END 2021-10-04 23:59 | disposition home or self-care (01) ==
LOC: WC 08:33
PROVIDERS: PCP Physician Assistant; Visit Provider Student in an Organized Health Care Education/Training Program
DX: E11.621 Type 2 diabetes mellitus with foot ulcer (principal); Z89.432 Acquired absence of left foot; Z89.431 Acquired absence of right foot; L97.512 Non-pressure chronic ulcer of other part of right foot with fat layer exposed; L97.522 Non-pressure chronic ulcer of other part of left foot with fat layer exposed; E11.65 Type 2 diabetes mellitus with hyperglycemia; E11.29 Type 2 diabetes mellitus with other diabetic kidney complication; E11.42 Type 2 diabetes mellitus with diabetic polyneuropathy; E66.01 Morbid (severe) obesity due to excess calories; Z68.41 Body mass index [BMI] 40.0-44.9, adult; Z79.4 Long term (current) use of insulin; I10 Essential (primary) hypertension; T14.8XXD Other injury of unspecified body region, subsequent encounter
CPT/HCPCS: 11042; 99213; G0463

== ENCOUNTER 2021-11-01 09:00 | Outpatient (RCR) | payer BC, MEDICARE, MEDICAID, SELFPAY ==
[2021-10-05 00:53] VITALS: BP 130/80; PULSE 97; TEMP 36.6
[2021-10-11 08:47] VITALS: BP 126/75; PULSE 74; TEMP 36.1
--- NOTE | 2021-10-11 09:05 | PCM.WC.PN ---
History of Present Illness Date of Service: 10/11/21 Chief Complaint: Left foot plantar ulceration History of Wound: This is a 41-year-old female who presents to the wound care center for a nonhealing plantar foot ulceration to the left foot. She has history of diabetes mellitus type 2 with peripheral polyneuropathy, bilateral transmetatarsal amputations. Her left foot has subsequently broken down to the plantar aspect subfirst metatarsal. She was following with another provider in [place] at the [facility] where she had undergone a Cam walking boot for offloading, skin grafting with Dermagraft, purapply, Dakin's, packing, surgical revision of her transmetatarsal amputation with posterior tendon lengthening on 01/12/2021, and better glucose control. She had an MRI of the left foot on 08/08/21 which demonstrated no osteomyelitis. They are continuing weekly debridement and weightbearing in a cam boot with Dakin's packing and Aquacel Ag and dry dressing for localized wound care to the foot. Despite these interventions she is still experiencing delayed healing and nonhealing of the ulceration site. She was referred to the wound care center by her provider for other options in her healing status. Subjective Subjective This is a 41-year-old female who presents to the wound care center for follow-up of a nonhealing plantar foot ulceration of the left foot. She is performing daily dressing changes with collagen and pHMB to the wound site daily. She remains compliant in wearing her offloading boot. She denies any constitutional symptoms today. She has no other complaints today. Objective Data Objective Data Vital Signs: Vital Signs Temp Pulse BP 96.9 F L 74 126/75 H 10/11/21 08:47 10/11/21 08:47 10/11/21 08:47 Physical Exam Const alert, oriented x3, no apparent distress and well nourished General Appearance: cooperative and comfortable HEENT normocephalic Eyes PERRL General Eye: normal appearance of both eyes Neck General: normal visual inspection Lymph Lymphatic: no lymphadenopathy noted and no lymphedema noted Resp normal respiratory effort Cardio regular rate and regular rhythm Extremity full ROM, normal capillary refill, no calf tenderness and no pedal edema Peripheral Pulses: Yes posterior tibial pulses present Skin no rashes or lesions noted, skin turgor normal and no jaundice Wound Narrative: Left foot transmetatarsal amputation noted. Left plantar foot ulceration subfirst metatarsal measuring 2.5 cm x 2.0cm x 0.1cm. Ulcerative site demonstrates no localized signs of infection. Ulcerative base demonstrates a healthy red granular base with surrounding hyperkeratotic rim and xerotic skin to the distal stump. No palpable fluctuance or bogginess noted about the ulcerative site. No palpable bone subulceration or about the ulcerative site. Neuro oriented x3 and moves all extremities Debridement Note Debridement Note Wound debrided: Left plantar foot Laterality: Left Wound Grade/Stage: Nieves stage I Type of Debridement: Excisional debridement Anesthesia Used: 4% Lidocaine Solution Depth: Down to and including healthy tissue and in the subcutaneous layer Percentage of wound debrided: 100 Instrument Used: 3mm curette and #15 blade Tissue Removed: Fibrous, devitalized subcutaneous, biofilm, slough Severity: Fat Layer Exposed Amount of bleeding with debridement: Mild Bleeding Controlled with: Compression and gauze Patient tolerated procedure: Patient tolerated procedure well Post-Debridement Measurements and Additional Note: Post-Debridement Measurements/Treatment - Nurse 1 - General Ulcer Assessment Start: 10/11/21 08:47 Freq: Status: Active Protocol: [email or web address] Activity Type Activity Date Activity User E-Sign Co-Sign Detail Recorded Client Recorded Date Recorded By Document 10/11/21 08:47 [id number] 10/11/21 08:49 ISAAC 10/11/21 08:47 - Today's Visit Information Type of service Follow-up Visit (Physician/VEIN ACCESS TECHNICIAN ) Arrival Mode Ambulatory Patient Identification Verified (Name & Yes ) Vital Signs Temperature (97.8 F-99.1 F) 96.9 F L Temperature Source Temporal Pulse Rate (60-100) 74 Pulse Location Monitor Blood Pressure (90/60-120/80) 126/75 H Blood Pressure Mean (mm Hg) 92 Source Monitor Position Sitting Blood Pressure Location Right Arm History Since Last Visit- (Skip if this is Patient's initial visit) Have you changed medications since your No last visit? Any new allergies or adverse reactions No Had a fall/change in ADL's that may No increase risk of falls Signs or symptoms of abuse and/or No neglect since last visit Have you been in the hospital since your No last visit? Has dressing in place as prescribed Yes Has compression in place as prescribed N/A Has offloadiing in place as prescribed Yes Experienced any changes in pain level or No management Pain Scale: 0-10 Numeric Is Patient Pain Free? Yes WC - Nurse 1 - General Ulcer Measurement Start: 10/11/21 08:47 Freq: Status: Active Protocol: Activity Type Activity Date Activity User E-Sign Co-Sign Detail Recorded Client Recorded Date Recorded By Document 10/11/21 08:47 ISAAC [id number] 10/11/21 08:49 ISAAC 10/11/21 08:47 Wound Center Nurse 1 #1 Left Plantar -Current Size (cm) - Length 2.5 -Current Size (cm) - Width 2 -Current Size (cm) - Depth 0.1 -Total Square Cm 5.0 -Exudate Amt Small -Exudate Type Serosanguineous -Wound Margin Distinct, Outline Attached -Granulation Amt Medium (34-66%) -Granulation Quality Red -Necrosis Amt Medium (34-66%) -Necrotic Tissue Type Adherent Slough -Texture (Fanny-wound Skin Appearance) Assessed, Scarring -Color (Fanny-wound Skin Appearance) No Abnormality, Assessed -Temperature (Fanny-wound Skin No Abnormality Appearance) (Pt Warm) -Tenderness on Palpation (Fanny-wound No Skin Appearance) -Ulcer Cleansing Rinsed/ Irrigated with Saline -Foul Odor after Cleansing No -Anesthetic Used 5% Lidocaine Gel Assessment/Plan Assessment/Plan (1) Non-pressure chronic ulcer of other part of left foot with fat layer exposed: CODE(S): L97.522 - Non-pressure chronic ulcer of other part of left foot with fat layer exposed (2) Diabetic foot ulcer: CODE(S): E11.621 - Type 2 diabetes mellitus with foot ulcer; L97.509 - Non-pressure chronic ulcer of other part of unspecified foot with unspecified severity QUALIFIERS: Diabetic foot ulcer location: toe Diabetes mellitus type: type 2 Laterality: right Non-pressure ulcer stage: with fat layer exposed Qualified Code(s): E11.621 - Type 2 diabetes mellitus with foot ulcer; L97.512 - Non-pressure chronic ulcer of other part of right foot with fat layer exposed; L97.512 - Non-pressure chronic ulcer of other part of right foot with fat layer exposed; L97.512 - Non-pressure chronic ulcer of other part of right foot with fat layer exposed; L97.512 - Non-pressure chronic ulcer of other part of right foot with fat layer exposed (3) Delayed wound healing: CODE(S): T14.8XXD - Other injury of unspecified body region, subsequent encounter (4) Diabetes: CODE(S): E11.9 - Type 2 diabetes mellitus without complications QUALIFIERS: Diabetes mellitus type: type 2 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 intermediates insulin use: with supervisor intermediates use Diabetes mellitus complication status: with hyperglycemia Qualified Code(s): E11.65 - Type 2 diabetes mellitus with hyperglycemia; 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 (5) Polyneuropathy due to type 2 diabetes mellitus: CODE(S): E11.42 - Type 2 diabetes mellitus with diabetic polyneuropathy (6) History of transmetatarsal amputation of right foot: CODE(S): Z89.431 - Acquired absence of right foot (7) History of transmetatarsal amputation of left foot: CODE(S): Z89.432 - Acquired absence of left foot (8) Microalbuminuria due to type 2 diabetes mellitus: CODE(S): E11.29 - Type 2 diabetes mellitus with other diabetic kidney complication; R80.9 - Proteinuria, unspecified (9) Obesity: CODE(S): E66.9 - Obesity, unspecified QUALIFIERS: Obesity type: due to excess calories Obesity classification: adult class 3 (BMI >= 40) Serious obesity comorbidity presence: with serious comorbidity Body mass index: BMI 40.0-44.9 Qualified Code(s): E66.01 - Morbid (severe) obesity due to excess calories; Z68.41 - Body mass index [BMI] 40.0-44.9, adult PLAN: This is a 41-year-old female with a nonhealing plantar ulceration to the left foot. She has history of bilateral transmetatarsal amputations, diabetes mellitus type 2 with peripheral polyneuropathy, and delayed wound healing status.She was being followed by another provider at the [facility] in [place] and had underwent multiple interventions however with no resolution of her ulcerative site. Case notes from her provider were reviewed and considered her previous treatments and interventions. Left foot transmetatarsal amputation site demonstrates plantar ulceration subfirst metatarsal. Ulcerative site measures 2.5 cm x 2.0 cm x 0.1 cm. Ulcerative site demonstrates no localized signs of infection. Ulcerative site demonstrates no palpable bony prominences wound bed or periwound. Healthy granular tissue is noted. Ulcerative site underwent debridement as noted above. Ulceration site dressed with collagen powder and PHMB and a dry sterile dressing. I applied more offloading felt pad to inside of the cam boot to offload ulceration site. She was instructed to continue to wear her cam boot with the offloading pad at all times of ambulation. Dressings to be changed daily. I discussed localized signs of infection to observe for including localized redness about the ulceration site, red streaking up the leg, purulent drainage, malodor to the wound site. Or if she experiences any nausea, vomiting, fever, or chills that these are progressing signs of infection and she should report to the ED. Patient voices understanding of this. I discussed continued glycemic control to ensure proper healing. Patient encouraged to ensure proper nutrition including nutritional supplements to encourage wound healing. I reviewed and discussed his case today. Debridement was performed today as noted in the clinical panel to all of the ulcer sites. The following work up and care recommendations were made: Dressing: Collagen powder and pHMB dry sterile dressing Wash: Soap and water Tissue growth optimization: Collagen powder and pHMB Offload: Cam boot with offloading pad Vascular: Adequate perfusion to stump site Edema: May elevate lower extremity to control edema while at rest Infection: No localized signs of infection Pain: May take [id number] Tylenol extra strength for any pain or discomfort Host factors: Diabetes mellitus type 2 with peripheral polyneuropathy, history of bilateral transmetatarsal amputation I answered all the patient's questions. To return to the wound healing center in 1 week or call sooner if the patient has any questions or concerns. Note: [employer]i speech recognition process environmental technician software was used to create portions of this document. Sound-alike and misspelled words, as well as other process environmental technician errors may be contained in the documentation.
[2021-10-25 08:50] VITALS: BP 114/72; PULSE 101; TEMP 35.9
--- NOTE | 2021-10-25 09:23 | PCM.WC.PN ---
History of Present Illness Date of Service: 10/25/21 Chief Complaint: Left foot plantar ulceration History of Wound: This is a 41-year-old female who presents to the wound care center for a nonhealing plantar foot ulceration to the left foot. She has history of diabetes mellitus type 2 with peripheral polyneuropathy, bilateral transmetatarsal amputations. Her left foot has subsequently broken down to the plantar aspect subfirst metatarsal. She was following with another provider in [place] at the [facility] where she had undergone a Cam walking boot for offloading, skin grafting with Dermagraft, purapply, Dakin's, packing, surgical revision of her transmetatarsal amputation with posterior tendon lengthening on 01/12/2021, and better glucose control. She had an MRI of the left foot on 08/08/21 which demonstrated no osteomyelitis. They are continuing weekly debridement and weightbearing in a cam boot with Dakin's packing and Aquacel Ag and dry dressing for localized wound care to the foot. Despite these interventions she is still experiencing delayed healing and nonhealing of the ulceration site. She was referred to the wound care center by her provider for other options in her healing status. Subjective Subjective This is a 41-year-old female who presents to the wound care center for follow-up of a nonhealing plantar foot ulceration of the left foot. She is performing daily dressing changes with collagen and pHMB to the wound site daily. She remains compliant in wearing her offloading boot. She denies any constitutional symptoms today. She has no other complaints today. She states that she has also been trying to get more protein in her diet to aid in wound healing. Objective Data Objective Data Vital Signs: Vital Signs Temp Pulse BP 96.7 F L 101 H 114/72 10/25/21 08:50 10/25/21 08:50 10/25/21 08:50 Physical Exam Const alert, oriented x3, no apparent distress and well nourished General Appearance: cooperative and comfortable HEENT normocephalic Eyes PERRL General Eye: normal appearance of both eyes Neck General: normal visual inspection Lymph Lymphatic: no lymphadenopathy noted and no lymphedema noted Resp normal respiratory effort Cardio regular rate and regular rhythm Extremity full ROM, normal capillary refill, no calf tenderness and no pedal edema Skin no rashes or lesions noted, skin turgor normal and no jaundice Wound Narrative: Left foot transmetatarsal amputation noted. Left plantar foot ulceration subfirst metatarsal measuring 2.5 cm x 2.0cm x 0.1cm. Ulcerative site demonstrates no localized signs of infection. Ulcerative base demonstrates a healthy red granular base with surrounding hyperkeratotic rim and xerotic skin to the distal stump. No palpable fluctuance or bogginess noted about the ulcerative site. No palpable bone subulceration or about the ulcerative site. Neuro oriented x3 and moves all extremities Debridement Note Debridement Note Wound debrided: Left plantar foot Laterality: Left Wound Grade/Stage: Nieves stage I Type of Debridement: Excisional debridement Anesthesia Used: 4% Lidocaine Solution Depth: Down to and including healthy tissue and in the subcutaneous layer Percentage of wound debrided: 100 Instrument Used: 3mm curette Tissue Removed: Fibrous, devitalized subcutaneous, biofilm, slough Severity: Fat Layer Exposed Amount of bleeding with debridement: Mild Bleeding Controlled with: Compression and gauze Patient tolerated procedure: Patient tolerated procedure well Post-Debridement Measurements and Additional Note: Post-Debridement Measurements/Treatment - Nurse 1 - General Ulcer Assessment Start: 10/11/21 08:47 Freq: Status: Active Protocol: REED Activity Type Activity Date Activity User E-Sign Co-Sign Detail Recorded Client Recorded Date Recorded By Document 10/11/21 08:47 [id number] 10/11/21 08:49 Document 10/25/21 08:50 [id number] 10/25/21 08:52 KR 10/11/21 10/25/21 08:47 08:50 - Today's Visit Information Type of service Follow-up Visit Follow-up Visit (Physician/COMPLIANCE REVIEW SPECIALIST (Physician/COMPLIANCE REVIEW SPECIALIST ) ) Arrival Mode Ambulatory Ambulatory Patient Identification Verified (Name & Yes Yes ) Vital Signs Temperature (97.8 F-99.1 F) 96.9 F L 96.7 F L Temperature Source Temporal Temporal Pulse Rate (60-100) 74 101 H Pulse Location Monitor Monitor Blood Pressure (90/60-120/80) 126/75 H 114/72 Blood Pressure Mean (mm Hg) 92 86 Source Monitor Monitor Position Sitting Sitting Blood Pressure Location Right Arm Right Arm History Since Last Visit- (Skip if this is Patient's initial visit) Have you changed medications since your No No last visit? Any new allergies or adverse reactions No No Had a fall/change in ADL's that may No No increase risk of falls Signs or symptoms of abuse and/or No No neglect since last visit Have you been in the hospital since your No No last visit? Has dressing in place as prescribed Yes Yes Has compression in place as prescribed N/A N/A Has offloadiing in place as prescribed Yes N/A Experienced any changes in pain level or No No management Left Footwear Removable Cast Walker/Walking Boot Right Footwear Regular Shoe Pain Scale: 0-10 Numeric Is Patient Pain Free? Yes Yes WC - Nurse 1 - General Ulcer Measurement Start: 10/11/21 08:47 Freq: Status: Active Protocol: Activity Type Activity Date Activity User E-Sign Co-Sign Detail Recorded Client Recorded Date Recorded By Document 10/11/21 08:47 ISAAC [id number] 10/11/21 08:49 KR Document 10/25/21 08:50 KR [id number] 10/25/21 08:52 KR 10/11/21 10/25/21 08:47 08:50 Wound Center Nurse 1 #1 Left Plantar -Current Size (cm) - Length 2.5 2.5 -Current Size (cm) - Width 2 1.8 -Current Size (cm) - Depth 0.1 0.2 -Total Square Cm 5.0 4.50 -Exudate Amt Small Small -Exudate Type Serosanguineous Serosanguineous -Wound Margin Distinct, Distinct, Outline Outline Attached Attached -Granulation Amt Medium (34-66%) Medium (34-66%) -Granulation Quality Red Red -Necrosis Amt Medium (34-66%) Small (1-33%) -Necrotic Tissue Type Adherent Slough Adherent Slough -Texture (Fanny-wound Skin Appearance) Assessed, Assessed, Scarring Scarring -Moisture (Fanny-wound Skin Appearance) No Abnormality, Assessed -Color (Fanny-wound Skin Appearance) No Abnormality, No Abnormality, Assessed Assessed -Temperature (Fanny-wound Skin No Abnormality No Abnormality Appearance) (Pt Warm) (Pt Warm) -Tenderness on Palpation (Fanny-wound No No Skin Appearance) -Ulcer Cleansing Rinsed/ Rinsed/ Irrigated with Irrigated with Saline Saline -Foul Odor after Cleansing No No -Anesthetic Used 5% Lidocaine 5% Lidocaine Gel Gel WC - Nurse 2 - General Ulcer CM Notes Start: 10/11/21 08:47 Freq: Status: Active Protocol: Activity Type Activity Date Activity User E-Sign Co-Sign Detail Recorded Client Recorded Date Recorded By Document 10/11/21 09:20 PL Desktop 10/11/21 09:20 PL 10/11/21 09:20 Wound Center Nurse 2 -Time 09:08 -Correct Patient Yes -Correct Side, Site, Position Yes -Correct Procedure Yes -Procedure Performed Yes -Type of Procedure Debridement -Clinical Debridement Subcutaneous -Tissue Removed Subcutaneous -Post Debridement (cm) - Length 2.5 -Post Debridement (cm) - Width 2.0 -Post Debridement (cm) - Depth 0.1 -Total Square (Post) (cm) 5.00 -Area of Debridement (cm) - Length 2.5 -Area of Debridement (cm) - Width 2.0 -Total Square (Area) (cm) 5.00 -Tunneling No -Undermining/Tunneling No -Circular Undermining No -Wound/Ulcer Outcome Not Healed -Ulcer Cleansing Rinsed/ Irrigated with Saline -Foul Odor after Cleansing No -Bioengineered Tissue No -Bleeding Controlled with Pressure -Treatment Response Procedure Tolerated Well -Debridement - Subq, 1st 20sq cm Yes Pain Scale: 0-10 Numeric Is Patient Pain Free? Yes - Nurse 3 - General Ulcer D/C NN Start: 10/11/21 08:47 Freq: Status: Active Protocol: Activity Type Activity Date Activity User E-Sign Co-Sign Detail Recorded Client Recorded Date Recorded By Document 10/11/21 09:18 AK [id number] 10/11/21 09:20 AK Document 10/25/21 09:20 KR [id number] 10/25/21 09:20 KR 10/11/21 10/25/21 09:18 09:20 Wound Care Nurse 3 #1 Left Plantar -Ulcer Cleansing Rinsed/ Rinsed/ Irrigated with Irrigated with Saline Saline -Foul Odor after Cleansing No -Negative Pressure Wound Therapy N/A -Other Dressing collagen powder collagen powder -Primary Dressing Covered/Secured with Dry Gauze, Dry Gauze,Dry Secured with Gauze & Roll Tape Gauze,Secured with Tape Pain Scale: 0-10 Numeric Is Patient Pain Free? Yes Yes WC - Visit Discharge Discharge Condition Stable Stable Ambulatory Status Ambulatory Ambulatory Transportation Private Auto Private Auto Medication Reconcilliation completed & Yes provided to patient/care provider Clinical Summary of Care Provided Yes Assessment/Plan Assessment/Plan (1) Non-pressure chronic ulcer of other part of left foot with fat layer exposed: CODE(S): L97.522 - Non-pressure chronic ulcer of other part of left foot with fat layer exposed (2) Diabetic foot ulcer: CODE(S): E11.621 - Type 2 diabetes mellitus with foot ulcer; L97.509 - Non-pressure chronic ulcer of other part of unspecified foot with unspecified severity QUALIFIERS: Diabetic foot ulcer location: toe Diabetes mellitus type: type 2 Laterality: right Non-pressure ulcer stage: with fat layer exposed Qualified Code(s): E11.621 - Type 2 diabetes mellitus with foot ulcer; L97.512 - Non-pressure chronic ulcer of other part of right foot with fat layer exposed; L97.512 - Non-pressure chronic ulcer of other part of right foot with fat layer exposed; L97.512 - Non-pressure chronic ulcer of other part of right foot with fat layer exposed; L97.512 - Non-pressure chronic ulcer of other part of right foot with fat layer exposed (3) Delayed wound healing: CODE(S): T14.8XXD - Other injury of unspecified body region, subsequent encounter (4) Diabetes: CODE(S): E11.9 - Type 2 diabetes mellitus without complications QUALIFIERS: Diabetes mellitus type: type 2 Diabetes mellitus [facility] insulin use: with superintendent terminal use Diabetes mellitus complication status: with hyperglycemia Qualified Code(s): E11.65 - Type 2 diabetes mellitus with hyperglycemia; Z79.4 - [facility] (current) use of insulin (5) Polyneuropathy due to type 2 diabetes mellitus: CODE(S): E11.42 - Type 2 diabetes mellitus with diabetic polyneuropathy (6) History of transmetatarsal amputation of right foot: CODE(S): Z89.431 - Acquired absence of right foot (7) History of transmetatarsal amputation of left foot: CODE(S): Z89.432 - Acquired absence of left foot (8) Microalbuminuria due to type 2 diabetes mellitus: CODE(S): E11.29 - Type 2 diabetes mellitus with other diabetic kidney complication; R80.9 - Proteinuria, unspecified (9) Obesity: CODE(S): E66.9 - Obesity, unspecified QUALIFIERS: Obesity type: due to excess calories Obesity classification: adult class 3 (BMI >= 40) Serious obesity comorbidity presence: with serious comorbidity Body mass index: BMI 40.0-44.9 Qualified Code(s): E66.01 - Morbid (severe) obesity due to excess calories; Z68.41 - Body mass index [BMI] 40.0-44.9, adult PLAN: This is a 41-year-old female with a nonhealing plantar ulceration to the left foot. She has history of bilateral transmetatarsal amputations, diabetes mellitus type 2 with peripheral polyneuropathy, and delayed wound healing status.She was being followed by another provider at the [facility] in [place] and had underwent multiple interventions however with no resolution of her ulcerative site. Case notes from her provider were reviewed and considered her previous treatments and interventions. Left foot transmetatarsal amputation site demonstrates plantar ulceration subfirst metatarsal. Ulcerative site measures 2.5 cm x 1.8 cm x 0.1 cm. Ulcerative site demonstrates no localized signs of infection. Ulcerative site demonstrates no palpable bony prominences in the wound bed or periwound. Healthy granular tissue is noted. Ulcerative site underwent debridement as noted above. Ulceration site dressed with collagen powder and PHMB and a dry sterile dressing. She was instructed to continue to wear her cam boot with the offloading pad at all times of ambulation. Dressings to be changed daily. I discussed protein supplementation with her today. Rx Devante with collagen was written today for her to begin to aid in wound healing. I discussed localized signs of infection to observe for including localized redness about the ulceration site, red streaking up the leg, purulent drainage, malodor to the wound site. Or if she experiences any nausea, vomiting, fever, or chills that these are progressing signs of infection and she should report to the ED. Patient voices understanding of this. I discussed continued glycemic control to ensure proper healing. Patient encouraged to ensure proper nutrition including nutritional supplements to encourage wound healing. I reviewed and discussed his case today. Debridement was performed today as noted in the clinical panel to all of the ulcer sites. The following work up and care recommendations were made: Dressing: Collagen powder and pHMB dry sterile dressing Wash: Soap and water Tissue growth optimization: Collagen powder and pHMB Offload: Cam boot with offloading pad Vascular: Adequate perfusion to stump site Edema: May elevate lower extremity to control edema while at rest Infection: No localized signs of infection Pain: May take [id number] Tylenol extra strength for any pain or discomfort Host factors: Diabetes mellitus type 2 with peripheral polyneuropathy, history of bilateral transmetatarsal amputation I answered all the patient's questions. To return to the wound healing center in 1 week or call sooner if the patient has any questions or concerns. Note: [employer] speech recognition assistant statistician software was used to create portions of this document. Sound-alike and misspelled words, as well as other assistant statistician errors may be contained in the documentation.
[2021-11-01 08:47] VITALS: BP 134/83; PULSE 97; TEMP 35.9
--- NOTE | 2021-11-01 09:02 | PCM.WC.PN ---
History of Present Illness Date of Service: 11/01/21 Chief Complaint: Left foot plantar ulceration History of Wound: This is a 41-year-old female who presents to the wound care center for a nonhealing plantar foot ulceration to the left foot. She has history of diabetes mellitus type 2 with peripheral polyneuropathy, bilateral transmetatarsal amputations. Her left foot has subsequently broken down to the plantar aspect subfirst metatarsal. She was following with another provider in [place] at the [facility] where she had undergone a Cam walking boot for offloading, skin grafting with Dermagraft, purapply, Dakin's, packing, surgical revision of her transmetatarsal amputation with posterior tendon lengthening on 01/12/2021, and better glucose control. She had an MRI of the left foot on 08/08/21 which demonstrated no osteomyelitis. They are continuing weekly debridement and weightbearing in a cam boot with Dakin's packing and Aquacel Ag and dry dressing for localized wound care to the foot. Despite these interventions she is still experiencing delayed healing and nonhealing of the ulceration site. She was referred to the wound care center by her provider for other options in her healing status. Subjective Subjective This is a 41-year-old female who presents to the wound care center for follow-up of a nonhealing plantar foot ulceration of the left foot. She is performing dressing changes with collagen and pHMB to the wound site daily. She remains compliant in wearing her offloading boot with plantar offloading pads. She denies any constitutional symptoms today. She has no other complaints today. She states that she has been continuing protein supplementation in her diet to aid in wound healing. Objective Data Objective Data Vital Signs: Vital Signs Temp Pulse BP 96.7 F L 97 134/83 H 11/01/21 08:47 11/01/21 08:47 11/01/21 08:47 Physical Exam Const alert, oriented x3, no apparent distress and well nourished General Appearance: cooperative and comfortable HEENT normocephalic Eyes PERRL General Eye: normal appearance of both eyes Neck General: normal visual inspection Lymph Lymphatic: no lymphadenopathy noted and no lymphedema noted Resp normal respiratory effort Cardio regular rate and regular rhythm Extremity full ROM, normal capillary refill, no calf tenderness and no pedal edema Skin no rashes or lesions noted, skin turgor normal and no jaundice Wound Narrative: Left foot transmetatarsal amputation noted. Left plantar foot ulceration subfirst metatarsal measuring 2.4 cm x 1.5cm x 0.3cm. Ulcerative site demonstrates no localized signs of infection. Ulcerative base demonstrates a healthy red granular base with surrounding hyperkeratotic rim and xerotic skin to the distal stump. No palpable fluctuance or bogginess noted about the ulcerative site. No palpable bone subulceration or about the ulcerative site. Neuro oriented x3 and moves all extremities Debridement Note Debridement Note Wound debrided: Plantar transmetatarsal amputation stump Laterality: Left Wound Grade/Stage: Nieves stage I Type of Debridement: Excisional debridement Anesthesia Used: 4% Lidocaine Solution Depth: Down to and including healthy tissue and in the subcutaneous layer Percentage of wound debrided: 100 Instrument Used: 3mm curette and #15 blade Tissue Removed: Hyperkeratotic, fibrous, devitalized subcutaneous, biofilm, slough Severity: Fat Layer Exposed Amount of bleeding with debridement: Mild Bleeding Controlled with: Compression and gauze Patient tolerated procedure: Patient tolerated procedure well Post-Debridement Measurements and Additional Note: Post-Debridement Measurements/Treatment - Nurse 1 - General Ulcer Assessment Start: 10/11/21 08:47 Freq: Status: Active Protocol: BLANQUITA.CHANCE Activity Type Activity Date Activity User E-Sign Co-Sign Detail Recorded Client Recorded Date Recorded By Document 10/11/21 08:47 [id number] 10/11/21 08:49 Document 10/25/21 08:50 [id number] 10/25/21 08:52 Document 11/01/21 08:47 [id number] 11/01/21 08:50 KR 10/11/21 10/25/21 11/01/21 08:47 08:50 08:47 - Today's Visit Information Type of service Follow-up Visit Follow-up Visit Follow-up Visit (Physician/SENIOR IT ARCHITECT (Physician/SENIOR IT ARCHITECT (Physician/SENIOR IT ARCHITECT ) ) ) Arrival Mode Ambulatory Ambulatory Ambulatory Patient Identification Verified (Name & Yes Yes Yes ) Vital Signs Temperature (97.8 F-99.1 F) 96.9 F L 96.7 F L 96.7 F L Temperature Source Temporal Temporal Temporal Pulse Rate (60-100) 74 101 H 97 Pulse Location Monitor Monitor Monitor Blood Pressure (90/60-120/80) 126/75 H 114/72 134/83 H Blood Pressure Mean (mm Hg) 92 86 100 Source Monitor Monitor Monitor Position Sitting Sitting Semi-Fowlers Blood Pressure Location Right Arm Right Arm Right Arm History Since Last Visit- (Skip if this is Patient's initial visit) Have you changed medications since your No No No last visit? Any new allergies or adverse reactions No No No Had a fall/change in ADL's that may No No No increase risk of falls Signs or symptoms of abuse and/or No No No neglect since last visit Have you been in the hospital since your No No No last visit? Has dressing in place as prescribed Yes Yes Yes Has compression in place as prescribed N/A N/A N/A Has offloadiing in place as prescribed Yes N/A N/A Experienced any changes in pain level or No No No management Left Footwear Removable Cast Regular Shoe Walker/Walking Boot Right Footwear Regular Shoe Removable Cast Walker/Walking Boot Pain Scale: 0-10 Numeric Is Patient Pain Free? Yes Yes Yes - Nurse 1 - General Ulcer Measurement Start: 10/11/21 08:47 Freq: Status: Active Protocol: Activity Type Activity Date Activity User E-Sign Co-Sign Detail Recorded Client Recorded Date Recorded By Document 10/11/21 08:47 ISAAC [id number] 10/11/21 08:49 KR Document 10/25/21 08:50 KR [id number] 10/25/21 08:52 KR Document 11/01/21 08:47 KR [id number] 11/01/21 08:50 KR 10/11/21 10/25/21 11/01/21 08:47 08:50 08:47 Wound Center Nurse 1 #1 Left Plantar -Current Size (cm) - Length 2.5 2.5 2.4 -Current Size (cm) - Width 2 1.8 1.5 -Current Size (cm) - Depth 0.1 0.2 0.3 -Total Square Cm 5.0 4.50 3.60 -Exudate Amt Small Small Medium -Exudate Type Serosanguineous Serosanguineous Serosanguineous -Wound Margin Distinct, Distinct, Distinct, Outline Outline Outline Attached Attached Attached -Granulation Amt Medium (34-66%) Medium (34-66%) Large (67-100%) -Granulation Quality Red Red Red -Necrosis Amt Medium (34-66%) Small (1-33%) -Necrotic Tissue Type Adherent Slough Adherent Slough -Texture (Fanny-wound Skin Appearance) Assessed, Assessed, Assessed,Callus Scarring Scarring ,Scarring -Moisture (Fanny-wound Skin Appearance) No Abnormality, No Abnormality, Assessed Assessed -Color (Fanny-wound Skin Appearance) No Abnormality, No Abnormality, No Abnormality, Assessed Assessed Assessed -Temperature (Fanny-wound Skin No Abnormality No Abnormality No Abnormality Appearance) (Pt Warm) (Pt Warm) (Pt Warm) -Tenderness on Palpation (Fanny-wound No No No Skin Appearance) -Ulcer Cleansing Rinsed/ Rinsed/ Rinsed/ Irrigated with Irrigated with Irrigated with Saline Saline Saline -Foul Odor after Cleansing No No No -Anesthetic Used 5% Lidocaine 5% Lidocaine 4% Lidocaine Gel Gel Solution WC - Nurse 2 - General Ulcer CM Notes Start: 10/11/21 08:47 Freq: Status: Active Protocol: Activity Type Activity Date Activity User E-Sign Co-Sign Detail Recorded Client Recorded Date Recorded By Document 10/11/21 09:20 PL Desktop 10/11/21 09:20 PL Document 10/25/21 09:22 PL Desktop 10/25/21 09:23 PL 10/11/21 10/25/21 09:20 09:22 Wound Center Nurse 2 #1 Left Plantar -Time 09:08 09:01 -Correct Patient Yes Yes -Correct Side, Site, Position Yes Yes -Correct Procedure Yes Yes -Procedure Performed Yes Yes -Type of Procedure Debridement Debridement -Clinical Debridement Subcutaneous Subcutaneous -Tissue Removed Subcutaneous Subcutaneous -Post Debridement (cm) - Length 2.5 2.5 -Post Debridement (cm) - Width 2.0 1.8 -Post Debridement (cm) - Depth 0.1 0.2 -Total Square (Post) (cm) 5.00 4.50 -Area of Debridement (cm) - Length 2.5 2.5 -Area of Debridement (cm) - Width 2.0 1.8 -Total Square (Area) (cm) 5.00 4.50 -Tunneling No No -Undermining/Tunneling No No -Circular Undermining No No -Wound/Ulcer Outcome Not Healed Not Healed -Ulcer Cleansing Rinsed/ Rinsed/ Irrigated with Irrigated with Saline Saline -Foul Odor after Cleansing No No -Bioengineered Tissue No No -Bleeding Controlled with Pressure Pressure -Treatment Response Procedure Procedure Tolerated Well Tolerated Well -Debridement - Subq, 1st 20sq cm Yes Yes Pain Scale: 0-10 Numeric Is Patient Pain Free? Yes Yes - Nurse 3 - General Ulcer D/C NN Start: 10/11/21 08:47 Freq: Status: Active Protocol: Activity Type Activity Date Activity User E-Sign Co-Sign Detail Recorded Client Recorded Date Recorded By Document 10/11/21 09:18 AK [id number] 10/11/21 09:20 AK Document 10/25/21 09:20 KR [id number] 10/25/21 09:20 KR 10/11/21 10/25/21 09:18 09:20 Wound Care Nurse 3 #1 Left Plantar -Ulcer Cleansing Rinsed/ Rinsed/ Irrigated with Irrigated with Saline Saline -Foul Odor after Cleansing No -Negative Pressure Wound Therapy N/A -Other Dressing collagen powder collagen powder -Primary Dressing Covered/Secured with Dry Gauze, Dry Gauze,Dry Secured with Gauze & Roll Tape Gauze,Secured with Tape Pain Scale: 0-10 Numeric Is Patient Pain Free? Yes Yes - Visit Discharge Discharge Condition Stable Stable Ambulatory Status Ambulatory Ambulatory Transportation Private Auto Private Auto Medication Reconcilliation completed & Yes provided to patient/care provider Clinical Summary of Care Provided Yes Assessment/Plan Assessment/Plan (1) Non-pressure chronic ulcer of other part of left foot with fat layer exposed: CODE(S): L97.522 - Non-pressure chronic ulcer of other part of left foot with fat layer exposed (2) Diabetic foot ulcer: CODE(S): E11.621 - Type 2 diabetes mellitus with foot ulcer; L97.509 - Non-pressure chronic ulcer of other part of unspecified foot with unspecified severity QUALIFIERS: Diabetic foot ulcer location: toe Diabetes mellitus type: type 2 Laterality: right Non-pressure ulcer stage: with fat layer exposed Qualified Code(s): E11.621 - Type 2 diabetes mellitus with foot ulcer; L97.512 - Non-pressure chronic ulcer of other part of right foot with fat layer exposed; L97.512 - Non-pressure chronic ulcer of other part of right foot with fat layer exposed; L97.512 - Non-pressure chronic ulcer of other part of right foot with fat layer exposed; L97.512 - Non-pressure chronic ulcer of other part of right foot with fat layer exposed (3) Delayed wound healing: CODE(S): T14.8XXD - Other injury of unspecified body region, subsequent encounter (4) Diabetes: CODE(S): E11.9 - Type 2 diabetes mellitus without complications QUALIFIERS: Diabetes mellitus type: type 2 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 gelatin plant insulin use: with mcfp use Diabetes mellitus complication status: with hyperglycemia Qualified Code(s): E11.65 - Type 2 diabetes mellitus with hyperglycemia; Z79.4 - director ehs (current) use of insulin (5) Polyneuropathy due to type 2 diabetes mellitus: CODE(S): E11.42 - Type 2 diabetes mellitus with diabetic polyneuropathy (6) History of transmetatarsal amputation of right foot: CODE(S): Z89.431 - Acquired absence of right foot (7) History of transmetatarsal amputation of left foot: CODE(S): Z89.432 - Acquired absence of left foot (8) Microalbuminuria due to type 2 diabetes mellitus: CODE(S): E11.29 - Type 2 diabetes mellitus with other diabetic kidney complication; R80.9 - Proteinuria, unspecified (9) Obesity: CODE(S): E66.9 - Obesity, unspecified QUALIFIERS: Obesity type: due to excess calories Obesity classification: adult class 3 (BMI >= 40) Serious obesity comorbidity presence: with serious comorbidity Body mass index: BMI 40.0-44.9 Qualified Code(s): E66.01 - Morbid (severe) obesity due to excess calories; Z68.41 - Body mass index [BMI] 40.0-44.9, adult PLAN: This is a 41-year-old female with a nonhealing plantar ulceration to the left foot. She has history of bilateral transmetatarsal amputations, diabetes mellitus type 2 with peripheral polyneuropathy, and delayed wound healing status.She was being followed by another provider at the [facility] in [place] and had underwent multiple interventions however with no resolution of her ulcerative site. Left foot transmetatarsal amputation site demonstrates plantar ulceration subfirst metatarsal. Ulcerative site measures 2.4 cm x 1.5 cm x 0.3 cm. Ulcerative site demonstrates no localized signs of infection. Ulcerative site demonstrates no palpable bony prominences in the wound bed or periwound. Healthy granular tissue is noted. Ulcerative site underwent debridement as noted above. Ulceration site dressed with collagen powder and PHMB and a dry sterile dressing. She was instructed to continue to wear her cam boot with the offloading pad at all times of ambulation. Dressings to be changed daily. She is to continue with Devante with collagen protein supplementation to aid in her wound healing. At this point in time she continues to progress well in her healing status with reduction in ulcerative size, but I will seek approval for epi fix graft product to be applied at next visit. I discussed localized signs of infection to observe for including localized redness about the ulceration site, red streaking up the leg, purulent drainage, malodor to the wound site. Or if she experiences any nausea, vomiting, fever, or chills that these are progressing signs of infection and she should report to the ED. Patient voices understanding of this. I discussed continued glycemic control to ensure proper healing. Patient encouraged to ensure proper nutrition including nutritional supplements to encourage wound healing. I reviewed and discussed his case today. Debridement was performed today as noted in the clinical panel to all of the ulcer sites. The following work up and care recommendations were made: Dressing: Collagen powder and pHMB dry sterile dressing Wash: Soap and water Tissue growth optimization: Collagen powder and pHMB Offload: Cam boot with offloading pad Vascular: Adequate perfusion to stump site Edema: May elevate lower extremity to control edema while at rest Infection: No localized signs of infection Pain: May take [id number] Tylenol extra strength for any pain or discomfort Host factors: Diabetes mellitus type 2 with peripheral polyneuropathy, history of bilateral transmetatarsal amputation I answered all the patient's questions. To return to the wound healing center in 1 week or call sooner if the patient has any questions or concerns. Note: bizsol speech recognition insulation supervisor software was used to create portions of this document. Sound-alike and misspelled words, as well as other insulation supervisor errors may be contained in the documentation.
== END 2021-11-03 23:59 | disposition home or self-care (01) ==
LOC: WC 09:00
PROVIDERS: PCP Physician Assistant; Visit Provider Student in an Organized Health Care Education/Training Program
DX: E11.621 Type 2 diabetes mellitus with foot ulcer (principal); Z89.431 Acquired absence of right foot; Z89.432 Acquired absence of left foot; L97.512 Non-pressure chronic ulcer of other part of right foot with fat layer exposed; L97.522 Non-pressure chronic ulcer of other part of left foot with fat layer exposed; E11.65 Type 2 diabetes mellitus with hyperglycemia; E11.29 Type 2 diabetes mellitus with other diabetic kidney complication; E11.42 Type 2 diabetes mellitus with diabetic polyneuropathy; E66.01 Morbid (severe) obesity due to excess calories; Z79.4 Long term (current) use of insulin; R80.9 Proteinuria, unspecified; T14.8XXD Other injury of unspecified body region, subsequent encounter
CPT/HCPCS: 11042

== ENCOUNTER 2021-11-29 08:15 | Outpatient (RCR) | payer BC, MEDICARE, SELFPAY ==
[2021-11-04 00:43] VITALS: BP 134/83; PULSE 97; TEMP 35.9
[2021-11-08 08:43] VITALS: TEMP 36.2
--- NOTE | 2021-11-08 09:12 | PCM.WC.PN ---
History of Present Illness Date of Service: 11/08/21 Chief Complaint: Left foot plantar ulceration History of Wound: This is a 41-year-old female who presents to the wound care center for a nonhealing plantar foot ulceration to the left foot. She has history of diabetes mellitus type 2 with peripheral polyneuropathy, bilateral transmetatarsal amputations. Her left foot has subsequently broken down to the plantar aspect subfirst metatarsal. She was following with another provider in [place] at the [facility] where she had undergone a Cam walking boot for offloading, skin grafting with Dermagraft, purapply, Dakin's, packing, surgical revision of her transmetatarsal amputation with posterior tendon lengthening on 01/12/2021, and better glucose control. She had an MRI of the left foot on 08/08/21 which demonstrated no osteomyelitis. They are continuing weekly debridement and weightbearing in a cam boot with Dakin's packing and Aquacel Ag and dry dressing for localized wound care to the foot. Despite these interventions she is still experiencing delayed healing and nonhealing of the ulceration site. She was referred to the wound care center by her provider for other options in her healing status. Subjective Subjective This is a 41-year-old female who presents to the wound care center for follow-up of a nonhealing plantar foot ulceration of the left foot. She is performing dressing changes with collagen and pHMB to the wound site daily. She remains compliant in wearing her offloading boot with plantar offloading pads. She denies any constitutional symptoms today. She states that she has been continuing protein supplementation in her diet to aid in wound healing. She has no other complaints today. Objective Data Objective Data Vital Signs: Vital Signs Temp Pulse BP 97.2 F L 97 134/83 H 11/08/21 08:43 11/04/21 00:43 11/04/21 00:43 Physical Exam Const alert, oriented x3 and no apparent distress General Appearance: cooperative and comfortable HEENT normocephalic Eyes General Eye: normal appearance of both eyes Neck General: normal visual inspection Lymph Lymphatic: no lymphadenopathy noted and no lymphedema noted Resp normal respiratory effort Cardio regular rate and regular rhythm Extremity normal capillary refill, no calf tenderness and no pedal edema Peripheral Pulses: Yes posterior tibial pulses present and dorsalis pedis pulses present Skin no rashes or lesions noted, skin turgor normal and no jaundice Wound Narrative: Left foot transmetatarsal amputation noted. Left plantar foot ulceration subfirst metatarsal measuring 2.5 cm x 1.6 cm x 0.3 cm. Ulcerative site demonstrates no signs of infection. Ulcerative base demonstrates a healthy granular base with surrounding hyperkeratotic rim and xerotic skin distal to the stump. No palpable fluctuance or bogginess noted about the ulcerative site. No palpable bone subulcerative site or about the ulceration site. Neuro oriented x3 and moves all extremities Debridement Note Debridement Note Wound debrided: Subfirst metatarsal stump Laterality: Left Wound Grade/Stage: Nieves stage I Type of Debridement: Excisional debridement Anesthesia Used: 4% Lidocaine Solution Depth: Down to and including healthy tissue and in the subcutaneous layer Percentage of wound debrided: 100 Instrument Used: 3mm curette Tissue Removed: Fibrous, devitalized subcutaneous, biofilm, slough Severity: Fat Layer Exposed Amount of bleeding with debridement: Mild Bleeding Controlled with: Compression and gauze Patient tolerated procedure: Patient tolerated procedure well Post-Debridement Measurements and Additional Note: Post-Debridement Measurements/Treatment - Nurse 1 - General Ulcer Assessment Start: 11/08/21 08:42 Freq: Status: Active Protocol: [email or web address].[email or web address] Activity Type Activity Date Activity User E-Sign Co-Sign Detail Recorded Client Recorded Date Recorded By Document 11/08/21 08:43 ISAAC [id number] 11/08/21 08:47 ISAAC 11/08/21 08:43 - Today's Visit Information Type of service Follow-up Visit (Physician/[facility] ) Arrival Mode Ambulatory Patient Identification Verified (Name & Yes ) Vital Signs Temperature (97.8 F-99.1 F) 97.2 F L Temperature Source Temporal Pulse Location Monitor Source Monitor Position Sitting Blood Pressure Location Left Arm History Since Last Visit- (Skip if this is Patient's initial visit) Have you changed medications since your No last visit? Any new allergies or adverse reactions No Had a fall/change in ADL's that may No increase risk of falls Signs or symptoms of abuse and/or No neglect since last visit Have you been in the hospital since your No last visit? Has dressing in place as prescribed Yes Has compression in place as prescribed N/A Has offloadiing in place as prescribed Yes Experienced any changes in pain level or No management Left Footwear Removable Cast Walker/Walking Boot Right Footwear Regular Shoe Pain Scale: 0-10 Numeric Is Patient Pain Free? Yes WC - Nurse 1 - General Ulcer Measurement Start: 11/08/21 08:42 Freq: Status: Active Protocol: Activity Type Activity Date Activity User E-Sign Co-Sign Detail Recorded Client Recorded Date Recorded By Document 11/08/21 08:43 ISAAC [id number] 11/08/21 08:47 ISAAC 11/08/21 08:43 Wound Center Nurse 1 #1 Left Plantar -Current Size (cm) - Length 2.5 -Current Size (cm) - Width 1.6 -Current Size (cm) - Depth 0.3 -Total Square Cm 4.00 -Tunneling Position (O'clock) 3 -Undermining/Tunneling Starts (O'clock 3 ) -Undermining/Tunneling Ends (O'clock) 12 -Maximum Distance (cm) 0.2 -Exudate Amt Small -Exudate Type Serosanguineous -Wound Margin Distinct, Outline Attached -Granulation Amt Large (67-100%) -Granulation Quality Red -Necrosis Amt None Present (0 %) -Texture (Fanny-wound Skin Appearance) Assessed,Callus ,Scarring -Moisture (Fanny-wound Skin Appearance) No Abnormality, Assessed -Color (Fanny-wound Skin Appearance) No Abnormality, Assessed -Temperature (Fanny-wound Skin No Abnormality Appearance) (Pt Warm) -Tenderness on Palpation (Fanny-wound No Skin Appearance) -Ulcer Cleansing Rinsed/ Irrigated with Saline -Foul Odor after Cleansing No -Anesthetic Used 5% Lidocaine Gel Assessment/Plan Assessment/Plan (1) Non-pressure chronic ulcer of other part of left foot with fat layer exposed: CODE(S): L97.522 - Non-pressure chronic ulcer of other part of left foot with fat layer exposed (2) Diabetic foot ulcer: CODE(S): E11.621 - Type 2 diabetes mellitus with foot ulcer; L97.509 - Non-pressure chronic ulcer of other part of unspecified foot with unspecified severity QUALIFIERS: Diabetic foot ulcer location: toe Diabetes mellitus type: type 2 Laterality: right Non-pressure ulcer stage: with fat layer exposed Qualified Code(s): E11.621 - Type 2 diabetes mellitus with foot ulcer; L97.512 - Non-pressure chronic ulcer of other part of right foot with fat layer exposed; L97.512 - Non-pressure chronic ulcer of other part of right foot with fat layer exposed; L97.512 - Non-pressure chronic ulcer of other part of right foot with fat layer exposed; L97.512 - Non-pressure chronic ulcer of other part of right foot with fat layer exposed (3) Delayed wound healing: CODE(S): T14.8XXD - Other injury of unspecified body region, subsequent encounter (4) Polyneuropathy due to type 2 diabetes mellitus: CODE(S): E11.42 - Type 2 diabetes mellitus with diabetic polyneuropathy (5) History of transmetatarsal amputation of right foot: CODE(S): Z89.431 - Acquired absence of right foot (6) History of transmetatarsal amputation of left foot: CODE(S): Z89.432 - Acquired absence of left foot (7) Obesity: CODE(S): E66.9 - Obesity, unspecified QUALIFIERS: Obesity type: due to excess calories Obesity classification: adult class 3 (BMI >= 40) Serious obesity comorbidity presence: with serious comorbidity Body mass index: BMI 40.0-44.9 Qualified Code(s): E66.01 - Morbid (severe) obesity due to excess calories; Z68.41 - Body mass index [BMI] 40.0-44.9, adult (8) Microalbuminuria due to type 2 diabetes mellitus: CODE(S): E11.29 - Type 2 diabetes mellitus with other diabetic kidney complication; R80.9 - Proteinuria, unspecified PLAN: This is a 41-year-old female with a nonhealing plantar ulceration to the left foot. She has history of bilateral transmetatarsal amputations, diabetes mellitus type 2 with peripheral polyneuropathy, and delayed wound healing status.She was being followed by another provider at the [facility] in [place] and had underwent multiple interventions however with no resolution of her ulcerative site. Patient seen and evaluated Left foot transmetatarsal amputation site demonstrates plantar ulceration subfirst metatarsal. Ulcerative site measures 2.5 cm x 1.6 cm x 0.3 cm. No signs of infection. Ulcerative site demonstrates no palpable bony prominences in the wound bed or periwound. Healthy granular tissue is noted. Ulcerative site underwent debridement as noted above. Epi fix graft (application #1) applied to the wound bed. Site dressed with wound veil and anchored with Steri-Strips. Dry sterile dressing applied. She was instructed to continue to wear her cam boot with the offloading pad at all times of ambulation. Leave dressings intact and do not get wet, may change outer dressings as needed. She is to continue with Devante with collagen protein supplementation to aid in her wound healing. I discussed localized signs of infection to observe for including localized redness about the ulceration site, red streaking up the leg, purulent drainage, malodor to the wound site. Or if she experiences any nausea, vomiting, fever, or chills that these are progressing signs of infection and she should report to the ED. Patient voices understanding of this. I discussed continued glycemic control to ensure proper healing. Patient encouraged to ensure proper nutrition including nutritional supplements to encourage wound healing. I reviewed and discussed his case today. Debridement was performed today as noted in the clinical panel to all of the ulcer sites. The following work up and care recommendations were made: Dressing: Epifix graft, wound veil, steri-strips, DSD. Do not get wet. Leave inner dressings intact. May change outer dressings as needed. Wash: Soap and water Tissue growth optimization: Epifix graft Offload: Cam boot with offloading pad Vascular: Adequate perfusion to stump site Edema: May elevate lower extremity to control edema while at rest Infection: No localized signs of infection Pain: May take [id number] Tylenol extra strength for any pain or discomfort Host factors: Diabetes mellitus type 2 with peripheral polyneuropathy, history of bilateral transmetatarsal amputation I answered all the patient's questions. To return to the wound healing center in 1 week or call sooner if the patient has any questions or concerns. Note: [employer] speech recognition electrical line mechanic software was used to create portions of this document. Sound-alike and misspelled words, as well as other electrical line mechanic errors may be contained in the documentation.
[2021-11-15 08:32] VITALS: BP 117/75; PULSE 94; TEMP 36.1
--- NOTE | 2021-11-15 12:24 | PCM.WC.PN ---
History of Present Illness Date of Service: 11/15/21 Chief Complaint: Left foot plantar ulceration History of Wound: This is a 41-year-old female who presents to the wound care center for a nonhealing plantar foot ulceration to the left foot. She has history of diabetes mellitus type 2 with peripheral polyneuropathy, bilateral transmetatarsal amputations. Her left foot has subsequently broken down to the plantar aspect subfirst metatarsal. She was following with another provider in [place] at the [facility] where she had undergone a Cam walking boot for offloading, skin grafting with Dermagraft, purapply, Dakin's, packing, surgical revision of her transmetatarsal amputation with posterior tendon lengthening on 01/12/2021, and better glucose control. She had an MRI of the left foot on 08/08/21 which demonstrated no osteomyelitis. They are continuing weekly debridement and weightbearing in a cam boot with Dakin's packing and Aquacel Ag and dry dressing for localized wound care to the foot. Despite these interventions she is still experiencing delayed healing and nonhealing of the ulceration site. She was referred to the wound care center by her provider for other options in her healing status. Subjective Subjective This is a 41-year-old female who presents to the wound care center for follow-up of a nonhealing plantar foot ulceration of the left foot. She is performing dressing changes with collagen and pHMB to the wound site daily and supplementing protein intake with Devante twice a day. She remains compliant in wearing her offloading boot with plantar offloading pads. She denies any constitutional symptoms today. She has no other complaints today. Objective Data Objective Data Vital Signs: Vital Signs Temp Pulse BP 96.9 F L 94 117/75 11/15/21 08:32 11/15/21 08:32 11/15/21 08:32 Physical Exam Const alert, oriented x3 and no apparent distress General Appearance: cooperative and comfortable HEENT normocephalic Eyes General Eye: normal appearance of both eyes Neck General: normal visual inspection Lymph Lymphatic: no lymphadenopathy noted and no lymphedema noted Resp normal respiratory effort Cardio regular rate and regular rhythm Extremity normal capillary refill, no calf tenderness and no pedal edema Skin no rashes or lesions noted, skin turgor normal and no jaundice Wound Narrative: Left foot transmetatarsal amputation noted. Left plantar foot ulceration subfirst metatarsal measuring 1.9 cm x 1.0 cm x 0.3 cm. Ulcerative site demonstrates no signs of infection. Ulcerative base demonstrates a healthy granular base with surrounding hyperkeratotic rim and xerotic skin distal to the stump. No palpable fluctuance or bogginess noted about the ulcerative site. No palpable bone subulcerative site or about the ulceration site. Neuro oriented x3 and moves all extremities Debridement Note Debridement Note Post-Debridement Measurements and Additional Note: Post-Debridement Measurements/Treatment - Nurse 1 - General Ulcer Assessment Start: 11/08/21 08:42 Freq: Status: Active Protocol: WC.LOWEXT Activity Type Activity Date Activity User E-Sign Co-Sign Detail Recorded Client Recorded Date Recorded By Document 11/08/21 08:43 ISAAC [id number] 11/08/21 08:47 KR Document 11/15/21 08:32 AK [id number] 11/15/21 08:38 AK 11/08/21 11/15/21 08:43 08:32 - Today's Visit Information Type of service Follow-up Visit Follow-up Visit (Physician/LICENSED MASSAGE THERAPIST (Physician/LICENSED MASSAGE THERAPIST ) ) Arrival Mode Ambulatory Ambulatory Patient Identification Verified (Name & Yes Yes ) Patient Requires Transmission-Based No Precautions Safety Precautions NA Vital Signs Temperature (97.8 F-99.1 F) 97.2 F L 96.9 F L Temperature Source Temporal Temporal Pulse Rate (60-100) 94 Pulse Location Monitor Blood Pressure (90/60-120/80) 117/75 Blood Pressure Mean (mm Hg) 89 Source Monitor Monitor Position Sitting Blood Pressure Location Left Arm History Since Last Visit- (Skip if this is Patient's initial visit) Have you changed medications since your No No last visit? Any new allergies or adverse reactions No No Had a fall/change in ADL's that may No No increase risk of falls Signs or symptoms of abuse and/or No No neglect since last visit Have you been in the hospital since your No No last visit? Has dressing in place as prescribed Yes Yes Has compression in place as prescribed N/A Yes Has offloadiing in place as prescribed Yes N/A Experienced any changes in pain level or No No management Left Footwear Removable Cast Removable Cast Walker/Walking Walker/Walking Boot Boot Right Footwear Regular Shoe Regular Shoe Pain Scale: 0-10 Numeric Is Patient Pain Free? Yes Yes - Nurse 1 - General Ulcer Measurement Start: 11/08/21 08:42 Freq: Status: Active Protocol: Activity Type Activity Date Activity User E-Sign Co-Sign Detail Recorded Client Recorded Date Recorded By Document 11/08/21 08:43 KR [id number] 11/08/21 08:47 KR Document 11/15/21 08:32 AK [id number] 11/15/21 08:38 AK 11/08/21 11/15/21 08:43 08:32 Wound Center Nurse 1 #1 Left Plantar -Combined with other wound No -Current Size (cm) - Length 2.5 1.9 -Current Size (cm) - Width 1.6 1 -Current Size (cm) - Depth 0.3 0.3 -Total Square Cm 4.00 1.9 -Photo Taken No -Tunneling No -Tunneling Position (O'clock) 3 -Undermining/Tunneling No -Undermining/Tunneling Starts (O'clock 3 ) -Undermining/Tunneling Ends (O'clock) 12 -Maximum Distance (cm) 0.2 -Circular Undermining No -Change in Wound Grade/Stage No -Exudate Amt Small Medium -Exudate Type Serosanguineous Serosanguineous -Wound Margin Distinct, Distinct, Outline Outline Attached Attached -Granulation Amt Large (67-100%) Medium (34-66%) -Granulation Quality Red N/A -Slough/Fibrin Yes -Necrosis Amt None Present (0 Medium (34-66%) %) -Necrotic Tissue Type Adherent Slough -Structure Exposed N/A -Texture (Fanny-wound Skin Appearance) Assessed,Callus No Abnormality, ,Scarring Assessed -Moisture (Fanny-wound Skin Appearance) No Abnormality, No Abnormality, Assessed Assessed -Color (Fanny-wound Skin Appearance) No Abnormality, No Abnormality, Assessed Assessed -Temperature (Fanny-wound Skin No Abnormality No Abnormality Appearance) (Pt Warm) (Pt Warm) -Tenderness on Palpation (Fanny-wound No No Skin Appearance) -Ulcer Cleansing Rinsed/ Soap and Water Irrigated with Saline -Foul Odor after Cleansing No No -Anesthetic Used 5% Lidocaine 5% Lidocaine Gel Gel WC - Nurse 2 - General Ulcer CM Notes Start: 11/08/21 08:42 Freq: Status: Active Protocol: Activity Type Activity Date Activity User E-Sign Co-Sign Detail Recorded Client Recorded Date Recorded By Document 11/08/21 13:13 PL [id number] 11/08/21 13:17 PL Document 11/15/21 09:01 [id number] 11/15/21 09:10 JF 11/08/21 11/15/21 13:13 09:01 Wound Center Nurse 2 #1 Left Plantar -Time 08:55 09:04 -Correct Patient Yes Yes -Correct Side, Site, Position Yes Yes -Correct Procedure Yes Yes -Procedure Performed Yes Yes -Type of Procedure Debridement Debridement -Clinical Debridement Subcutaneous Subcutaneous -Tissue Removed Subcutaneous Subcutaneous -Post Debridement (cm) - Length 2.5 2.0 -Post Debridement (cm) - Width 1.6 1.0 -Post Debridement (cm) - Depth 0.3 0.2 -Total Square (Post) (cm) 4.00 2.00 -Area of Debridement (cm) - Length 2.5 2.0 -Area of Debridement (cm) - Width 1.6 1.0 -Total Square (Area) (cm) 4.00 2.00 -Tunneling No No -Undermining/Tunneling No No -Circular Undermining No No -Wound/Ulcer Outcome Not Healed Not Healed -Ulcer Cleansing Rinsed/ Rinsed/ Irrigated with Irrigated with Saline Saline -Foul Odor after Cleansing No No -Bioengineered Tissue Yes Yes -Type of Bioengineered Tissue Epifix Epifix -Expiration Date 06/06/26 06/06/26 -Product Lot Number [id number] -Percent Used 100 100 -Lot number of Saline Used [id number] -Bleeding Controlled with Pressure Pressure -Treatment Response Procedure Procedure Tolerated Well Tolerated Well -Offloading Yes -Type of Offloading Camwalker -Debridement - Subq, 1st 20sq cm No No -Apply Skin Sub - 1st 25 sq cm - Feet 1 1 -Epifix (per sq cm) 4 4 Pain Scale: 0-10 Numeric Is Patient Pain Free? Yes Yes WC - Nurse 3 - General Ulcer D/C NN Start: 11/08/21 08:42 Freq: Status: Active Protocol: Activity Type Activity Date Activity User E-Sign Co-Sign Detail Recorded Client Recorded Date Recorded By Document 11/08/21 09:14 ISAAC [id number] 11/08/21 09:15 KR Document 11/15/21 09:18 [facility] [id number] 11/15/21 09:19 [facility] 11/08/21 11/15/21 09:14 09:18 Wound Care Nurse 3 #1 Left Plantar -Other Dressing ABD pad epifix -Primary Dressing Covered/Secured with Dry Gauze & Dry Gauze & Roll Gauze, Roll Gauze, Secured with Secured with Tape Tape -Other Covering abd Treatment Response Procedure Tolerated Well Pain Scale: 0-10 Numeric Is Patient Pain Free? Yes Yes WC - Visit Discharge Discharge Condition Stable Stable Ambulatory Status Ambulatory Ambulatory Transportation Private Auto Private Auto Assessment/Plan Assessment/Plan (1) Non-pressure chronic ulcer of other part of left foot with fat layer exposed: CODE(S): L97.522 - Non-pressure chronic ulcer of other part of left foot with fat layer exposed (2) Diabetic foot ulcer: CODE(S): E11.621 - Type 2 diabetes mellitus with foot ulcer; L97.509 - Non-pressure chronic ulcer of other part of unspecified foot with unspecified severity QUALIFIERS: Diabetic foot ulcer location: toe Diabetes mellitus type: type 2 Laterality: right Non-pressure ulcer stage: with fat layer exposed Qualified Code(s): E11.621 - Type 2 diabetes mellitus with foot ulcer; L97.512 - Non-pressure chronic ulcer of other part of right foot with fat layer exposed; L97.512 - Non-pressure chronic ulcer of other part of right foot with fat layer exposed; L97.512 - Non-pressure chronic ulcer of other part of right foot with fat layer exposed; L97.512 - Non-pressure chronic ulcer of other part of right foot with fat layer exposed (3) Delayed wound healing: CODE(S): T14.8XXD - Other injury of unspecified body region, subsequent encounter (4) Polyneuropathy due to type 2 diabetes mellitus: CODE(S): E11.42 - Type 2 diabetes mellitus with diabetic polyneuropathy (5) History of transmetatarsal amputation of right foot: CODE(S): Z89.431 - Acquired absence of right foot (6) History of transmetatarsal amputation of left foot: CODE(S): Z89.432 - Acquired absence of left foot (7) Obesity: CODE(S): E66.9 - Obesity, unspecified QUALIFIERS: Obesity type: due to excess calories Obesity classification: adult class 3 (BMI >= 40) Serious obesity comorbidity presence: with serious comorbidity Body mass index: BMI 40.0-44.9 Qualified Code(s): E66.01 - Morbid (severe) obesity due to excess calories; Z68.41 - Body mass index [BMI] 40.0-44.9, adult (8) Microalbuminuria due to type 2 diabetes mellitus: CODE(S): E11.29 - Type 2 diabetes mellitus with other diabetic kidney complication; R80.9 - Proteinuria, unspecified PLAN: This is a 41-year-old female with a nonhealing plantar ulceration to the left foot. She has history of bilateral transmetatarsal amputations, diabetes mellitus type 2 with peripheral polyneuropathy, and delayed wound healing status.She was being followed by another provider at the [facility] in [place] and had underwent multiple interventions however with no resolution of her ulcerative site. Patient seen and evaluated Left foot transmetatarsal amputation site demonstrates plantar ulceration subfirst metatarsal. Ulcerative site measures 1.9 cm x 1.0 cm x 0.3 cm. No signs of infection. Ulcerative site demonstrates no palpable bony prominences in the wound bed or periwound. Healthy granular tissue is noted. Ulcerative site underwent debridement as noted above in clinical panel. Epi fix graft (application #2) applied to the wound bed. Site dressed with wound veil and anchored with Steri-Strips. Dry sterile dressing applied. She was instructed to continue to wear her cam boot with the offloading pad at all times of ambulation. Leave dressings intact and do not get wet, may change outer dressings as needed. She is to continue with Devante with collagen protein supplementation to aid in her wound healing. I discussed localized signs of infection to observe for including localized redness about the ulceration site, red streaking up the leg, purulent drainage, malodor to the wound site. Or if she experiences any nausea, vomiting, fever, or chills that these are progressing signs of infection and she should report to the ED. Patient voices understanding of this. I discussed continued glycemic control to ensure proper healing. Patient encouraged to ensure proper nutrition including nutritional supplements to encourage wound healing. I reviewed and discussed his case today. Debridement was performed today as noted in the clinical panel to all of the ulcer sites. The following work up and care recommendations were made: Dressing: Epifix graft, wound veil, steri-strips, DSD. Do not get wet. Leave inner dressings intact. May change outer dressings as needed. Wash: Do Not get Wet Tissue growth optimization: Epifix graft Offload: Cam boot with offloading pad Vascular: Adequate perfusion to stump site Edema: May elevate lower extremity to control edema while at rest Infection: No localized signs of infection Pain: May take [id number] Tylenol extra strength for any pain or discomfort Host factors: Diabetes mellitus type 2 with peripheral polyneuropathy, history of bilateral transmetatarsal amputation I answered all the patient's questions. To return to the wound healing center in 1 week or call sooner if the patient has any questions or concerns. Note: [employer] speech recognition employee development director software was used to create portions of this document. Sound-alike and misspelled words, as well as other employee development director errors may be contained in the documentation.
[2021-11-22 09:03] VITALS: BP 137/83; PULSE 98; RESP 16; TEMP 36.3
--- NOTE | 2021-11-22 13:08 | PN.PCM_ITS ---
History of Present Illness Date of Service: 11/22/21 Chief Complaint: Left foot plantar ulceration History of Wound: This is a 41-year-old female who presents to the wound care center for a nonhealing plantar foot ulceration to the left foot. She has history of diabetes mellitus type 2 with peripheral polyneuropathy, bilateral transmetatarsal amputations. Her left foot has subsequently broken down to the plantar aspect subfirst metatarsal. She was following with another provider in [place] at the [facility] where she had undergone a Cam walking boot for offloading, skin grafting with Dermagraft, purapply, Dakin's, packing, surgical revision of her transmetatarsal amputation with posterior tendon lengthening on 01/12/2021, and better glucose control. She had an MRI of the left foot on 08/08/21 which demonstrated no osteomyelitis. They are continuing weekly debridement and weightbearing in a cam boot with Dakin's packing and Aquacel Ag and dry dressing for localized wound care to the foot. Despite these interventions she is still experiencing delayed healing and nonhealing of the ulceration site. She was referred to the wound care center by her provider for other options in her healing status. Subjective Subjective This is a 41-year-old female who presents to the wound care center for follow-up of a nonhealing plantar foot ulceration of the left foot. She is performing dressing changes with collagen and pHMB to the wound site daily and supplementing protein intake with Devante twice a day. She remains compliant in wearing her offloading boot with plantar offloading pads. She states one of the straps broke on her boot and she will be taking it back to get a strap replacement. She denies any constitutional symptoms today. She has no other complaints today. Objective Data Objective Data Vital Signs: Vital Signs Temp Pulse Resp BP 97.3 F L 98 16 137/83 H 11/22/21 09:03 11/22/21 09:03 11/22/21 09:03 11/22/21 09:03 Oxygen Delivery Method Room Air Physical Exam Const alert, oriented x3 and no apparent distress General Appearance: cooperative and comfortable HEENT normocephalic Eyes General Eye: normal appearance of both eyes Neck General: normal visual inspection Lymph Lymphatic: no lymphadenopathy noted and no lymphedema noted Resp normal respiratory effort Cardio regular rate and regular rhythm Extremity normal capillary refill, no calf tenderness and no pedal edema Skin no rashes or lesions noted, skin turgor normal and no jaundice Wound Narrative: Left foot transmetatarsal amputation noted. Left plantar foot ulceration subfirst metatarsal measuring 1.9 cm x 1.0 cm x 0.3 cm. Ulcerative site demonstrates no signs of infection. Ulcerative base demonstrates a healthy granular base with surrounding hyperkeratotic rim and xerotic skin distal to the stump. No palpable fluctuance or bogginess noted about the ulcerative site. No palpable bone subulcerative site or about the ulceration site. Neuro oriented x3 and moves all extremities Debridement Note Debridement Note Wound debrided: Subfirst metatarsal transmetatarsal amputation stump Laterality: Left Wound Grade/Stage: Nieves stage I Type of Debridement: Excisional debridement Anesthesia Used: 5% Lidocaine Gel Depth: Down to and including healthy tissue and in the subcutaneous layer Percentage of wound debrided: 100 Instrument Used: 3mm curette and #15 blade Tissue Removed: fibrous, devitalized subcutaneous, biofilm, slough Severity: Fat Layer Exposed Amount of bleeding with debridement: Mild Bleeding Controlled with: Compression and gauze Patient tolerated procedure: Patient tolerated procedure well Post-Debridement Measurements and Additional Note: Post-Debridement Measurements/Treatment - Nurse 1 - General Ulcer Assessment Start: 11/08/21 08:42 Freq: Status: Active Protocol: REED Activity Type Activity Date Activity User E-Sign Co-Sign Detail Recorded Client Recorded Date Recorded By Document 11/08/21 08:43 KR [id number] 11/08/21 08:47 KR Document 11/15/21 08:32 AK [id number] 11/15/21 08:38 AK Document 11/22/21 09:03 [facility] [id number] 11/22/21 09:09 BM 11/08/21 11/15/21 11/22/21 08:43 08:32 09:03 - Today's Visit Information Type of service Follow-up Visit Follow-up Visit Follow-up Visit (Physician/COMPUTER SYSTEMS TECHNICIAN (Physician/COMPUTER SYSTEMS TECHNICIAN (Physician/COMPUTER SYSTEMS TECHNICIAN ) ) ) Arrival Mode Ambulatory Ambulatory Ambulatory Transfer Assistance None Patient Identification Verified (Name & Yes Yes Yes ) Patient Requires Transmission-Based No No Precautions Safety Precautions NA Vital Signs Temperature (97.8 F-99.1 F) 97.2 F L 96.9 F L 97.3 F L Temperature Source Temporal Temporal Temporal Pulse Rate (60-100) 94 98 Pulse Location Monitor Monitor Respiratory Rate (12-18) 16 Respiratory rate source Observation Oxygen Delivery Method Room Air Blood Pressure (90/60-120/80) 117/75 137/83 H Blood Pressure Mean (mm Hg) 89 101 Source Monitor Monitor Monitor Position Sitting Sitting Blood Pressure Location Left Arm Left Arm History Since Last Visit- (Skip if this is Patient's initial visit) Have you changed medications since your No No No last visit? Any new allergies or adverse reactions No No No Had a fall/change in ADL's that may No No No increase risk of falls Signs or symptoms of abuse and/or No No No neglect since last visit Have you been in the hospital since your No No No last visit? Has dressing in place as prescribed Yes Yes Yes Has compression in place as prescribed N/A Yes N/A Has offloadiing in place as prescribed Yes N/A Yes Experienced any changes in pain level or No No No management Left Footwear Removable Cast Removable Cast Removable Cast Walker/Walking Walker/Walking Walker/Walking Boot Boot Boot Right Footwear Regular Shoe Regular Shoe Regular Shoe Pain Scale: 0-10 Numeric Is Patient Pain Free? Yes Yes Yes WC - Nurse 1 - General Ulcer Measurement Start: 11/08/21 08:42 Freq: Status: Active Protocol: Activity Type Activity Date Activity User E-Sign Co-Sign Detail Recorded Client Recorded Date Recorded By Document 11/08/21 08:43 KR [id number] 11/08/21 08:47 KR Document 11/15/21 08:32 AK [id number] 11/15/21 08:38 AK Document 11/22/21 09:03 [facility] [id number] 11/22/21 09:09 BM 11/08/21 11/15/21 11/22/21 08:43 08:32 09:03 Wound Center Nurse 1 #1 Left Plantar -Combined with other wound No No -Current Size (cm) - Length 2.5 1.9 2 -Current Size (cm) - Width 1.6 1 0.8 -Current Size (cm) - Depth 0.3 0.3 0.3 -Total Square Cm 4.00 1.9 1.6 -Date of Last Picture (Recall this 11/22/21 field) -Photo Taken No Yes -Epithelialization Small 1-33% -Tunneling No No -Tunneling Position (O'clock) 3 -Undermining/Tunneling No No -Undermining/Tunneling Starts (O'clock 3 ) -Undermining/Tunneling Ends (O'clock) 12 -Maximum Distance (cm) 0.2 -Circular Undermining No No -Change in Wound Grade/Stage No -Exudate Amt Small Medium Large -Exudate Type Serosanguineous Serosanguineous Serosanguineous -Wound Margin Distinct, Distinct, Distinct, Outline Outline Outline Attached Attached Attached -Granulation Amt Large (67-100%) Medium (34-66%) Large (67-100%) -Granulation Quality Red N/A Red -Slough/Fibrin Yes No -Necrosis Amt None Present (0 Medium (34-66%) None Present (0 %) %) -Necrotic Tissue Type Adherent Slough -Structure Exposed N/A -Texture (Fanny-wound Skin Appearance) Assessed,Callus No Abnormality, Callus ,Scarring Assessed -Moisture (Fanny-wound Skin Appearance) No Abnormality, No Abnormality, Assessed,Dry/ Assessed Assessed Scaly -Color (Fanny-wound Skin Appearance) No Abnormality, No Abnormality, Assessed Assessed Assessed -Temperature (Fanny-wound Skin No Abnormality No Abnormality No Abnormality Appearance) (Pt Warm) (Pt Warm) (Pt Warm) -Tenderness on Palpation (Fanny-wound No No No Skin Appearance) -Ulcer Cleansing Rinsed/ Soap and Water Soap and Water Irrigated with Saline -Foul Odor after Cleansing No No No -Anesthetic Used 5% Lidocaine 5% Lidocaine 5% Lidocaine Gel Gel Gel WC - Nurse 2 - General Ulcer CM Notes Start: 11/08/21 08:42 Freq: Status: Active Protocol: Activity Type Activity Date Activity User E-Sign Co-Sign Detail Recorded Client Recorded Date Recorded By Document 11/08/21 13:13 PL [id number] 11/08/21 13:17 PL Document 11/15/21 09:01 SE[facility]IAN [id number] 11/15/21 09:10 SEBASTIAN 11/08/21 11/15/21 13:13 09:01 Wound Center Nurse 2 #1 Left Plantar -Time 08:55 09:04 -Correct Patient Yes Yes -Correct Side, Site, Position Yes Yes -Correct Procedure Yes Yes -Procedure Performed Yes Yes -Type of Procedure Debridement Debridement -Clinical Debridement Subcutaneous Subcutaneous -Tissue Removed Subcutaneous Subcutaneous -Post Debridement (cm) - Length 2.5 2.0 -Post Debridement (cm) - Width 1.6 1.0 -Post Debridement (cm) - Depth 0.3 0.2 -Total Square (Post) (cm) 4.00 2.00 -Area of Debridement (cm) - Length 2.5 2.0 -Area of Debridement (cm) - Width 1.6 1.0 -Total Square (Area) (cm) 4.00 2.00 -Tunneling No No -Undermining/Tunneling No No -Circular Undermining No No -Wound/Ulcer Outcome Not Healed Not Healed -Ulcer Cleansing Rinsed/ Rinsed/ Irrigated with Irrigated with Saline Saline -Foul Odor after Cleansing No No -Bioengineered Tissue Yes Yes -Type of Bioengineered Tissue Epifix Epifix -Expiration Date 06/06/26 06/06/26 -Product Lot Number [id number] -Percent Used 100 100 -Lot number of Saline Used [id number] -Bleeding Controlled with Pressure Pressure -Treatment Response Procedure Procedure Tolerated Well Tolerated Well -Offloading Yes -Type of Offloading Camwalker -Debridement - Subq, 1st 20sq cm No No -Apply Skin Sub - 1st 25 sq cm - Feet 1 1 -Epifix (per sq cm) 4 4 Pain Scale: 0-10 Numeric Is Patient Pain Free? Yes Yes - Nurse 3 - General Ulcer D/C NN Start: 11/08/21 08:42 Freq: Status: Active Protocol: Activity Type Activity Date Activity User E-Sign Co-Sign Detail Recorded Client Recorded Date Recorded By Document 11/08/21 09:14 KR [id number] 11/08/21 09:15 KR Document 11/15/21 09:18 [facility] [id number] 11/15/21 09:19 BM Document 11/22/21 09:56 [facility] [id number] 11/22/21 09:57 BM 11/08/21 11/15/21 11/22/21 09:14 09:18 09:56 Wound Care Nurse 3 #1 Left Plantar -Other Dressing ABD pad epifix epifix -Primary Dressing Covered/Secured with Dry Gauze & Dry Gauze & Dry Gauze & Roll Gauze, Roll Gauze, Roll Gauze, Secured with Secured with Other Tape Tape -Other Covering abd abd Treatment Response Procedure Procedure Tolerated Well Tolerated Well Pain Scale: 0-10 Numeric Is Patient Pain Free? Yes Yes Yes WC - Visit Discharge Discharge Condition Stable Stable Stable Ambulatory Status Ambulatory Ambulatory Ambulatory Transportation Private Auto Private Auto Private Auto Assessment/Plan Assessment/Plan (1) Non-pressure chronic ulcer of other part of left foot with fat layer exposed: CODE(S): L97.522 - Non-pressure chronic ulcer of other part of left foot with fat layer exposed (2) Diabetic foot ulcer: CODE(S): E11.621 - Type 2 diabetes mellitus with foot ulcer; L97.509 - Non-pressure chronic ulcer of other part of unspecified foot with unspecified severity QUALIFIERS: Diabetic foot ulcer location: toe Diabetes mellitus type: type 2 Laterality: right Non-pressure ulcer stage: with fat layer exposed Qualified Code(s): E11.621 - Type 2 diabetes mellitus with foot ulcer; L97.512 - Non-pressure chronic ulcer of other part of right foot with fat layer exposed; L97.512 - Non-pressure chronic ulcer of other part of right foot with fat layer exposed; L97.512 - Non-pressure chronic ulcer of other part of right foot with fat layer exposed; L97.512 - Non-pressure chronic ulcer of other part of right foot with fat layer exposed (3) Delayed wound healing: CODE(S): T14.8XXD - Other injury of unspecified body region, subsequent encounter (4) Polyneuropathy due to type 2 diabetes mellitus: CODE(S): E11.42 - Type 2 diabetes mellitus with diabetic polyneuropathy (5) History of transmetatarsal amputation of right foot: CODE(S): Z89.431 - Acquired absence of right foot (6) History of transmetatarsal amputation of left foot: CODE(S): Z89.432 - Acquired absence of left foot (7) Obesity: CODE(S): E66.9 - Obesity, unspecified QUALIFIERS: Obesity type: due to excess calories Obesity classification: adult class 3 (BMI >= 40) Serious obesity comorbidity presence: with serious comorbidity Body mass index: BMI 40.0-44.9 Qualified Code(s): E66.01 - Morbid (severe) obesity due to excess calories; Z68.41 - Body mass index [BMI] 40.0-44.9, adult (8) Microalbuminuria due to type 2 diabetes mellitus: CODE(S): E11.29 - Type 2 diabetes mellitus with other diabetic kidney complication; R80.9 - Proteinuria, unspecified PLAN: This is a 41-year-old female with a nonhealing plantar ulceration to the left foot. She has history of bilateral transmetatarsal amputations, diabetes mellitus type 2 with peripheral polyneuropathy, and delayed wound healing status. She was being followed by another provider at the [facility] in [place] and had underwent multiple interventions however with no resolution of her ulcerative site. Patient seen and evaluated Left foot transmetatarsal amputation site demonstrates plantar ulceration subfirst metatarsal. Ulcerative site measures 2.0 cm x 0.8 cm x 0.3 cm. No signs of infection. Ulcerative site demonstrates no palpable bony prominences in the wound bed or periwound. Healthy granular tissue is noted. Ulcerative site underwent debridement as noted above in clinical panel. Epi fix graft (application #3) applied to the wound bed. Site dressed with wound veil and anchored with Steri-Strips. Dry sterile dressing applied. She was instructed to continue to wear her CAM boot with the offloading pad at all times of ambulation. Leave dressings intact and do not get wet, may change outer dressings as needed. She is to continue with Devante with collagen protein supplementation to aid in her wound healing. I discussed localized signs of infection to observe for including localized redness about the ulceration site, red streaking up the leg, purulent drainage, malodor to the wound site. Or if she experiences any nausea, vomiting, fever, or chills that these are progressing signs of infection and she should report to the ED. Patient voices understanding of this. I discussed continued glycemic control to ensure proper healing. Patient encouraged to ensure proper nutrition including nutritional supplements to encourage wound healing. I reviewed and discussed her case today. Debridement was performed today as noted in the clinical panel to all of the ulcer sites. The following work up and care recommendations were made: Dressing: Epifix graft, wound veil, steri-strips, DSD. Do not get wet. Leave inner dressings intact. May change outer dressings as needed. Wash: Do Not get Wet Tissue growth optimization: Epifix graft Offload: CAM boot with offloading pad Vascular: Adequate perfusion to stump site Edema: May elevate lower extremity to control edema while at rest Infection: No localized signs of infection Pain: May take [id number] Tylenol extra strength for any pain or discomfort Host factors: Diabetes mellitus type 2 with peripheral polyneuropathy, history of bilateral transmetatarsal amputation I answered all the patient's questions. To return to the wound healing center in 1 week or call sooner if the patient has any questions or concerns. Note: [employer] speech recognition import coordination and production head software was used to create portions of this document. Sound-alike and misspelled words, as well as other import coordination and production head errors may be contained in the documentation.
[2021-11-29 07:56] VITALS: BP 124/74; PULSE 89; TEMP 36.3
--- NOTE | 2021-11-29 08:57 | PN.PCM_ITS ---
History of Present Illness Date of Service: 11/29/21 Chief Complaint: Left foot plantar ulceration History of Wound: This is a 41-year-old female who presents to the wound care center for a nonhealing plantar foot ulceration to the left foot. She has history of diabetes mellitus type 2 with peripheral polyneuropathy, bilateral transmetatarsal amputations. Her left foot has subsequently broken down to the plantar aspect subfirst metatarsal. She was following with another provider in [place] at the [facility] where she had undergone a Cam walking boot for offloading, skin grafting with Dermagraft, purapply, Dakin's, packing, surgical revision of her transmetatarsal amputation with posterior tendon lengthening on 01/12/2021, and better glucose control. She had an MRI of the left foot on 08/08/21 which demonstrated no osteomyelitis. They are continuing weekly debridement and weightbearing in a cam boot with Dakin's packing and Aquacel Ag and dry dressing for localized wound care to the foot. Despite these interventions she is still experiencing delayed healing and nonhealing of the ulceration site. She was referred to the wound care center by her provider for other options in her healing status. Subjective Subjective This is a 41-year-old female who presents to the wound care center for follow-up of a nonhealing plantar foot ulceration of the left foot. She is changing her outer dressings once a day. She is supplementing protein intake with Devante twice a day. She remains compliant in wearing her offloading boot with plantar offloading pads. She states she was able to get a new CAM boot which is helping. She denies any constitutional symptoms today. She has no other complaints today. Objective Data Objective Data Vital Signs: Vital Signs Temp Pulse Resp BP 97.4 F L 89 16 124/74 H 11/29/21 07:56 11/29/21 07:56 11/22/21 09:03 11/29/21 07:56 Oxygen Delivery Method Room Air Physical Exam Const alert, oriented x3 and no apparent distress General Appearance: cooperative and comfortable HEENT normocephalic Eyes General Eye: normal appearance of both eyes Neck General: normal visual inspection Lymph Lymphatic: no lymphadenopathy noted and no lymphedema noted Resp normal respiratory effort Cardio regular rate and regular rhythm Extremity normal capillary refill, no calf tenderness and no pedal edema Skin no rashes or lesions noted, skin turgor normal and no jaundice Wound Narrative: Left foot transmetatarsal amputation noted. Left plantar foot ulceration subfirst metatarsal measuring 1.7cm x 1.1 cm x 0.1 cm. Ulcerative site demonstrates no signs of infection. Ulcerative base demonstrates a healthy granular base with surrounding hyperkeratotic rim and xerotic skin distal to the stump. No palpable fluctuance or bogginess noted about the ulcerative site. No palpable bone subulcerative site or about the ulceration site. Neuro oriented x3 and moves all extremities Debridement Note Debridement Note Wound debrided: Subfirst metatarsal Laterality: Left Wound Grade/Stage: Nieves stage I Type of Debridement: Excisional debridement Anesthesia Used: 5% Lidocaine Gel Depth: Down to and including healthy tissue and in the subcutaneous layer Percentage of wound debrided: 100 Instrument Used: 3mm curette and #10 blade Tissue Removed: Fibrous, devitalized subcutaneous, biofilm, slough Severity: Fat Layer Exposed Amount of bleeding with debridement: Mild Bleeding Controlled with: Compression and gauze Patient tolerated procedure: Patient tolerated procedure well Post-Debridement Measurements and Additional Note: Post-Debridement Measurements/Treatment - Nurse 1 - General Ulcer Assessment Start: 11/08/21 08:42 Freq: Status: Active Protocol: REED Activity Type Activity Date Activity User E-Sign Co-Sign Detail Recorded Client Recorded Date Recorded By Document 11/08/21 08:43 KR [id number] 11/08/21 08:47 KR Document 11/15/21 08:32 ME [id number] 11/15/21 08:38 AK Document 11/22/21 09:03 [facility] [id number] 11/22/21 09:09 [facility] Document 11/29/21 07:56 KR [id number] 11/29/21 07:59 KR 11/08/21 11/15/21 11/22/21 08:43 08:32 09:03 - Today's Visit Information Type of service Follow-up Visit Follow-up Visit Follow-up Visit (Physician/ORTHOTIC AIDE (Physician/ORTHOTIC AIDE (Physician/ORTHOTIC AIDE ) ) ) Arrival Mode Ambulatory Ambulatory Ambulatory Transfer Assistance None Patient Identification Verified (Name & Yes Yes Yes ) Patient Requires Transmission-Based No No Precautions Safety Precautions NA Vital Signs Temperature (97.8 F-99.1 F) 97.2 F L 96.9 F L 97.3 F L Temperature Source Temporal Temporal Temporal Pulse Rate (60-100) 94 98 Pulse Location Monitor Monitor Respiratory Rate (12-18) 16 Respiratory rate source Observation Oxygen Delivery Method Room Air Blood Pressure (90/60-120/80) 117/75 137/83 H Blood Pressure Mean (mm Hg) 89 101 Source Monitor Monitor Monitor Position Sitting Sitting Blood Pressure Location Left Arm Left Arm History Since Last Visit- (Skip if this is Patient's initial visit) Have you changed medications since your No No No last visit? Any new allergies or adverse reactions No No No Had a fall/change in ADL's that may No No No increase risk of falls Signs or symptoms of abuse and/or No No No neglect since last visit Have you been in the hospital since your No No No last visit? Has dressing in place as prescribed Yes Yes Yes Has compression in place as prescribed N/A Yes N/A Has offloadiing in place as prescribed Yes N/A Yes Experienced any changes in pain level or No No No management Left Footwear Removable Cast Removable Cast Removable Cast Walker/Walking Walker/Walking Walker/Walking Boot Boot Boot Right Footwear Regular Shoe Regular Shoe Regular Shoe Pain Scale: 0-10 Numeric Is Patient Pain Free? Yes Yes Yes 11/29/21 07:56 WC - Today's Visit Information Type of service Follow-up Visit (Physician/ORTHOTIC AIDE ) Arrival Mode Ambulatory Transfer Assistance Patient Identification Verified (Name & Yes ) Patient Requires Transmission-Based Precautions Safety Precautions Vital Signs Temperature (97.8 F-99.1 F) 97.4 F L Temperature Source Temporal Pulse Rate (60-100) 89 Pulse Location Monitor Respiratory Rate (12-18) Respiratory rate source Oxygen Delivery Method Blood Pressure (90/60-120/80) 124/74 H Blood Pressure Mean (mm Hg) 90 Source Monitor Position Sitting Blood Pressure Location Right Arm History Since Last Visit- (Skip if this is Patient's initial visit) Have you changed medications since your No last visit? Any new allergies or adverse reactions No Had a fall/change in ADL's that may No increase risk of falls Signs or symptoms of abuse and/or No neglect since last visit Have you been in the hospital since your No last visit? Has dressing in place as prescribed Yes Has compression in place as prescribed N/A Has offloadiing in place as prescribed N/A Experienced any changes in pain level or No management Left Footwear Regular Shoe Right Footwear Regular Shoe Pain Scale: 0-10 Numeric Is Patient Pain Free? Yes WC - Nurse 1 - General Ulcer Measurement Start: 11/08/21 08:42 Freq: Status: Active Protocol: Activity Type Activity Date Activity User E-Sign Co-Sign Detail Recorded Client Recorded Date Recorded By Document 11/08/21 08:43 KR [id number] 11/08/21 08:47 KR Document 11/15/21 08:32 AK [id number] 11/15/21 08:38 AK Document 11/22/21 09:03 [facility] [id number] 11/22/21 09:09 BM[facility] Document 11/29/21 07:56 KR [id number] 11/29/21 07:59 KR 11/08/21 11/15/21 11/22/21 08:43 08:32 09:03 Wound Center Nurse 1 #1 Left Plantar -Combined with other wound No No -Current Size (cm) - Length 2.5 1.9 2 -Current Size (cm) - Width 1.6 1 0.8 -Current Size (cm) - Depth 0.3 0.3 0.3 -Total Square Cm 4.00 1.9 1.6 -Date of Last Picture (Recall this 11/22/21 field) -Photo Taken No Yes -Epithelialization Small 1-33% -Tunneling No No -Tunneling Position (O'clock) 3 -Undermining/Tunneling No No -Undermining/Tunneling Starts (O'clock 3 ) -Undermining/Tunneling Ends (O'clock) 12 -Maximum Distance (cm) 0.2 -Circular Undermining No No -Change in Wound Grade/Stage No -Exudate Amt Small Medium Large -Exudate Type Serosanguineous Serosanguineous Serosanguineous -Wound Margin Distinct, Distinct, Distinct, Outline Outline Outline Attached Attached Attached -Granulation Amt Large (67-100%) Medium (34-66%) Large (67-100%) -Granulation Quality Red N/A Red -Slough/Fibrin Yes No -Necrosis Amt None Present (0 Medium (34-66%) None Present (0 %) %) -Necrotic Tissue Type Adherent Slough -Structure Exposed N/A -Texture (Fanny-wound Skin Appearance) Assessed,Callus No Abnormality, Callus ,Scarring Assessed -Moisture (Fanny-wound Skin Appearance) No Abnormality, No Abnormality, Assessed,Dry/ Assessed Assessed Scaly -Color (Fanny-wound Skin Appearance) No Abnormality, No Abnormality, Assessed Assessed Assessed -Temperature (Fanny-wound Skin No Abnormality No Abnormality No Abnormality Appearance) (Pt Warm) (Pt Warm) (Pt Warm) -Tenderness on Palpation (Fanny-wound No No No Skin Appearance) -Ulcer Cleansing Rinsed/ Soap and Water Soap and Water Irrigated with Saline -Foul Odor after Cleansing No No No -Anesthetic Used 5% Lidocaine 5% Lidocaine 5% Lidocaine Gel Gel Gel 11/29/21 07:56 Wound Center Nurse 1 #1 Left Plantar -Combined with other wound -Current Size (cm) - Length 1.7 -Current Size (cm) - Width 1.1 -Current Size (cm) - Depth 0.1 -Total Square Cm 1.87 -Date of Last Picture (Recall this field) -Photo Taken -Epithelialization -Tunneling -Tunneling Position (O'clock) -Undermining/Tunneling -Undermining/Tunneling Starts (O'clock ) -Undermining/Tunneling Ends (O'clock) -Maximum Distance (cm) -Circular Undermining -Change in Wound Grade/Stage -Exudate Amt Small -Exudate Type Serosanguineous -Wound Margin Distinct, Outline Attached -Granulation Amt Medium (34-66%) -Granulation Quality Red -Slough/Fibrin -Necrosis Amt Medium (34-66%) -Necrotic Tissue Type Adherent Slough -Structure Exposed -Texture (Fanny-wound Skin Appearance) Assessed, Scarring -Moisture (Fanny-wound Skin Appearance) No Abnormality, Assessed -Color (Fanny-wound Skin Appearance) No Abnormality, Assessed -Temperature (Fanny-wound Skin No Abnormality Appearance) (Pt Warm) -Tenderness on Palpation (Fanny-wound No Skin Appearance) -Ulcer Cleansing Soap and Water -Foul Odor after Cleansing No -Anesthetic Used 5% Lidocaine Gel WC - Nurse 2 - General Ulcer CM Notes Start: 11/08/21 08:42 Freq: Status: Active Protocol: Activity Type Activity Date Activity User E-Sign Co-Sign Detail Recorded Client Recorded Date Recorded By Document 11/08/21 13:13 PL [id number] 11/08/21 13:17 PL Document 11/15/21 09:01 [id number] 11/15/21 09:10 JF Document 11/22/21 13:52 PL [id number] 11/22/21 13:54 PL 11/08/21 11/15/21 11/22/21 13:13 09:01 13:52 Wound Center Nurse 2 #1 Left Plantar -Time 08:55 09:04 09:36 -Correct Patient Yes Yes Yes -Correct Side, Site, Position Yes Yes Yes -Correct Procedure Yes Yes Yes -Procedure Performed Yes Yes Yes -Type of Procedure Debridement Debridement Debridement -Clinical Debridement Subcutaneous Subcutaneous Subcutaneous -Tissue Removed Subcutaneous Subcutaneous Subcutaneous -Post Debridement (cm) - Length 2.5 2.0 2.0 -Post Debridement (cm) - Width 1.6 1.0 0.8 -Post Debridement (cm) - Depth 0.3 0.2 0.3 -Total Square (Post) (cm) 4.00 2.00 1.60 -Area of Debridement (cm) - Length 2.5 2.0 2.0 -Area of Debridement (cm) - Width 1.6 1.0 0.8 -Total Square (Area) (cm) 4.00 2.00 1.60 -Tunneling No No No -Undermining/Tunneling No No No -Circular Undermining No No No -Wound/Ulcer Outcome Not Healed Not Healed Not Healed -Ulcer Cleansing Rinsed/ Rinsed/ Rinsed/ Irrigated with Irrigated with Irrigated with Saline Saline Saline -Foul Odor after Cleansing No No No -Bioengineered Tissue Yes Yes Yes -Type of Bioengineered Tissue Epifix Epifix Epifix -Expiration Date 06/06/26 06/06/26 08/07/26 -Product Lot Number [id number] -Percent Used 100 100 100 -Lot number of Saline Used [id number] -Bleeding Controlled with Pressure Pressure Pressure -Treatment Response Procedure Procedure Procedure Tolerated Well Tolerated Well Tolerated Well -Offloading Yes -Type of Offloading Camwalker -Debridement - Subq, 1st 20sq cm No No No -Apply Skin Sub - 1st 25 sq cm - Feet 1 1 1 -Epifix (per sq cm) 4 4 4 Pain Scale: 0-10 Numeric Is Patient Pain Free? Yes Yes Yes - Nurse 3 - General Ulcer D/C NN Start: 11/08/21 08:42 Freq: Status: Active Protocol: Activity Type Activity Date Activity User E-Sign Co-Sign Detail Recorded Client Recorded Date Recorded By Document 11/08/21 09:14 KR [id number] 11/08/21 09:15 KR Document 11/15/21 09:18 [facility] [id number] 11/15/21 09:19 [facility] Document 11/22/21 09:56 [facility] [id number] 11/22/21 09:57 [facility] Document 11/29/21 08:48 KR [id number] 11/29/21 08:49 KR Document 11/29/21 08:49 MA [id number] 11/29/21 08:49 MT 11/08/21 11/15/21 11/22/21 09:14 09:18 09:56 Wound Care Nurse 3 #1 Left Plantar -Other Dressing ABD pad epifix epifix -Primary Dressing Covered/Secured with Dry Gauze & Dry Gauze & Dry Gauze & Roll Gauze, Roll Gauze, Roll Gauze, Secured with Secured with Other Tape Tape -Other Covering abd abd Treatment Response Procedure Procedure Tolerated Well Tolerated Well Pain Scale: 0-10 Numeric Is Patient Pain Free? Yes Yes Yes WC - Visit Discharge Discharge Condition Stable Stable Stable Ambulatory Status Ambulatory Ambulatory Ambulatory Transportation Private Auto Private Auto Private Auto Medication Reconcilliation completed & provided to patient/care provider Clinical Summary of Care Provided 11/29/21 11/29/21 08:48 08:49 Wound Care Nurse 3 #1 Left Plantar -Other Dressing abd x 2 -Primary Dressing Covered/Secured with Dry Gauze,Dry Dry Gauze,Dry Gauze & Roll Gauze & Roll Gauze,Secured Gauze with Tape -Other Covering Treatment Response Pain Scale: 0-10 Numeric Is Patient Pain Free? Yes Yes WC - Visit Discharge Discharge Condition Stable Stable Ambulatory Status Ambulatory Ambulatory Transportation Private Auto Medication Reconcilliation completed & No provided to patient/care provider Clinical Summary of Care Provided Yes Assessment/Plan Assessment/Plan (1) Non-pressure chronic ulcer of other part of left foot with fat layer exposed: CODE(S): L97.522 - Non-pressure chronic ulcer of other part of left foot with fat layer exposed (2) Diabetic foot ulcer: CODE(S): E11.621 - Type 2 diabetes mellitus with foot ulcer; L97.509 - Non-pressure chronic ulcer of other part of unspecified foot with unspecified severity QUALIFIERS: Diabetic foot ulcer location: toe Diabetes mellitus type: type 2 Laterality: right Non-pressure ulcer stage: with fat layer exposed Qualified Code(s): E11.621 - Type 2 diabetes mellitus with foot ulcer; L97.512 - Non-pressure chronic ulcer of other part of right foot with fat layer exposed; L97.512 - Non-pressure chronic ulcer of other part of right foot with fat layer exposed; L97.512 - Non-pressure chronic ulcer of other part of right foot with fat layer exposed; L97.512 - Non-pressure chronic ulcer of other part of right foot with fat layer exposed (3) Delayed wound healing: CODE(S): T14.8XXD - Other injury of unspecified body region, subsequent encounter (4) Polyneuropathy due to type 2 diabetes mellitus: CODE(S): E11.42 - Type 2 diabetes mellitus with diabetic polyneuropathy (5) History of transmetatarsal amputation of right foot: CODE(S): Z89.431 - Acquired absence of right foot (6) History of transmetatarsal amputation of left foot: CODE(S): Z89.432 - Acquired absence of left foot (7) Obesity: CODE(S): E66.9 - Obesity, unspecified QUALIFIERS: Obesity type: due to excess calories Obesity classification: adult class 3 (BMI >= 40) Serious obesity comorbidity presence: with serious comorbidity Body mass index: BMI 40.0-44.9 Qualified Code(s): E66.01 - Morbid (severe) obesity due to excess calories; Z68.41 - Body mass index [BMI] 40.0-44.9, adult (8) Microalbuminuria due to type 2 diabetes mellitus: CODE(S): E11.29 - Type 2 diabetes mellitus with other diabetic kidney complication; R80.9 - Proteinuria, unspecified PLAN: This is a 41-year-old female with a nonhealing plantar ulceration to the left foot. She has history of bilateral transmetatarsal amputations, diabetes mellitus type 2 with peripheral polyneuropathy, and delayed wound healing status. She was being followed by another provider at the [facility] in [place] and had underwent multiple interventions however with no resolution of her ulcerative site. Patient seen and evaluated Left foot transmetatarsal amputation site demonstrates plantar ulceration subfirst metatarsal. Ulcerative site measures 1.7 cm x 1.1 cm x 0.1 cm. No signs of infection. Ulcerative site demonstrates no palpable bony prominences in the wound bed or periwound. Healthy granular tissue is noted. Ulcerative site underwent debridement as noted above in clinical panel. Epi fix graft (application #4) applied to the wound bed. Site dressed with wound veil and anchored with Steri-Strips. Dry sterile dressing applied. She was instructed to continue to wear her CAM boot with the offloading pad at all times of ambulation. Leave dressings intact and do not get wet, may change outer dressings as needed. She is to continue with Devante with collagen protein supplementation to aid in her wound healing. I discussed localized signs of infection to observe for including localized redness about the ulceration site, red streaking up the leg, purulent drainage, malodor to the wound site. Or if she experiences any nausea, vomiting, fever, or chills that these are progressing signs of infection and she should report to the ED. Patient voices understanding of this. I discussed continued glycemic control to ensure proper healing. Patient encouraged to ensure proper nutrition including nutritional supplements to encourage wound healing. I reviewed and discussed her case today. Debridement was performed today as noted in the clinical panel to all of the ulcer sites. The following work up and care recommendations were made: Dressing: Epifix graft, wound veil, steri-strips, DSD. Do not get wet. Leave inner dressings intact. May change outer dressings as needed. Wash: Do Not get Wet Tissue growth optimization: Epifix graft Offload: CAM boot with offloading pad Vascular: Adequate perfusion to stump site Edema: May elevate lower extremity to control edema while at rest Infection: No localized signs of infection Pain: May take [id number] Tylenol extra strength for any pain or discomfort Host factors: Diabetes mellitus type 2 with peripheral polyneuropathy, history of bilateral transmetatarsal amputation I answered all the patient's questions. To return to the wound healing center in 1 week or call sooner if the patient has any questions or concerns. Note: [employer] speech recognition tile grader software was used to create portions of this document. Sound-alike and misspelled words, as well as other tile grader errors may be contained in the documentation.
== END 2021-12-04 23:59 | disposition home or self-care (01) ==
LOC: WC 08:15
PROVIDERS: PCP Physician Assistant; Visit Provider Student in an Organized Health Care Education/Training Program
DX: E11.621 Type 2 diabetes mellitus with foot ulcer (principal); Z89.431 Acquired absence of right foot; Z89.432 Acquired absence of left foot; L97.512 Non-pressure chronic ulcer of other part of right foot with fat layer exposed; L97.522 Non-pressure chronic ulcer of other part of left foot with fat layer exposed; E11.42 Type 2 diabetes mellitus with diabetic polyneuropathy; E11.29 Type 2 diabetes mellitus with other diabetic kidney complication; E66.01 Morbid (severe) obesity due to excess calories; Z68.41 Body mass index [BMI] 40.0-44.9, adult; R80.9 Proteinuria, unspecified; T14.8XXD Other injury of unspecified body region, subsequent encounter
CPT/HCPCS: 15275; Q4186

== ENCOUNTER → 2021-12-11 | Outpatient (CLI) | payer BC, MEDICARE, SELFPAY ==
--- NOTE | 2021-12-11 13:29 | ART_ITS ---
Reason For Study: recurrent ulcerations Procedure A bilateral lower extremity continuous wave Doppler with analog waveform analysis and ankle brachial indexes. Left Segmental Pressures Left brachial= 132mmHg. Left posterior tibial artery = 146mmHg. Left dorsalis pedis artery = 143mmHg. The left dorsalis pedis waveforms are triphasic. The left posterior tibial artery waveforms are triphasic. Right Segmental Pressures Right brachial= 132mmHg. Right posterior tibial artery = 132mmHg. Right dorsalis pedis artery = 133mmHg. The right dorsalis pedis waveforms are triphasic. The right posterior tibial artery waveforms are triphasic. Indices The right ankle brachial index by the dorsalis pedis is 1.01. The right ankle brachial index by the posterior tibial artery is 1.0. The left ankle brachial index by the posterior tibial artery is 1.11. The left ankle brachial index by the dorsalis pedis is 1.08. VL/Ankle Brachial Index Interpretation Summary Normal right lower extremity PT and DP ankle-brachial index of 1 and 1.01 respe ctively with normal triphasic Doppler waveforms Normal left lower extremity PT and DP ankle-brachial index of 1.11 and 1.08 res pectively with normal triphasic Doppler waveforms Ordering Physician: Ahsan Pitts Referring Physician: Ahsan Pitts Performed By: Wiliam Eller RVJavan
== END | disposition home or self-care (01) ==
LOC: CVS 13:26
PROVIDERS: PCP Internal Medicine; Referring Provider Internal Medicine; Visit Provider Internal Medicine
DX: E11.9 Type 2 diabetes mellitus without complications (principal)
CPT/HCPCS: 93922

== ENCOUNTER 2022-01-03 08:15 | Outpatient (RCR) | payer BC, MEDICARE, SELFPAY ==
[2021-12-05 01:01] VITALS: BP 124/74; PULSE 89; RESP 16; TEMP 36.3
[2021-12-06 08:16] VITALS: BP 135/74; PULSE 89; TEMP 36.1
--- NOTE | 2021-12-06 09:20 | PCM.WC.PN ---
History of Present Illness Date of Service: 12/06/21 Chief Complaint: Left foot plantar ulceration History of Wound: This is a 41-year-old female who presents to the wound care center for a nonhealing plantar foot ulceration to the left foot. She has history of diabetes mellitus type 2 with peripheral polyneuropathy, bilateral transmetatarsal amputations. Her left foot has subsequently broken down to the plantar aspect subfirst metatarsal. She was following with another provider in [place] at the [facility] where she had undergone a Cam walking boot for offloading, skin grafting with Dermagraft, purapply, Dakin's, packing, surgical revision of her transmetatarsal amputation with posterior tendon lengthening on 01/12/2021, and better glucose control. She had an MRI of the left foot on 08/08/21 which demonstrated no osteomyelitis. They are continuing weekly debridement and weightbearing in a cam boot with Dakin's packing and Aquacel Ag and dry dressing for localized wound care to the foot. Despite these interventions she is still experiencing delayed healing and nonhealing of the ulceration site. She was referred to the wound care center by her provider for other options in her healing status. Subjective Subjective This is a 41-year-old female who presents to the wound care center for follow-up of a nonhealing plantar foot ulceration of her transmetatarsal stump of the left foot. She is changing the outer dressings daily. She is continuing supplementing protein intake with Devante twice a day. She remains compliant in wearing her offloading boot with the plantar offloading pad. She denies any constitutional symptoms today. She has no further complaints today. Objective Data Objective Data Vital Signs: Vital Signs Temp Pulse Resp BP 97 F L 89 16 135/74 H 12/06/21 08:16 12/06/21 08:16 12/05/21 01:01 12/06/21 08:16 Physical Exam Const alert, oriented x3 and no apparent distress General Appearance: cooperative and comfortable HEENT normocephalic Eyes General Eye: normal appearance of both eyes Neck General: normal visual inspection Lymph Lymphatic: no lymphadenopathy noted and no lymphedema noted Resp normal respiratory effort Cardio regular rate and regular rhythm Extremity normal capillary refill, no calf tenderness and no pedal edema Skin no rashes or lesions noted, skin turgor normal and no jaundice Wound Narrative: Left foot transmetatarsal amputation noted. Left foot plantar ulceration subfirst metatarsal measuring 1.7 cm x 1.1 cm x 0.1 cm. Ulcerative site demonstrates no signs of infection. Ulcerative base demonstrates healthy granular tissue with surrounding hyperkeratotic rim and xerotic skin distally to the stump. No palpable fluctuance or bogginess, no palpable bone in the wound bed or about the wound site. Neuro oriented x3 and moves all extremities Debridement Note Debridement Note Wound debrided: Subfirst metatarsal left foot Laterality: Left Wound Grade/Stage: Nieves stage I Type of Debridement: Excisional debridement Anesthesia Used: 5% Lidocaine Gel Depth: Down to and including healthy tissue and in the subcutaneous layer Percentage of wound debrided: 100 Instrument Used: 3mm curette and #10 blade Tissue Removed: Fibrous, devitalized subcutaneous, biofilm, slough Severity: Fat Layer Exposed Amount of bleeding with debridement: Mild Bleeding Controlled with: Compression and gauze Patient tolerated procedure: Patient tolerated procedure well Post-Debridement Measurements and Additional Note: Post-Debridement Measurements/Treatment - Nurse 1 - General Ulcer Assessment Start: 12/06/21 08:15 Freq: Status: Active Protocol: [email or web address] Activity Type Activity Date Activity User E-Sign Co-Sign Detail Recorded Client Recorded Date Recorded By Document 12/06/21 08:16 GRAEME [id number] 12/06/21 08:18 GRAEME 12/06/21 08:16 - Today's Visit Information Type of service Follow-up Visit (Physician/DOG DAY CARE ATTENDANT ) Arrival Mode Ambulatory Patient Identification Verified (Name & Yes ) Patient Requires Transmission-Based No Precautions Safety Precautions NA Vital Signs Temperature (97.8 F-99.1 F) 97 F L Temperature Source Temporal Pulse Rate (60-100) 89 Pulse Location Monitor Blood Pressure (90/60-120/80) 135/74 H Blood Pressure Mean (mm Hg) 94 Source Monitor History Since Last Visit- (Skip if this is Patient's initial visit) Have you changed medications since your No last visit? Any new allergies or adverse reactions No Had a fall/change in ADL's that may No increase risk of falls Signs or symptoms of abuse and/or No neglect since last visit Have you been in the hospital since your No last visit? Has dressing in place as prescribed Yes Has compression in place as prescribed N/A Has offloadiing in place as prescribed N/A Experienced any changes in pain level or No management Left Footwear Removable Cast Walker/Walking Boot Right Footwear Regular Shoe Pain Scale: 0-10 Numeric Is Patient Pain Free? Yes - Nurse 1 - General Ulcer Measurement Start: 12/06/21 08:15 Freq: Status: Active Protocol: Activity Type Activity Date Activity User E-Sign Co-Sign Detail Recorded Client Recorded Date Recorded By Document 12/06/21 08:16 PA [id number] 12/06/21 08:18 GRAEME 12/06/21 08:16 Wound Center Nurse 1 #1 Left Plantar -Combined with other wound No -Current Size (cm) - Length 2 -Current Size (cm) - Width 1 -Current Size (cm) - Depth 0.1 -Total Square Cm 2 -Photo Taken Yes -Epithelialization Small 1-33% -Tunneling No -Undermining/Tunneling No -Circular Undermining No -Change in Wound Grade/Stage No -Exudate Amt Medium -Exudate Type Serosanguineous -Wound Margin Distinct, Outline Attached -Granulation Amt Small (1-33%) -Granulation Quality N/A -Slough/Fibrin Yes -Necrosis Amt Small (1-33%) -Necrotic Tissue Type Adherent Slough -Structure Exposed N/A -Texture (Fanny-wound Skin Appearance) No Abnormality, Assessed -Moisture (Fanny-wound Skin Appearance) No Abnormality, Assessed -Color (Fanny-wound Skin Appearance) No Abnormality, Assessed -Temperature (Fanny-wound Skin No Abnormality Appearance) (Pt Warm) -Tenderness on Palpation (Fanny-wound No Skin Appearance) -Ulcer Cleansing Rinsed/ Irrigated with Saline -Foul Odor after Cleansing No -Anesthetic Used 4% Lidocaine Solution - Nurse 3 - General Ulcer D/C NN Start: 12/06/21 08:15 Freq: Status: Active Protocol: Activity Type Activity Date Activity User E-Sign Co-Sign Detail Recorded Client Recorded Date Recorded By Document 12/06/21 08:54 ISAAC [id number] 12/06/21 08:55 ISAAC 12/06/21 08:54 Wound Care Nurse 3 -Other Dressing abd pad -Primary Dressing Covered/Secured with Dry Gauze,Dry Gauze & Roll Gauze,Secured with Tape Pain Scale: 0-10 Numeric Is Patient Pain Free? Yes WC - Visit Discharge Discharge Condition Stable Ambulatory Status Ambulatory Transportation Private Auto Assessment/Plan Assessment/Plan (1) Non-pressure chronic ulcer of other part of left foot with fat layer exposed: CODE(S): L97.522 - Non-pressure chronic ulcer of other part of left foot with fat layer exposed (2) Diabetic foot ulcer: CODE(S): E11.621 - Type 2 diabetes mellitus with foot ulcer; L97.509 - Non-pressure chronic ulcer of other part of unspecified foot with unspecified severity QUALIFIERS: Diabetic foot ulcer location: toe Diabetes mellitus type: type 2 Laterality: right Non-pressure ulcer stage: with fat layer exposed Qualified Code(s): E11.621 - Type 2 diabetes mellitus with foot ulcer; L97.512 - Non-pressure chronic ulcer of other part of right foot with fat layer exposed; L97.512 - Non-pressure chronic ulcer of other part of right foot with fat layer exposed; L97.512 - Non-pressure chronic ulcer of other part of right foot with fat layer exposed; L97.512 - Non-pressure chronic ulcer of other part of right foot with fat layer exposed (3) Delayed wound healing: CODE(S): T14.8XXD - Other injury of unspecified body region, subsequent encounter (4) Polyneuropathy due to type 2 diabetes mellitus: CODE(S): E11.42 - Type 2 diabetes mellitus with diabetic polyneuropathy (5) History of transmetatarsal amputation of right foot: CODE(S): Z89.431 - Acquired absence of right foot (6) History of transmetatarsal amputation of left foot: CODE(S): Z89.432 - Acquired absence of left foot (7) Microalbuminuria due to type 2 diabetes mellitus: CODE(S): E11.29 - Type 2 diabetes mellitus with other diabetic kidney complication; R80.9 - Proteinuria, unspecified (8) Obesity: CODE(S): E66.9 - Obesity, unspecified QUALIFIERS: Obesity type: due to excess calories Obesity classification: adult class 3 (BMI >= 40) Serious obesity comorbidity presence: with serious comorbidity Body mass index: BMI 40.0-44.9 Qualified Code(s): E66.01 - Morbid (severe) obesity due to excess calories; Z68.41 - Body mass index [BMI] 40.0-44.9, adult (9) Hypertension: CODE(S): I10 - Essential (primary) hypertension PLAN: This is a 41-year-old female with a nonhealing plantar ulceration to the left foot. She has history of bilateral transmetatarsal amputations, diabetes mellitus type 2 with peripheral polyneuropathy, and delayed wound healing status. She was being followed by another provider at the [facility] in [place] and had underwent multiple interventions however with no resolution of her ulcerative site. Patient seen and evaluated Left foot transmetatarsal amputation site demonstrates plantar ulceration subfirst metatarsal. Ulcerative site postdebridement measures 2.5 cm x 1.4 cm x 0.1 cm. No signs of infection. Ulcerative site demonstrates no palpable bony prominences in the wound bed or periwound. Healthy granular tissue is noted. Ulcerative site underwent debridement as noted above in clinical panel. Epi fix graft (application #5) applied to the wound bed. Site dressed with wound veil and anchored with Steri-Strips. Dry sterile dressing applied. She was instructed to continue to wear her CAM boot with the offloading pad at all times of ambulation. Leave dressings intact and do not get wet, may change outer dressings as needed. She is to continue with Devante with collagen protein supplementation to aid in her wound healing. I discussed localized signs of infection to observe for including localized redness about the ulceration site, red streaking up the leg, purulent drainage, malodor to the wound site. Or if she experiences any nausea, vomiting, fever, or chills that these are progressing signs of infection and she should report to the ED. Patient voices understanding of this. I discussed continued glycemic control to ensure proper healing. Patient encouraged to ensure proper nutrition including nutritional supplements to encourage wound healing. I reviewed and discussed her case today. Debridement was performed today as noted in the clinical panel to all of the ulcer sites. The following work up and care recommendations were made: Dressing: Epifix graft, wound veil, steri-strips, DSD. Do not get wet. Leave inner dressings intact. May change outer dressings as needed. Wash: Do Not get Wet Tissue growth optimization: Epifix graft Offload: CAM boot with offloading pad Vascular: Adequate perfusion to stump site Edema: May elevate lower extremity to control edema while at rest Infection: No localized signs of infection Pain: May take [id number] Tylenol extra strength for any pain or discomfort Host factors: Diabetes mellitus type 2 with peripheral polyneuropathy, history of bilateral transmetatarsal amputation I answered all the patient's questions. To return to the wound healing center in 1 week or call sooner if the patient has any questions or concerns. Note: [employer] speech recognition academic affairs manager software was used to create portions of this document. Sound-alike and misspelled words, as well as other academic affairs manager errors may be contained in the documentation.
[2021-12-13 08:32] VITALS: BP 120/74; PULSE 74; TEMP 36.6
--- NOTE | 2021-12-13 09:32 | PCM.WC.PN ---
History of Present Illness Date of Service: 12/13/21 Chief Complaint: Left foot plantar ulceration History of Wound: This is a 41-year-old female who presents to the wound care center for a nonhealing plantar foot ulceration to the left foot. She has history of diabetes mellitus type 2 with peripheral polyneuropathy, bilateral transmetatarsal amputations. Her left foot has subsequently broken down to the plantar aspect subfirst metatarsal. She was following with another provider in [place] at the [facility] where she had undergone a Cam walking boot for offloading, skin grafting with Dermagraft, purapply, Dakin's, packing, surgical revision of her transmetatarsal amputation with posterior tendon lengthening on 01/12/2021, and better glucose control. She had an MRI of the left foot on 08/08/21 which demonstrated no osteomyelitis. They are continuing weekly debridement and weightbearing in a cam boot with Dakin's packing and Aquacel Ag and dry dressing for localized wound care to the foot. Despite these interventions she is still experiencing delayed healing and nonhealing of the ulceration site. She was referred to the wound care center by her provider for other options in her healing status. Subjective Subjective This is a 41-year-old female who presents to the wound care center for follow-up of a nonhealing plantar foot ulceration of her transmetatarsal stump of the left foot. She is changing the outer dressings daily. She is continuing supplementing protein intake with Devante twice a day. She remains compliant in wearing her offloading boot with the plantar offloading pad. She denies any constitutional symptoms today. She has no further complaints today. Objective Data Objective Data Vital Signs: Vital Signs Temp Pulse Resp BP 97.8 F 74 16 120/74 12/13/21 08:32 12/13/21 08:32 12/05/21 01:01 12/13/21 08:32 Physical Exam Const alert, oriented x3 and no apparent distress General Appearance: cooperative and comfortable HEENT normocephalic Eyes General Eye: normal appearance of both eyes Neck General: normal visual inspection Lymph Lymphatic: no lymphadenopathy noted and no lymphedema noted Resp normal respiratory effort Cardio regular rate and regular rhythm Extremity normal capillary refill, no calf tenderness and no pedal edema Skin no rashes or lesions noted, skin turgor normal and no jaundice Wound Narrative: Left foot transmetatarsal amputation noted. Left foot plantar ulceration subfirst metatarsal measuring 2.0 cm x 1.5 cm x 0.1 cm. Ulcerative site demonstrates no signs of infection. Ulcerative base demonstrates healthy granular tissue with surrounding hyperkeratotic rim and xerotic skin distally to the stump. No palpable fluctuance or bogginess, no palpable bone in the wound bed or about the wound site. Neuro oriented x3 and moves all extremities Debridement Note Debridement Note Post-Debridement Measurements and Additional Note: Post-Debridement Measurements/Treatment - Nurse 1 - General Ulcer Assessment Start: 12/06/21 08:15 Freq: Status: Active Protocol: [email or web address] Activity Type Activity Date Activity User E-Sign Co-Sign Detail Recorded Client Recorded Date Recorded By Document 12/06/21 08:16 AK [id number] 12/06/21 08:18 AK Document 12/13/21 08:32 KR [id number] 12/13/21 08:35 KR 12/06/21 12/13/21 08:16 08:32 - Today's Visit Information Type of service Follow-up Visit Follow-up Visit (Physician/BUILDING ATTENDANT (Physician/BUILDING ATTENDANT ) ) Arrival Mode Ambulatory Ambulatory Patient Identification Verified (Name & Yes Yes ) Patient Requires Transmission-Based No Precautions Safety Precautions NA Vital Signs Temperature (97.8 F-99.1 F) 97 F L 97.8 F Temperature Source Temporal Temporal Pulse Rate (60-100) 89 74 Pulse Location Monitor Monitor Blood Pressure (90/60-120/80) 135/74 H 120/74 Blood Pressure Mean (mm Hg) 94 89 Source Monitor Monitor Position Sitting Blood Pressure Location Right Arm History Since Last Visit- (Skip if this is Patient's initial visit) Have you changed medications since your No No last visit? Any new allergies or adverse reactions No No Had a fall/change in ADL's that may No No increase risk of falls Signs or symptoms of abuse and/or No No neglect since last visit Have you been in the hospital since your No No last visit? Has dressing in place as prescribed Yes Yes Has compression in place as prescribed N/A N/A Has offloadiing in place as prescribed N/A N/A Experienced any changes in pain level or No No management Left Footwear Removable Cast Regular Shoe Walker/Walking Boot Right Footwear Regular Shoe Regular Shoe Pain Scale: 0-10 Numeric Is Patient Pain Free? Yes Yes WC - Nurse 1 - General Ulcer Measurement Start: 12/06/21 08:15 Freq: Status: Active Protocol: Activity Type Activity Date Activity User E-Sign Co-Sign Detail Recorded Client Recorded Date Recorded By Document 12/06/21 08:16 AK [id number] 12/06/21 08:18 AK Document 12/13/21 08:32 KR [id number] 12/13/21 08:35 KR 12/06/21 12/13/21 08:16 08:32 Wound Center Nurse 1 #1 Left Plantar -Combined with other wound No -Current Size (cm) - Length 2 2.3 -Current Size (cm) - Width 1 1.6 -Current Size (cm) - Depth 0.1 0.2 -Total Square Cm 2 3.68 -Photo Taken Yes -Epithelialization Small 1-33% -Tunneling No -Undermining/Tunneling No -Circular Undermining No -Change in Wound Grade/Stage No -Exudate Amt Medium Medium -Exudate Type Serosanguineous Serosanguineous -Wound Margin Distinct, Distinct, Outline Outline Attached Attached -Granulation Amt Small (1-33%) Small (1-33%) -Granulation Quality N/A [place] -Slough/Fibrin Yes -Necrosis Amt Small (1-33%) Medium (34-66%) -Necrotic Tissue Type Adherent Slough Adherent Slough -Structure Exposed N/A -Texture (Fanny-wound Skin Appearance) No Abnormality, Assessed, Assessed Scarring -Moisture (Fanny-wound Skin Appearance) No Abnormality, No Abnormality, Assessed Assessed -Color (Fanny-wound Skin Appearance) No Abnormality, No Abnormality, Assessed Assessed -Temperature (Fanny-wound Skin No Abnormality No Abnormality Appearance) (Pt Warm) (Pt Warm) -Tenderness on Palpation (Fanny-wound No No Skin Appearance) -Ulcer Cleansing Rinsed/ Rinsed/ Irrigated with Irrigated with Saline Saline -Foul Odor after Cleansing No No -Anesthetic Used 4% Lidocaine 4% Lidocaine Solution Solution WC - Nurse 2 - General Ulcer CM Notes Start: 12/06/21 08:15 Freq: Status: Active Protocol: Activity Type Activity Date Activity User E-Sign Co-Sign Detail Recorded Client Recorded Date Recorded By Document 12/06/21 13:23 PL [id number] 12/06/21 13:26 PL Document 12/13/21 09:11 [id number] 12/13/21 09:13 JF 12/06/21 12/13/21 13:23 09:11 Wound Center Nurse 2 #1 Left Plantar -Time 08:37 09:11 -Correct Patient Yes Yes -Correct Side, Site, Position Yes Yes -Correct Procedure Yes Yes -Procedure Performed Yes Yes -Type of Procedure Debridement Debridement -Clinical Debridement Subcutaneous Subcutaneous -Tissue Removed Subcutaneous Subcutaneous -Post Debridement (cm) - Length 2.0 2.0 -Post Debridement (cm) - Width 1.0 1.5 -Post Debridement (cm) - Depth 0.1 0.1 -Total Square (Post) (cm) 2.00 3.00 -Area of Debridement (cm) - Length 2 2.0 -Area of Debridement (cm) - Width 1 1.5 -Total Square (Area) (cm) 2 3.00 -Tunneling No No -Undermining/Tunneling No No -Circular Undermining No No -Wound/Ulcer Outcome Not Healed Not Healed -Ulcer Cleansing Rinsed/ Rinsed/ Irrigated with Irrigated with Saline Saline -Foul Odor after Cleansing No No -Bioengineered Tissue Yes Yes -Type of Bioengineered Tissue Epifix Epifix -Expiration Date 09/04/26 09/04/26 -Product Lot Number [id number] -Percent Used 100 100 -Lot number of Saline Used [id number] -Bleeding Controlled with Pressure Pressure -Treatment Response Procedure Procedure Tolerated Well Tolerated Well -Offloading Yes -Type of Offloading Camwalker -Debridement - Subq, 1st 20sq cm No No -Apply Skin Sub - 1st 25 sq cm - Feet 1 1 -Epifix (per sq cm) 4 4 Pain Scale: 0-10 Numeric Is Patient Pain Free? Yes Yes - Nurse 3 - General Ulcer D/C NN Start: 12/06/21 08:15 Freq: Status: Active Protocol: Activity Type Activity Date Activity User E-Sign Co-Sign Detail Recorded Client Recorded Date Recorded By Document 12/06/21 08:54 KR [id number] 12/06/21 08:55 KR Document 12/13/21 09:27 KR [id number] 12/13/21 09:27 ISAAC 12/06/21 12/13/21 08:54 09:27 Wound Care Nurse 3 #1 Left Plantar -Other Dressing abd pad ABD pad -Primary Dressing Covered/Secured with Dry Gauze,Dry Dry Gauze & Gauze & Roll Roll Gauze, Gauze,Secured Secured with with Tape Tape Pain Scale: 0-10 Numeric Is Patient Pain Free? Yes Yes WC - Visit Discharge Discharge Condition Stable Stable Ambulatory Status Ambulatory Ambulatory Transportation Private Auto Private Auto Assessment/Plan Assessment/Plan (1) Non-pressure chronic ulcer of other part of left foot with fat layer exposed: CODE(S): L97.522 - Non-pressure chronic ulcer of other part of left foot with fat layer exposed (2) Diabetic foot ulcer: CODE(S): E11.621 - Type 2 diabetes mellitus with foot ulcer; L97.509 - Non-pressure chronic ulcer of other part of unspecified foot with unspecified severity QUALIFIERS: Diabetes mellitus type: type 2 Diabetic foot ulcer location: toe Laterality: right Non-pressure ulcer stage: with fat layer exposed Qualified Code(s): E11.621 - Type 2 diabetes mellitus with foot ulcer; L97.512 - Non-pressure chronic ulcer of other part of right foot with fat layer exposed; L97.512 - Non-pressure chronic ulcer of other part of right foot with fat layer exposed; L97.512 - Non-pressure chronic ulcer of other part of right foot with fat layer exposed; L97.512 - Non-pressure chronic ulcer of other part of right foot with fat layer exposed (3) Delayed wound healing: CODE(S): T14.8XXD - Other injury of unspecified body region, subsequent encounter (4) Polyneuropathy due to type 2 diabetes mellitus: CODE(S): E11.42 - Type 2 diabetes mellitus with diabetic polyneuropathy (5) History of transmetatarsal amputation of right foot: CODE(S): Z89.431 - Acquired absence of right foot (6) History of transmetatarsal amputation of left foot: CODE(S): Z89.432 - Acquired absence of left foot (7) Microalbuminuria due to type 2 diabetes mellitus: CODE(S): E11.29 - Type 2 diabetes mellitus with other diabetic kidney complication; R80.9 - Proteinuria, unspecified (8) Obesity: CODE(S): E66.9 - Obesity, unspecified QUALIFIERS: Body mass index: BMI 40.0-44.9 Obesity classification: adult class 3 (BMI >= 40) Obesity type: due to excess calories Serious obesity comorbidity presence: with serious comorbidity Qualified Code(s): E66.01 - Morbid (severe) obesity due to excess calories; Z68.41 - Body mass index [BMI] 40.0-44.9, adult (9) Hypertension: CODE(S): I10 - Essential (primary) hypertension PLAN: This is a 41-year-old female with a nonhealing plantar ulceration to the left foot. She has history of bilateral transmetatarsal amputations, diabetes mellitus type 2 with peripheral polyneuropathy, and delayed wound healing status. She was being followed by another provider at the [facility] in [place] and had underwent multiple interventions however with no resolution of her ulcerative site. Patient seen and evaluated Left foot transmetatarsal amputation site demonstrates plantar ulceration subfirst metatarsal. Ulcerative site postdebridement measures 2.0 cm x 1.5 cm x 0.1 cm. No signs of infection. Ulcerative site demonstrates no palpable bony prominences in the wound bed or periwound. Healthy granular tissue is noted. Ulcerative site underwent debridement as noted above in clinical panel. Epi fix graft (application #6) applied to the wound bed. Site dressed with wound veil and anchored with Steri-Strips. Dry sterile dressing applied. She was instructed to continue to wear her CAM boot with the offloading pad at all times of ambulation. Leave dressings intact and do not get wet, may change outer dressings as needed. She is to continue with Devante with collagen protein supplementation to aid in her wound healing. I discussed localized signs of infection to observe for including localized redness about the ulceration site, red streaking up the leg, purulent drainage, malodor to the wound site. Or if she experiences any nausea, vomiting, fever, or chills that these are progressing signs of infection and she should report to the ED. Patient voices understanding of this. I discussed continued glycemic control to ensure proper healing. Patient encouraged to ensure proper nutrition including nutritional supplements to encourage wound healing. I reviewed and discussed her case today. Debridement was performed today as noted in the clinical panel to all of the ulcer sites. The following work up and care recommendations were made: Dressing: Epifix graft, wound veil, steri-strips, DSD. Do not get wet. Leave inner dressings intact. May change outer dressings as needed. Wash: Do Not get Wet Tissue growth optimization: Epifix graft Offload: CAM boot with offloading pad Vascular: Adequate perfusion to stump site Edema: May elevate lower extremity to control edema while at rest Infection: No localized signs of infection Pain: May take [id number] Tylenol extra strength for any pain or discomfort Host factors: Diabetes mellitus type 2 with peripheral polyneuropathy, history of bilateral transmetatarsal amputation I answered all the patient's questions. To return to the wound healing center in 1 week or call sooner if the patient has any questions or concerns. Note: [employer] speech recognition fixed capital clerk software was used to create portions of this document. Sound-alike and misspelled words, as well as other fixed capital clerk errors may be contained in the documentation.
[2021-12-20 08:06] VITALS: BP 114/75; PULSE 87; RESP 16; TEMP 36.2
--- NOTE | 2021-12-20 08:52 | PN.PCM_ITS ---
History of Present Illness Date of Service: 12/20/21 Chief Complaint: Left foot plantar ulceration History of Wound: This is a 41-year-old female who presents to the wound care center for a nonhealing plantar foot ulceration to the left foot. She has history of diabetes mellitus type 2 with peripheral polyneuropathy, bilateral transmetatarsal amputations. Her left foot has subsequently broken down to the plantar aspect subfirst metatarsal. She was following with another provider in [place] at the [facility] where she had undergone a Cam walking boot for offloading, skin grafting with Dermagraft, purapply, Dakin's, packing, surgical revision of her transmetatarsal amputation with posterior tendon lengthening on 01/12/2021, and better glucose control. She had an MRI of the left foot on 08/08/21 which demonstrated no osteomyelitis. They are continuing weekly debridement and weightbearing in a cam boot with Dakin's packing and Aquacel Ag and dry dressing for localized wound care to the foot. Despite these interventions she is still experiencing delayed healing and nonhealing of the ulceration site. She was referred to the wound care center by her provider for other options in her healing status. Subjective Subjective This is a 41-year-old female who presents to the wound care center for follow-up of a nonhealing plantar foot ulceration of her transmetatarsal stump of the left foot.? She is changing the outer dressings as needed and went a few days prior to changing.? She is continuing supplementing protein intake with Devante twice a day.? She remains compliant in wearing her offloading boot with the plantar offl oading pad.? She denies any constitutional symptoms today.? She has no further complaints today. Objective Data Objective Data Vital Signs: Vital Signs Temp Pulse Resp BP 97.1 F L 87 16 114/75 12/20/21 08:06 12/20/21 08:06 12/20/21 08:06 12/20/21 08:06 Physical Exam Const alert, oriented x3 and no apparent distress General Appearance: cooperative and comfortable HEENT normocephalic Eyes General Eye: normal appearance of both eyes Neck General: normal visual inspection Lymph Lymphatic: no lymphadenopathy noted and no lymphedema noted Resp normal respiratory effort Cardio regular rate and regular rhythm Extremity normal capillary refill, no calf tenderness and no pedal edema Skin no rashes or lesions noted, skin turgor normal and no jaundice Wound Narrative: Left foot transmetatarsal amputation noted. Left foot plantar ulceration subfirst metatarsal measuring 3.5 cm x 2.5 cm x 0.2 cm. Ulcerative site demonstrates no signs of infection. Ulcerative base demonstrates healthy granular tissue with surrounding hyperkeratotic rim and xerotic skin distally to the stump. No palpable fluctuance or bogginess, no palpable bone in the wound bed or about the wound site. Neuro oriented x3 and moves all extremities Debridement Note Debridement Note Wound debrided: Subfirst metatarsal of transmetatarsal stump Laterality: Left Wound Grade/Stage: Nieves stage I Type of Debridement: Selective debridement Anesthesia Used: 5% Lidocaine Gel Depth: Down to and including healthy tissue and in the subcutaneous layer Percentage of wound debrided: 100 Instrument Used: #15 blade Tissue Removed: Fibrous, devitalized subcutaneous, biofilm, slough Severity: Fat Layer Exposed Amount of bleeding with debridement: Mild Bleeding Controlled with: Compression and gauze Patient tolerated procedure: Patient tolerated procedure well Post-Debridement Measurements and Additional Note: Post-Debridement Measurements/Treatment - Nurse 1 - General Ulcer Assessment Start: 12/06/21 08:15 Freq: Status: Active Protocol: [email or web address].CHANCE Activity Type Activity Date Activity User E-sign Co-sign Detail Recorded Client Recorded Date Recorded By Document 12/06/21 08:16 AK [id number] 12/06/21 08:18 AK Document 12/13/21 08:32 KR [id number] 12/13/21 08:35 KR Document 12/20/21 08:06 ML [id number] 12/20/21 08:15 ML 12/06/21 12/13/21 12/20/21 08:16 08:32 08:06 - Today's Visit Information Type of service Follow-up Visit Follow-up Visit Follow-up Visit (Physician/ASSET PROTECTION LEAD (Physician/ASSET PROTECTION LEAD (Physician/ASSET PROTECTION LEAD ) ) ) Arrival Mode Ambulatory Ambulatory Ambulatory Transfer Assistance None Patient Identification Verified (Name & Yes Yes Yes ) Patient Requires Transmission-Based No No Precautions Safety Precautions NA NA Vital Signs Temperature (97.8 F-99.1 F) 97 F L 97.8 F 97.1 F L Temperature Source Temporal Temporal Temporal Pulse Rate (60-100) 89 74 87 Pulse Location Monitor Monitor Monitor Respiratory Rate (12-18) 16 Respiratory rate source Observation Blood Pressure (90/60-120/80) 135/74 H 120/74 114/75 Blood Pressure Mean (mm Hg) 94 89 88 Source Monitor Monitor Monitor Position Sitting Sitting Blood Pressure Location Right Arm Left Arm History Since Last Visit- (Skip if this is Patient's initial visit) Have you changed medications since your No No No last visit? Any new allergies or adverse reactions No No No Had a fall/change in ADL's that may No No No increase risk of falls Signs or symptoms of abuse and/or No No No neglect since last visit Have you been in the hospital since your No No No last visit? Has dressing in place as prescribed Yes Yes No Has compression in place as prescribed N/A N/A Yes Has offloadiing in place as prescribed N/A N/A Yes Experienced any changes in pain level or No No No management Left Footwear Removable Cast Regular Shoe Regular Shoe Walker/Walking Boot Right Footwear Regular Shoe Regular Shoe Surgical Shoe with pressure relief insole Pain Scale: 0-10 Numeric Is Patient Pain Free? Yes Yes Yes WC - Nurse 1 - General Ulcer Measurement Start: 12/06/21 08:15 Freq: Status: Active Protocol: Activity Type Activity Date Activity User E-sign Co-sign Detail Recorded Client Recorded Date Recorded By Document 12/06/21 08:16 AK [id number] 12/06/21 08:18 AK Document 12/13/21 08:32 KR [id number] 12/13/21 08:35 KR Document 12/20/21 08:06 ML [id number] 12/20/21 08:15 ML 12/06/21 12/13/21 12/20/21 08:16 08:32 08:06 Wound Center Nurse 1 #1 Left Plantar -Combined with other wound No -Current Size (cm) - Length 2 2.3 3.5 -Current Size (cm) - Width 1 1.6 2.5 -Current Size (cm) - Depth 0.1 0.2 0.2 -Total Square Cm 2 3.68 8.75 -Photo Taken Yes -Epithelialization Small 1-33% -Tunneling No -Undermining/Tunneling No -Circular Undermining No -Change in Wound Grade/Stage No -Exudate Amt Medium Medium Medium -Exudate Type Serosanguineous Serosanguineous Serous -Wound Margin Distinct, Distinct, Distinct, Outline Outline Outline Attached Attached Attached -Granulation Amt Small (1-33%) Small (1-33%) Medium (34-66%) -Granulation Quality N/A [place] Pale -Slough/Fibrin Yes Yes -Necrosis Amt Small (1-33%) Medium (34-66%) Medium (34-66%) -Necrotic Tissue Type Adherent Slough Adherent Slough Adherent Slough -Structure Exposed N/A -Texture (Fanny-wound Skin Appearance) No Abnormality, Assessed, Assessed Assessed Scarring -Moisture (Fanny-wound Skin Appearance) No Abnormality, No Abnormality, Assessed Assessed Assessed -Color (Fanny-wound Skin Appearance) No Abnormality, No Abnormality, Assessed Assessed Assessed -Temperature (Fanny-wound Skin No Abnormality No Abnormality No Abnormality Appearance) (Pt Warm) (Pt Warm) (Pt Warm) -Tenderness on Palpation (Fanny-wound No No No Skin Appearance) -Ulcer Cleansing Rinsed/ Rinsed/ Soap and Water Irrigated with Irrigated with Saline Saline -Foul Odor after Cleansing No No No -Anesthetic Used 4% Lidocaine 4% Lidocaine 4% Lidocaine Solution Solution Solution WC - Nurse 2 - General Ulcer CM Notes Start: 12/06/21 08:15 Freq: Status: Active Protocol: Activity Type Activity Date Activity User E-sign Co-sign Detail Recorded Client Recorded Date Recorded By Document 12/06/21 13:23 PL [id number] 12/06/21 13:26 PL Document 12/13/21 09:11 [id number] 12/13/21 09:13 SEBASTIAN 12/06/21 12/13/21 13:23 09:11 Wound Center Nurse 2 #1 Left Plantar -Time 08:37 09:11 -Correct Patient Yes Yes -Correct Side, Site, Position Yes Yes -Correct Procedure Yes Yes -Procedure Performed Yes Yes -Type of Procedure Debridement Debridement -Clinical Debridement Subcutaneous Subcutaneous -Tissue Removed Subcutaneous Subcutaneous -Post Debridement (cm) - Length 2.0 2.0 -Post Debridement (cm) - Width 1.0 1.5 -Post Debridement (cm) - Depth 0.1 0.1 -Total Square (Post) (cm) 2.00 3.00 -Area of Debridement (cm) - Length 2 2.0 -Area of Debridement (cm) - Width 1 1.5 -Total Square (Area) (cm) 2 3.00 -Tunneling No No -Undermining/Tunneling No No -Circular Undermining No No -Wound/Ulcer Outcome Not Healed Not Healed -Ulcer Cleansing Rinsed/ Rinsed/ Irrigated with Irrigated with Saline Saline -Foul Odor after Cleansing No No -Bioengineered Tissue Yes Yes -Type of Bioengineered Tissue Epifix Epifix -Expiration Date 09/04/26 09/04/26 -Product Lot Number [id number] -Percent Used 100 100 -Lot number of Saline Used [id number] -Bleeding Controlled with Pressure Pressure -Treatment Response Procedure Procedure Tolerated Well Tolerated Well -Offloading Yes -Type of Offloading Camwalker -Debridement - Subq, 1st 20sq cm No No -Apply Skin Sub - 1st 25 sq cm - Feet 1 1 -Epifix (per sq cm) 4 4 Pain Scale: 0-10 Numeric Is Patient Pain Free? Yes Yes - Nurse 3 - General Ulcer D/C NN Start: 12/06/21 08:15 Freq: Status: Active Protocol: Activity Type Activity Date Activity User E-sign Co-sign Detail Recorded Client Recorded Date Recorded By Document 12/06/21 08:54 [id number] 12/06/21 08:55 KR Document 12/13/21 09:27 KR [id number] 12/13/21 09:27 KR 12/06/21 12/13/21 08:54 09:27 Wound Care Nurse 3 #1 Left Plantar -Other Dressing abd pad ABD pad -Primary Dressing Covered/Secured with Dry Gauze,Dry Dry Gauze & Gauze & Roll Roll Gauze, Gauze,Secured Secured with with Tape Tape Pain Scale: 0-10 Numeric Is Patient Pain Free? Yes Yes - Visit Discharge Discharge Condition Stable Stable Ambulatory Status Ambulatory Ambulatory Transportation Private Auto Private Auto Assessment/Plan Assessment/Plan (1) Non-pressure chronic ulcer of other part of left foot with fat layer exposed: CODE(S): L97.522 - Non-pressure chronic ulcer of other part of left foot with fat layer exposed (2) Diabetic foot ulcer: CODE(S): E11.621 - Type 2 diabetes mellitus with foot ulcer; L97.509 - Non-pressure chronic ulcer of other part of unspecified foot with unspecified severity QUALIFIERS: Diabetic foot ulcer location: toe Diabetes mellitus type: type 2 Laterality: right Non-pressure ulcer stage: with fat layer exposed Qualified Code(s): E11.621 - Type 2 diabetes mellitus with foot ulcer; L97.512 - Non-pressure chronic ulcer of other part of right foot with fat layer exposed; L97.512 - Non-pressure chronic ulcer of other part of right foot with fat layer exposed; L97.512 - Non-pressure chronic ulcer of other part of right f oot with fat layer exposed; L97.512 - Non-pressure chronic ulcer of other part of right foot with fat layer exposed (3) Delayed wound healing: CODE(S): T14.8XXD - Other injury of unspecified body region, subsequent encounter (4) Polyneuropathy due to type 2 diabetes mellitus: CODE(S): E11.42 - Type 2 diabetes mellitus with diabetic polyneuropathy (5) History of transmetatarsal amputation of right foot: CODE(S): Z89.431 - Acquired absence of right foot (6) History of transmetatarsal amputation of left foot: CODE(S): Z89.432 - Acquired absence of left foot (7) Microalbuminuria due to type 2 diabetes mellitus: CODE(S): E11.29 - Type 2 diabetes mellitus with other diabetic kidney complication; R80.9 - Proteinuria, unspecified (8) Obesity: CODE(S): E66.9 - Obesity, unspecified QUALIFIERS: Obesity type: due to excess calories Obesity classification: adult class 3 (BMI >= 40) Serious obesity comorbidity presence: with serious comorbidity Body mass index: BMI 40.0-44.9 Qualified Code(s): E66.01 - Morbid (severe) obesity due to excess calories; Z68.41 - Body mass index [BMI] 40.0-44.9, adult (9) Hypertension: CODE(S): I10 - Essential (primary) hypertension PLAN: Plan This is a 41-year-old female with a nonhealing plantar ulceration to the left foot. She has history of bilateral transmetatarsal amputations, diabetes mellitus type 2 with peripheral polyneuropathy, and delayed wound healing status. She was being followed by another provider at the [facility] in [place] and had underwent multiple interventions however with no resolution of her ulcerative site. Patient seen and evaluated Left foot transmetatarsal amputation site demonstrates plantar ulceration subfirst metatarsal. Ulcerative site postdebridement measures 3.50 cm x 2.5 cm x 0.2 cm. No signs of infection. Ulcerative site demonstrates no palpable bony prominences in the wound bed or periwound. Healthy granular tissue is noted. Ulcerative site underwent debridement as noted above in clinical panel. Epi fix graft (application #7) applied to the wound bed. Site dressed with wound veil and anchored with Steri-Strips. Dry sterile dressing applied. She was instructed to continue to wear her CAM boot with the offloading pad at all times of ambulation. Leave dressings intact and do not get wet, may change outer dressings as needed. She is to continue with Devante with collagen protein supplementation to aid in her wound healing. I discussed localized signs of infection to observe for including localized redness about the ulceration site, red streaking up the leg, purulent drainage, malodor to the wound site. Or if she experiences any nausea, vomiting, fever, or chills that these are progressing signs of infection and she should report to the ED. Patient voices understanding of this. I discussed continued glycemic control to ensure proper healing. Patient encouraged to ensure proper nutrition including nutritional supplements to encourage wound healing. I reviewed and discussed her case today. Debridement was performed today as noted in the clinical panel to all of the ulcer sites. The following work up and care recommendations were made: Dressing: Epifix graft, wound veil, steri-strips, DSD. Do not get wet. Leave inner dressings intact. May change outer dressings as needed. Wash: Do Not get Wet Tissue growth optimization: Epifix graft Offload: CAM boot with offloading pad Vascular: Adequate perfusion to stump site Edema: May elevate lower extremity to control edema while at rest Infection: No localized signs of infection Pain: May take [id number] Tylenol extra strength for any pain or discomfort Host factors: Diabetes mellitus type 2 with peripheral polyneuropathy, history of bilateral transmetatarsal amputation I answered all the patient's questions. To return to the wound healing center in 2 weeks or call sooner if the patient has any questions or concerns. Note: [employer] speech recognition order desk clerk software was used to create portions of this document. Sound-alike and misspelled words, as well as other order desk clerk errors may be contained in the documentation.
[2022-01-03 08:32] VITALS: BP 104/77; PULSE 97; RESP 18; TEMP 36.8
--- NOTE | 2022-01-03 15:32 | PCM.WC.PN ---
History of Present Illness Date of Service: 01/03/22 Chief Complaint: Left foot plantar ulceration History of Wound: This is a 41-year-old female who presents to the wound care center for a nonhealing plantar foot ulceration to the left foot. She has history of diabetes mellitus type 2 with peripheral polyneuropathy, bilateral transmetatarsal amputations. Her left foot has subsequently broken down to the plantar aspect subfirst metatarsal. She was following with another provider in [place] at the [facility] where she had undergone a Cam walking boot for offloading, skin grafting with Dermagraft, purapply, Dakin's, packing, surgical revision of her transmetatarsal amputation with posterior tendon lengthening on 01/12/2021, and better glucose control. She had an MRI of the left foot on 08/08/21 which demonstrated no osteomyelitis. They are continuing weekly debridement and weightbearing in a cam boot with Dakin's packing and Aquacel Ag and dry dressing for localized wound care to the foot. Despite these interventions she is still experiencing delayed healing and nonhealing of the ulceration site. She was referred to the wound care center by her provider for other options in her healing status. Subjective Subjective This is a 41-year-old female who presents to the wound care center for follow-up of a nonhealing plantar foot ulceration of her transmetatarsal stump of the left foot. She is continuing supplementing protein intake with Devante twice a day.? She remains compliant in wearing her offloading boot with offloading pad.? She denies any constitutional symptoms today.? She has no further complaints today. Objective Data Objective Data Vital Signs: Vital Signs Temp Pulse Resp BP 98.2 F 97 18 104/77 01/03/22 08:32 01/03/22 08:32 01/03/22 08:32 01/03/22 08:32 Physical Exam Const alert, oriented x3 and no apparent distress General Appearance: cooperative and comfortable HEENT normocephalic Eyes General Eye: normal appearance of both eyes Neck General: normal visual inspection Lymph Lymphatic: no lymphadenopathy noted and no lymphedema noted Resp normal respiratory effort Cardio regular rate and regular rhythm Extremity normal capillary refill, no calf tenderness and no pedal edema Skin no rashes or lesions noted, skin turgor normal and no jaundice Wound Narrative: Left foot transmetatarsal amputation noted. Left foot plantar ulceration subfirst metatarsal measuring 3.5 cm x 2.5 cm x 0.2 cm. Ulcerative site demonstrates no signs of infection. Ulcerative base demonstrates healthy granular tissue with surrounding hyperkeratotic rim and xerotic skin distally to the stump. No palpable fluctuance or bogginess, no palpable bone in the wound bed or about the wound site. Neuro oriented x3 and moves all extremities Debridement Note Debridement Note Wound debrided: Left plantar first metatarsal stump Laterality: Left Wound Grade/Stage: Nieves stage I Type of Debridement: Excisional debridement Anesthesia Used: 5% Lidocaine Gel Depth: Down to and including healthy tissue and in the subcutaneous layer Percentage of wound debrided: 100 Instrument Used: #15 blade Tissue Removed: Fibrous, devitalized subcutaneous, biofilm, slough Severity: Fat Layer Exposed Amount of bleeding with debridement: Mild Bleeding Controlled with: Compression and gauze Patient tolerated procedure: Patient tolerated procedure well Post-Debridement Measurements and Additional Note: Post-Debridement Measurements/Treatment BLANQUITA - Nurse 1 - General Ulcer Assessment Start: 12/06/21 08:15 Freq: Status: Active Protocol: REED Activity Type Activity Date Activity User E-sign Co-sign Detail Recorded Client Recorded Date Recorded By Document 12/06/21 08:16 AK [id number] 12/06/21 08:18 AK Document 12/13/21 08:32 KR [id number] 12/13/21 08:35 KR Document 12/20/21 08:06 ML [id number] 12/20/21 08:15 ML Document 01/03/22 08:32 DL [id number] 01/03/22 08:35 DL 12/06/21 12/13/21 12/20/21 08:16 08:32 08:06 - Today's Visit Information Type of service Follow-up Visit Follow-up Visit Follow-up Visit (Physician/APPOINTMENT MANAGER (Physician/APPOINTMENT MANAGER (Physician/APPOINTMENT MANAGER ) ) ) Arrival Mode Ambulatory Ambulatory Ambulatory Transfer Assistance None Patient Identification Verified (Name & Yes Yes Yes ) Patient Requires Transmission-Based No No Precautions Safety Precautions NA NA Finger Stick Blood Sugar(mg/dl) (if indicated): Blood Sugar Vital Signs Temperature (97.8 F-99.1 F) 97 F L 97.8 F 97.1 F L Temperature Source Temporal Temporal Temporal Pulse Rate (60-100) 89 74 87 Pulse Location Monitor Monitor Monitor Respiratory Rate (12-18) 16 Respiratory rate source Observation Blood Pressure (90/60-120/80) 135/74 H 120/74 114/75 Blood Pressure Mean (mm Hg) 94 89 88 Source Monitor Monitor Monitor Position Sitting Sitting Blood Pressure Location Right Arm Left Arm History Since Last Visit- (Skip if this is Patient's initial visit) Have you changed medications since your No No No last visit? Any new allergies or adverse reactions No No No Had a fall/change in ADL's that may No No No increase risk of falls Signs or symptoms of abuse and/or No No No neglect since last visit Have you been in the hospital since your No No No last visit? Has dressing in place as prescribed Yes Yes No Has compression in place as prescribed N/A N/A Yes Has offloadiing in place as prescribed N/A N/A Yes Experienced any changes in pain level or No No No management Left Footwear Removable Cast Regular Shoe Regular Shoe Walker/Walking Boot Right Footwear Regular Shoe Regular Shoe Surgical Shoe with pressure relief insole Pain Scale: 0-10 Numeric Is Patient Pain Free? Yes Yes Yes 01/03/22 08:32 WC - Today's Visit Information Type of service Follow-up Visit (Physician/APPOINTMENT MANAGER ) Arrival Mode Ambulatory Transfer Assistance None Patient Identification Verified (Name & Yes ) Patient Requires Transmission-Based No Precautions Safety Precautions Finger Stick Blood Sugar(mg/dl) (if 122 indicated): Blood Sugar Stated by Patient Vital Signs Temperature (97.8 F-99.1 F) 98.2 F Temperature Source Temporal Pulse Rate (60-100) 97 Pulse Location Monitor Respiratory Rate (12-18) 18 Respiratory rate source Observation Blood Pressure (90/60-120/80) 104/77 Blood Pressure Mean (mm Hg) 86 Source Monitor Position Blood Pressure Location History Since Last Visit- (Skip if this is Patient's initial visit) Have you changed medications since your No last visit? Any new allergies or adverse reactions No Had a fall/change in ADL's that may No increase risk of falls Signs or symptoms of abuse and/or No neglect since last visit Have you been in the hospital since your No last visit? Has dressing in place as prescribed Yes Has compression in place as prescribed N/A Has offloadiing in place as prescribed Yes Experienced any changes in pain level or No management Left Footwear Surgical Shoe with pressure relief insole Right Footwear Pain Scale: 0-10 Numeric Is Patient Pain Free? Yes WC - Nurse 1 - General Ulcer Measurement Start: 12/06/21 08:15 Freq: Status: Active Protocol: Activity Type Activity Date Activity User E-sign Co-sign Detail Recorded Client Recorded Date Recorded By Document 12/06/21 08:16 AK [id number] 12/06/21 08:18 AK Document 12/13/21 08:32 KR [id number] 12/13/21 08:35 KR Document 12/20/21 08:06 ML [id number] 12/20/21 08:15 ML Document 01/03/22 08:32 DL [id number] 01/03/22 08:35 DL 12/06/21 12/13/21 12/20/21 08:16 08:32 08:06 Wound Center Nurse 1 #1 Left Plantar -Combined with other wound No -Current Size (cm) - Length 2 2.3 3.5 -Current Size (cm) - Width 1 1.6 2.5 -Current Size (cm) - Depth 0.1 0.2 0.2 -Total Square Cm 2 3.68 8.75 -Photo Taken Yes -Epithelialization Small 1-33% -Tunneling No -Undermining/Tunneling No -Undermining/Tunneling Starts (O'clock ) -Undermining/Tunneling Ends (O'clock) -Maximum Distance (cm) -Circular Undermining No -Change in Wound Grade/Stage No -Exudate Amt Medium Medium Medium -Exudate Type Serosanguineous Serosanguineous Serous -Wound Margin Distinct, Distinct, Distinct, Outline Outline Outline Attached Attached Attached -Granulation Amt Small (1-33%) Small (1-33%) Medium (34-66%) -Granulation Quality N/A [place] Pale -Slough/Fibrin Yes Yes -Necrosis Amt Small (1-33%) Medium (34-66%) Medium (34-66%) -Necrotic Tissue Type Adherent Slough Adherent Slough Adherent Slough -Structure Exposed N/A -Texture (Fanny-wound Skin Appearance) No Abnormality, Assessed, Assessed Assessed Scarring -Moisture (Fanny-wound Skin Appearance) No Abnormality, No Abnormality, Assessed Assessed Assessed -Color (Fanny-wound Skin Appearance) No Abnormality, No Abnormality, Assessed Assessed Assessed -Temperature (Fanny-wound Skin No Abnormality No Abnormality No Abnormality Appearance) (Pt Warm) (Pt Warm) (Pt Warm) -Tenderness on Palpation (Fanny-wound No No No Skin Appearance) -Ulcer Cleansing Rinsed/ Rinsed/ Soap and Water Irrigated with Irrigated with Saline Saline -Foul Odor after Cleansing No No No -Anesthetic Used 4% Lidocaine 4% Lidocaine 4% Lidocaine Solution Solution Solution 01/03/22 08:32 Wound Center Nurse 1 #1 Left Plantar -Combined with other wound -Current Size (cm) - Length 2.6 -Current Size (cm) - Width 1.6 -Current Size (cm) - Depth 0.5 -Total Square Cm 4.16 -Photo Taken No -Epithelialization -Tunneling -Undermining/Tunneling -Undermining/Tunneling Starts (O'clock 10 ) -Undermining/Tunneling Ends (O'clock) 5 -Maximum Distance (cm) 0.3 -Circular Undermining -Change in Wound Grade/Stage -Exudate Amt Medium -Exudate Type Serosanguineous -Wound Margin Thickened -Granulation Amt Large (67-100%) -Granulation Quality Red -Slough/Fibrin -Necrosis Amt Small (1-33%) -Necrotic Tissue Type Adherent Slough -Structure Exposed N/A -Texture (Fanny-wound Skin Appearance) Callus,Scarring -Moisture (Fanny-wound Skin Appearance) No Abnormality -Color (Fanny-wound Skin Appearance) No Abnormality -Temperature (Fanny-wound Skin No Abnormality Appearance) (Pt Warm) -Tenderness on Palpation (Fanny-wound No Skin Appearance) -Ulcer Cleansing Soap and Water -Foul Odor after Cleansing No -Anesthetic Used 5% Lidocaine Gel WC - Nurse 2 - General Ulcer CM Notes Start: 12/06/21 08:15 Freq: Status: Active Protocol: Activity Type Activity Date Activity User E-sign Co-sign Detail Recorded Client Recorded Date Recorded By Document 12/06/21 13:23 PL [id number] 12/06/21 13:26 PL Document 12/13/21 09:11 SEBASTIAN [id number] 12/13/21 09:13 Document 12/20/21 08:53 PL [id number] 12/20/21 08:55 PL Document 01/03/22 12:19 PL [id number] 01/03/22 12:20 PL 12/06/21 12/13/21 12/20/21 13:23 09:11 08:53 Wound Center Nurse 2 #1 Left Plantar -Time 08:37 09:11 08:35 -Correct Patient Yes Yes Yes -Correct Side, Site, Position Yes Yes Yes -Correct Procedure Yes Yes Yes -Procedure Performed Yes Yes Yes -Type of Procedure Debridement Debridement Debridement -Clinical Debridement Subcutaneous Subcutaneous Subcutaneous -Tissue Removed Subcutaneous Subcutaneous Subcutaneous -Post Debridement (cm) - Length 2.0 2.0 3.5 -Post Debridement (cm) - Width 1.0 1.5 2.5 -Post Debridement (cm) - Depth 0.1 0.1 0.2 -Total Square (Post) (cm) 2.00 3.00 8.75 -Area of Debridement (cm) - Length 2 2.0 3.5 -Area of Debridement (cm) - Width 1 1.5 2.5 -Total Square (Area) (cm) 2 3.00 8.75 -Tunneling No No No -Undermining/Tunneling No No No -Circular Undermining No No No -Wound/Ulcer Outcome Not Healed Not Healed Not Healed -Ulcer Cleansing Rinsed/ Rinsed/ Rinsed/ Irrigated with Irrigated with Irrigated with Saline Saline Saline -Foul Odor after Cleansing No No No -Bioengineered Tissue Yes Yes Yes -Type of Bioengineered Tissue Epifix Epifix Epifix -Expiration Date 09/04/26 09/04/26 09/04/26 -Product Lot Number [id number] -Percent Used 100 100 100 -Lot number of Saline Used [id number] -Bleeding Controlled with Pressure Pressure Pressure -Treatment Response Procedure Procedure Procedure Tolerated Well Tolerated Well Tolerated Well -Offloading Yes Yes -Type of Offloading Camwalker Camwalker -Debridement - Subq, 1st 20sq cm No No No -Apply Skin Sub - 1st 25 sq cm - Feet 1 1 1 -Epifix (per sq cm) 4 4 4 Pain Scale: 0-10 Numeric Is Patient Pain Free? Yes Yes Yes 01/03/22 12:19 Wound Center Nurse 2 #1 Left Plantar -Time 09:35 -Correct Patient Yes -Correct Side, Site, Position Yes -Correct Procedure Yes -Procedure Performed Yes -Type of Procedure Debridement -Clinical Debridement Subcutaneous -Tissue Removed Subcutaneous -Post Debridement (cm) - Length 2.6 -Post Debridement (cm) - Width 1.6 -Post Debridement (cm) - Depth 0.5 -Total Square (Post) (cm) 4.16 -Area of Debridement (cm) - Length 2.6 -Area of Debridement (cm) - Width 1.6 -Total Square (Area) (cm) 4.16 -Tunneling No -Undermining/Tunneling No -Circular Undermining No -Wound/Ulcer Outcome Not Healed -Ulcer Cleansing Rinsed/ Irrigated with Saline -Foul Odor after Cleansing No -Bioengineered Tissue Yes -Type of Bioengineered Tissue Epifix -Expiration Date 09/04/26 -Product Lot Number [id number] -Percent Used 100 -Lot number of Saline Used -Bleeding Controlled with Pressure -Treatment Response Procedure Tolerated Well -Offloading -Type of Offloading -Debridement - Subq, 1st 20sq cm No -Apply Skin Sub - 1st 25 sq cm - Feet 1 -Epifix (per sq cm) 4 Pain Scale: 0-10 Numeric Is Patient Pain Free? Yes - Nurse 3 - General Ulcer D/C NN Start: 12/06/21 08:15 Freq: Status: Active Protocol: Activity Type Activity Date Activity User E-sign Co-sign Detail Recorded Client Recorded Date Recorded By Document 12/06/21 08:54 ISAAC [id number] 12/06/21 08:55 KR Document 12/13/21 09:27 ISAAC [id number] 12/13/21 09:27 Document 01/03/22 09:47 ISAAC [id number] 01/03/22 09:47 ISAAC 12/06/21 12/13/21 01/03/22 08:54 09:27 09:47 Wound Care Nurse 3 #1 Left Plantar -Other Dressing abd pad ABD pad ABD pad -Primary Dressing Covered/Secured with Dry Gauze,Dry Dry Gauze & Dry Gauze, Gauze & Roll Roll Gauze, Secured with Gauze,Secured Secured with Tape with Tape Tape Pain Scale: 0-10 Numeric Is Patient Pain Free? Yes Yes Yes WC - Visit Discharge Discharge Condition Stable Stable Stable Ambulatory Status Ambulatory Ambulatory Ambulatory Transportation Private Auto Private Auto Private Auto Assessment/Plan Assessment/Plan (1) Non-pressure chronic ulcer of other part of left foot with fat layer exposed: CODE(S): L97.522 - Non-pressure chronic ulcer of other part of left foot with fat layer exposed (2) Diabetic foot ulcer: CODE(S): E11.621 - Type 2 diabetes mellitus with foot ulcer; L97.509 - Non-pressure chronic ulcer of other part of unspecified foot with unspecified severity QUALIFIERS: Diabetic foot ulcer location: toe Diabetes mellitus type: type 2 Laterality: right Non-pressure ulcer stage: with fat layer exposed Qualified Code(s): E11.621 - Type 2 diabetes mellitus with foot ulcer; L97.512 - Non-pressure chronic ulcer of other part of right foot with fat layer exposed; L97.512 - Non-pressure chronic ulcer of other part of right foot with fat layer exposed; L97.512 - Non-pressure chronic ulcer of other part of right foot with fat layer exposed; L97.512 - Non-pressure chronic ulcer of other part of right foot with fat layer exposed (3) Delayed wound healing: CODE(S): T14.8XXD - Other injury of unspecified body region, subsequent encounter (4) Polyneuropathy due to type 2 diabetes mellitus: CODE(S): E11.42 - Type 2 diabetes mellitus with diabetic polyneuropathy (5) History of transmetatarsal amputation of right foot: CODE(S): Z89.431 - Acquired absence of right foot (6) History of transmetatarsal amputation of left foot: CODE(S): Z89.432 - Acquired absence of left foot (7) Microalbuminuria due to type 2 diabetes mellitus: CODE(S): E11.29 - Type 2 diabetes mellitus with other diabetic kidney complication; R80.9 - Proteinuria, unspecified (8) Obesity: CODE(S): E66.9 - Obesity, unspecified QUALIFIERS: Obesity type: due to excess calories Obesity classification: adult class 3 (BMI >= 40) Serious obesity comorbidity presence: with serious comorbidity Body mass index: BMI 40.0-44.9 Qualified Code(s): E66.01 - Morbid (severe) obesity due to excess calories; Z68.41 - Body mass index [BMI] 40.0-44.9, adult (9) Hypertension: CODE(S): I10 - Essential (primary) hypertension PLAN: Plan This is a 41-year-old female with a nonhealing plantar ulceration to the left foot. She has history of bilateral transmetatarsal amputations, diabetes mellitus type 2 with peripheral polyneuropathy, and delayed wound healing status. She was being followed by another provider at the [facility] in [place] and had underwent multiple interventions however with no resolution of her ulcerative site. Patient seen and evaluated Left foot transmetatarsal amputation site demonstrates plantar ulceration subfirst metatarsal. Ulcerative site postdebridement measures 2.6 cm x 1.6 cm x 0.2 cm. No signs of infection. Ulcerative site demonstrates no palpable bony prominences in the wound bed or periwound. Healthy granular tissue is noted. Ulcerative site underwent debridement as noted above in clinical panel. Epi fix graft (application #8) applied to the wound bed. Site dressed with wound veil and anchored with Steri-Strips. Dry sterile dressing applied. She was instructed to continue to wear her CAM boot with the offloading pad at all times of ambulation. Patient will offloading padding placed in boot today. Leave dressings intact and do not get wet, may change outer dressings as needed. She is to continue with Devante with collagen protein supplementation to aid in her wound healing. I discussed localized signs of infection to observe for including localized redness about the ulceration site, red streaking up the leg, purulent drainage, malodor to the wound site. Or if she experiences any nausea, vomiting, fever, or chills that these are progressing signs of infection and she should report to the ED. Patient voices understanding of this. I discussed continued glycemic control to ensure proper healing. Patient encouraged to ensure proper nutrition including nutritional supplements to encourage wound healing. I reviewed and discussed her case today. Debridement was performed today as noted in the clinical panel to all of the ulcer sites. The following work up and care recommendations were made: Dressing: Epifix graft, wound veil, steri-strips, DSD. Do not get wet. Leave inner dressings intact. May change outer dressings as needed. Wash: Do Not get Wet Tissue growth optimization: Epifix graft Offload: CAM boot with offloading pad Vascular: Adequate perfusion to stump site Edema: May elevate lower extremity to control edema while at rest Infection: No localized signs of infection Pain: May take [id number] Tylenol extra strength for any pain or discomfort Host factors: Diabetes mellitus type 2 with peripheral polyneuropathy, history of bilateral transmetatarsal amputation I answered all the patient's questions. To return to the wound healing center in 1 week or call sooner if the patient has any questions or concerns. Note: Easy Vino speech recognition dredge pipeman software was used to create portions of this document. Sound-alike and misspelled words, as well as other dredge pipeman errors may be contained in the documentation.
== END 2022-01-03 23:59 | disposition home or self-care (01) ==
LOC: WC 08:15
PROVIDERS: PCP Physician Assistant; Visit Provider Student in an Organized Health Care Education/Training Program
DX: E11.621 Type 2 diabetes mellitus with foot ulcer (principal); Z89.431 Acquired absence of right foot; Z89.432 Acquired absence of left foot; L97.522 Non-pressure chronic ulcer of other part of left foot with fat layer exposed; L97.512 Non-pressure chronic ulcer of other part of right foot with fat layer exposed; E11.42 Type 2 diabetes mellitus with diabetic polyneuropathy; E11.29 Type 2 diabetes mellitus with other diabetic kidney complication; E66.01 Morbid (severe) obesity due to excess calories; R80.9 Proteinuria, unspecified; I10 Essential (primary) hypertension; T14.8XXD Other injury of unspecified body region, subsequent encounter
CPT/HCPCS: 15275; Q4186

== ENCOUNTER 2022-01-24 08:15 | Outpatient (RCR) | payer BC, MEDICARE, SELFPAY ==
[2022-01-04 00:36] VITALS: BP 104/77; PULSE 97; RESP 18; TEMP 36.8
[2022-01-10 08:40] VITALS: BP 142/78; PULSE 66; TEMP 36.1
--- NOTE | 2022-01-10 09:07 | PN.PCM_ITS ---
History of Present Illness Date of Service: 01/10/22 Chief Complaint: Left foot plantar ulceration History of Wound: This is a 41-year-old female who presents to the wound care center for a nonhealing plantar foot ulceration to the left foot. She has history of diabetes mellitus type 2 with peripheral polyneuropathy, bilateral transmetatarsal amputations. Her left foot has subsequently broken down to the plantar aspect subfirst metatarsal. She was following with another provider in [place] at the [facility] where she had undergone a Cam walking boot for offloading, skin grafting with Dermagraft, purapply, Dakin's, packing, surgical revision of her transmetatarsal amputation with posterior tendon lengthening on 01/12/2021, and better glucose control. She had an MRI of the left foot on 08/08/21 which demonstrated no osteomyelitis. They are continuing weekly debridement and weightbearing in a cam boot with Dakin's packing and Aquacel Ag and dry dressing for localized wound care to the foot. Despite these interventions she is still experiencing delayed healing and nonhealing of the ulceration site. She was referred to the wound care center by her provider for other options in her healing status. Subjective Subjective This is a 41-year-old female who presents to the wound care center for a subfirst metatarsal ulceration of her TMA stump of the left foot. She continues to offload the foot in an offloading boot with plantar padding. She denies any constitutional symptoms today. She has no further complaints today. Objective Data Objective Data Vital Signs: Vital Signs Temp Pulse Resp BP 97.0 F L 66 18 142/78 H 01/10/22 08:40 01/10/22 08:40 01/04/22 00:36 01/10/22 08:40 Physical Exam Const alert, oriented x3, no apparent distress and well nourished General Appearance: cooperative and comfortable HEENT normocephalic Eyes General Eye: normal appearance of both eyes Neck General: normal visual inspection Lymph Lymphatic: no lymphadenopathy noted and no lymphedema noted Resp normal respiratory effort Cardio regular rate and regular rhythm Extremity normal capillary refill, no joint enlargement, no calf tenderness and no pedal edema Peripheral Pulses: Yes posterior tibial pulses present and dorsalis pedis pulses present Skin no rashes or lesions noted, skin turgor normal and no jaundice Wound Narrative: Left foot transmetatarsal amputation noted.? Left foot plantar ulceration subfirst metatarsal measuring 2.5 cm x 1.5 cm x 0.1 cm.? Ulcerative site demonstrates no signs of infection.? Ulcerative base demonstrates healthy granular tissue with surrounding hyperkeratotic rim and xerotic skin distally to the stump.? No palpable fluctuance or bogginess, no palpable bone in the wound bed or about the wound site. Neuro oriented x3 and moves all extremities Debridement Note Debridement Note Wound debrided: Sub first metatarsal TMA stump Laterality: Left Wound Grade/Stage: Nieves stage I Type of Debridement: Excisional debridement Anesthesia Used: 5% Lidocaine Gel Depth: Down to and including healthy tissue and in the subcutaneous layer Percentage of wound debrided: 100 Instrument Used: #15 blade Tissue Removed: Fibrous, devitalized subcutaneous, biofilm, slough Severity: Fat Layer Exposed Amount of bleeding with debridement: Mild Bleeding Controlled with: Compression and gauze Patient tolerated procedure: Patient tolerated procedure well Post-Debridement Measurements and Additional Note: Post-Debridement Measurements/Treatment - Nurse 1 - General Ulcer Assessment Start: 01/10/22 08:40 Freq: Status: Active Protocol: [email or web address] Activity Type Activity Date Activity User E-sign Co-sign Detail Recorded Client Recorded Date Recorded By Document 01/10/22 08:40 [id number] 01/10/22 08:42 ISAAC 01/10/22 08:40 - Today's Visit Information Type of service Follow-up Visit (Physician/ANALYTICAL TECHNICIAN ) Arrival Mode Ambulatory Patient Identification Verified (Name & Yes ) Vital Signs Temperature (97.8 F-99.1 F) 97.0 F L Temperature Source Temporal Pulse Rate (60-100) 66 Pulse Location Monitor Blood Pressure (90/60-120/80) 142/78 H Blood Pressure Mean (mm Hg) 99 Source Monitor Position Semi-Fowlers Blood Pressure Location Right Arm History Since Last Visit- (Skip if this is Patient's initial visit) Have you changed medications since your No last visit? Any new allergies or adverse reactions No Had a fall/change in ADL's that may No increase risk of falls Signs or symptoms of abuse and/or No neglect since last visit Have you been in the hospital since your No last visit? Has dressing in place as prescribed Yes Has compression in place as prescribed N/A Has offloadiing in place as prescribed N/A Experienced any changes in pain level or No management Left Footwear Regular Shoe Right Footwear Regular Shoe Pain Scale: 0-10 Numeric Is Patient Pain Free? Yes WC - Nurse 1 - General Ulcer Measurement Start: 01/10/22 08:40 Freq: Status: Active Protocol: Activity Type Activity Date Activity User E-sign Co-sign Detail Recorded Client Recorded Date Recorded By Document 01/10/22 08:40 ISAAC [id number] 01/10/22 08:42 ISAAC 01/10/22 08:40 Wound Center Nurse 1 #1 Left Plantar -Current Size (cm) - Length 1.4 -Current Size (cm) - Width 1.5 -Current Size (cm) - Depth 0.1 -Total Square Cm 2.10 -Exudate Amt Medium -Exudate Type Serosanguineous -Wound Margin Distinct, Outline Attached -Granulation Amt Large (67-100%) -Granulation Quality Babb -Necrosis Amt Small (1-33%) -Necrotic Tissue Type Adherent Slough -Texture (Fanny-wound Skin Appearance) Assessed, Scarring -Moisture (Fanny-wound Skin Appearance) No Abnormality, Assessed -Color (Fanny-wound Skin Appearance) No Abnormality, Assessed -Temperature (Fanny-wound Skin No Abnormality Appearance) (Pt Warm) -Tenderness on Palpation (Fanny-wound No Skin Appearance) -Ulcer Cleansing Soap and Water -Foul Odor after Cleansing No -Anesthetic Used 5% Lidocaine Gel BLANQUITA - Nurse 2 - General Ulcer CM Notes Start: 01/10/22 08:40 Freq: Status: Active Protocol: Activity Type Activity Date Activity User E-sign Co-sign Detail Recorded Client Recorded Date Recorded By Document 01/10/22 09:01 SARTHAK [id number] 01/10/22 09:02 SARTHAK 01/10/22 09:01 Wound Center Nurse 2 -Time 08:45 -Correct Patient Yes -Correct Side, Site, Position Yes -Correct Procedure Yes -Procedure Performed Yes -Type of Procedure Debridement -Clinical Debridement Subcutaneous -Tissue Removed Subcutaneous -Post Debridement (cm) - Length 1.4 -Post Debridement (cm) - Width 1.5 -Post Debridement (cm) - Depth 0.1 -Total Square (Post) (cm) 2.10 -Area of Debridement (cm) - Length 1.4 -Area of Debridement (cm) - Width 1.5 -Total Square (Area) (cm) 2.10 -Tunneling No -Undermining/Tunneling No -Circular Undermining No -Wound/Ulcer Outcome Not Healed -Ulcer Cleansing Rinsed/ Irrigated with Saline -Foul Odor after Cleansing No -Bioengineered Tissue Yes -Type of Bioengineered Tissue Epifix -Expiration Date 09/04/26 -Product Lot Number [id number] -Percent Used 100 -Bleeding Controlled with Pressure -Treatment Response Procedure Tolerated Well -Debridement - Subq, 1st 20sq cm No -Apply Skin Sub - 1st 25 sq cm - Feet 1 -Epifix (per sq cm) 4 Pain Scale: 0-10 Numeric Is Patient Pain Free? Yes Assessment/Plan Assessment/Plan (1) Non-pressure chronic ulcer of other part of left foot with fat layer exposed: CODE(S): L97.522 - Non-pressure chronic ulcer of other part of left foot with fat layer exposed (2) Diabetic foot ulcer: CODE(S): E11.621 - Type 2 diabetes mellitus with foot ulcer; L97.509 - Non-pressure chronic ulcer of other part of unspecified foot with unspecified severity QUALIFIERS: Diabetes mellitus type: type 2 Diabetic foot ulcer location: toe Laterality: right Non-pressure ulcer stage: with fat layer exposed Qualified Code(s): E11.621 - Type 2 diabetes mellitus with foot ulcer; L97.512 - Non-pressure chronic ulcer of other part of right foot with fat layer exposed; L97.512 - Non-pressure chronic ulcer of other part of right foot with fat layer exposed; L97.512 - Non-pressure chronic ulcer of other part of right foot with fat layer exposed; L97.512 - Non-pressure chronic ulcer of other part of right foot with fat layer exposed (3) Delayed wound healing: CODE(S): T14.8XXD - Other injury of unspecified body region, subsequent encounter (4) Polyneuropathy due to type 2 diabetes mellitus: CODE(S): E11.42 - Type 2 diabetes mellitus with diabetic polyneuropathy (5) History of transmetatarsal amputation of right foot: CODE(S): Z89.431 - Acquired absence of right foot (6) History of transmetatarsal amputation of left foot: CODE(S): Z89.432 - Acquired absence of left foot (7) Microalbuminuria due to type 2 diabetes mellitus: CODE(S): E11.29 - Type 2 diabetes mellitus with other diabetic kidney complication; R80.9 - Proteinuria, unspecified (8) Hypertension: CODE(S): I10 - Essential (primary) hypertension (9) Obesity: CODE(S): E66.9 - Obesity, unspecified QUALIFIERS: Body mass index: BMI 40.0-44.9 Obesity classification: adult class 3 (BMI >= 40) Obesity type: due to excess calories Serious obesity comorbidity presence: with serious comorbidity Qualified Code(s): E66.01 - Morbid (severe) obesity due to excess calories; Z68.41 - Body mass index [BMI] 40.0-44.9, adult PLAN: Plan This is a 41-year-old female with a nonhealing plantar ulceration to the left foot.? She has history of bilateral transmetatarsal amputations, diabetes mellitus type 2 with peripheral polyneuropathy, and delayed wound healing status. She was being followed by another provider at the [facility] in [place] and had underwent multiple interventions however with no resolution of her ulcerative site. ? Patient seen and evaluated Left foot transmetatarsal amputation site demonstrates plantar ulceration subfirst metatarsal.? Ulcerative site postdebridement measures 2.5 cm x 1.1 cm x 0.1 cm. No signs of infection.? Ulcerative site demonstrates no palpable bony prominences in the wound bed or periwound.? Healthy granular tissue is noted.? Ulcerative site underwent debridement as noted above in clinical panel.? Epi fix graft (application #9) applied to the wound bed.? Site dressed with wound veil and anchored with Steri-Strips. Dry sterile dressing applied. She was instructed to continue to wear her CAM boot with the offloading pad at all times of ambulation.?Leave dressings intact and do not get wet, may change outer dressings as needed. She is to continue with Devante with collagen protein supplementation to aid in her wound healing. I discussed localized signs of infection to observe for including localized redness about the ulceration site, red streaking up the leg, purulent drainage, malodor to the wound site.? Or if she experiences any nausea, vomiting, fever, or chills that these are progressing signs of infection and she should report to the ED.? Patient voices understanding of this. I discussed continued glycemic control to ensure proper healing.? Patient enc ouraged to ensure proper nutrition including nutritional supplements to encourage wound healing. The following work up and care recommendations were made: Dressing: Epifix graft, wound veil, steri-strips, DSD.? Do not get wet.? Leave inner dressings intact.? May change outer dressings as needed. Wash: Do Not get Wet Tissue growth optimization: Epifix graft Offload: CAM boot with offloading pad Vascular: Adequate perfusion to stump site Edema: May elevate lower extremity to control edema while at rest Infection: No localized signs of infection Pain: May take [id number] Tylenol extra strength for any pain or discomfort Host factors: Diabetes mellitus type 2 with peripheral polyneuropathy, history of bilateral transmetatarsal amputation ? I answered all the patient's questions.? To return to the wound healing center in 1 week or call sooner if the patient has any questions or concerns. Note: PA Semi speech recognition natural resource technician software was used to create portions of this document. Sound-alike and misspelled words, as well as other natural resource technician errors may be contained in the documentation.
[2022-01-17 08:33] VITALS: BP 139/73; PULSE 81; TEMP 36.1
--- NOTE | 2022-01-17 12:33 | PCM.WC.PN ---
History of Present Illness Date of Service: 01/17/22 Chief Complaint: Left foot plantar ulceration History of Wound: This is a 41-year-old female who presents to the wound care center for a nonhealing plantar foot ulceration to the left foot. She has history of diabetes mellitus type 2 with peripheral polyneuropathy, bilateral transmetatarsal amputations. Her left foot has subsequently broken down to the plantar aspect subfirst metatarsal. She was following with another provider in [place] at the [facility] where she had undergone a Cam walking boot for offloading, skin grafting with Dermagraft, purapply, Dakin's, packing, surgical revision of her transmetatarsal amputation with posterior tendon lengthening on 01/12/2021, and better glucose control. She had an MRI of the left foot on 08/08/21 which demonstrated no osteomyelitis. They are continuing weekly debridement and weightbearing in a cam boot with Dakin's packing and Aquacel Ag and dry dressing for localized wound care to the foot. Despite these interventions she is still experiencing delayed healing and nonhealing of the ulceration site. She was referred to the wound care center by her provider for other options in her healing status. Subjective Subjective This is a 41-year-old female who presents to the wound care center for a subfirst metatarsal ulceration of her TMA stump of the left foot.? She continues to offload the foot in an offloading boot with plantar padding.? She denies any constitutional symptoms today.? She has no further complaints today. Objective Data Objective Data Vital Signs: Vital Signs Temp Pulse Resp BP 97.0 F L 81 18 139/73 H 01/17/22 08:33 01/17/22 08:33 01/04/22 00:36 01/17/22 08:33 Physical Exam Const alert, oriented x3, no apparent distress and well nourished General Appearance: cooperative and comfortable HEENT normocephalic Eyes General Eye: normal appearance of both eyes Neck General: normal visual inspection Lymph Lymphatic: no lymphadenopathy noted and no lymphedema noted Resp normal respiratory effort Cardio regular rate and regular rhythm Extremity normal capillary refill, no joint enlargement, no calf tenderness and no pedal edema Skin no rashes or lesions noted, skin turgor normal and no jaundice Wound Narrative: Left foot transmetatarsal amputation noted.? Left foot plantar ulceration subfirst metatarsal measuring 2.5 cm x 1.5 cm x 0.1 cm.? Ulcerative site demonstrates no signs of infection.? Ulcerative base demonstrates healthy granular tissue with surrounding hyperkeratotic rim and xerotic skin distally to the stump.? No palpable fluctuance or bogginess, no palpable bone in the wound bed or about the wound site. Neuro oriented x3 and moves all extremities Debridement Note Debridement Note Wound debrided: Left subfirst metatarsal stump Laterality: Left Wound Grade/Stage: Nieves stage I Type of Debridement: Excisional debridement Anesthesia Used: 5% Lidocaine Gel Depth: Down to and including healthy tissue and in the subcutaneous layer Percentage of wound debrided: 100 Instrument Used: #15 blade Tissue Removed: Fibrous, devitalized subcutaneous, biofilm, slough Severity: Fat Layer Exposed Amount of bleeding with debridement: Mild Bleeding Controlled with: Compression and gauze Patient tolerated procedure: Patient tolerated procedure well Post-Debridement Measurements and Additional Note: Post-Debridement Measurements/Treatment BLANQUITA - Nurse 1 - General Ulcer Assessment Start: 01/10/22 08:40 Freq: Status: Active Protocol: REED Activity Type Activity Date Activity User E-sign Co-sign Detail Recorded Client Recorded Date Recorded By Document 01/10/22 08:40 [id number] 01/10/22 08:42 KR Document 01/17/22 08:33 KR [id number] 01/17/22 08:36 KR 01/10/22 01/17/22 08:40 08:33 - Today's Visit Information Type of service Follow-up Visit Follow-up Visit (Physician/MINE ENGINEER (Physician/MINE ENGINEER ) ) Arrival Mode Ambulatory Ambulatory Patient Identification Verified (Name & Yes Yes ) Vital Signs Temperature (97.8 F-99.1 F) 97.0 F L 97.0 F L Temperature Source Temporal Temporal Pulse Rate (60-100) 66 81 Pulse Location Monitor Monitor Blood Pressure (90/60-120/80) 142/78 H 139/73 H Blood Pressure Mean (mm Hg) 99 95 Source Monitor Monitor Position Semi-Fowlers Sitting Blood Pressure Location Right Arm Left Arm History Since Last Visit- (Skip if this is Patient's initial visit) Have you changed medications since your No No last visit? Any new allergies or adverse reactions No No Had a fall/change in ADL's that may No No increase risk of falls Signs or symptoms of abuse and/or No No neglect since last visit Have you been in the hospital since your No No last visit? Has dressing in place as prescribed Yes Yes Has compression in place as prescribed N/A N/A Has offloadiing in place as prescribed N/A N/A Experienced any changes in pain level or No No management Left Footwear Regular Shoe Regular Shoe Right Footwear Regular Shoe Regular Shoe Pain Scale: 0-10 Numeric Is Patient Pain Free? Yes Yes WC - Nurse 1 - General Ulcer Measurement Start: 01/10/22 08:40 Freq: Status: Active Protocol: Activity Type Activity Date Activity User E-sign Co-sign Detail Recorded Client Recorded Date Recorded By Document 01/10/22 08:40 KR [id number] 01/10/22 08:42 KR Document 01/17/22 08:33 KR [id number] 01/17/22 08:36 KR 01/10/22 01/17/22 08:40 08:33 Wound Center Nurse 1 #1 Left Plantar -Current Size (cm) - Length 1.4 2.5 -Current Size (cm) - Width 1.5 1.5 -Current Size (cm) - Depth 0.1 0.2 -Total Square Cm 2.10 3.75 -Exudate Amt Medium Small -Exudate Type Serosanguineous Serosanguineous -Wound Margin Distinct, Distinct, Outline Outline Attached Attached -Granulation Amt Large (67-100%) Medium (34-66%) -Granulation Quality [place] -Necrosis Amt Small (1-33%) Medium (34-66%) -Necrotic Tissue Type Adherent Slough Adherent Slough -Texture (Fanny-wound Skin Appearance) Assessed, Assessed, Scarring Scarring -Moisture (Fanny-wound Skin Appearance) No Abnormality, No Abnormality, Assessed Assessed -Color (Fanny-wound Skin Appearance) No Abnormality, No Abnormality, Assessed Assessed -Temperature (Fanny-wound Skin No Abnormality No Abnormality Appearance) (Pt Warm) (Pt Warm) -Tenderness on Palpation (Fanny-wound No No Skin Appearance) -Ulcer Cleansing Soap and Water Rinsed/ Irrigated with Saline -Foul Odor after Cleansing No No -Anesthetic Used 5% Lidocaine 5% Lidocaine Gel Gel WC - Nurse 2 - General Ulcer CM Notes Start: 01/10/22 08:40 Freq: Status: Active Protocol: Activity Type Activity Date Activity User E-sign Co-sign Detail Recorded Client Recorded Date Recorded By Document 01/10/22 09:01 PL [id number] 01/10/22 09:02 PL Document 01/17/22 12:27 PL [id number] 01/17/22 12:29 PL 01/10/22 01/17/22 09:01 12:27 Wound Center Nurse 2 #1 Left Plantar -Time 08:45 09:20 -Correct Patient Yes Yes -Correct Side, Site, Position Yes Yes -Correct Procedure Yes Yes -Procedure Performed Yes Yes -Type of Procedure Debridement Debridement -Clinical Debridement Subcutaneous Subcutaneous -Tissue Removed Subcutaneous Subcutaneous -Post Debridement (cm) - Length 1.4 2.3 -Post Debridement (cm) - Width 1.5 1.5 -Post Debridement (cm) - Depth 0.1 0.2 -Total Square (Post) (cm) 2.10 3.45 -Area of Debridement (cm) - Length 1.4 2.3 -Area of Debridement (cm) - Width 1.5 1.5 -Total Square (Area) (cm) 2.10 3.45 -Tunneling No No -Undermining/Tunneling No No -Circular Undermining No No -Wound/Ulcer Outcome Not Healed Not Healed -Ulcer Cleansing Rinsed/ Rinsed/ Irrigated with Irrigated with Saline Saline -Foul Odor after Cleansing No No -Bioengineered Tissue Yes Yes -Type of Bioengineered Tissue Epifix Epifix -Expiration Date 09/04/26 10/05/26 -Product Lot Number [id number] -Percent Used 100 100 -Bleeding Controlled with Pressure Pressure -Treatment Response Procedure Procedure Tolerated Well Tolerated Well -Debridement - Subq, 1st 20sq cm No No -Apply Skin Sub - 1st 25 sq cm - Feet 1 1 -Epifix (per sq cm) 4 4 Pain Scale: 0-10 Numeric Is Patient Pain Free? Yes Yes - Nurse 3 - General Ulcer D/C NN Start: 01/10/22 08:40 Freq: Status: Active Protocol: Activity Type Activity Date Activity User E-sign Co-sign Detail Recorded Client Recorded Date Recorded By Document 01/17/22 09:35 [id number] 01/17/22 09:36 KR 01/17/22 09:35 Wound Care Nurse 3 #1 Left Plantar -Primary Dressing Covered/Secured with Dry Gauze,Dry Gauze & Roll Gauze,Secured with Tape Pain Scale: 0-10 Numeric Is Patient Pain Free? Yes WC - Visit Discharge Discharge Condition Stable Ambulatory Status Ambulatory Transportation Private Auto Assessment/Plan Assessment/Plan (1) Non-pressure chronic ulcer of other part of left foot with fat layer exposed: CODE(S): L97.522 - Non-pressure chronic ulcer of other part of left foot with fat layer exposed (2) Diabetic foot ulcer: CODE(S): E11.621 - Type 2 diabetes mellitus with foot ulcer; L97.509 - Non-pressure chronic ulcer of other part of unspecified foot with unspecified severity QUALIFIERS: Diabetic foot ulcer location: toe Diabetes mellitus type: type 2 Laterality: right Non-pressure ulcer stage: with fat layer exposed Qualified Code(s): E11.621 - Type 2 diabetes mellitus with foot ulcer; L97.512 - Non-pressure chronic ulcer of other part of right foot with fat layer exposed; L97.512 - Non-pressure chronic ulcer of other part of right foot with fat layer exposed; L97.512 - Non-pressure chronic ulcer of other part of right foot with fat layer exposed; L97.512 - Non-pressure chronic ulcer of other part of right foot with fat layer exposed (3) Delayed wound healing: CODE(S): T14.8XXD - Other injury of unspecified body region, subsequent encounter (4) Polyneuropathy due to type 2 diabetes mellitus: CODE(S): E11.42 - Type 2 diabetes mellitus with diabetic polyneuropathy (5) History of transmetatarsal amputation of right foot: CODE(S): Z89.431 - Acquired absence of right foot (6) History of transmetatarsal amputation of left foot: CODE(S): Z89.432 - Acquired absence of left foot (7) Microalbuminuria due to type 2 diabetes mellitus: CODE(S): E11.29 - Type 2 diabetes mellitus with other diabetic kidney complication; R80.9 - Proteinuria, unspecified (8) Hypertension: CODE(S): I10 - Essential (primary) hypertension (9) Obesity: CODE(S): E66.9 - Obesity, unspecified QUALIFIERS: Obesity type: due to excess calories Obesity classification: adult class 3 (BMI >= 40) Serious obesity comorbidity presence: with serious comorbidity Body mass index: BMI 40.0-44.9 Qualified Code(s): E66.01 - Morbid (severe) obesity due to excess calories; Z68.41 - Body mass index [BMI] 40.0-44.9, adult PLAN: Plan This is a 41-year-old female with a nonhealing plantar ulceration to the left foot.? She has history of bilateral transmetatarsal amputations, diabetes mellitus type 2 with peripheral polyneuropathy, and delayed wound healing status. She was being followed by another provider at the [facility] in [place] and had underwent multiple interventions however with no resolution of her ulcerative site. ? Patient seen and evaluated Left foot transmetatarsal amputation site demonstrates plantar ulceration subfirst metatarsal.? Ulcerative site postdebridement measures 2.5 cm x 1.5 cm x 0.1 cm. No signs of infection.? Ulcerative site demonstrates no palpable bony prominences in the wound bed or periwound.? Healthy granular tissue is noted.? Ulcerative site underwent debridement as noted above in clinical panel.? Epi fix graft (application #10) applied to the wound bed.? Site dressed with Adaptic touch and anchored with Steri-Strips. Dry sterile dressing applied. She was instructed to continue to wear her CAM boot with the offloading pad at all times of ambulation. Additional padding was added to her cam boot today.?Leave dressings intact and do not get wet, may change outer dressings as needed. She is to continue with Devante with collagen protein supplementation to aid in her wound healing. I discussed localized signs of infection to observe for including localized redness about the ulceration site, red streaking up the leg, purulent drainage, malodor to the wound site.? Or if she experiences any nausea, vomiting, fever, or chills that these are progressing signs of infection and she should report to the ED.? Patient voices understanding of this. I discussed continued glycemic control to ensure proper healing.? Patient encouraged to ensure proper nutrition including nutritional supplements to encourage wound healing. The following work up and care recommendations were made: Dressing: Epifix graft, wound veil, steri-strips, DSD.? Do not get wet.? Leave inner dressings intact.? May change outer dressings as needed. Wash: Do Not get Wet Tissue growth optimization: Epifix graft Offload: CAM boot with offloading pad Vascular: Adequate perfusion to stump site Edema: May elevate lower extremity to control edema while at rest Infection: No localized signs of infection Pain: May take [id number] Tylenol extra strength for any pain or discomfort Host factors: Diabetes mellitus type 2 with peripheral polyneuropathy, history of bilateral transmetatarsal amputation ? I answered all the patient's questions.? To return to the wound healing center in 1 week or call sooner if the patient has any questions or concerns. Note: [employer] speech recognition scooter mechanic software was used to create portions of this document. Sound-alike and misspelled words, as well as other scooter mechanic errors may be contained in the documentation.
[2022-01-24 08:08] VITALS: BP 119/74; TEMP 36.5
--- NOTE | 2022-01-24 09:12 | PCM.WC.PN ---
History of Present Illness Date of Service: 01/24/22 Chief Complaint: Left foot plantar ulceration History of Wound: This is a 41-year-old female who presents to the wound care center for a nonhealing plantar foot ulceration to the left foot. She has history of diabetes mellitus type 2 with peripheral polyneuropathy, bilateral transmetatarsal amputations. Her left foot has subsequently broken down to the plantar aspect subfirst metatarsal. She was following with another provider in [place] at the [facility] where she had undergone a Cam walking boot for offloading, skin grafting with Dermagraft, purapply, Dakin's, packing, surgical revision of her transmetatarsal amputation with posterior tendon lengthening on 01/12/2021, and better glucose control. She had an MRI of the left foot on 08/08/21 which demonstrated no osteomyelitis. They are continuing weekly debridement and weightbearing in a cam boot with Dakin's packing and Aquacel Ag and dry dressing for localized wound care to the foot. Despite these interventions she is still experiencing delayed healing and nonhealing of the ulceration site. She was referred to the wound care center by her provider for other options in her healing status. Subjective Subjective This is a 41-year-old female who presents to the wound care center for a subfirst metatarsal ulceration of her TMA stump of the left foot.? She continues to offload the foot in an offloading boot with plantar padding.? She denies any constitutional symptoms today.? She has no further complaints today. Objective Data Objective Data Vital Signs: Vital Signs Temp Pulse Resp BP 97.7 F L 81 18 119/74 01/24/22 08:08 01/17/22 08:33 01/04/22 00:36 01/24/22 08:08 Physical Exam Const alert, oriented x3, no apparent distress and well nourished General Appearance: cooperative and comfortable HEENT normocephalic Eyes General Eye: normal appearance of both eyes Neck General: normal visual inspection Lymph Lymphatic: no lymphadenopathy noted and no lymphedema noted Resp normal respiratory effort Cardio regular rate and regular rhythm Extremity normal capillary refill, no joint enlargement, no calf tenderness and no pedal edema Skin no rashes or lesions noted, skin turgor normal and no jaundice Wound Narrative: Left foot transmetatarsal amputation noted.? Left foot plantar ulceration subfirst metatarsal measuring 2.4 cm x 1.5 cm x 0.1 cm.? Ulcerative site demonstrates no signs of infection.? Ulcerative base demonstrates healthy granular tissue with surrounding hyperkeratotic rim and xerotic skin distally to the stump.? No palpable fluctuance or bogginess, no palpable bone in the wound bed or about the wound site. Neuro oriented x3 and moves all extremities Debridement Note Debridement Note Wound debrided: Sob first metatarsal left foot TMA stump Laterality: Left Wound Grade/Stage: Nieves stage I Type of Debridement: Excisional debridement Anesthesia Used: 5% Lidocaine Gel Depth: Down to and including healthy tissue and in the subcutaneous layer Percentage of wound debrided: 100 Instrument Used: 3mm curette Tissue Removed: Fibrous, devitalized subcutaneous, biofilm, slough Severity: Fat Layer Exposed Amount of bleeding with debridement: Mild Bleeding Controlled with: Compression and gauze Patient tolerated procedure: Patient tolerated procedure well Post-Debridement Measurements and Additional Note: Post-Debridement Measurements/Treatment - Nurse 1 - General Ulcer Assessment Start: 01/10/22 08:40 Freq: Status: Active Protocol: REED Activity Type Activity Date Activity User E-sign Co-sign Detail Recorded Client Recorded Date Recorded By Document 01/10/22 08:40 [id number] 01/10/22 08:42 KR Document 01/17/22 08:33 [id number] 01/17/22 08:36 KR Document 01/24/22 08:08 AL [id number] 01/24/22 08:15 AK 01/10/22 01/17/22 01/24/22 08:40 08:33 08:08 - Today's Visit Information Type of service Follow-up Visit Follow-up Visit Follow-up Visit (Physician/SILK SCREEN PROCESSOR (Physician/SILK SCREEN PROCESSOR (Physician/SILK SCREEN PROCESSOR ) ) ) Arrival Mode Ambulatory Ambulatory Ambulatory Patient Identification Verified (Name & Yes Yes Yes ) Patient Requires Transmission-Based No Precautions Safety Precautions NA Vital Signs Temperature (97.8 F-99.1 F) 97.0 F L 97.0 F L 97.7 F L Temperature Source Temporal Temporal Temporal Pulse Rate (60-100) 66 81 Pulse Location Monitor Monitor Blood Pressure (90/60-120/80) 142/78 H 139/73 H 119/74 Blood Pressure Mean (mm Hg) 99 95 89 Source Monitor Monitor Monitor Position Semi-Fowlers Sitting Blood Pressure Location Right Arm Left Arm History Since Last Visit- (Skip if this is Patient's initial visit) Have you changed medications since your No No No last visit? Any new allergies or adverse reactions No No No Had a fall/change in ADL's that may No No No increase risk of falls Signs or symptoms of abuse and/or No No No neglect since last visit Have you been in the hospital since your No No No last visit? Has dressing in place as prescribed Yes Yes Yes Has compression in place as prescribed N/A N/A N/A Has offloadiing in place as prescribed N/A N/A N/A Experienced any changes in pain level or No No No management Left Footwear Regular Shoe Regular Shoe Regular Shoe Right Footwear Regular Shoe Regular Shoe Regular Shoe Pain Scale: 0-10 Numeric Is Patient Pain Free? Yes Yes No WC - Nurse 1 - General Ulcer Measurement Start: 01/10/22 08:40 Freq: Status: Active Protocol: Activity Type Activity Date Activity User E-sign Co-sign Detail Recorded Client Recorded Date Recorded By Document 01/10/22 08:40 KR [id number] 01/10/22 08:42 KR Document 01/17/22 08:33 KR [id number] 01/17/22 08:36 KR Document 01/24/22 08:08 AK [id number] 01/24/22 08:15 AK 01/10/22 01/17/22 01/24/22 08:40 08:33 08:08 Wound Center Nurse 1 #1 Left Plantar -Combined with other wound No -Current Size (cm) - Length 1.4 2.5 2.2 -Current Size (cm) - Width 1.5 1.5 1.5 -Current Size (cm) - Depth 0.1 0.2 0.1 -Total Square Cm 2.10 3.75 3.30 -Date of Last Picture (Recall this 01/24/22 field) -Photo Taken Yes -Tunneling No -Undermining/Tunneling No -Circular Undermining No -Change in Wound Grade/Stage No -Exudate Amt Medium Small Medium -Exudate Type Serosanguineous Serosanguineous Serosanguineous -Wound Margin Distinct, Distinct, Distinct, Outline Outline Outline Attached Attached Attached -Granulation Amt Large (67-100%) Medium (34-66%) Medium (34-66%) -Granulation Quality Taylors Taylors Taylors,Red -Slough/Fibrin No -Necrosis Amt Small (1-33%) Medium (34-66%) Small (1-33%) -Necrotic Tissue Type Adherent Slough Adherent Slough Adherent Slough -Structure Exposed N/A -Texture (Fanny-wound Skin Appearance) Assessed, Assessed, No Abnormality, Scarring Scarring Assessed -Moisture (Fanny-wound Skin Appearance) No Abnormality, No Abnormality, No Abnormality, Assessed Assessed Assessed -Color (Fanny-wound Skin Appearance) No Abnormality, No Abnormality, No Abnormality, Assessed Assessed Assessed -Temperature (Fanny-wound Skin No Abnormality No Abnormality No Abnormality Appearance) (Pt Warm) (Pt Warm) (Pt Warm) -Tenderness on Palpation (Fanny-wound No No No Skin Appearance) -Ulcer Cleansing Soap and Water Rinsed/ Rinsed/ Irrigated with Irrigated with Saline Saline -Foul Odor after Cleansing No No No -Anesthetic Used 5% Lidocaine 5% Lidocaine 5% Lidocaine Gel Gel Gel WC - Nurse 2 - General Ulcer CM Notes Start: 01/10/22 08:40 Freq: Status: Active Protocol: Activity Type Activity Date Activity User E-sign Co-sign Detail Recorded Client Recorded Date Recorded By Document 01/10/22 09:01 [id number] 01/10/22 09:02 PL Document 01/17/22 12:27 PL [id number] 01/17/22 12:29 PL 01/10/22 01/17/22 09:01 12:27 Wound Center Nurse 2 #1 Left Plantar -Time 08:45 09:20 -Correct Patient Yes Yes -Correct Side, Site, Position Yes Yes -Correct Procedure Yes Yes -Procedure Performed Yes Yes -Type of Procedure Debridement Debridement -Clinical Debridement Subcutaneous Subcutaneous -Tissue Removed Subcutaneous Subcutaneous -Post Debridement (cm) - Length 1.4 2.3 -Post Debridement (cm) - Width 1.5 1.5 -Post Debridement (cm) - Depth 0.1 0.2 -Total Square (Post) (cm) 2.10 3.45 -Area of Debridement (cm) - Length 1.4 2.3 -Area of Debridement (cm) - Width 1.5 1.5 -Total Square (Area) (cm) 2.10 3.45 -Tunneling No No -Undermining/Tunneling No No -Circular Undermining No No -Wound/Ulcer Outcome Not Healed Not Healed -Ulcer Cleansing Rinsed/ Rinsed/ Irrigated with Irrigated with Saline Saline -Foul Odor after Cleansing No No -Bioengineered Tissue Yes Yes -Type of Bioengineered Tissue Epifix Epifix -Expiration Date 09/04/26 10/05/26 -Product Lot Number [id number] -Percent Used 100 100 -Bleeding Controlled with Pressure Pressure -Treatment Response Procedure Procedure Tolerated Well Tolerated Well -Debridement - Subq, 1st 20sq cm No No -Apply Skin Sub - 1st 25 sq cm - Feet 1 1 -Epifix (per sq cm) 4 4 Pain Scale: 0-10 Numeric Is Patient Pain Free? Yes Yes - Nurse 3 - General Ulcer D/C NN Start: 01/10/22 08:40 Freq: Status: Active Protocol: Activity Type Activity Date Activity User E-sign Co-sign Detail Recorded Client Recorded Date Recorded By Document 01/17/22 09:35 [id number] 01/17/22 09:36 KR Document 01/24/22 09:05 AK [id number] 01/24/22 09:05 AK 01/17/22 01/24/22 09:35 09:05 Wound Care Nurse 3 #1 Left Plantar -Ulcer Cleansing Rinsed/ Irrigated with Saline -Foul Odor after Cleansing No -Negative Pressure Wound Therapy N/A -Primary Dressing Applied Promogran Dina Matter -Primary Dressing Covered/Secured with Dry Gauze,Dry Dry Gauze & Gauze & Roll Roll Gauze, Gauze,Secured Secured with with Tape Tape -Promogran Dina Matter 1 Pain Scale: 0-10 Numeric Is Patient Pain Free? Yes Yes - Visit Discharge Discharge Condition Stable Stable Ambulatory Status Ambulatory Ambulatory Transportation Private Auto Private Auto Medication Reconcilliation completed & Yes provided to patient/care provider Clinical Summary of Care Provided Yes Assessment/Plan Assessment/Plan (1) Non-pressure chronic ulcer of other part of left foot with fat layer exposed: CODE(S): L97.522 - Non-pressure chronic ulcer of other part of left foot with fat layer exposed (2) Diabetic foot ulcer: CODE(S): E11.621 - Type 2 diabetes mellitus with foot ulcer; L97.509 - Non-pressure chronic ulcer of other part of unspecified foot with unspecified severity QUALIFIERS: Diabetic foot ulcer location: toe Diabetes mellitus type: type 2 Laterality: right Non-pressure ulcer stage: with fat layer exposed Qualified Code(s): E11.621 - Type 2 diabetes mellitus with foot ulcer; L97.512 - Non-pressure chronic ulcer of other part of right foot with fat layer exposed; L97.512 - Non-pressure chronic ulcer of other part of right foot with fat layer exposed; L97.512 - Non-pressure chronic ulcer of other part of right foot with fat layer exposed; L97.512 - Non-pressure chronic ulcer of other part of right foot with fat layer exposed (3) Delayed wound healing: CODE(S): T14.8XXD - Other injury of unspecified body region, subsequent encounter (4) Polyneuropathy due to type 2 diabetes mellitus: CODE(S): E11.42 - Type 2 diabetes mellitus with diabetic polyneuropathy (5) History of transmetatarsal amputation of right foot: CODE(S): Z89.431 - Acquired absence of right foot (6) History of transmetatarsal amputation of left foot: CODE(S): Z89.432 - Acquired absence of left foot (7) Microalbuminuria due to type 2 diabetes mellitus: CODE(S): E11.29 - Type 2 diabetes mellitus with other diabetic kidney complication; R80.9 - Proteinuria, unspecified (8) Hypertension: CODE(S): I10 - Essential (primary) hypertension (9) Obesity: CODE(S): E66.9 - Obesity, unspecified QUALIFIERS: Obesity type: due to excess calories Obesity classification: adult class 3 (BMI >= 40) Serious obesity comorbidity presence: with serious comorbidity Body mass index: BMI 40.0-44.9 Qualified Code(s): E66.01 - Morbid (severe) obesity due to excess calories; Z68.41 - Body mass index [BMI] 40.0-44.9, adult PLAN: Plan This is a 41-year-old female with a nonhealing plantar ulceration to the left foot.? She has history of bilateral transmetatarsal amputations, diabetes mellitus type 2 with peripheral polyneuropathy, and delayed wound healing status. She was being followed by another provider at the [facility] in [place] and had underwent multiple interventions however with no resolution of her ulcerative site. ? Patient seen and evaluated Left foot transmetatarsal amputation site demonstrates plantar ulceration subfirst metatarsal.? Ulcerative site postdebridement measures 2.4 cm x 1.5 cm x 0.1 cm. No signs of infection.? Ulcerative site demonstrates no palpable bony prominences in the wound bed or periwound.? Healthy granular tissue is noted.? Ulcerative site underwent debridement as noted above in clinical panel.? Dina and DSD applied, change daily. I am considering total contact casting at next visit as I do not feel she is 100% compliant with wearing her offloading boot. She was instructed to continue to wear her CAM boot with the offloading pad at all times of ambulation. She is to continue with Devante with collagen protein supplementation to aid in her wound healing. I discussed localized signs of infection to observe for including localized redness about the ulceration site, red streaking up the leg, purulent drainage, malodor to the wound site.? Or if she experiences any nausea, vomiting, fever, or chills that these are progressing signs of infection and she should report to the ED.? Patient voices understanding of this. I discussed continued glycemic control to ensure proper healing.? Patient encouraged to ensure proper nutrition including nutritional supplements to encourage wound healing. The following work up and care recommendations were made: Dressing: Dina and DSD Wash: Soap and water Tissue growth optimization: Epifix graft Dina Offload: CAM boot with offloading pad Vascular: Adequate perfusion to stump site Edema: May elevate lower extremity to control edema while at rest Infection: No localized signs of infection Pain: May take [id number] Tylenol extra strength for any pain or discomfort Host factors: Diabetes mellitus type 2 with peripheral polyneuropathy, history of bilateral transmetatarsal amputation ? I answered all the patient's questions.? To return to the wound healing center in 1 week or call sooner if the patient has any questions or concerns. Note: [employer] speech recognition geriatric aide software was used to create portions of this document. Sound-alike and misspelled words, as well as other geriatric aide errors may be contained in the documentation.
== END 2022-02-03 23:59 | disposition home or self-care (01) ==
LOC: WC 08:15
PROVIDERS: PCP Internal Medicine; Visit Provider Student in an Organized Health Care Education/Training Program
DX: E11.621 Type 2 diabetes mellitus with foot ulcer (principal); Z89.431 Acquired absence of right foot; Z89.432 Acquired absence of left foot; L97.522 Non-pressure chronic ulcer of other part of left foot with fat layer exposed; L97.512 Non-pressure chronic ulcer of other part of right foot with fat layer exposed; E11.29 Type 2 diabetes mellitus with other diabetic kidney complication; E11.42 Type 2 diabetes mellitus with diabetic polyneuropathy; E66.01 Morbid (severe) obesity due to excess calories; Z68.41 Body mass index [BMI] 40.0-44.9, adult; I10 Essential (primary) hypertension; R80.9 Proteinuria, unspecified
CPT/HCPCS: 11042; 15275; Q4186

== ENCOUNTER 2022-02-14 08:15 | Outpatient (RCR) | payer BC, MEDICARE, SELFPAY ==
[2022-02-04 00:28] VITALS: BP 119/74; PULSE 81; RESP 18; TEMP 36.5
[2022-02-07 08:11] VITALS: BP 131/76; PULSE 90; TEMP 36.4
--- NOTE | 2022-02-07 09:39 | PCM.WC.PN ---
History of Present Illness Date of Service: 02/07/22 Chief Complaint: Left foot plantar ulceration History of Wound: This is a 41-year-old female who presents to the wound care center for a nonhealing plantar foot ulceration to the left foot. She has history of diabetes mellitus type 2 with peripheral polyneuropathy, bilateral transmetatarsal amputations. Her left foot has subsequently broken down to the plantar aspect subfirst metatarsal. She was following with another provider in [place] at the [facility] where she had undergone a Cam walking boot for offloading, skin grafting with Dermagraft, purapply, Dakin's, packing, surgical revision of her transmetatarsal amputation with posterior tendon lengthening on 01/12/2021, and better glucose control. She had an MRI of the left foot on 08/08/21 which demonstrated no osteomyelitis. They are continuing weekly debridement and weightbearing in a cam boot with Dakin's packing and Aquacel Ag and dry dressing for localized wound care to the foot. Despite these interventions she is still experiencing delayed healing and nonhealing of the ulceration site. She was referred to the wound care center by her provider for other options in her healing status. Subjective Subjective This is a 41-year-old female who presents to the wound care center for a sub-first metatarsal ulceration of her TMA stump of the left foot.?She continues to offload the foot in an offloading boot with plantar padding. She denies any constitutional symptoms today.? She has no further complaints today. Objective Data Objective Data Vital Signs: Vital Signs Temp Pulse Resp BP 97.6 F L 90 18 131/76 H 02/07/22 08:11 02/07/22 08:11 02/04/22 00:28 02/07/22 08:11 Physical Exam Const alert, oriented x3, no apparent distress and well nourished General Appearance: cooperative and comfortable HEENT normocephalic Eyes General Eye: normal appearance of both eyes Neck General: normal visual inspection Lymph Lymphatic: no lymphadenopathy noted and no lymphedema noted Resp normal respiratory effort Cardio regular rate and regular rhythm Extremity normal capillary refill, no joint enlargement, no calf tenderness and no pedal edema Peripheral Pulses: Yes posterior tibial pulses present and dorsalis pedis pulses present Skin no rashes or lesions noted, skin turgor normal and no jaundice Wound Narrative: Left foot transmetatarsal amputation noted.? Left foot plantar ulceration subfirst metatarsal measuring 2.7 cm x 2.0 cm x 0.1 cm.? Ulcerative site demonstrates no signs of infection.? Ulcerative base demonstrates healthy granular tissue with surrounding hyperkeratotic rim and xerotic skin distally to the stump.? No palpable fluctuance or bogginess, no palpable bone in the wound bed or about the wound site. Right foot transmetatarsal amputation noted. Neuro oriented x3 and moves all extremities Debridement Note Debridement Note Wound debrided: Sub first transmetatarsal stump Laterality: Left Wound Grade/Stage: Nieves stage I Type of Debridement: Excisional debridement Anesthesia Used: 5% Lidocaine Gel Depth: Down to and including healthy tissue and in the subcutaneous layer Percentage of wound debrided: 100 Instrument Used: 3mm curette Tissue Removed: Fibrous, devitalized subcutaneous, biofilm, slough Severity: Fat Layer Exposed Amount of bleeding with debridement: Mild Bleeding Controlled with: Compression and gauze Patient tolerated procedure: Patient tolerated procedure well Post-Debridement Measurements and Additional Note: Post-Debridement Measurements/Treatment - Nurse 1 - General Ulcer Assessment Start: 02/07/22 08:10 Freq: Status: Active Protocol: [email or web address].CHANCE Activity Type Activity Date Activity User E-sign Co-sign Detail Recorded Client Recorded Date Recorded By Document 02/07/22 08:11 ISAAC [id number] 02/07/22 08:12 ISAAC 02/07/22 08:11 - Today's Visit Information Type of service Follow-up Visit (Physician/PROPOSAL CONSULTANT ) Arrival Mode Ambulatory Patient Identification Verified (Name & Yes ) Vital Signs Temperature (97.8 F-99.1 F) 97.6 F L Temperature Source Temporal Pulse Rate (60-100) 90 Pulse Location Monitor Blood Pressure (90/60-120/80) 131/76 H Blood Pressure Mean (mm Hg) 94 Source Monitor Position Semi-Fowlers Blood Pressure Location Right Arm History Since Last Visit- (Skip if this is Patient's initial visit) Have you changed medications since your No last visit? Any new allergies or adverse reactions No Had a fall/change in ADL's that may No increase risk of falls Signs or symptoms of abuse and/or No neglect since last visit Have you been in the hospital since your No last visit? Has dressing in place as prescribed Yes Has compression in place as prescribed N/A Has offloadiing in place as prescribed N/A Experienced any changes in pain level or No management Left Footwear Regular Shoe Right Footwear Regular Shoe Pain Scale: 0-10 Numeric Is Patient Pain Free? Yes - Nurse 1 - General Ulcer Measurement Start: 02/07/22 08:10 Freq: Status: Active Protocol: Activity Type Activity Date Activity User E-sign Co-sign Detail Recorded Client Recorded Date Recorded By Document 02/07/22 08:11 ISAAC [id number] 02/07/22 08:12 ISAAC 02/07/22 08:11 Wound Center Nurse 1 #1 Left Plantar -Current Size (cm) - Length 2.6 -Current Size (cm) - Width 1.5 -Current Size (cm) - Depth 0.2 -Total Square Cm 3.90 -Exudate Amt Medium -Exudate Type Serosanguineous -Wound Margin Distinct, Outline Attached -Granulation Amt Medium (34-66%) -Granulation Quality [place] -Necrosis Amt Small (1-33%) -Necrotic Tissue Type Adherent Slough -Texture (Fanny-wound Skin Appearance) Assessed, Scarring -Moisture (Fanny-wound Skin Appearance) No Abnormality, Assessed -Color (Fanny-wound Skin Appearance) No Abnormality, Assessed -Temperature (Fanny-wound Skin No Abnormality Appearance) (Pt Warm) -Tenderness on Palpation (Fanny-wound No Skin Appearance) -Ulcer Cleansing Rinsed/ Irrigated with Saline -Foul Odor after Cleansing No -Anesthetic Used 4% Lidocaine Solution BLANQUITA - Nurse 2 - General Ulcer CM Notes Start: 02/07/22 08:10 Freq: Status: Active Protocol: Activity Type Activity Date Activity User E-sign Co-sign Detail Recorded Client Recorded Date Recorded By Document 02/07/22 09:38 [email or web address] [id number] 02/07/22 09:39 PL 02/07/22 09:38 Wound Center Nurse 2 -Time 08:59 -Correct Patient Yes -Correct Side, Site, Position Yes -Correct Procedure Yes -Procedure Performed Yes -Type of Procedure Debridement -Clinical Debridement Subcutaneous -Tissue Removed Subcutaneous -Post Debridement (cm) - Length 2.6 -Post Debridement (cm) - Width 1.5 -Post Debridement (cm) - Depth 0.2 -Total Square (Post) (cm) 3.90 -Area of Debridement (cm) - Length 2.6 -Area of Debridement (cm) - Width 1.5 -Total Square (Area) (cm) 3.90 -Tunneling No -Undermining/Tunneling No -Circular Undermining No -Wound/Ulcer Outcome Not Healed -Ulcer Cleansing Rinsed/ Irrigated with Saline -Foul Odor after Cleansing No -Bioengineered Tissue No -Bleeding Controlled with Pressure -Treatment Response Procedure Tolerated Well -Type of Offloading Total Contact Cast (TCC) - Left ($) -Debridement - Subq, 1st 20sq cm Yes Pain Scale: 0-10 Numeric Is Patient Pain Free? Yes Assessment/Plan Assessment/Plan (1) Non-pressure chronic ulcer of other part of left foot with fat layer exposed: CODE(S): L97.522 - Non-pressure chronic ulcer of other part of left foot with fat layer exposed (2) Diabetic foot ulcer: CODE(S): E11.621 - Type 2 diabetes mellitus with foot ulcer; L97.509 - Non-pressure chronic ulcer of other part of unspecified foot with unspecified severity QUALIFIERS: Diabetes mellitus type: type 2 Diabetic foot ulcer location: toe Laterality: right Non-pressure ulcer stage: with fat layer exposed Qualified Code(s): E11.621 - Type 2 diabetes mellitus with foot ulcer; L97.512 - Non-pressure chronic ulcer of other part of right foot with fat layer exposed; L97.512 - Non-pressure chronic ulcer of other part of right foot with fat layer exposed; L97.512 - Non-pressure chronic ulcer of other part of right foot with fat layer exposed; L97.512 - Non-pressure chronic ulcer of other part of right foot with fat layer exposed (3) Delayed wound healing: CODE(S): T14.8XXD - Other injury of unspecified body region, subsequent encounter (4) Polyneuropathy due to type 2 diabetes mellitus: CODE(S): E11.42 - Type 2 diabetes mellitus with diabetic polyneuropathy (5) History of transmetatarsal amputation of right foot: CODE(S): Z89.431 - Acquired absence of right foot (6) History of transmetatarsal amputation of left foot: CODE(S): Z89.432 - Acquired absence of left foot (7) Microalbuminuria due to type 2 diabetes mellitus: CODE(S): E11.29 - Type 2 diabetes mellitus with other diabetic kidney complication; R80.9 - Proteinuria, unspecified (8) Hypertension: CODE(S): I10 - Essential (primary) hypertension (9) Obesity: CODE(S): E66.9 - Obesity, unspecified QUALIFIERS: Body mass index: BMI 40.0-44.9 Obesity classification: adult class 3 (BMI >= 40) Obesity type: due to excess calories Serious obesity comorbidity presence: with serious comorbidity Qualified Code(s): E66.01 - Morbid (severe) obesity due to excess calories; Z68.41 - Body mass index [BMI] 40.0-44.9, adult PLAN: Plan This is a 41-year-old female with a nonhealing plantar ulceration to the left foot.? She has history of bilateral transmetatarsal amputations, diabetes mellitus type 2 with peripheral polyneuropathy, and delayed wound healing status. She was being followed by another provider at the [facility] in [place] and had underwent multiple interventions however with no resolution of her ulcerative site. ? Patient seen and evaluated Left foot transmetatarsal amputation site demonstrates plantar ulceration subfirst metatarsal.? Ulcerative site postdebridement measures 2.7 cm x 2.0 cm x 0.1 cm. No signs of infection.? Ulcerative site demonstrates no palpable bony prominences in the wound bed or periwound.? Healthy granular tissue is noted.? Ulcerative site underwent debridement as noted above in clinical panel.? Dina and DSD applied, change daily.? I applied a total contact casting today as I do not feel she is 100% compliant with wearing her offloading boot as her ulceration has increased in size. She was instructed to bear weight within the total contact cast with walking boot applied to the cast. I discussed that the cast will be changed in 1 week and she is not to get the cast wet. She may shower with a cast bag applied over the left lower extremity. She is to continue with Devante with collagen protein supplementation to aid in her wound healing. I discussed localized signs of infection to observe for including localized redness about the ulceration site, red streaking up the leg, purulent drainage, malodor to the wound site.? Or if she experiences any nausea, vomiting, fever, or chills that these are progressing signs of infection and she should report to the ED.? Patient voices understanding of this. I discussed continued glycemic control to ensure proper healing.? Patient encouraged to ensure proper nutrition including nutritional supplements to encourage wound healing. The following work up and care recommendations were made: Dressing: Dina and DSD. Total contact cast left lower extremity Wash: Do not get wet Tissue growth optimization: Dina Offload: TTC left lower extremity Vascular: Adequate perfusion to stump site Edema: May elevate lower extremity to control edema while at rest Infection: No localized signs of infection Pain: May take [id number] Tylenol extra strength for any pain or discomfort Host factors: Diabetes mellitus type 2 with peripheral polyneuropathy, history of bilateral transmetatarsal amputation ? I answered all the patient's questions.? To return to the wound healing center in 1 week or call sooner if the patient has any questions or concerns. Note: [employer] speech recognition health facilities surveyor software was used to create portions of this document. Sound-alike and misspelled words, as well as other health facilities surveyor errors may be contained in the documentation.
[2022-02-14 08:05] VITALS: BP 125/76; PULSE 85; TEMP 36.4
--- NOTE | 2022-02-14 09:13 | PCM.WC.PN ---
History of Present Illness Date of Service: 02/14/22 Chief Complaint: Left foot plantar ulceration History of Wound: This is a 41-year-old female who presents to the wound care center for a nonhealing plantar foot ulceration to the left foot. She has history of diabetes mellitus type 2 with peripheral polyneuropathy, bilateral transmetatarsal amputations. Her left foot has subsequently broken down to the plantar aspect subfirst metatarsal. She was following with another provider in [place] at the [facility] where she had undergone a Cam walking boot for offloading, skin grafting with Dermagraft, purapply, Dakin's, packing, surgical revision of her transmetatarsal amputation with posterior tendon lengthening on 01/12/2021, and better glucose control. She had an MRI of the left foot on 08/08/21 which demonstrated no osteomyelitis. They are continuing weekly debridement and weightbearing in a cam boot with Dakin's packing and Aquacel Ag and dry dressing for localized wound care to the foot. Despite these interventions she is still experiencing delayed healing and nonhealing of the ulceration site. She was referred to the wound care center by her provider for other options in her healing status. Subjective Subjective This is a 41-year-old female who presents to the wound care center for a sub-first metatarsal ulceration of her TMA stump of the left foot.? She states she had difficulty climbing stairs and her total contact cast and removed the boot which led to the cast cracking. She asks for time to move some furniture around so that everything can be on 1 floor prior to next TTC application. She denies any constitutional symptoms today.? She has no further complaints today. Objective Data Objective Data Vital Signs: Vital Signs Temp Pulse Resp BP 97.5 F L 85 18 125/76 H 02/14/22 08:05 02/14/22 08:05 02/04/22 00:28 02/14/22 08:05 Physical Exam Const alert, oriented x3, no apparent distress and well nourished General Appearance: cooperative and comfortable HEENT normocephalic Eyes General Eye: normal appearance of both eyes Neck General: normal visual inspection Lymph Lymphatic: no lymphadenopathy noted and no lymphedema noted Resp normal respiratory effort Cardio regular rate and regular rhythm Extremity normal capillary refill, no joint enlargement, no calf tenderness and no pedal edema Skin no rashes or lesions noted, skin turgor normal and no jaundice Wound Narrative: Left foot transmetatarsal amputation noted.? Left foot plantar ulceration subfirst metatarsal measuring 2.7 cm x 2.0 cm x 0.1 cm.? Ulcerative site demonstrates no signs of infection.? Ulcerative base demonstrates healthy granular tissue with surrounding hyperkeratotic rim and xerotic skin distally to the stump.? No palpable fluctuance or bogginess, no palpable bone in the wound bed or about the wound site. Right foot transmetatarsal amputation noted. Neuro oriented x3 and moves all extremities Debridement Note Debridement Note Wound debrided: Some first metatarsal TMA stump Laterality: Left Wound Grade/Stage: Nieves stage I Type of Debridement: Excisional debridement Anesthesia Used: 5% Lidocaine Gel Depth: Down to and including healthy tissue and in the subcutaneous layer Percentage of wound debrided: 100 Instrument Used: 3mm curette Tissue Removed: Fibrous, devitalized subcutaneous, biofilm, slough Severity: Fat Layer Exposed Amount of bleeding with debridement: Mild Bleeding Controlled with: Compression and gauze Patient tolerated procedure: Patient tolerated procedure well Post-Debridement Measurements and Additional Note: Post-Debridement Measurements/Treatment - Nurse 1 - General Ulcer Assessment Start: 02/07/22 08:10 Freq: Status: Active Protocol: REED Activity Type Activity Date Activity User E-sign Co-sign Detail Recorded Client Recorded Date Recorded By Document 02/07/22 08:11 ISAAC [id number] 02/07/22 08:12 KR Document 02/14/22 08:05 ISAAC [id number] 02/14/22 08:11 KR 02/07/22 02/14/22 08:11 08:05 - Today's Visit Information Type of service Follow-up Visit Follow-up Visit (Physician/AMBULANCE DISPATCHER (Physician/AMBULANCE DISPATCHER ) ) Arrival Mode Ambulatory Ambulatory Patient Identification Verified (Name & Yes Yes ) Vital Signs Temperature (97.8 F-99.1 F) 97.6 F L 97.5 F L Temperature Source Temporal Temporal Pulse Rate (60-100) 90 85 Pulse Location Monitor Monitor Blood Pressure (90/60-120/80) 131/76 H 125/76 H Blood Pressure Mean (mm Hg) 94 92 Source Monitor Monitor Position Semi-Fowlers Semi-Fowlers Blood Pressure Location Right Arm Right Arm History Since Last Visit- (Skip if this is Patient's initial visit) Have you changed medications since your No No last visit? Any new allergies or adverse reactions No No Had a fall/change in ADL's that may No No increase risk of falls Signs or symptoms of abuse and/or No No neglect since last visit Have you been in the hospital since your No No last visit? Has dressing in place as prescribed Yes Yes Has compression in place as prescribed N/A N/A Has offloadiing in place as prescribed N/A Yes Experienced any changes in pain level or No No management Left Footwear Regular Shoe Total Contact Cast Right Footwear Regular Shoe Regular Shoe Pain Scale: 0-10 Numeric Is Patient Pain Free? Yes Yes WC - Nurse 1 - General Ulcer Measurement Start: 02/07/22 08:10 Freq: Status: Active Protocol: Activity Type Activity Date Activity User E-sign Co-sign Detail Recorded Client Recorded Date Recorded By Document 02/07/22 08:11 KR [id number] 02/07/22 08:12 KR Document 02/14/22 08:05 KR [id number] 02/14/22 08:11 KR 02/07/22 02/14/22 08:11 08:05 Wound Center Nurse 1 #1 Left Plantar -Current Size (cm) - Length 2.6 2.8 -Current Size (cm) - Width 1.5 1.6 -Current Size (cm) - Depth 0.2 1.2 -Total Square Cm 3.90 4.48 -Undermining/Tunneling Starts (O'clock 12 ) -Undermining/Tunneling Ends (O'clock) 2 -Maximum Distance (cm) 0.8 -Exudate Amt Medium Large -Exudate Type Serosanguineous Serosanguineous -Wound Margin Distinct, Distinct, Outline Outline Attached Attached -Granulation Amt Medium (34-66%) Large (67-100%) -Granulation Quality [place] Red -Necrosis Amt Small (1-33%) Small (1-33%) -Necrotic Tissue Type Adherent Slough Adherent Slough -Texture (Fanny-wound Skin Appearance) Assessed, Assessed, Scarring Scarring -Moisture (Fanny-wound Skin Appearance) No Abnormality, Assessed -Color (Fanny-wound Skin Appearance) No Abnormality, No Abnormality, Assessed Assessed -Temperature (Fanny-wound Skin No Abnormality No Abnormality Appearance) (Pt Warm) (Pt Warm) -Tenderness on Palpation (Fanny-wound No No Skin Appearance) -Ulcer Cleansing Rinsed/ Soap and Water Irrigated with Saline -Foul Odor after Cleansing No No -Anesthetic Used 4% Lidocaine 5% Lidocaine Solution Gel - Nurse 2 - General Ulcer CM Notes Start: 02/07/22 08:10 Freq: Status: Active Protocol: Activity Type Activity Date Activity User E-sign Co-sign Detail Recorded Client Recorded Date Recorded By Document 02/07/22 09:38 PL [id number] 02/07/22 09:39 PL Document 02/14/22 09:11 PL [id number] 02/14/22 09:12 PL 02/07/22 02/14/22 09:38 09:11 Wound Center Nurse 2 #1 Left Plantar -Time 08:59 08:46 -Correct Patient Yes Yes -Correct Side, Site, Position Yes Yes -Correct Procedure Yes Yes -Procedure Performed Yes Yes -Type of Procedure Debridement Debridement -Clinical Debridement Subcutaneous Subcutaneous -Tissue Removed Subcutaneous Subcutaneous -Post Debridement (cm) - Length 2.6 2.8 -Post Debridement (cm) - Width 1.5 1.6 -Post Debridement (cm) - Depth 0.2 1.2 -Total Square (Post) (cm) 3.90 4.48 -Area of Debridement (cm) - Length 2.6 2.8 -Area of Debridement (cm) - Width 1.5 1.6 -Total Square (Area) (cm) 3.90 4.48 -Tunneling No No -Undermining/Tunneling No No -Circular Undermining No No -Wound/Ulcer Outcome Not Healed Not Healed -Ulcer Cleansing Rinsed/ Rinsed/ Irrigated with Irrigated with Saline Saline -Foul Odor after Cleansing No No -Bioengineered Tissue No No -Bleeding Controlled with Pressure Pressure -Treatment Response Procedure Procedure Tolerated Well Tolerated Well -Type of Offloading Total Contact Cast (TCC) - Left ($) -Debridement - Subq, 1st 20sq cm Yes Yes Pain Scale: 0-10 Numeric Is Patient Pain Free? Yes Yes - Nurse 3 - General Ulcer D/C NN Start: 02/07/22 08:10 Freq: Status: Active Protocol: Activity Type Activity Date Activity User E-sign Co-sign Detail Recorded Client Recorded Date Recorded By Document 02/07/22 09:44 AK [id number] 02/07/22 09:46 AK Document 02/14/22 09:07 [id number] 02/14/22 09:08 SEBASTIAN 02/07/22 02/14/22 09:44 09:07 Wound Care Nurse 3 #1 Left Plantar -Ulcer Cleansing Rinsed/ Wound Cleanser Irrigated with Saline -Foul Odor after Cleansing No -Negative Pressure Wound Therapy N/A -Primary Dressing Applied Promogran Promogran Dina Matter Dina Matter -Other Dressing ABD -Primary Dressing Covered/Secured with Secured with Dry Gauze & Tape Roll Gauze, Secured with Tape -Promogran Dina Matter 1 1 Left -Lotion applied to leg before No compression wrap -Other Walking cast/ boot Pain Scale: 0-10 Numeric Is Patient Pain Free? Yes Yes WC - Visit Discharge Discharge Condition Stable Stable Ambulatory Status Ambulatory Ambulatory Transportation Private Auto Private Auto Medication Reconcilliation completed & Yes Yes provided to patient/care provider Clinical Summary of Care Provided Yes Yes Notes: post op shoe provided for foot since TCC was not ordered today and patient did not have any further shoes with her. Assessment/Plan Assessment/Plan (1) Non-pressure chronic ulcer of other part of left foot with fat layer exposed: CODE(S): L97.522 - Non-pressure chronic ulcer of other part of left foot with fat layer exposed (2) Diabetic foot ulcer: CODE(S): E11.621 - Type 2 diabetes mellitus with foot ulcer; L97.509 - Non-pressure chronic ulcer of other part of unspecified foot with unspecified severity QUALIFIERS: Diabetic foot ulcer location: toe Diabetes mellitus type: type 2 Laterality: right Non-pressure ulcer stage: with fat layer exposed Qualified Code(s): E11.621 - Type 2 diabetes mellitus with foot ulcer; L97.512 - Non-pressure chronic ulcer of other part of right foot with fat layer exposed; L97.512 - Non-pressure chronic ulcer of other part of right foot with fat layer exposed; L97.512 - Non-pressure chronic ulcer of other part of right foot with fat layer exposed; L97.512 - Non-pressure chronic ulcer of other part of right foot with fat layer exposed (3) Delayed wound healing: CODE(S): T14.8XXD - Other injury of unspecified body region, subsequent encounter (4) Polyneuropathy due to type 2 diabetes mellitus: CODE(S): E11.42 - Type 2 diabetes mellitus with diabetic polyneuropathy (5) History of transmetatarsal amputation of right foot: CODE(S): Z89.431 - Acquired absence of right foot (6) History of transmetatarsal amputation of left foot: CODE(S): Z89.432 - Acquired absence of left foot (7) Microalbuminuria due to type 2 diabetes mellitus: CODE(S): E11.29 - Type 2 diabetes mellitus with other diabetic kidney complication; R80.9 - Proteinuria, unspecified (8) Hypertension: CODE(S): I10 - Essential (primary) hypertension (9) Obesity: CODE(S): E66.9 - Obesity, unspecified QUALIFIERS: Obesity type: due to excess calories Obesity classification: adult class 3 (BMI >= 40) Serious obesity comorbidity presence: with serious comorbidity Body mass index: BMI 40.0-44.9 Qualified Code(s): E66.01 - Morbid (severe) obesity due to excess calories; Z68.41 - Body mass index [BMI] 40.0-44.9, adult PLAN: Plan This is a 41-year-old female with a nonhealing plantar ulceration to the left foot.? She has history of bilateral transmetatarsal amputations, diabetes mellitus type 2 with peripheral polyneuropathy, and delayed wound healing status. She was being followed by another provider at the [facility] in [place] and had underwent multiple interventions however with no resolution of her ulcerative site. ? Patient seen and evaluated Left foot transmetatarsal amputation site demonstrates plantar ulceration subfirst metatarsal.? Ulcerative site postdebridement measures 2.6 cm x 1.6 cm x 0.1 cm. No signs of infection.? Ulcerative site demonstrates no palpable bony prominences in the wound bed or periwound.? Healthy granular tissue is noted.? Ulcerative site underwent debridement as noted above in clinical panel.? Dina and DSD applied, change daily.? I discussed with her that the total contact cast has been effective in reducing her ulcerative size and I would like to continue her treatment with total contact casting, however I will give her until Friday to get her affairs in order pertaining to moving her bed and clothing to the main floor of the house. She will return 02/18/2022, for application of total contact cast to the left foot. I am ordering an x-ray of the left foot for further evaluation of her nonhealing TMA stump ulcer. She was instructed to bear weight within a surgical offloading shoe today and following cast application Friday she may bear weight in the total contact cast with walking boot applied to the cast. Stressed the importance of maintaining the walking boot on her cast to prevent damage to the total contact cast which may make it ineffective. I discussed that the cast will be changed , 02/21/2022, and she is not to get the cast wet after application. She may shower with a cast bag applied over the left lower extremity. She is to continue with Devante with collagen protein supplementation to aid in her wound healing. I discussed localized signs of infection to observe for including localized redness about the ulceration site, red streaking up the leg, purulent drainage, malodor to the wound site.? Or if she experiences any nausea, vomiting, fever, or chills that these are progressing signs of infection and she should report to the ED.? Patient voices understanding of this. I discussed continued glycemic control to ensure proper healing.? Patient encouraged to ensure proper nutrition including nutritional supplements to encourage wound healing. The following work up and care recommendations were made: Dressing: Dina and DSD. Total contact cast left lower extremity Wash: Do not get wet Tissue growth optimization: Dina Offload: TTC left lower extremity Vascular: Adequate perfusion to stump site Edema: May elevate lower extremity to control edema while at rest Infection: No localized signs of infection Pain: May take [id number] Tylenol extra strength for any pain or discomfort Host factors: Diabetes mellitus type 2 with peripheral polyneuropathy, history of bilateral transmetatarsal amputation ? I answered all the patient's questions.? To return to the wound healing center in 1 week or call sooner if the patient has any questions or concerns. Note: [employer] speech recognition cement worker software was used to create portions of this document. Sound-alike and misspelled words, as well as other cement worker errors may be contained in the documentation.
== END 2022-03-06 23:59 | disposition home or self-care (01) ==
LOC: WC 08:15
PROVIDERS: PCP Internal Medicine; Visit Provider Student in an Organized Health Care Education/Training Program
DX: E11.621 Type 2 diabetes mellitus with foot ulcer (principal); Z89.431 Acquired absence of right foot; Z89.432 Acquired absence of left foot; L97.522 Non-pressure chronic ulcer of other part of left foot with fat layer exposed; L97.512 Non-pressure chronic ulcer of other part of right foot with fat layer exposed; E11.42 Type 2 diabetes mellitus with diabetic polyneuropathy; E11.29 Type 2 diabetes mellitus with other diabetic kidney complication; E66.01 Morbid (severe) obesity due to excess calories; Z68.41 Body mass index [BMI] 40.0-44.9, adult; R80.9 Proteinuria, unspecified; I10 Essential (primary) hypertension; T14.8XXD Other injury of unspecified body region, subsequent encounter
CPT/HCPCS: 11042; 29445

== ENCOUNTER 2023-10-24 10:47 | Emergency (ER) | payer MEDICARE, SELFPAY ==
[2023-10-24] VITALS (7 sets, daily range): BP systolic 104–121; BP diastolic 56–79; PULSE 96–135; RESP 20–23; TEMP 36.7–37.6; O2SAT 95–98; BMI 42.1
--- NOTE | 2023-10-24 11:46 | EX.ED.DYSGE1 ---
HPI History of Present Illness Chief Complaint: Fever Informant: patient and spouse/S.O. Narrative Narrative: 43-year-old female presenting to the emergency room chief complaint of fever. Patient has a history of diabetes with chronic wound to the left foot. She has she developed a fever yesterday took Tylenol and it improved. She notes nasal congestion and sinus pain. She states today she developed fever and shaking. States she took a gram of Tylenol but still shaking. She denies any cough or shortness of breath. No vomiting or diarrhea. She states the wound on her left foot actually looks really well to her. She denies any change in the color of the foot. She has not noticed any significant drainage that is out of the ordinary or foul smell. Patient denies any new rashes. She sees [facility] podiatry out of [place] for the foot. She has had prior toe amputations. She reports that she does take Augmentin on a regular basis. [facility] Medical History Amputated toe of left foot Amputated toe of right foot Amputation of left foot Anxiety and depression Arthritis Diabetes Diabetes Diabetic neuropathy GERD (gastroesophageal reflux disease) H/O emotional problems History of gallstones Hypertension IBS (irritable bowel syndrome) Microalbuminuria due to type 2 diabetes mellitus Obesity Peripheral neuropathy Polyneuropathy due to type 2 diabetes mellitus Type 2 diabetes mellitus UTI (urinary tract infection) Vitamin B 12 deficiency Home Medications cholecalciferol (vitamin D3) 25 mcg (1,000 unit) tablet (Vitamin D3) 2,000 unit PO DAILY SUPPLEMENT 04/18/16 [History Last Taken 12/30/20] cyanocobalamin (vitamin B-12) 1,000 mcg tablet 100 mcg PO DAILY SUPPLEMENT 04/18/16 [History Last Taken 12/30/20] duloxetine 60 mg capsule,delayed release 60 mg PO DAILY ANXIETY 04/18/16 [History Last Taken 12/30/20] bupropion HCl 150 mg 24 hr tablet, extended release 150 mg PO DAILY DEPRESSION 06/12/17 [History Last Taken 12/30/20] omeprazole 40 mg capsule,delayed release 40 mg PO DAILY ACID REFLUX 06/12/17 [History Last Taken 12/30/20] topiramate 25 mg tablet 25 mg PO BID pain 01/01/21 [History Last Taken Unknown] pen needle, diabetic 32 gauge x 5/32 (BD Ultra-Fine Dhara Pen Needle) #50 ea 07/27/21 [Rx Last Taken Unknown] Farxiga 10 mg tablet (dapagliflozin propanediol) 10 mg PO DAILY #30 tabs 11/05/21 [Rx Last Taken Unknown] semaglutide 1 mg/dose (4 mg/3 mL) subcutaneous pen injector (Ozempic) 1 mg (0.75 mL) subcut QWEEK #3 mL 05/27/22 [Rx Last Taken Unknown] glimepiride 4 mg tablet 4 mg PO DAILY #30 tabs 06/07/22 [Rx Last Taken Unknown] glimepiride 2 mg tablet 2 mg PO QHS #30 tabs 06/10/22 [Rx Last Taken Unknown] OneTouch Verio test strips (blood sugar diagnostic) #50 ea 09/18/22 [Rx Last Taken Unknown] lisinopril 20 mg tablet 20 mg PO DAILY #30 tabs 06/09/23 [Rx Last Taken Unknown] Allergy/AdvReac Type Severity Reaction Status Date / Time gabapentin [From Gabarone] Allergy Angioedema Verified 10/24/23 10:48 Family History Mother Diabetes CVA (cerebral vascular accident) Father Hypertension Other Alcohol abuse Anxiety Arthritis Blood clot in vein Depression H/O transfusion of whole blood Mental disorder Surgical History H/O amputation H/O: hysterectomy History of 2 sections History of cholecystectomy History of tonsillectomy Social History household members: spouse, family, children and other details: Father in law Smoking Status: Never smoker alcohol intake: never substance use type: does not use ROS ROS ED Constitutional Constitutional ED: Reports chills, fever(s) and other Details: Rigors ; Denies weight loss Eyes Eyes: Denies change in vision or diplopia ENT ENT ED: Reports other Details: Sinus congestion/pressure denies drainage ; Denies ear pain, rhinorrhea or sore throat Cardiovascular Cardiovascular: Denies chest pain, orthopnea, palpitations or racing heartbeat Respiratory/Chest Respiratory/Chest: Reports cough; Denies dyspnea, dyspnea on exertion or orthopnea Gastrointestinal Gastrointestinal: Denies abdominal pain, diarrhea, nausea or vomiting Genitourinary Genitourinary ED: Denies dysuria, hematuria or urinary frequency Musculoskeletal Musculoskeletal: Reports other Details: Chronic left foot wound on the plantar surface. Prior transmetatarsal amputations. ; Denies arthralgias or myalgias Integumentary Denies abscess or rash Neurologic Neurologic: Reports other Details: Patient has a headache when she coughs ; Denies headache(s) or weakness Psychiatric Psychiatric: Denies anxiety, depression, suicidal ideation or suicidal thoughts Endocrine Endocrinology: Denies polydipsia, polyphagia or polyuria Allergic/Immunologic Allergic/Immunologic ED: Denies mouth swelling, tongue swelling or urticaria EXAM Physical Exam Const Vital Signs: 10/24/23 10:49 10/24/23 10:52 10/24/23 11:28 Temperature 99.7 F H 99.4 F H Temperature Source Temporal Oral Pulse Rate 135 H 129 H Respiratory Rate 22 H 22 H Respiratory Effort Normal Non-Labored Respiratory Pattern Normal Blood Pressure 121/79 H 118/67 Blood Pressure Mean 93 84 Pulse Ox 96 98 Oxygen Delivery Method Room Air Room Air 10/24/23 11:52 10/24/23 12:48 10/24/23 13:00 Temperature 98.0 F 98.7 F Temperature Source Oral Oral Pulse Rate 120 H 111 H 101 H Respiratory Rate 22 H 20 H 23 H Respiratory Effort Respiratory Pattern Blood Pressure 107/62 109/64 113/58 L Blood Pressure Mean 77 79 76 Pulse Ox 97 97 96 Oxygen Delivery Method Room Air Room Air Room Air 10/24/23 14:00 10/24/23 14:00 Temperature 98.1 F Temperature Source Temporal Pulse Rate 96 96 Respiratory Rate 22 H 22 H Respiratory Effort Respiratory Pattern Blood Pressure 104/56 L 104/56 L Blood Pressure Mean 72 72 Pulse Ox 95 95 Oxygen Delivery Method Room Air Room Air Positive well nourished, well developed and obese General Appearance ED: well developed Nutritional Appearance: obese HEENT Reports normocephalic, head/scalp atraumatic and moist mucous membranes Eyes PERRL and EOMs intact bilaterally Neck no lymphadenopathy, supple and no JVD Resp normal respiratory effort and clear to auscultation bilaterally Cardio regular rate, regular rhythm and no murmurs Rate: tachycardic GI normal to inspection, nondistended, normoactive bowel sounds and non-tender Palpation: soft Back/Spine no CVA tenderness and normal ROM Extremity Extremity Narrative: Prior transmetatarsal amputation of the left foot. Plantar surface there is a half dime size area of an open wound. There is no foul smell no drainage. The tissue on the plantar surface is pink. There is no significant erythema or increased warmth. No lymphangitic streaking. It is not tender to palpation. General Extremety ED: Negative for edema General Extremity: Negative for edema Neuro oriented x3 and CN's II-XII intact bilaterally Sensorium / Orientation: alert Motor Exam: strength 5/5 throughout Psych mental status grossly normal Mood & Affect: Negative for depressed or tearful Skin no rashes or lesions noted and no wounds MDM MDM MDM Narrative Medical decision making narrative: White count 7.4 hemoglobin 10.9 platelet count of 213. INR 1.2 PTT 31.2. BMP with a glucose of 265 CO2 21 anion gap 10. Lactic acid slightly elevated 2.5 of unspecific meaning at this time. Liver enzymes are normal urinalysis shows no overt infection my independent interpretation of the chest x-ray is no acute process. CT of the sinuses does not show acute sinusitis. COVID influenza and RSV swabs were negative. Patient received IV fluids as well as Toradol. She remains afebrile. Clinically I am not seeing any concerning features of the foot. She has the chronic wound but it is not foul-smelling there is no significant erythema lymphangitic streaking erythema. I suspect the patient is viral in nature would recommend continued supportive care. Patient was advised on return instructions notes understanding History & Record Review Discussion w/independent historian: Patient and Significant other Lab Data Attestation: I reviewed the patient's lab results. Labs: Laboratory Results - last 24 hr 10/24/23 10/24/23 11:35 12:08 WBC 7.4 RBC 4.47 Hgb 10.9 L Hct 35.5 L MCV 79.4 L MCH 24.4 L MCHC 30.7 L RDW Std Deviation 48.6 H RDW Coeff of Maria E 16.9 H Plt Count 213 MPV 9.7 Immature Gran % (Auto) 1.900 H Neut % (Auto) 87.3 H Lymph % (Auto) 5.4 L [place] % (Auto) 4.6 Eos % (Auto) 0.3 Baso % (Auto) 0.5 Absolute Neuts (auto) 6.5 Absolute Lymphs (auto) 0.40 L Nucleated RBC % 0 PT 15.3 H INR 1.2 APTT 31.2 Sodium 132 L Potassium 3.9 Chloride 101 Carbon Dioxide 21.0 Anion Gap 10 BUN 10 Creatinine 1.00 Estim Creat Clear Calc 110.07 Est GFR (MDRD) Af Amer 78 Est GFR (MDRD) Non-Af 64 BUN/Creatinine Ratio 10.0 Glucose 265 H Lactic Acid 2.5 H* Calcium 8.4 L Total Bilirubin 0.60 AST 28 ALT 29 Alkaline Phosphatase 105 Total Protein 7.2 Albumin 3.0 L Globulin 4.2 Albumin/Globulin Ratio 0.7 L Urine Color Yellow Urine Clarity Clear Urine pH 6.0 Ur Specific [place] 1.015 Urine Protein 100 H Urine Glucose (UA) 1000 H Urine Ketones 5 H Urine Occult Blood 10 H Urine Nitrite Negative Urine Bilirubin Negative Urine Urobilinogen 1 H Ur Leukocyte Esterase Negative Urine RBC 0 SEEN Urine WBC 0-5 SEEN Ur Squamous Epith Cells 5-10 SEEN Urine Bacteria 0 SEEN Urine Mucus 0 SEEN Urine Yeast 1+ Radiography Diagnostic Testing: Clinical Impression(s) from Imaging Studies Facial/Sinus 10/24/23 13:15 IMPRESSION: No evidence of sinusitis. Electronically Signed: Taqueria Figueroa MD at 14:03 EDT Reading Location ID and State: [facility] / [place] , Service support , Chest X-Ray 10/24/23 13:28 IMPRESSION: Normal x-ray examination of the chest. Electronically Signed: Taqueria Figueroa MD at 14:00 EDT , Discharge Plan Triage Chief Complaint: Fever Other Complaint: Cold Sx ED Provider: Ge Cagle Dx/Rx/DC Orders Clinical Impression: Fever, Acute viral syndrome, Non-pressure chronic ulcer of other part of left foot with fat layer exposed, Diabetes Instructions: ED Viral Syndrome (Adult) Prescriptions: No Action (DME) pen needle, diabetic [BD Ultra-Fine Dhara Pen Needle] 32 gauge x 5/32 needle See Rx Instructions .ROUTE .MEDSUPPLY Qty: 50 6RF Rx Instructions: daily Farxiga 10 mg tablet 10 mg PO DAILY Qty: 30 3RF cyanocobalamin (vitamin B-12) 1,000 MCG tablet 100 mcg PO DAILY duloxetine 60 MG capsule,delayed release(DR/EC) 60 mg PO DAILY cholecalciferol (vitamin D3) [Vitamin D3] 1,000 UNIT tablet 2,000 unit PO DAILY omeprazole 40 MG capsule,delayed release(DR/EC) 40 mg PO DAILY bupropion HCl 150 MG tablet extended release 24 hr 150 mg PO DAILY topiramate 25 mg Tablet 25 mg PO BID Ozempic 1 mg/dose (4 mg/3 mL) pen injector 1 mg subcut QWEEK Qty: 3 5RF glimepiride 4 mg tablet 4 mg PO DAILY Qty: 30 6RF glimepiride 2 mg tablet 2 mg PO QHS Qty: 30 6RF (DME) OneTouch Verio test strips Strip See Rx Instructions .ROUTE .MEDSUPPLY Qty: 50 6RF Rx Instructions: twice a day lisinopril 20 mg tablet 20 mg PO DAILY Qty: 30 1RF Primary Care Provider: Betsy Regan Referrals: Betsy Regan [Primary Care Provider] - As Needed Disposition Disposition: Home, Self Care
[2023-10-24] MEDS: 0.9% Normal Saline (1000mL) 1,000 ML 1000 ML IV ×2 (11:56→12:17)
[2023-10-24] MEDS: Ketorolac 30 MG/ML Syringe IV (11:56)
[2023-10-24 12:15] LABS: Bacteria 0 SEEN /hpf (None Seen); Mucous, Urine 0 SEEN /hpf (<or=2+); Red Blood Cells-Urine 0 SEEN /hpf (0-5)
[2023-10-24 12:16] LABS: Absolute Neutrophil Count 6.5 X10^3/uL (2.0-7.7); Basophil# 0.04 X10^3/uL; Basophil% 0.5 % (0-1); Eosinophil# 0.02 X10^3/uL; Eosinophils% 0.3 % (0-5); Hematocrit 35.5 % (37-47); Hemoglobin 10.9 g/dL (12.0-15.0); Lymphocyte % 5.4 % (19-41); Mean Corp Hgb Conc 30.7 g/dL (32-36); Mean Corpuscular Hgb 24.4 pg (27.0-32.0); Mean Corpuscular Volume 79.4 fL (81-99); Mean Platelet Vol. 9.7 fl (6.2-12.0); Monocyte# 0.34 X10^3/uL; Monocyte% 4.6 % (0-10); NRBC Flagged by Analyzer 0 % (0-5); Neutrophil # 6.46 X10^3/uL (2.7-7.7); Neutrophil % 87.3 % (47-70); POSITIVE DIFFERENTIAL YES; Platelet Count 213 K/mm3 (150-450); RBC Distribution Width CV 16.9 % (11.6-14.6); RBC Distribution Width SD 48.6 fl (35.1-43.9); Red Blood Count 4.47 M/mm3 (4.2-5.4); White Blood Count 7.4 K/mm3 (4.4-11.0)
[2023-10-24 12:17] LABS: Color, Urine Yellow (Yellow); Glucose, Dipstick 1000 mg/dl (Normal); Ketone-Dipstick 5 mg/dl (Negative); Leukocyte Esterase-Dipstick Negative /ul (Negative); Nitrite-Dipstick Negative (Negative); Occult Blood-Urine 10 /ul (Negative); Protein-Dipstick 100 mg/dl (Negative); Specific Gravity, Urine 1.015 (1.002-1.030); Urine Bilirubin Dipstick Negative (Negative); Urine Clarity Clear (Clear); Urine Urobilinogen 1 mg/dl (Normal)
[2023-10-24 12:18] LABS: International Normalized Ratio 1.2; Prothrombin Time (Protime)PT. 15.3 SECONDS (11.7-14.9)
[2023-10-24 12:19] LABS: Partial Thromboplast Time 31.2 Seconds (24.1-36.2)
[2023-10-24 12:25] LABS: Squamous Epithelial Cells - UA 5-10 SEEN /hpf (5-10); White Blood Cells 0-5 SEEN /hpf (0-5)
[2023-10-24 12:26] LABS: Yeast-Urine 1+ /hpf (None Seen)
[2023-10-24 12:28] LABS: ALB/GLOB Ratio 0.7 RATIO (0.9-2.4); AST(SGOT) 28 U/L (15-37); Alanine Aminotransfer ALT/SGPT 29 U/L (13-56); Alkaline Phosphatase 105 U/L (45-117); Anion Gap 10 (5-15); BUN 10 mg/dL (7-18); Calcium,Total 8.4 mg/dL (8.5-10.1); Chloride 101 mmol/L (98-107); EST Glomerular Filtration Rate 64 mL/min (>60); Est Glom Filt Rate - Afr Amer 78 mL/min (>60); Estimated Creatinine Clearance 110.07 ml/min; Globulin 4.2 g/dL (2.2-4.2); Glucose 265 mg/dL (74-106); Potassium 3.9 mmol/L (3.5-5.1); Protein, Total 7.2 g/dL (6.4-8.2); Sodium Level 132 mmol/L (136-145)
[2023-10-24 12:35] LABS: Lactic Acid 2.5 mmol/L (0.4-1.9)
--- NOTE | 2023-10-24 13:15 | CT_ITS ---
STUDY: CT MAXILLOFACIAL SINUSES REASON FOR EXAM: Female, 43 years old. Fever sinusitis RADIATION DOSAGE (If Supplied By Facility): CTDIvol = ( 29.38 ) mGy, DLP = ( 547.46 ) mGycm TECHNIQUE: The patient was scanned in a multi detector CT scanner. High resolution axial imaging was performed without the administration of intravenous contrast material. Sagittal and coronal images were reconstructed. Individualized dose optimization techniques were used for this CT. COMPARISON: None. FINDINGS: FRONTAL SINUSES: Normal aeration, without mucosal inflammatory disease. ETHMOIDAL SINUSES: Normal aeration, without mucosal inflammatory disease. MAXILLARY SINUSES: Normal aeration, without mucosal inflammatory disease. SPHENOIDAL SINUSES: Normal aeration, without mucosal inflammatory disease. There is patency of the bilateral maxillary infundibuli with normal uncinate processes, ethmoid bullae, and hiatus semilunaris. There is a brenna bullosa of the right middle turbinate. There is hypertrophy of the right inferior nasal turbinate. Normal midline nasal septum. There is patency of the bilateral nasal airways. The visualized osseous structures are normal. The visualized bilateral orbital contents are normal. CT/Sinus/Facial Bone IMPRESSION: No evidence of sinusitis. Electronically Signed: Taqueria Figueroa MD at 14:03 EDT ,
--- NOTE | 2023-10-24 13:28 | RAD_ITS ---
STUDY: X-RAY CHEST REASON FOR EXAM: Female, 43 years old. Fever'' TECHNIQUE: Single AP portable view of the chest. COMPARISON: None. FINDINGS: EKG electrodes are seen. Mild elevation of the right hemidiaphragm. The lungs are clear. There is no demonstrated pleural abnormality. Normal size heart. Normal mediastinum and thien. Normal visualized pulmonary arteries. Normal visualized aortic arch and descending thoracic aorta. Normal visualized thoracic spine. Normal visualized ribs, clavicles, and shoulders. There is no demonstrated abnormality of the visualized soft tissue structures of the upper abdomen. RAD/Chest 1 View (Portable) IMPRESSION: Normal x-ray examination of the chest. Electronically Signed: Taqueria Figueroa MD at 14:00 EDT ,
[2023-10-24 16:06] LABS: Reflex Lactate? Y
== END 2023-10-24 14:55 | disposition home or self-care (01) ==
PROVIDERS: Emergency Provider Emergency Medicine; Visit Provider Emergency Medicine
DX: B34.9 Viral infection, unspecified (principal); E11.621 Type 2 diabetes mellitus with foot ulcer; L97.522 Non-pressure chronic ulcer of other part of left foot with fat layer exposed; R50.9 Fever, unspecified; F41.8 Other specified anxiety disorders; Z79.899 Other long term (current) drug therapy; K21.9 Gastro-esophageal reflux disease without esophagitis; Z79.85 Long-term (current) use of injectable non-insulin antidiabetic drugs; Z79.84 Long term (current) use of oral hypoglycemic drugs; Z90.49 Acquired absence of other specified parts of digestive tract; Z90.710 Acquired absence of both cervix and uterus
CPT/HCPCS: 70486; 71045; 80053; 81001; 83605; 85025; 85610; 85730; 87631; 96374; 99285; J7030; A4216

== ENCOUNTER 2024-08-20 09:47 | Inpatient (IN) | payer BC, MEDICARE, SELFPAY ==
[2024-08-20] VITALS (9 sets, daily range): BP systolic 111–132; BP diastolic 70–96; PULSE 92–105; RESP 14–17; TEMP 36.4–37.4; O2SAT 98–100; BMI 42.3; BMI 41.5
--- NOTE | 2024-08-20 10:17 | EDS_ITS ---
HPI History of Present Illness Chief Complaint: Wound Informant: patient Narrative Narrative: Patient is a 43-year-old female with history of diabetes, IBS, polyneuropathy and prior bilateral foot amputations. She is presenting for concern of worsening left lower foot wounds and need for IV antibiotics/amputation. 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 Hendrickson today as over the past 6 weeks she has had worsening wounds and drainage of her left foot stump. She was told that she likely to be admitted for IV antibiotics (wound was probed and swabbed/cultured in office). Patient states at this point she would rather just have a BKA and stop trying to deal with his wound. She had been receiving her care through [facility] but states at this point she would just like to have everything taken care of at [place] which is why she came to our ER today instead of going to [place]'s emergency room. She states she lives in [facility] and also thinks that with further amputation to be better suited not having go up to [place]. Patient reports she did have a fever yesterday of 101.7. She notes she has had some mild flulike symptoms for the past 2 days and had a near syncopal episode 2 days ago while shopping. Her daughter is also recently been sick. She denies any difficulty breathing. States he has not been sleeping well. Chart review from [facility] shows a podiatry note from 07/09/[address] atus post left revision of amputation and Charcot joint with ankle fusion revision. Has been wearing a postop boot and ambulatory with weightbearing. At times no significant wounds and plans for Xeroform dressing to stump. [facility] Medical History IBS (irritable bowel syndrome) Type 2 diabetes mellitus Peripheral neuropathy Vitamin B 12 deficiency History of gallstones Microalbuminuria due to type 2 diabetes mellitus Obesity Diabetes Polyneuropathy due to type 2 diabetes mellitus H/O emotional problems UTI (urinary tract infection) Arthritis Amputation of left foot Amputated toe of right foot Amputated toe of left foot Diabetic neuropathy Hypertension Diabetes Anxiety and depression GERD (gastroesophageal reflux disease) Home Medications ?Medication ?Instructions ?Recorded ?Last Taken ?Type cholecalciferol (vitamin D3) 25 2,000 unit PO DAILY HARTMAN PPLEMENT 04/18/16 12/30/20 History mcg (1,000 unit) tablet (Vitamin D3) cyanocobalamin (vitamin B-12) 100 mcg PO DAILY SUPPLEM ENT 04/18/16 12/30/20 History 1,000 mcg tablet duloxetine 60 mg capsule,delayed 60 mg PO DAILY ANXIET Y 04/18/16 12/30/20 History release bupropion HCl 150 mg 24 hr tablet, 150 mg PO DAILY DEP RESSION 06/12/17 12/30/20 History extended release omeprazole 40 mg capsule,delayed 40 mg PO DAILY ACID R EFLUX 06/12/17 12/30/20 History release pen needle, diabetic 32 gauge x #50 ea 07/27/21 Unknow n Rx (BD Ultra-Fine Dhara Pen Needle) OneTouch Verio test strips (blood #50 ea 09/18/22 Unkn own Rx sugar diagnostic) atorvastatin 20 mg tablet 20 mg PO DAILY 08/20/24 Unkn own History docusate sodium 100 mg capsule 100 mg PO BID 08/20/24 Unknown History (Col-Rite) insulin glargine 100 unit/mL (3 20 unit subcut .mornin g 08/20/24 Unknown History mL) subcutaneous pen (Lantus Solostar U-100 Insulin) insulin lispro 100 unit/mL 1 sliding scale dose subcut 08/20/24 Unknown History subcutaneous pen .before meals lisinopril 10 mg tablet 10 mg PO DAILY 08/20/24 Unkn own History Allergy/AdvReac Type Severity Reaction Status Date / Time gabapentin (From Gabarone) Allergy Angioedema Verified 08/20/24 09:48 Family History Mother Diabetes CVA (cerebral vascular accident) Father Hypertension Other Alcohol abuse Anxiety Arthritis Blood clot in vein Depression H/O transfusion of whole blood Mental disorder Surgical History History of 2 sections History of cholecystectomy History of tonsillectomy H/O amputation H/O: hysterectomy Social History household members: spouse, family, children and other details: Father in law Smoking Status: Never smoker alcohol intake: never substance use type: does not use ROS ROS ED Constitutional Constitutional ED: Reports chills and fever(s) Eyes Eyes: Denies change in vision ENT ENT ED: Denies sore throat Cardiovascular Cardiovascular: Denies chest pain Respiratory/Chest Respiratory/Chest: Denies cough or dyspnea Gastrointestinal Gastrointestinal: Denies abdominal pain, diarrhea or vomiting Musculoskeletal Musculoskeletal: Denies arthralgias or myalgias Integumentary Reports other Details: wound to left foot stump Neurologic Neurologic: Reports paresthesias and other Details: Chronic peripheral neuropathy Hematologic/Lymphatic Hematologic/Lymphatic: Denies easy bleeding or easy bruising EXAM Physical Exam Const Vital Signs: 08/20/24 09:47 08/20/24 10:50 08/20/24 11:39 Temperature 99 F 98.4 F Temperature Source Temporal Oral Pulse Rate 105 H 98 Respiratory Rate 14 17 Blood Pressure 111/96 H 132/70 H 120/76 Blood Pressure Mean 101 90 90 Pulse Ox 99 98 Oxygen Delivery Method Room Air Room Air 08/20/24 12:00 08/20/24 12:53 08/20/24 12:54 Temperature 97.6 F L 97.6 F L Temperature Source Temporal Pulse Rate 98 94 Respiratory Rate 16 16 Blood Pressure 125/77 H 123/75 H 123/75 H Blood Pressure Mean 93 91 91 Pulse Ox 98 99 Oxygen Delivery Method Room Air HEENT Reports moist mucous membranes Resp normal respiratory effort and clear to auscultation bilaterally Cardio regular rate and regular rhythm Cardio Narrative: Brisk capillary refill of the feet. Extremity Extremity Narrative: Normal upper extremities. Right lower extremity?well-healed distal foot amputation. No wounds appreciated. Left lower extremity patient has approximately 3 cm x 1 cm ulcerated wound on her foot stump, no significant drainage. No surrounding cellulitic changes. Neuro oriented x3 and moves all extremities Sensorium / Orientation: alert Motor Exam: Negative for general weakness Psych mental status grossly normal Skin Skin Narrative: See extremity exam?ulcerated chronic. Diabetic wound of the left foot stump. MDM MDM MDM Narrative Medical decision making narrative: Patient is evaluated for concerns of worsening infection at her left foot/stump site. Has had a worsening wound over the past 6 weeks. Had a fever 2 days ago. Differential includes sepsis, influenza, diabetic foot infection, osteomyelitis. Sepsis workup is initiated. Patient is found to have a leukocytosis with white blood cell count of 14.5 and a left shift. She has a chronic but stable anemia with a hemoglobin of 10.5. CMP is largely unremarkable. She has baseline hyperglycemia the glucose of 279. Lactate is normal at 1.9. CRP markedly elevated at 136. She also has a mild elevation of her alkaline phosphatase (122). X-ray of the left foot shows surgical changes consistent with prior amputation and extensive soft tissue bone formation and diffuse soft tissue swelling with air in the soft tissues. This is reviewed by myself as well as radiology. This is concerning for associate infection/osteomyelitis. Patient overall is well-appearing and I do not suspect necrotizing fasciitis. Is started on broad-spectrum antibiotics, vancomycin and Zosyn. I did initially speak with podiatry on-call, Dr. Yu. He feels that the patient should be referred to plastic surgery if she does not fact need a BKA. Case then discussed with Dr. Dodd who will see the patient on consult but does wonder if the patient should be medically optimized treated with antibiotics prior to surgery at this time. Case discussed with hospitalist, Dr. Clark, and patient is admitted. Patient agreeable this plan of care. History & Record Review Additional record(s) reviewed:: Prior outpatient record (Podiatry note from [facility]see HPI) Lab Data Attestation: I reviewed the patient's lab results. Labs: Laboratory Results - last 24 hr 08/20/24 10:04 WBC 14.5 H RBC 5.18 Hgb 10.2 L Hct 34.7 L MCV 67.0 L MCH 19.7 L MCHC 29.4 L RDW Std Deviation 46.1 H RDW Coeff of Maria E 19.9 H Plt Count 352 MPV 9.5 Immature Gran % (Auto) 1.300 H Neut % (Auto) 73.6 H Lymph % (Auto) 15.5 L [place] % (Auto) 7.8 Eos % (Auto) 1.0 Baso % (Auto) 0.8 Absolute Neuts (auto) 10.7 H Absolute Lymphs (auto) 2.26 Nucleated RBC % 0 ESR 120 H Sodium 131 L Potassium 3.6 Chloride 100 Carbon Dioxide 21.0 Anion Gap 11 BUN 10 Creatinine 1.03 H Estim Creat Clear Calc 104.20 Est GFR (MDRD) Af Amer 75 Est GFR (MDRD) Non-Af 62 BUN/Creatinine Ratio 9.7 L Glucose 279 H Hemoglobin A1c 10.1 H Lactic Acid 1.9 Calcium 8.9 Total Bilirubin 0.70 AST 12 L ALT 20 Alkaline Phosphatase 122 H C-React Prot Ext Range 136.00 H Total Protein 8.1 Albumin 3.0 L Globulin 5.1 H Albumin/Globulin Ratio 0.6 L Radiography Diagnostic Testing: Clinical Impression(s) from Imaging Studies Chest X-Ray 08/20/24 10:30 IMPRESSION: NEGATIVE CHEST Reading Location: [facility] Foot X-Ray 08/20/24 10:30 IMPRESSION: Status post amputation of the tarsal and metatarsal bones with the arthrodesis at the tibial calcaneal joint with evidence of soft tissue bone formation and diffuse soft tissue swelling with air in the soft tissues. Infection should be ruled out. Reading Location: [facility] Discharge Plan Triage Chief Complaint: Wound ED Provider: Lilly Johnson Dx/Rx/DC Orders Clinical Impression: Diabetic foot ulcer, History of transmetatarsal amputation of left foot, Diabetes, Sepsis Prescriptions: No Action (DME) pen needle, diabetic [BD Ultra-Fine Dhara Pen Needle] 32 gauge x 5/32 needle See Rx Instructions .ROUTE .MEDSUPPLY Qty: 50 6RF Rx Instructions: daily cyanocobalamin (vitamin B-12) 1,000 MCG tablet 100 mcg PO DAILY duloxetine 60 MG capsule,delayed release(DR/EC) 60 mg PO DAILY cholecalciferol (vitamin D3) [Vitamin D3] 1,000 UNIT tablet 2,000 unit PO DAILY omeprazole 40 MG capsule,delayed release(DR/EC) 40 mg PO DAILY bupropion HCl 150 MG tablet extended release 24 hr 150 mg PO DAILY atorvastatin 20 mg tablet 20 mg PO DAILY insulin lispro 100 unit/mL insulin pen 1 sliding scale dose SUBCUT .before meals Patient Comments: For blood glucose 143-165 mg/dl 1 Units, 166-188 mg/dl 2 Units,189-211 mg/dl 3 Units, 212-234 mg/dl 4 Units, 235-257 mg/dl 5 Units, 258-280 mg/dl 6 Units, 281-303 mg/dl 7 Units, 304-326 mg/dl 8 Units, 327-349 mg/dl 9 Units insulin glargine [Lantus Solostar U-100 Insulin] 100 unit/mL (3 mL) insulin pen 20 unit subcut .morning lisinopril 10 mg tablet 10 mg PO DAILY docusate sodium [Col-Rite] 100 mg capsule 100 mg PO BID (DME) OneTouch Verio test strips Strip See Rx Instructions .ROUTE .MEDSUPPLY Qty: 50 6RF Rx Instructions: twice a day Primary Care Provider: Ivana Crook Referrals: Betsy Regan [Building Construction Ironworker] - Print Language: Dutch Disposition Disposition: Acute Care Hospital [facility]
--- NOTE | 2024-08-20 10:30 | RAD_ITS ---
PROCEDURE: And lateral views. REASON FOR EXAM: Fever. Foot infection. TECHNIQUE: Frontal and lateral views of the chest. COMPARISON: Comparison is made with prior study dated October 24, 1999 24. FINDINGS: The heart size is normal. The mediastinal contour is unremarkable. The lungs are clear. The bones are unremarkable. RAD/Chest PA and Lateral IMPRESSION: NEGATIVE CHEST Reading Location: [id number]
--- NOTE | 2024-08-20 10:30 | RAD_ITS ---
EXAM: FOOT MIN 3 VIEWS CLINICAL HISTORY: Fever. Prior amputation. COMPARISON: Comparison is made with prior study dated January 02, 2021. TECHNIQUE: Three views were obtained. FINDINGS: The patient is status post amputation of the tarsals and metatarsals. Prior arthrodesis at the tibial calcaneal joint. Marked degree of joint space narrowing with new bone formation suggestive of possible myositis ossific cans. Diffuse soft tissue swelling. Air is seen within the soft tissue suggestive of infection. RAD/Foot min 3 Views IMPRESSION: Status post amputation of the tarsal and metatarsal bones with the arthrodesis at the tibial calcaneal joint with evidence of soft tissue bone formation and diffuse soft tissue swelling with air in the sof t tissues. Infection should be ruled out. Reading Location: [facility]
[2024-08-20 10:52] LABS: Erythrocyte Sedimentation Rate 120 mm/hr (0-30)
[2024-08-20 10:53] LABS: ALB/GLOB Ratio 0.6 RATIO (0.9-2.4); AST(SGOT) 12 U/L (15-37); Alanine Aminotransfer ALT/SGPT 20 U/L (13-56); Alkaline Phosphatase 122 U/L (45-117); Anion Gap 11 (5-15); BUN 10 mg/dL (7-18); BUN/Creat Ratio 9.7 RATIO (10-20); Calcium,Total 8.9 mg/dL (8.5-10.1); Chloride 100 mmol/L (98-107); Creatinine, Serum 1.03 mg/dL (0.55-1.02); EST Glomerular Filtration Rate 62 mL/min (>60); Est Glom Filt Rate - Afr Amer 75 mL/min (>60); Globulin 5.1 g/dL (2.2-4.2); Glucose 279 mg/dL (74-106); Potassium 3.6 mmol/L (3.5-5.1); Protein, Total 8.1 g/dL (6.4-8.2); Sodium Level 131 mmol/L (136-145)
[2024-08-20 10:55] LABS: Absolute Lymphocyte Count 2.26 X10^3/uL (0.83-4.51); Absolute Neutrophil Count 10.7 X10^3/uL (2.0-7.7); Basophil# 0.11 X10^3/uL; Basophil% 0.8 % (0-1); Eosinophil# 0.15 X10^3/uL; Hematocrit 34.7 % (37-47); Hemoglobin 10.2 g/dL (12.0-15.0); Lymphocyte # 2.26 X10^3/ul (0.83-4.51); Lymphocyte % 15.5 % (19-41); Mean Corp Hgb Conc 29.4 g/dL (32-36); Mean Corpuscular Hgb 19.7 pg (27.0-32.0); Mean Platelet Vol. 9.5 fl (6.2-12.0); Monocyte# 1.14 X10^3/uL; Monocyte% 7.8 % (0-10); NRBC Flagged by Analyzer 0 % (0-5); Neutrophil # 10.69 X10^3/uL (2.7-7.7); Neutrophil % 73.6 % (47-70); Platelet Count 352 K/mm3 (150-450); RBC Distribution Width CV 19.9 % (11.6-14.6); RBC Distribution Width SD 46.1 fl (35.1-43.9); Red Blood Count 5.18 M/mm3 (4.2-5.4); White Blood Count 14.5 K/mm3 (4.4-11.0)
[2024-08-20 10:56] LABS: Lactic Acid 1.9 mmol/L (0.4-1.9)
[2024-08-20] MEDS: Piperacil/Tazobactam 4.5 GM in 0.9% Normal Saline (100mL MB+) 100 ML IV (12:08)
[2024-08-20] MEDS: Vancomycin HCl 2,000 MG in 0.9% Normal Saline (500mL Bag) 500 ML 250 MG IV (12:44)
--- NOTE | 2024-08-20 12:57 | ART_ITS ---
Reason For Study Reason For Study: BLE Wounds Procedure A bilateral lower extremity continuous wave Doppler with analog waveform analysis,segmental pressures,and ankle brachial indexes without exercise. Left Segmental Pressures Left posterior tibial artery = 159mmHg. Left dorsalis pedis artery = 137mmHg. The left posterior tibial artery waveforms are triphasic. The left dorsalis pedis waveforms are triphasic. Unable to acquire digit pressures due to HX amputations. Right Segmental Pressures Right brachial= 124mmHg. Right posterior tibial artery = 148mmHg. Right dorsalis pedis artery = 135mmHg. The right posterior tibial artery waveforms are triphasic. The right dorsalis pedis waveforms are triphasic. Unable to acquire digit pressures due to HX amputations. Indices The right ankle brachial index by the posterior tibial artery is 1.19. The right ankle brachial index by the dorsalis pedis is 1.09. The left ankle brachial index by the posterior tibial artery is 1.28. The left ankle brachial index by the dorsalis pedis is 1.10. VL/Lower Ext Art Exam w/o Exercis Interpretation Summary Triphasic Doppler waveforms are noted at ankle level bilaterally. Pulse-volume recordings appear mildly diminished at ankle level on the right, but satisfactory at ankle level on the left, and at l ow thigh and calf levels bilaterally. Resting ankle-brachial indices are normal bilaterally. There is no evidence of significant arterial occlusive disease in the lower ext remities bilaterally. Digital pressures were not obtained due to amputations. Ordering Physician: Jamshid Clark Referring Physician: Ivana Crook Performed By: Serena Rubi RDCS/RVT
--- NOTE | 2024-08-20 13:18 | CASEMGMT ---
Care Management Face to Face with patient for initial transition planning/care coordination assessment in the ED. This conventional underwriter introduced self and role at [facility]. Patient alert and oriented. Patient willing to participate in assessment and is able to answer all questions appropriately. Care providers, pharmacy, and demographics verified. Admitting Diagnosis: diabetic foot ulcer/BKA is plan Other diagnosis history: diabetes, IBS, polyneuropathy and prior bilateral foot amputations PCP: Ivana Crook (patient requested resources for gaining new PCP which were provided in the ED) Specialists: Dr. Esteban Hendrickson, podiatry. 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 Preferred Pharmacy: [email or web address] Insurance: [employer] Prescription Benefit: yes Living Will/HPOA: none, but patient stated at least wanting information (which was provided in the ED) LNOK: , Miguel. 2 bio children, John and Elpidio. 2 stepchildren, Stephon and Christa. Living Arrangements: lives with , John and Elpidio, and [id number]. 2 story home with a ramp to enter. Bathroom is downstairs and patient reports being able to place a twin bed in the corner of the living room for as long as patient is unable to walk stairs. Independent with all ADLs. Transportation: patient drives DME: shower chair, walk in shower, manual and electric wheelchairs, walker, grab bars, glucometer and testing strips, blood pressure cuff HHC: [facility] and other places (patient could not recall names) SNF/Rehab: none Community Resources: none Behavioral Health History: patient reports taking Wellbutrin to help manage anxiety, though patient denies having official diagnoses. No counseling history and denied needing resources. Patient goals: Patient wishes to discharge home and would like HHC restarted. Patient stated patient will refuse a PICC line due to insurance not covering this and having to take it out prior to discharge. Disposition Plan: admission to acute; RN CM/SW to follow for discharge planning needs that may arise. Marisela Kapoor, E COMMERCE PROJECT MANAGER, TELEPHONE INSTALLER
--- NOTE | 2024-08-20 13:46 | CON.PCM.SX_ITS ---
Assessment & Plan Assessment/Plan (1) History of Chopart amputation of left foot: (2) Wound of foot: PLAN: Wound probes to bone Concern for osteomyelitis Given that there is hardware/potential for undrained fluid collections, recommending CT scan with contrast. I believe I did drain the existing fluid in the wound and I packed the wound with Kerlix. Recommend Dakin's wet to dry dressings twice daily for now as well as pressure offloading. Agree with admission to medicine for IV antibiotics for cellulitis and for workup and tight sugar control. I am recommending ankle-brachial indices to assess lower extremity vascular status and potential vascular surgery intervention to improve blood flow in anticipation for either limb salvage or below-knee amputation. I talked to the patient extensively today about lower extremity salvage and the reasons that we try to save diabetic limbs with wounds. I talked to her about my concerns with her blood glucose control, as well as concerns for healing potential if there is existing vascular insufficiency. I talked to her about the increase in effort and work (25 to 40% increase in energy expenditure with a below-knee amputation). I agree with the podiatry/foot and ankle team consultation to give their input on salvage/assess hardware. Plastic surgery will follow. HPI Consult Data Date of Consult: 08/20/24 HPI Narrative HPI Narrative: QUINTIN COBOS is a delightful 43 F who presents with a left lower extremity calcaneal wound with drainage and 1 days duration of fevers chills and redness in the setting of left lower extremity that is undergone a Chopart amputation with ankle fusion in the setting of chronic diabetic foot wounds. Her right lower extremity has undergone a Lisfranc level amputation, and does not have any wounds at this time. Her A1c was 10 today. She has not had vascular interventions or any recent vascular studies studies. She presented to the emergency department at [facility] where she has been receiving her care previously podiatry and foot and ankle care (an hour and 15 minutes north in [place]). Per patient report they were recommending a lower extremity amputation (below-knee amputation) and she wanted to have this done in [place] closer to her home where she could visit her children. She has 4 children, her youngest being her 10-year-old daughter. She lives in [place]. Today in the emergency department she has stable vital signs. Her white blood cell count is 14.5. The patient reports that they do not have any personal or family history of bleeding or clotting disorders. She does not have any personal or family history of problems with anesthesia. Patient is not a smoker. [facility] Medical History IBS (irritable bowel syndrome) Type 2 diabetes mellitus Peripheral neuropathy Vitamin B 12 deficiency History of gallstones Microalbuminuria due to type 2 diabetes mellitus Obesity Diabetes Polyneuropathy due to type 2 diabetes mellitus H/O emotional problems UTI (urinary tract infection) Arthritis Amputation of left foot Amputated toe of right foot Amputated toe of left foot Diabetic neuropathy Hypertension Diabetes Anxiety and depression GERD (gastroesophageal reflux disease) Home Medications ?Medication ?Instructions ?Recorded ?Last Taken ?Type cholecalciferol (vitamin D3) 25 2,000 unit PO DAILY HARTMAN PPLEMENT 04/18/16 12/30/20 History mcg (1,000 unit) tablet (Vitamin D3) cyanocobalamin (vitamin B-12) 100 mcg PO DAILY SUPPLEM ENT 04/18/16 12/30/20 History 1,000 mcg tablet duloxetine 60 mg capsule,delayed 60 mg PO DAILY ANXIET Y 04/18/16 12/30/20 History release bupropion HCl 150 mg 24 hr tablet, 150 mg PO DAILY DEP RESSION 06/12/17 12/30/20 History extended release omeprazole 40 mg capsule,delayed 40 mg PO DAILY ACID R EFLUX 06/12/17 12/30/20 History release pen needle, diabetic 32 gauge x #50 ea 07/27/21 Unknow n Rx (BD Ultra-Fine Dhara Pen Needle) OneTouch Verio test strips (blood #50 ea 09/18/22 Unkn own Rx sugar diagnostic) atorvastatin 20 mg tablet 20 mg PO DAILY 08/20/24 Unkn own History docusate sodium 100 mg capsule 100 mg PO BID 08/20/24 Unknown History (Col-Rite) insulin glargine 100 unit/mL (3 20 unit subcut .mornin g 08/20/24 Unknown History mL) subcutaneous pen (Lantus Solostar U-100 Insulin) insulin lispro 100 unit/mL 1 sliding scale dose subcut 08/20/24 Unknown History subcutaneous pen .before meals lisinopril 10 mg tablet 10 mg PO DAILY 08/20/24 Unkn own History Allergy/AdvReac Type Severity Reaction Status Date / Time gabapentin (From Gabarone) Allergy Angioedema Verified 08/20/24 09:48 Family History Mother Diabetes CVA (cerebral vascular accident) Father Hypertension Other Alcohol abuse Anxiety Arthritis Blood clot in vein Depression H/O transfusion of whole blood Mental disorder Surgical History History of 2 sections History of cholecystectomy History of tonsillectomy H/O amputation H/O: hysterectomy Social History household members: spouse, family, children and other details: Father in law Smoking Status: Never smoker alcohol intake: never substance use type: does not use Physical Exam Narrative Left lower extremity: Inspection/palpation Status post Chopart amputation. Left foot with plantar surface wound over the heel that probes to bone and is 3 x 1 cm. Surrounding induration/cellulitis. There was fluid within the wound that was drained at bedside and cultured. No remaining fluid. No crepitus or signs of ascending infection. Cellulitis is limited to the plantar surface of the left lower extremity Vascular: No palpable pulses on the distal left lower extremity but the tissue is warm. Sensation: Numbness on the plantar surface, limited sensation to light touch. Right lower extremity: No wound Const alert, oriented x3 and no apparent distress General Appearance: cooperative HEENT normocephalic Eyes General Eye: normal appearance of both eyes Neck General: normal visual inspection Lymph Lymphatic: no lymphadenopathy noted and no lymphedema noted Resp normal respiratory effort Cardio regular rate and regular rhythm Extremity no calf tenderness and no pedal edema Skin no rashes or lesions noted and skin turgor normal Neuro moves all extremities Lab / Micro Data 08/20/24 10:04 08/20/24 10:04 Labs: Laboratory Results - last 24 hr 08/20/24 10:04: WBC 14.5 H, RBC 5.18, Hgb 10.2 L, Hct 34.7 L, MCV 67.0 L, MCH 19.7 L, MCHC 29.4 L, RDW Std Deviation 46.1 H, RDW Coeff of Maria E 19.9 H, Plt Count 352, MPV 9.5, Immature Gran % (Auto) 1.300 H, Neut % (Auto) 73.6 H, Lymph % (Auto) 15.5 L, Hitchcock % (Auto) 7.8, Eos % (Auto) 1.0, Baso % (Auto) 0.8, A bsolute Neuts (auto) 10.7 H, Absolute Lymphs (auto) 2.26, Nucleated RBC % 0, ESR 120 H, Sodium 131 L, Potassium 3.6, Chloride 100, Carbon Dioxide 21.0, Anion Gap 11, BUN 10, Creatinine 1.03 H, Estim Creat Clear Calc 104.20, Est GFR (MDRD) Af Amer 75, Est GFR (MDRD) Non-Af 62, BUN/Creatinine Ratio 9.7 L, Glucose 279 H, Lactic Acid 1.9, Calcium 8.9, Total Bilirubin 0.70, AST 12 L, ALT 20, Alkaline Phosphatase 122 H, C-React Prot Ext Range 136.00 H, Total Protein 8.1, Albumin 3.0 L, Globulin 5.1 H, Albumin/Globulin Ratio 0.6 L Micro: Microbiology 08/20/24 10:18 Mucosa - Nose SARS-CoV-2, Influenza & RSV (PCR) - Final Imaging Radiology Impression Chest X-Ray 08/20/24 10:30 IMPRESSION: NEGATIVE CHEST Reading Location: [id number] Foot X-Ray 08/20/24 10:30 IMPRESSION: Status post amputation of the tarsal and metatarsal bones with the arthrodesis at the tibial calcaneal joint with evidence of soft tissue bone formation and diffuse soft tissue swelling with air in the soft tissues. Infection should be ruled out. Reading Location: [id number] Charges/Coding Multi Select Codes Visit Charges Office Visit/Consults: 38132 IP Consult L5 (Reviewed imaging, drained abscess at bedside, packed wound and examined the patient. Discussed with other consultants and the primary team)
[2024-08-20 13:59] LABS: Hemoglobin A1c 10.1 % (3.8-5.6)
[2024-08-20 14:19] LABS: M R Staph aureus DNA By PCR Negative (Negative); Probe Check PASS; Specimen Processing Control PASS; Staph aureus DNA By PCR POSITIVE (Negative)
--- NOTE | 2024-08-20 14:37 | ED.RN ---
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 Johnson slow rate of vanco down.
[2024-08-20] MEDS: DiphenhydrAMINE 50 MG/ML Syringe IV (14:46)
[2024-08-20] MEDS: Famotidine 200 MG/20 ML MDV 20 MG in 0.9% Normal Saline (Pres. free 8 ML 300 MG IV (14:47)
--- NOTE | 2024-08-20 15:15 | CON.PCM_ITS ---
Assessment & Plan Assessment/Plan (1) Neuropathic ulcer of left heel with fat layer exposed: (2) Abscess of left foot: (3) Cellulitis of heel, left: (4) Ankle osteomyelitis, left: (5) History of Chopart amputation of left foot: (6) Diabetes mellitus with diabetic polyneuropathy: (7) Diabetic foot ulcer: QUALIFIERS: Diabetes mellitus type: type 2 Diabetic foot ulcer location: toe Laterality: right Non-pressure ulcer stage: with fat layer exposed Qualified Code(s): E11.621 - Type 2 diabetes mellitus with foot ulcer; L97.512 - Non-pressure chronic ulcer of other part of right foot with fat layer exposed; L97.512 - Non-pressure chronic ulcer of other part of right foot with fat layer exposed; L97.512 - Non-pressure chronic ulcer of other part of right foot with fat layer exposed; L97.512 - Non-pressure chronic ulcer of other part of right foot with fat layer exposed PLAN: Plan Patient seen and evaluated Left lower extremity: Chopart amputation noted with tibial talocalcaneal arthrodesis with retained intramedullary kenji. There is a full-thickness plantar ulceration of the Chopart Amputation stump. There is a soft, fluctuant, yellow discolored pustule about the ulcerative site consistent with soft tissue abscess formation with localized erythema about the ulcerative site. WBC 14.5 with left shift; ESR 120; CRP 136; alkaline phosphatase 122; albumin 3.0; lactic acid 1.9; glucose 279 HgbA1c 10.1% Culture of abscess was obtained, awaiting results Staph aureus protein A PCR positive; MRSA PCR negative LEAS 08/20/24: Triphasic DP and PT pulses bilateral lower extremity. Right indices PT 1.19, DP 1.09; Left indices PT 1.28, DP 1.10. No evidence of arterial occlusive disease. Radiograph left foot 08/20/2024: Interpretation status post amputation of tarsals metatarsals. Prior arthrodesis of the tibial calcaneal joint. 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 Diffuse soft tissue swelling with air seen in soft tissue suggestive of infection. I have independently reviewed radiographic imaging and findings and do agree with the findings however there does appear to be plantar subsidence of the intramedullary kenji through the plantar calcaneus with evidence of hardware loosening. There is also hazy appearance of the tibia/calcaneal arthrodesis site with posterior fragmentation and cortical erosion consistent with chronic osteomyelitis. There is evidence of diffuse soft tissue swelling and soft tissue air about the lower extremity consistent with ongoing infectious process. CT scan with contrast recommended for further evaluation of the left lower extremity. Wound site has been packed and a Dakin's dressing applied. Nonweightbearing status left lower extremity Currently on IV vancomycin/Zosyn Medicine team currently following for medical management, they are appreciated Plastic surgery following for likely BKA of the left lower extremity Vascular surgery consult for assessment and optimization of left lower extremity for optimal healing outcome pending BKA ID consulted for antibiotic management Wound nurse consulted for assistance with dressing change I have discussed with the patient attempt of lower extremity salvage versus BKA of her left lower extremity. I discussed with the patient that this would be staged intervention and attempts to perform salvage. Discussed she would require PICC line with 6 to 8 weeks of IV antibiotics; surgical intervention of the left lower extremity to remove infected hardware containing screws and intramedullary kenji, I&D, in addition to bone biopsy of the calcaneus and distal tibia. Discussed post completion of antibiotic she would require intervention for obtaining new bone biopsy to rule out infectious process and ensure clearing of current infection. Discussed following this she would then be returned to the OR to undergo placement of another intramedullary kenji to create stable fusion/fixation and promote stable weightbearing limb. Discussed this also may include continued debridement with applications of advanced wound care product/grafting product to aid in healing of ulcerative sites. Discussed she would most likely require AFO/bracing post intervention to aid in increasing stability/augmenting fusion site for ambulation. Patient states she is understanding of this lengthy process and does not want to undergo another year of multiple surgeries and attempts to salvage current limb. Patient states she is interested in definitive treatment of BKA as she feels despite undergoing multiple surgeries she may end up with a BKA despite intervention. I have discussed that this is a legitimate concern and her reasoning is sound to request BKA. I have discussed with with her my concerns of current osteomyelitis of the calcaneus and distal tibia is most likely extensive tracking along the intramedullary kenji of the lower extremity, in addition to difficulty with continued ambulation of her current Chopart amputation stump salvage of this lower extremity is unlikely. I have discussed the BKA procedure with the patient and she confirms that she would like to undergo this procedure for definitive treatment and to prevent continued spread of the infection proximally in order to avoid potential AKA, sepsis, and loss of life. I have discussed these findings with plastic surgery, Dr. Dodd. Podiatry will remain on board following from a distance if needed for removal of the surgical hardware to optimize BKA outcome. Magen Yu Jr. D.P.M. [facility] [phone] HPI Consult Data Date of Consult: 08/20/24 HPI Narrative Reason for Consultation: Plantar ulceration of Chopart Amputation Stump Left foot HPI Narrative: QUINTIN COBOS is a 43 F who presents to [facility] 08/20/2024 with complaint of plantar ulceration of her Chopart amputation stump of the left lower extremity. She has PMHx of DM type II with peripheral polyneuropathy, prior bilateral foot amputation, anxiety/depression, and IBS. She reports she had been traveling to [place] at [facility] and continuing to follow with Dr. Esteban Hendrickson and has undergone multiple amputations and surgical interventions of the left lower extremity including Chopart Amputation, fibular takedown with tibial talocalcaneal arthrodesis with intramedullary kenji placement as most recent in January 2024. She reports continuing for localized wound care with plantar ulceration developed at her amputation stump. Over the last 6 weeks has been admitted for IV antibiotics but states insurance will not pay for PICC line. Site is undergone multiple debridements and she most recently developed fever of 101 yesterday. She states the wound is having difficulty healing and she has developed blisters that would open, ulcerated, and then heal on her amputation stump. While in office earlier today with Dr. Hendrickson, she was instructed to go to the ER at [facility] due to worsening condition of her amputation stump. She states she did not want to go there and decided to come to [place] where she lives and has family close by. She states that she has had a total of at least 10 surgeries throughout the years to salvage her left lower extremity and she is at the point where she would rather receive a BKA for definitive treatment rather than continued to undergo salvage attempts. During postoperative recovery she has been ambulating in CAM boot and changing dressings to the amputation stump daily. Podiatry consulted for further evaluation and discussion of salvage of the amputation stump versus BKA. [facility] Medical History IBS (irritable bowel syndrome) Type 2 diabetes mellitus Peripheral neuropathy Vitamin B 12 deficiency History of gallstones Microalbuminuria due to type 2 diabetes mellitus Obesity Diabetes Polyneuropathy due to type 2 diabetes mellitus H/O emotional problems UTI (urinary tract infection) Arthritis Amputation of left foot Amputated toe of right foot Amputated toe of left foot Diabetic neuropathy Hypertension Diabetes Anxiety and depression GERD (gastroesophageal reflux disease) Home Medications ?Medication ?Instructions ?Recorded ?Last Taken ?Type cholecalciferol (vitamin D3) 25 2,000 unit PO DAILY HARTMAN PPLEMENT 04/18/16 12/30/20 History mcg (1,000 unit) tablet (Vitamin D3) cyanocobalamin (vitamin B-12) 100 mcg PO DAILY SUPPLEM ENT 04/18/16 12/30/20 History 1,000 mcg tablet duloxetine 60 mg capsule,delayed 60 mg PO DAILY ANXIET Y 04/18/16 12/30/20 History release bupropion HCl 150 mg 24 hr tablet, 150 mg PO DAILY DEP RESSION 06/12/17 12/30/20 History extended release omeprazole 40 mg capsule,delayed 40 mg PO DAILY ACID R EFLUX 06/12/17 12/30/20 History release pen needle, diabetic 32 gauge x #50 ea 07/27/21 Unknow n Rx (BD Ultra-Fine Dhara Pen Needle) OneTouch Verio test strips (blood #50 ea 09/18/22 Unkn own Rx sugar diagnostic) atorvastatin 20 mg tablet 20 mg PO DAILY 08/20/24 Unkn own History docusate sodium 100 mg capsule 100 mg PO BID 08/20/24 Unknown History (Col-Rite) insulin glargine 100 unit/mL (3 20 unit subcut .mornin g 08/20/24 Unknown History mL) subcutaneous pen (Lantus Solostar U-100 Insulin) insulin lispro 100 unit/mL 1 sliding scale dose subcut 08/20/24 Unknown History subcutaneous pen .before meals lisinopril 10 mg tablet 10 mg PO DAILY 08/20/24 Unkn own History Allergy/AdvReac Type Severity Reaction Status Date / Time gabapentin (From Gabarone) Allergy Angioedema Verified 08/20/24 09:48 Family History Mother Diabetes CVA (cerebral vascular accident) Father Hypertension Other Alcohol abuse Anxiety Arthritis Blood clot in vein Depression H/O transfusion of whole blood Mental disorder Surgical History History of 2 sections History of cholecystectomy History of tonsillectomy H/O amputation H/O: hysterectomy Social History household members: spouse, family, children and other details: Father in law Smoking Status: Never smoker alcohol intake: never substance use type: does not use ROS Constitutional Constitutional: Reports fever(s); Denies chills or headache(s) Eyes Eyes: Denies diplopia or loss of vision ENT HEENT: Denies dysphagia, rhinorrhea or sore throat Cardiovascular Cardiovascular: Denies chest pain, claudication or palpitations Respiratory/Chest Respiratory/Chest: Denies cough, dyspnea or shortness of breath at rest Gastrointestinal Gastrointestinal: Denies abdominal pain, constipation, diarrhea, nausea or vomiting Genitourinary Genitourinary: Denies dysuria, hematuria or urinary urgency Musculoskeletal Musculoskeletal: Denies joint pain, joint stiffness or joint swelling Integumentary Integumentary: Denies jaundice, lesions, pruritus or rash Neurologic Neurologic: Denies dizziness, numbness or seizures Psychiatric Psychiatric: Reports anxiety and depression Endocrine Endocrinology: Denies polydipsia, polyphagia or polyuria Hematologic/Lymphatic Hematologic/Lymphatic: Denies easy bleeding or easy bruising Allergic/Immunologic Allergic/Immunologic: Denies wheezing Physical Exam Const alert, oriented x3 and no apparent distress General Appearance: cooperative HEENT normocephalic Eyes General Eye: normal appearance of both eyes Neck General: normal visual inspection Lymph Lymphatic: no lymphadenopathy noted and no lymphedema noted Resp normal respiratory effort Cardio regular rate and regular rhythm Extremity no calf tenderness and no pedal edema Extremity Narrative: Left lower extremity: Vascular: Anterior tibial arteries palpable at the level of the ankle mortise, PT pulse palpable. Normal temperature gradient. Chopart Amputation noted. Neurologic: Gross sensation intact. Protective sensation is absent secondary to diabetic peripheral polyneuropathy. Musculoskeletal: Chopart Amputation noted. No range of motion secondary to tibial talocalcaneal arthrodesis with intact intramedullary kenji. No pain to palpation about the plantar ulceration site. No pain to palpation of calf. Dermatologic: There is a full-thickness plantar ulceration of the Chopart Amputation stump. There is a soft, fluctuant, yellow discolored pustule about the ulcerative site consistent with soft tissue abscess formation with localized erythema about the ulcerative site. Remainder of skin unremarkable. Skin no rashes or lesions noted and skin turgor normal Neuro moves all extremities Lab / Micro Data 08/20/24 10:04 08/20/24 10:04 Labs: Laboratory Results - last 24 hr 08/20/24 10:04: WBC 14.5 H, RBC 5.18, Hgb 10.2 L, Hct 34.7 L, MCV 67.0 L, MCH 19.7 L, MCHC 29.4 L, RDW Std Deviation 46.1 H, RDW Coeff of Maria E 19.9 H, Plt Count 352, MPV 9.5, Immature Gran % (Auto) 1.300 H, Neut % (Auto) 73.6 H, Lymph % (Auto) 15.5 L, Harney % (Auto) 7.8, Eos % (Auto) 1.0, Baso % (Auto) 0.8, A bsolute Neuts (auto) 10.7 H, Absolute Lymphs (auto) 2.26, Nucleated RBC % 0, ESR 120 H, Sodium 131 L, Potassium 3.6, Chloride 100, Carbon Dioxide 21.0, Anion Gap 11, BUN 10, Creatinine 1.03 H, Estim Creat Clear Calc 104.20, Est GFR (MDRD) Af Amer 75, Est GFR (MDRD) Non-Af 62, BUN/Creatinine Ratio 9.7 L, Glucose 279 H, H emoglobin A1c 10.1 H, Lactic Acid 1.9, Calcium 8.9, Total Bilirubin 0.70, AST 12 L, ALT 20, Alkaline Phosphatase 122 H, C-React Prot Ext Range 136.00 H, Total Protein 8.1, Albumin 3.0 L, Globulin 5.1 H, Albumin/Globulin Ratio 0.6 L 08/20/24 12:43: S.aureus Protein A PCR POSITIVE H, MRSA (PCR) Negative Micro: Microbiology 08/20/24 10:18 Mucosa - Nose SARS-CoV-2, Influenza & RSV (PCR) - Final Imaging Radiology Impression Chest X-Ray 08/20/24 10:30 IMPRESSION: NEGATIVE CHEST Reading Location: [id number] Foot X-Ray 08/20/24 10:30 IMPRESSION: Status post amputation of the tarsal and metatarsal bones with the arthrodesis at the tibial calcaneal joint with evidence of soft tissue bone formation and diffuse soft tissue swelling with air in the soft tissues. Infection should be ruled out. Reading Location: [id number]
[2024-08-20] MEDS: Insulin Lispro 100 UNIT/ML INSULN.PEN SC ×2 (17:47→22:45)
--- NOTE | 2024-08-20 17:52 | PHA.PHARE_ITS ---
Consult Antibiotic Management Pharmacy has been consulted to manage selected antibiotic: Vancomycin Type of Intervention Type of Consult: New start Suspected Infection Suspected Infection: Skin/Soft tissue Prior Doses of Antibiotics Prior Doses of Antibiotics Received/Current Regimen: Vancomycin 2000 mg IV x 1 given 08/20/24 @ 1244, patient is also on piperacillin/ tazobactam 3.375 grams Q8H Labs Labs: Sodium 131 mmol/L (136-145) L 08/20/24 10:04 Potassium 3.6 mmol/L (3.5-5.1) 08/20/24 10:04 Chloride 100 mmol/L (98-107) 08/20/24 10:04 Carbon Dioxide 21.0 mmol/L (21.0-32.0) 08/20/24 10:04 Anion Gap 11 (5-15) 08/20/24 10:04 BUN 10 mg/dL (7-18) 08/20/24 10:04 Creatinine 1.03 mg/dL (0.55-1.02) H 08/20/24 10:04 Est GFR (MDRD) Af Amer 75 mL/min (>60) 08/20/24 10:04 Est GFR (MDRD) Non-Af 62 mL/min (>60) 08/20/24 10:04 BUN/Creatinine Ratio 9.7 RATIO (10-20) L 08/20/24 10:04 Glucose 279 mg/dL (74-106) H 08/20/24 10:04 Microbiology Microbiology: Microbiology 08/20/24 10:18 Mucosa - Nose SARS-CoV-2, Influenza & RSV (PCR) - Final Dosing Weight Weight used for dosin kg Estimated Creatinine Clearance Estimated Creatinine Clearance: ~ 104 Goal Trough Goal Trough: 15-20 mcg/mL Pharmacy Plan for Drug Dosing Pharmacy Plan for Drug Dosing: Vancomycin 2000 mg IV x 1 followed by 1500 mg IV Q8H Pharmacy Service will continue to monitor and adjust dosing as required. Follow-Up Labs Follow-Up Labs: Trough: Vancomycin Date/Time Labs Ordered Labs to be done on [date and time ordered]: 08/21/24 @ 1230
[2024-08-20 18:01] LABS: Bedside Glucose 210 mg/dL (74-106)
--- NOTE | 2024-08-20 19:08 | PCM.HP.STD ---
HPI - General General Date of Admission: 08/20/24 Date of Service: 08/20/24 Chief Complaint: Left foot wound-nonhealing HPI Narrative QUINTIN COBOS, is a 43 F who presents to the emergency room at [facility] for evaluation of a left foot wound which is chronic in nature and has been draining material and causing discomfort. Patient has a past history of bilateral partial foot amputations that were done at [facility], patient made the decision to come to the hospital here for evaluation of her foot because she felt that it was more convenient. She knows that she may very well have to undergo a below the knee amputation on the left due to the nonhealing nature of the wound. Lab work obtained in the emergency room showed an elevated white blood cell count of 14.5, hemoglobin was 10.2, chemistry profile was remarkable for a glucose of 279, patient's hemoglobin A1c was elevated at 10.1. Patient's lactic acid was normal. C-reactive protein was elevated at 136, left foot x-ray shows status post amputation of the tarsal and metatarsal bones with arthrodesis at the tibial calcaneal joint with evidence of soft tissue bone formation and diffuse soft tissue swelling with air in the soft tissues. Patient was given IV vancomycin and Zosyn, she will be admitted to [place] [id number] for further care, the emergency room physician talked with plastic surgery and podiatry, podiatry stated that they would not be of much help if the patient needed a below the knee amputation and recommended the emergency room physician talk with plastic surgery. Plastic surgery agreed to see the patient in consultation. They requested that podiatry also see the patient for recommendations regarding a below the knee amputation however. I talked with Dr. Yu (podiatry) and Dr. Dodd. Dr. Guerra requested that a vascular study be performed on the left leg and that the patient have a left lower extremity CT scan. [facility] Medical History (Updated 08/20/24 @ 17:34 by Candelaria Crocker) Anxiety Depression Kidney disease IBS (irritable bowel syndrome) Type 2 diabetes mellitus Peripheral neuropathy Vitamin B 12 deficiency History of gallstones Microalbuminuria due to type 2 diabetes mellitus Obesity Diabetes Polyneuropathy due to type 2 diabetes mellitus H/O emotional problems UTI (urinary tract infection) Arthritis Amputation of left foot Amputated toe of right foot Amputated toe of left foot Diabetic neuropathy Hypertension Diabetes Anxiety and depression GERD (gastroesophageal reflux disease) Home Medications ?Medication ?Instructions ?Recorded ?Last Taken ?Type cholecalciferol (vitamin D3) 25 2,000 unit PO DAILY SUPPLEMENT 04/18/16 12/30/20 History mcg (1,000 unit) tablet (Vitamin D3) cyanocobalamin (vitamin B-12) 100 mcg PO DAILY SUPPLEMENT 04/18/16 12/30/20 History 1,000 mcg tablet duloxetine 60 mg capsule,delayed 60 mg PO DAILY ANXIETY 04/18/16 12/30/20 History release bupropion HCl 150 mg 24 hr tablet, 150 mg PO DAILY DEPRESSION 06/12/17 12/30/20 History extended release omeprazole 40 mg capsule,delayed 40 mg PO DAILY ACID REFLUX 06/12/17 12/30/20 History release pen needle, diabetic 32 gauge x #50 ea 07/27/21 Unknown Rx (BD Ultra-Fine Dhara Pen Needle) OneTouch Verio test strips (blood #50 ea 09/18/22 Unknown Rx sugar diagnostic) atorvastatin 20 mg tablet 20 mg PO DAILY 08/20/24 Unknown History docusate sodium 100 mg capsule 100 mg PO BID 08/20/24 Unknown History (Col-Rite) insulin glargine 100 unit/mL (3 20 unit subcut .morning 08/20/24 Unknown History mL) subcutaneous pen (Lantus Solostar U-100 Insulin) insulin lispro 100 unit/mL 1 sliding scale dose subcut 08/20/24 Unknown History subcutaneous pen .before meals lisinopril 10 mg tablet 10 mg PO DAILY 08/20/24 Unknown History Allergy/AdvReac Type Severity Reaction Status Date / Time gabapentin (From Gabarone) Allergy Angioedema Verified 08/20/24 09:48 Family History Mother Diabetes CVA (cerebral vascular accident) Father Hypertension Other Alcohol abuse Anxiety Arthritis Blood clot in vein Depression H/O transfusion of whole blood Mental disorder Surgical History History of 2 sections History of cholecystectomy History of tonsillectomy H/O amputation H/O: hysterectomy Social History household members: spouse, family, children and other details: Father in law Smoking Status: Never smoker alcohol intake: never substance use type: does not use ROS Constitutional Constitutional: Denies anorexia, change in weight, fever(s), night sweats or weakness Eyes Eyes: Denies blurry vision, change in vision, discharge from eye(s) or eye pain Cardiovascular Cardiovascular: Denies chest pain, claudication, dyspnea on exertion, edema or palpitations Respiratory/Chest Respiratory/Chest: Denies cough, dyspnea, excessive phlegm production, hemoptysis, shortness of breath at rest or shortness of breath with exertion Gastrointestinal Gastrointestinal: Denies abdominal pain, constipation, diarrhea, hematemesis, hematochezia, melena, nausea or vomiting Genitourinary Genitourinary: Denies dysuria, hematuria, urinary frequency, urinary hesitancy, urinary incontinence or urinary urgency Musculoskeletal Musculoskeletal: Reports other Details: Patient complains of purulent discharge from the left ankle wound times several weeks ; Denies back pain, joint pain, joint stiffness, joint swelling, myalgias or neck pain Neurologic Neurologic: Denies abnormal gait, abnormal speech, dizziness, focal weakness, headache(s), loss of vision, numbness, other visual disturbances, paresthesias, syncope or tingling Psychiatric Psychiatric: Denies anxiety, cognitive impairment, depression, irritability, mood swings or suicidal ideation Endocrine Endocrinology: Denies change in body appearance, cold intolerance, excessive sweating, heat intolerance, polydipsia or polyuria Hematologic/Lymphatic Hematologic/Lymphatic: Denies none, anemia, easy bleeding, easy bruising or lymphadenopathy Allergic/Immunologic Allergic/Immunologic: Denies rhinitis, urticaria, eczemia or asthma Vital Signs Vital Signs Vital Signs: 08/20/24 09:47 08/20/24 10:50 08/20/24 11:39 Temperature 99 F 98.4 F Temperature Source Temporal Oral Pulse Rate 105 H 98 Respiratory Rate 14 17 Respiratory Effort Respiratory Depth Respiratory Pattern Blood Pressure 111/96 H 132/70 H 120/76 Blood Pressure Mean 101 90 90 Blood Pressure Source Blood Pressure Position Blood Pressure Location Pulse Ox 99 98 Oxygen Delivery Method Room Air Room Air 08/20/24 12:00 08/20/24 12:53 08/20/24 12:54 Temperature 97.6 F L 97.6 F L Temperature Source Temporal Pulse Rate 98 94 Respiratory Rate 16 16 Respiratory Effort Respiratory Depth Respiratory Pattern Blood Pressure 125/77 H 123/75 H 123/75 H Blood Pressure Mean 93 91 91 Blood Pressure Source Blood Pressure Position Blood Pressure Location Pulse Ox 98 99 Oxygen Delivery Method Room Air 08/20/24 14:57 08/20/24 17:36 08/20/24 17:36 Temperature 97.7 F L Temperature Source Oral Pulse Rate 99 94 Respiratory Rate 16 Respiratory Effort Normal Respiratory Depth Normal Respiratory Pattern Normal Blood Pressure 122/89 H 130/82 H Blood Pressure Mean 100 98 Blood Pressure Source Manual Blood Pressure Position Sitting Blood Pressure Location Left Arm Pulse Ox 100 100 Oxygen Delivery Method Room Air Room Air Room Air Weight Weight: 131.451 kg Body Mass Index (BMI) 41.5 Physical Exam Const alert, oriented x3 and no apparent distress Constitutional Narrative: Patient has class III obesity General Appearance: cooperative, well kempt and well developed Orientation / Consciousness: awake, oriented to person, oriented to place and oriented to time HEENT normocephalic, head/scalp atraumatic, hearing grossly normal bilaterally and moist oral mucous membranes Eyes PERRL, EOMs intact bilaterally and conjunctivae normal Neck supple, no JVD, thyroid normal and no carotid bruits General: trachea midline Resp normal respiratory effort, no retractions, no use of accessory muscles and clear to auscultation bilaterally Auscultation: Negative for rales, rhonchi or wheezes Cardio regular rate, regular rhythm, S1 normal heart sound, S2 normal heart sound, no murmurs, no rub and no gallops GI normal to inspection, nondistended, normoactive bowel sounds, soft to palpation, non-tender and non-distended Extremity Extremity Narrative: There are noted 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 Neuro oriented x3, CN's II-XII intact bilaterally, moves all extremities and no focal motor deficits Sensorium / Orientation: awake and alert Speech: speech normal Psych affect normal Results Lab / Micro Data 08/21/24 05:31 08/21/24 05:31 Labs: Laboratory Results - last 24 hr 08/20/24 10:04: WBC 14.5 H, RBC 5.18, Hgb 10.2 L, Hct 34.7 L, MCV 67.0 L, MCH 19.7 L, MCHC 29.4 L, RDW Std Deviation 46.1 H, RDW Coeff of Maria E 19.9 H, Plt Count 352, MPV 9.5, Immature Gran % (Auto) 1.300 H, Neut % (Auto) 73.6 H, Lymph % (Auto) 15.5 L, [place] % (Auto) 7.8, Eos % (Auto) 1.0, Baso % (Auto) 0.8, Absolute Neuts (auto) 10.7 H, Absolute Lymphs (auto) 2.26, Nucleated RBC % 0, ESR 120 H, Sodium 131 L, Potassium 3.6, Chloride 100, Carbon Dioxide 21.0, Anion Gap 11, BUN 10, Creatinine 1.03 H, Estim Creat Clear Calc 104.20, Est GFR (MDRD) Af Amer 75, Est GFR (MDRD) Non-Af 62, BUN/Creatinine Ratio 9.7 L, Glucose 279 H, Hemoglobin A1c 10.1 H, Lactic Acid 1.9, Calcium 8.9, Total Bilirubin 0.70, AST 12 L, ALT 20, Alkaline Phosphatase 122 H, C-React Prot Ext Range 136.00 H, Total Protein 8.1, Albumin 3.0 L, Globulin 5.1 H, Albumin/Globulin Ratio 0.6 L 08/20/24 12:43: S.aureus Protein A PCR POSITIVE H, MRSA (PCR) Negative 08/20/24 17:43: POC Glucose 210 H Micro: Microbiology 08/20/24 10:18 Mucosa - Nose SARS-CoV-2, Influenza & RSV (PCR) - Final Imaging Radiology Impression Chest X-Ray 08/20/24 10:30 IMPRESSION: NEGATIVE CHEST Reading Location: [id number] Foot X-Ray 08/20/24 10:30 IMPRESSION: Status post amputation of the tarsal and metatarsal bones with the arthrodesis at the tibial calcaneal joint with evidence of soft tissue bone formation and diffuse soft tissue swelling with air in the soft tissues. Infection should be ruled out. Reading Location: [id number] Assessment & Plan Assessment/Plan (1) Wound of foot: PLAN: Plan 1. Neuropathic wound to the left ankle with osteomyelitis-PCR for staph RES was positive, MRSA PCR was negative-patient was admitted to [facility], she was seen by podiatry and plastic surgery, vascular studies will be obtained on the left leg, it is anticipated that the patient will undergo a below the knee amputation on the left, patient will be given Zosyn and vancomycin, final cultures are pending #2 uncontrolled type 2 diabetes with neuropathy-blood sugars will be monitored, sliding scale insulin will be administered as needed #3 class III obesity-complicates care, management, recovery, and prognosis #4 chronic depression-patient will remain on her outpatient psychiatric medications Total clinical time spent by myself addressing the patient's medical issues, reviewing all of her data, and collaborating with patient's care team: 75 minutes Charges/Coding Visit Charges Inpatient E&M: 68019 Init Hosp L3
--- NOTE | 2024-08-20 19:14 | CT_ITS ---
PROCEDURE: EXTREMITY LOWER WITHOUT CONTRA REASON FOR EXAM: Osteomyelitis/cellulitis of the left ankle TECHNIQUE: Noncontrast CT of the distal left lower extremity. Multiplanar reconstructions were performed. COMPARISON: 08/20/2024 FINDINGS: Bones: Amputation of the forefoot with arthrodesis across the tibiotalar and calcaneal joints with a kenji and screws. There is also a distal fibular resection. Extensive chronic periosteal thickening is present at the distal tibia. Extensive dystrophic calcifications are present about the posterior and lateral tibiotalar articulations. The hardware is intact. There is some lucency about the tip of the 2 distal screws traversing the talus, possibly due to loosening. Multiple bony channels are present at sites of previous hardware removal. No acute bony destruction is identified. Joints: Advanced degenerative changes are present at the arthrodesis sites. Soft Tissues: There is a focal soft tissue ulceration inferior to the calcaneus with extensive surrounding soft tissue edema. No definitive soft tissue gas is identified. Two areas of increased density in the subcutaneous fat of the plantar aspect of the heel measure 6.0 x 3.1 cm and 3.4 x 1.7 cm respectively and may represent confluent soft tissue edema, versus phlegmon or abscess. Areas of soft tissue thickening are present along the ankle, which likely represent scarring. Evaluation is limited in the absence of contrast injection. CT/Extremity Lower without Contra IMPRESSION: 1. Soft tissue ulceration in the plantar aspect of the heel with areas of confl uent edema versus phlegmon or abscess in the superficial subcutaneous fat surrounding the area of ulceration. No soft tissu e gas is identified. Evaluation is limited due to the lack of intravenous contrast. 2. No definitive evidence of acute osteomyelitis. 3. Extensive chronic bony changes are present in relation to a partial foot amp utation, distal fibular resection, arthrodesis of the ankle and hindfoot, and previous hardware removal. Chronic osteomyelitis i s not excluded. Reading Location: [facility]
[2024-08-20] MEDS: Vancomycin HCl 1,500 MG in 0.9% Normal Saline (500mL Bag) 500 ML 250 MG IV (22:05)
[2024-08-20] MEDS: Temazepam 15 MG Capsule 30 MG PO (22:14)
[2024-08-20] MEDS: Acetaminophen 325 MG Tablet 650 MG PO (22:18)
[2024-08-20] MEDS: Piperacil/Tazobactam 3.375 GM in 0.9% Normal Saline (50mL MB+) 50 ML IV (22:41)
[2024-08-20 22:45] LABS: Bedside Glucose 241 mg/dL (74-106)
[2024-08-21 02:00] VITALS: BP 123/80; PULSE 94; RESP 16; TEMP 36.8; O2SAT 100
--- NOTE | 2024-08-21 06:02 | PN.SURG_ITS ---
Subjective Subjective HPI, 20 Aug 2024: QUINTIN COBOS is a delightful 43 F who presents with a left lower extremity calcaneal wound with drainage and 1 days duration of fevers chills and redness in the setting of left lower extremity that is undergone a Chopart amputation with ankle fusion in the setting of chronic diabetic foot wounds. Her right lower extremity has undergone a Lisfranc level amputation, and does not have any wounds at this time. Her A1c was 10 today. She has not had vascular interventions or any recent vascular studies studies. She presented to the emergency department at [facility] where she has been receiving her care previously podiatry and foot and ankle care (an hour and 15 minutes north in [place]). Per patient report they were recommending a lower extremity amputation (below-knee amputation) and she wanted to have this done in [place] closer to her home where she could visit her children. She has 4 children, her youngest being her 10-year-old daughter. She lives in [place]. Today in the emergency department she has stable vital signs. Her white blood cell count is 14.5. The patient reports that they do not have any personal or family history of bleeding or clotting disorders. She does not have any personal or family history of problems with anesthesia. Patient is not a smoker. CURRENT ENCOUNTER, 21 AUG 2024: Patient doing well overall this morning. Pain controlled. No subjective fevers/chills. Objective Data Objective Data Vital Signs: Vital Signs Temp Pulse Resp BP Pulse Ox O2 Del Method 98.3 F 94 16 123/80 H 100 Room Air 08/21/24 02:00 08/21/24 02:00 08/21/24 02:00 08/21/24 02:00 08/21/24 02:00 08/21/24 02:00 Oxygen Delivery Method Room Air Weight: 289 lb 12.8 oz Body Mass Index (BMI) 41.5 Intake & Output: Intake and Output for Last 24 Hours 08/19/24 08/20/24 08/21/24 23:59 23:59 23:59 Intake Total 900 / 1500 1180 / 1180 Balance 900 / 1500 1180 / 1180 Lab / Micro Data 08/20/24 10:04 08/20/24 10:04 Labs: Laboratory Results - last 24 hr 08/20/24 10:04: WBC 14.5 H, RBC 5.18, Hgb 10.2 L, Hct 34.7 L, MCV 67.0 L, MCH 19.7 L, MCHC 29.4 L, RDW Std Deviation 46.1 H, RDW Coeff of Maria E 19.9 H, Plt Count 352, MPV 9.5, Immature Gran % (Auto) 1.300 H, Neut % (Auto) 73.6 H, Lymph % (Auto) 15.5 L, [place] % (Auto) 7.8, Eos % (Auto) 1.0, Baso % (Auto) 0.8, A bsolute Neuts (auto) 10.7 H, Absolute Lymphs (auto) 2.26, Nucleated RBC % 0, ESR 120 H, Sodium 131 L, Potassium 3.6, Chloride 100, Carbon Dioxide 21.0, Anion Gap 11, BUN 10, Creatinine 1.03 H, Estim Creat Clear Calc 104.20, Est GFR (MDRD) Af Amer 75, Est GFR (MDRD) Non-Af 62, BUN/Creatinine Ratio 9.7 L, Glucose 279 H, H emoglobin A1c 10.1 H, Lactic Acid 1.9, Calcium 8.9, Total Bilirubin 0.70, AST 12 L, ALT 20, Alkaline Phosphatase 122 H, C-React Prot Ext Range 136.00 H, Total Protein 8.1, Albumin 3.0 L, Globulin 5.1 H, Albumin/Globulin Ratio 0.6 L 08/20/24 12:43: S.aureus Protein A PCR POSITIVE H, MRSA (PCR) Negative 08/20/24 17:43: POC Glucose 210 H 08/20/24 22:27: POC Glucose 241 H Micro: Microbiology 08/20/24 10:18 Mucosa - Nose SARS-CoV-2, Influenza & RSV (PCR) - Final Radiography Diagnostic Testing: Radiology Impression Chest X-Ray 08/20/24 10:30 IMPRESSION: NEGATIVE CHEST Reading Location: [id number] Foot X-Ray 08/20/24 10:30 IMPRESSION: Status post amputation of the tarsal and metatarsal bones with the arthrodesis at the tibial calcaneal joint with evidence of soft tissue bone formation and diffuse soft tissue swelling with air in the soft tissues. Infection should be ruled out. Reading Location: [id number] Extremity Arterial Study 08/20/24 12:57 Interpretation Summary Triphasic Doppler waveforms are noted at ankle level bilaterally. Pulse-volume recordings appear mildly diminished at ankle level on the right, but satisfactory at ankle level on the left, and at low thigh and calf levels bilaterally. Resting ankle-brachial indices are normal bilaterally. There is no evidence of significant arterial occlusive disease in the lower extremities bilaterally. Digital pressures were not obtained due to amputations. Ordering Physician: Jamshid Clark Referring Physician: Ivana Crook Performed By: Serena Rubi RDCS/RVT Lower Extremity CT 08/20/24 19:14 IMPRESSION: 1. Soft tissue ulceration in the plantar aspect of the heel with areas of confluent edema versus phlegmon or abscess in the superficial subcutaneous fat surrounding the area of ulceration. No soft tissue gas is identified. Evaluation is limited due to the lack of intravenous contrast. 2. No definitive evidence of acute osteomyelitis. 3. Extensive chronic bony changes are present in relation to a partial foot amputation, distal fibular resection, arthrodesis of the ankle and hindfoot, and previous hardware removal. Chronic osteomyelitis is not excluded. Reading Location: [facility] Physical Exam Narrative Left lower extremity: Inspection/palpation Status post Chopart amputation. Left foot with plantar surface wound over the heel that probes to bone and is 3 x 1 cm. Surrounding induration/cellulitis is improving. No remainging fluid in the wound No crepitus or signs of ascending infection. Cellulitis is limited to the plantar surface of the left lower extremity Vascular: No palpable pulses on the distal left lower extremity but the tissue is warm. Sensation: Numbness on the plantar surface, limited sensation to light touch. Right lower extremity: No wound Const alert, oriented x3 and no apparent distress General Appearance: cooperative HEENT normocephalic Eyes General Eye: normal appearance of both eyes Neck General: normal visual inspection Lymph Lymphatic: no lymphadenopathy noted and no lymphedema noted Resp normal respiratory effort Cardio regular rate and regular rhythm Extremity no calf tenderness and no pedal edema Skin no rashes or lesions noted and skin turgor normal Neuro moves all extremities Assessment & Plan Assessment/Plan (1) History of Chopart amputation of left foot: (2) Wound of foot: PLAN: Wound probes to bone Concern for osteomyelitis Given that there is hardware/potential for undrained fluid collections, recommending CT scan with contrast. I believe I did drain the existing fluid in the wound and I packed the wound with Kerlix. Recommend Dakin's wet to dry dressings twice daily for now as well as pressure offloading. Agree with admission to medicine for IV antibiotics for cellulitis and for workup and tight sugar control. I am recommending ankle-brachial indices to assess lower extremity vascular status and potential vascular surgery intervention to improve blood flow in anticipation for either limb salvage or below-knee amputation. I talked to the patient extensively today about lower extremity salvage and the reasons that we try to save diabetic limbs with wounds. I talked to her about my concerns with her blood glucose control, as well as concerns for healing potential if there is existing vascular insufficiency. I talked to her about the increase in effort and work (25 to 40% increase in energy expenditure with a below-knee amputation). I agree with the podiatry/foot and ankle team consultation to give their input on salvage/assess hardware. Plastic surgery will follow. Plan from 21 Aug 2024: Cellulitis improving. Will discuss ABIs with vascular surgeon, Dr. Murrell (left posterior tibial calcified with 1.28, while dorsalis pedis WNL at 1.1). Podiatry discuss with Ms. Cobos concerns for osteomyelitis and need for hardware remove, bone cultures, long-term IV antibiotics, followed by revision of ankle fusion. She is not interested in limb salvage. [facility] will anticipate discussion with vascular regarding any further studies in setting of calcified LLE vessels. Anticipate elective (scheduled) below-knee amputation once patient is optimized. Continue broad-spectrum antibiotics and f/u cultures. Tight glucose control (sugars have been labile during hospital admission thus far in the 200s) Charges/Coding Multi Select Codes Visit Charges Visit Charges: 36187 Subs Hosp L3 (Reviewed complex imaging, ABIs, made decision regarding surgical intervention.)
[2024-08-21 06:09] LABS: Absolute Lymphocyte Count 1.89 X10^3/uL (0.83-4.51); Absolute Neutrophil Count 6.5 X10^3/uL (2.0-7.7); Basophil# 0.07 X10^3/uL; Basophil% 0.7 % (0-1); Eosinophil# 0.23 X10^3/uL; Eosinophils% 2.4 % (0-5); Hematocrit 31.2 % (37-47); Hemoglobin 9.1 g/dL (12.0-15.0); Lymphocyte # 1.89 X10^3/ul (0.83-4.51); Lymphocyte % 19.5 % (19-41); Mean Corp Hgb Conc 29.2 g/dL (32-36); Mean Corpuscular Hgb 19.7 pg (27.0-32.0); Mean Corpuscular Volume 67.7 fL (81-99); Mean Platelet Vol. 9.2 fl (6.2-12.0); Monocyte# 0.88 X10^3/uL; Monocyte% 9.1 % (0-10); NRBC Flagged by Analyzer 0 % (0-5); Neutrophil # 6.53 X10^3/uL (2.7-7.7); Neutrophil % 67.4 % (47-70); Platelet Count 287 K/mm3 (150-450); RBC Distribution Width CV 19.5 % (11.6-14.6); RBC Distribution Width SD 46.6 fl (35.1-43.9); Red Blood Count 4.61 M/mm3 (4.2-5.4); White Blood Count 9.7 K/mm3 (4.4-11.0)
[2024-08-21 06:27] LABS: Anion Gap 9 (5-15); BUN 8 mg/dL (7-18); BUN/Creat Ratio 9.4 RATIO (10-20); Calcium,Total 8.7 mg/dL (8.5-10.1); Chloride 104 mmol/L (98-107); Creatinine, Serum 0.85 mg/dL (0.55-1.02); EST Glomerular Filtration Rate 77 mL/min (>60); Est Glom Filt Rate - Afr Amer 93 mL/min (>60); Estimated Creatinine Clearance 124.91 ml/min; Glucose 234 mg/dL (74-106); Potassium 3.3 mmol/L (3.5-5.1); Sodium Level 134 mmol/L (136-145)
[2024-08-21] MEDS: Vancomycin HCl 1,500 MG in 0.9% Normal Saline (500mL Bag) 500 ML 250 MG IV (06:44)
[2024-08-21] MEDS: Piperacil/Tazobactam 3.375 GM in 0.9% Normal Saline (50mL MB+) 50 ML IV ×3 (06:46→22:52)
[2024-08-21] MEDS: Insulin Lispro 100 UNIT/ML INSULN.PEN SC ×3 (07:02→16:08)
[2024-08-21 08:21] VITALS: BP 104/64; PULSE 86; RESP 16; TEMP 36.4; O2SAT 97
[2024-08-21] MEDS: DULoxetine Hcl 60 MG Capsule PO (09:15)
[2024-08-21] MEDS: Lisinopril 10 MG Tablet PO (09:15)
[2024-08-21] MEDS: Pantoprazole Sodium 40 MG Tablet PO (09:15)
[2024-08-21] MEDS: Glucerna Shake 120 ML LIQUID PO (09:15)
[2024-08-21] MEDS: Cyanocobalamin 500 MCG Tablet 1000 MCG PO (09:16)
[2024-08-21] MEDS: Cholecalciferol (VIT D3) 25 MCG TABLET (1,000 UNITS) 50 MCG PO (09:16)
[2024-08-21] MEDS: Empagliflozin 25 MG Tablet PO (09:16)
[2024-08-21] MEDS: buPROPion (XL) 150 MG TABLET.XL PO (09:17)
[2024-08-21 11:30] VITALS: BP 98/51; PULSE 85; RESP 16; TEMP 36.6; O2SAT 98
[2024-08-21 11:30] LABS: Bedside Glucose 213 mg/dL (74-106)
[2024-08-21 11:31] LABS: Bedside Glucose 212 mg/dL (74-106)
[2024-08-21 12:36] LABS: Vancomycin, Trough Level 28.2 ug/mL (5.0-15.0)
--- NOTE | 2024-08-21 15:05 | PHA.PHARE_ITS ---
Consult Antibiotic Management Pharmacy has been consulted to manage selected antibiotic: Vancomycin Type of Intervention Type of Consult: Follow-up Suspected Infection Suspected Infection: Skin/Soft tissue Labs Labs: Sodium 134 mmol/L (136-145) L 08/21/24 05:31 Potassium 3.3 mmol/L (3.5-5.1) L 08/21/24 05:31 Chloride 104 mmol/L (98-107) 08/21/24 05:31 Carbon Dioxide 22.0 mmol/L (21.0-32.0) 08/21/24 05:31 Anion Gap 9 (5-15) 08/21/24 05:31 BUN 8 mg/dL (7-18) 08/21/24 05:31 Creatinine 0.85 mg/dL (0.55-1.02) 08/21/24 05:31 Est GFR (MDRD) Af Amer 93 mL/min (>60) 08/21/24 05:31 Est GFR (MDRD) Non-Af 77 mL/min (>60) 08/21/24 05:31 BUN/Creatinine Ratio 9.4 RATIO (10-20) L 08/21/24 05:31 Glucose 234 mg/dL (74-106) H 08/21/24 05:31 Vancomycin Trough 28.2 ug/mL (5.0-15.0) H 08/21/24 12:04 Microbiology Microbiology: Microbiology 08/20/24 12:43 Wound - Left Foot Wound Culture - Preliminary GNR Poss Pseudomonas sp GNR lactose emerging technologies director Mixed Gram Positive Organisms 08/20/24 10:18 Mucosa - Nose SARS-CoV-2, Influenza & RSV (PCR) - Final Dosing Weight Weight used for dosin.45 kg Pharmacy Plan for Drug Dosing Pharmacy Plan for Drug Dosing: VANCOMYCIN LEVEL RECEIVED Current Vancomycin Dose:1500MG Q8H Number of Doses Received: 2 08/20/2024 2205, 08/21/2024 0644 Vancomycin Level: 28.2 Hours Since Last Dose: 5 Renal Function: SCr 0.85 mg/dL, CrCl 124.91 Renal Function Trend: Stable Lab/Micro: Vancomycin Plan/Comments: Trough was drawn at hour 5. Will hold dose and reevaluate in 12 hours Pending Level: 08/22/2024 0030 Pharmacy Service will continue to monitor and adjust dosing as required. Date/Time Labs Ordered Labs to be done on [date and time ordered]: Random at 08/22/2024 @0000
--- NOTE | 2024-08-21 15:26 | PN.HOSP_ITS ---
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 (08/20/24) Non-pressure chronic ulcer of other part of right foot with fat layer exposed (08/20/24) Osteomyelitis, unspecified (08/20/24) Unspecified open wound, unspecified foot, initial encounter (08/20/24) Acquired absence of left foot (08/20/24) Subjective Subjective Patient was seen and examined today, her was in the room during the time my examination. Patient's PCR was positive for staph but negative for MRSA from her left ankle wound. Patient's white blood cell count is normal today. Objective Data Objective Data Vital Signs: Vital Signs Temp Pulse Resp BP Pulse Ox O2 Del Method 98 F 85 16 98/51 L 98 Room Air 08/21/24 11:30 08/21/24 11:30 08/21/24 11:30 08/21/24 11:30 08/21/24 11:30 08/21/24 14:52 Oxygen Delivery Method Room Air Weight: 131.451 kg Body Mass Index (BMI) 41.5 Intake & Output: Intake and Output for Last 24 Hours 08/19/24 08/20/24 08/21/24 23:59 23:59 23:59 Intake Total 900 / 1500 2410 / 2410 Balance 900 / 1500 2410 / 2410 Lab / Micro Data 08/21/24 05:31 08/21/24 05:31 Labs: Laboratory Results - last 24 hr 08/20/24 17:43: POC Glucose 210 H 08/20/24 22:27: POC Glucose 241 H 08/21/24 05:31: WBC 9.7, RBC 4.61, Hgb 9.1 L, Hct 31.2 L, MCV 67.7 L, MCH 19.7 L , MCHC 29.2 L, RDW Std Deviation 46.6 H, RDW Coeff of Maria E 19.5 H, Plt Count 287, MPV 9.2, Immature Gran % (Auto) 0.900, Neut % (Auto) 67.4, Lymph % (Auto) 19.5, [place] % (Auto) 9.1, Eos % (Auto) 2.4, Baso % (Auto) 0.7, Absolute Neuts (auto) 6.5, Absolute Lymphs (auto) 1.89, Nucleated RBC % 0, Sodium 134 L, Potassium 3.3 L, Chloride 104, Carbon Dioxide 22.0, Anion Gap 9, BUN 8, Creatinine 0.85, Estim Creat Clear Calc 124.91, Est GFR (MDRD) Af Amer 93, Est GFR (MDRD) Non-Af 77, B UN/Creatinine Ratio 9.4 L, Glucose 234 H, Calcium 8.7 08/21/24 07:00: POC Glucose 212 H 08/21/24 11:10: POC Glucose 213 H 08/21/24 12:04: Vancomycin Trough 28.2 H Micro: Microbiology 08/20/24 12:43 Wound - Left Foot Wound Culture - Preliminary GNR Poss Pseudomonas sp GNR lactose [employer] scout Mixed Gram Positive Organisms 08/20/24 10:18 Mucosa - Nose SARS-CoV-2, Influenza & RSV (PCR) - Final Radiography Diagnostic Testing: Radiology Impression Extremity Arterial Study 08/20/24 12:57 Interpretation Summary Triphasic Doppler waveforms are noted at ankle level bilaterally. Pulse-volume recordings appear mildly diminished at ankle level on the right, but satisfactory at ankle level on the left, and at low thigh and calf levels bilaterally. Resting ankle-brachial indices are normal bilaterally. There is no evidence of significant arterial occlusive disease in the lower extremities bilaterally. Digital pressures were not obtained due to amputations. Ordering Physician: Jamshid Clark Referring Physician: Ivana Crook Performed By: Serena Rubi RDCS/RVT Lower Extremity CT 08/20/24 19:14 IMPRESSION: 1. Soft tissue ulceration in the plantar aspect of the heel with areas of confluent edema versus phlegmon or abscess in the superficial subcutaneous fat surrounding the area of ulceration. No soft tissue gas is identified. Evaluation is limited due to the lack of intravenous contrast. 2. No definitive evidence of acute osteomyelitis. 3. Extensive chronic bony changes are present in relation to a partial foot amputation, distal fibular resection, arthrodesis of the ankle and hindfoot, and previous hardware removal. Chronic osteomyelitis is not excluded. Reading Location: [facility] Physical Exam Narrative alert, oriented x3 and no apparent distress Constitutional Narrative: Patient has class III obesity General Appearance: cooperative, well kempt and well developed Orientation / Consciousness: awake, oriented to person, oriented to place and oriented to time HEENT normocephalic, head/scalp atraumatic, hearing grossly normal bilaterally and moist oral mucous membranes Eyes PERRL, EOMs intact bilaterally and conjunctivae normal Neck supple, no JVD, thyroid normal and no carotid bruits General: trachea midline Resp normal respiratory effort, no retractions, no use of accessory muscles and clear to auscultation bilaterally Auscultation: Negative for rales, rhonchi or wheezes Cardio regular rate, regular rhythm, S1 normal heart sound, S2 normal heart sound, no murmurs, no rub and no gallops GI normal to inspection, nondistended, normoactive bowel sounds, soft to palpation, non-tender and non-distended Extremity Extremity Narrative: There are noted 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 Neuro oriented x3, CN's II-XII intact bilaterally, moves all extremities and no focal motor deficits Sensorium / Orientation: awake and alert Speech: speech normal Psych affect normal Assessment & Plan Assessment/Plan (1) Wound of foot: PLAN: Plan 1. Neuropathic wound to the left ankle with osteomyelitis-PCR for staph was positive, MRSA PCR was negative, await final culture result, patient remains on Zosyn and vancomycin #2 uncontrolled type 2 diabetes with neuropathy-blood sugars will be monitored, sliding scale insulin will be administered as needed #3 class III obesity-complicates care, management, recovery, and prognosis #4 chronic depression-patient will remain on her outpatient psychiatric medications Total clinical time spent by myself addressing the patient's medical issues, reviewing all of her data, and collaborating with patient's care team: 35 minutes Charges/Coding Visit Charges Inpatient E&M: 44761 Subs Hosp L2
[2024-08-21 16:12] VITALS: BP 109/64; PULSE 95; RESP 16; TEMP 36.6; O2SAT 98
[2024-08-21 16:27] LABS: Bedside Glucose 167 mg/dL (74-106)
[2024-08-21] MEDS: Temazepam 15 MG Capsule 30 MG PO (22:54)
[2024-08-21 22:57] VITALS: BP 111/67; PULSE 68; RESP 16; TEMP 36.7; O2SAT 98
[2024-08-21 23:15] LABS: Bedside Glucose 124 mg/dL (74-106)
[2024-08-22] MEDS: Vancomycin HCl 1,500 MG in 0.9% Normal Saline (500mL Bag) 500 ML 250 MG IV ×2 (01:31→08:39)
[2024-08-22 03:17] VITALS: BP 101/61; PULSE 80; RESP 16; TEMP 36.5; O2SAT 97
[2024-08-22] MEDS: Piperacil/Tazobactam 3.375 GM in 0.9% Normal Saline (50mL MB+) 50 ML IV ×3 (06:10→20:33)
[2024-08-22 06:36] LABS: Bedside Glucose 117 mg/dL (74-106)
[2024-08-22 08:31] VITALS: BP 122/75; PULSE 95; RESP 16; TEMP 36.6; O2SAT 100
[2024-08-22] MEDS: 0.9% Saline Lock 10 ML Syringe IV (08:40)
[2024-08-22] MEDS: Empagliflozin 25 MG Tablet PO (08:42)
[2024-08-22] MEDS: Cholecalciferol (VIT D3) 25 MCG TABLET (1,000 UNITS) 50 MCG PO (08:42)
[2024-08-22] MEDS: Cyanocobalamin 500 MCG Tablet 1000 MCG PO (08:42)
[2024-08-22] MEDS: Lisinopril 10 MG Tablet PO (08:42)
[2024-08-22] MEDS: DULoxetine Hcl 60 MG Capsule PO (08:42)
[2024-08-22] MEDS: Pantoprazole Sodium 40 MG Tablet PO (08:43)
[2024-08-22] MEDS: buPROPion (XL) 150 MG TABLET.XL PO (08:43)
[2024-08-22] MEDS: 0.9% Normal Saline (100mL Bag) 100 ML 15 ML IV (10:27)
[2024-08-22 11:25] LABS: Bedside Glucose 145 mg/dL (74-106)
[2024-08-22 14:39] VITALS: BP 120/72; PULSE 86; RESP 16; TEMP 36.4; O2SAT 98
[2024-08-22 16:44] LABS: Bedside Glucose 120 mg/dL (74-106)
--- NOTE | 2024-08-22 17:23 | NURSING ---
per pharmacist awaiting Vanc trough results. said nurse phoned lab to inquire about lab draw. lab will be up to draw
--- NOTE | 2024-08-22 17:37 | PN.HOSP_ITS ---
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 (08/20/24) Non-pressure chronic ulcer of other part of right foot with fat layer exposed (08/20/24) Osteomyelitis, unspecified (08/20/24) Unspecified open wound, unspecified foot, initial encounter (08/20/24) Acquired absence of left foot (08/20/24) Subjective Subjective Patient was seen and examined today, patient's left ankle wound culture grew out possible Pseudomonas, gram-negative lactose public speaking professor x 2 and staph RES as well as alpha hemolytic organism. I talked with plastic surgery today about her care, they do not want to proceed with a below the knee amputation during this admission and recommended the patient follow-up as an outpatient to have this done. I let the patient know about this today. I will have infectious diseases consult on the patient for appropriate antibiotic coverage. Objective Data Objective Data Vital Signs: Vital Signs Temp Pulse Resp BP Pulse Ox O2 Del Method 97.6 F L 86 16 120/72 98 Room Air 08/22/24 14:39 08/22/24 14:39 08/22/24 14:39 08/22/24 14:39 08/22/24 14:39 08/22/24 14:39 Oxygen Delivery Method Room Air Weight: 131.451 kg Body Mass Index (BMI) 41.5 Intake & Output: Intake and Output for Last 24 Hours 08/20/24 08/21/24 08/22/24 23:59 23:59 23:59 Intake Total 900 / 1500 2960 / 3360 2170 / 2170 Balance 900 / 1500 2960 / 3360 2170 / 2170 Lab / Micro Data 08/21/24 05:31 08/21/24 05:31 Labs: Laboratory Results - last 24 hr 08/21/24 22:45: POC Glucose 124 H 08/22/24 06:16: POC Glucose 117 H 08/22/24 11:04: POC Glucose 145 H 08/22/24 16:25: POC Glucose 120 H Micro: Microbiology 08/20/24 13:50 Wound Abcess - Heel, Left Gram Stain - Final 08/20/24 13:50 Wound Abcess - Heel, Left Wound Culture - Preliminary GNR Poss Pseudomonas sp GNR lactose public speaking professor GNR lactose public speaking professor#2 Staphylococcus aureus Alpha hemolytic organism 08/20/24 13:50 Wound Abcess - Heel, Left Anaerobic Culture - Preliminary Checking for anaerobes, further studies to follow. 08/20/24 12:43 Wound - Left Foot Gram Stain - Final 08/20/24 12:43 Wound - Left Foot Wound Culture - Preliminary GNR Poss Pseudomonas sp GNR lactose public speaking professor GNR lactose public speaking professor#2 Staphylococcus aureus Staphylococcus aureus#2 Alpha hemolytic organism 08/20/24 12:05 Blood Culture (Wb) - Anticubital Left Blood Culture - Preliminary No growth in 48 hours. 08/20/24 12:05 Blood Culture (Wb) - Left Hand Blood Culture - Preliminary No growth in 48 hours. 08/20/24 10:18 Mucosa - Nose SARS-CoV-2, Influenza & RSV (PCR) - Final Physical Exam Narrative alert, oriented x3 and no apparent distress Constitutional Narrative: Patient has class III obesity General Appearance: cooperative, well kempt and well developed Orientation / Consciousness: awake, oriented to person, oriented to place and oriented to time HEENT normocephalic, head/scalp atraumatic, hearing grossly normal bilaterally and moist oral mucous membranes Eyes PERRL, EOMs intact bilaterally and conjunctivae normal Neck supple, no JVD, thyroid normal and no carotid bruits General: trachea midline Resp normal respiratory effort, no retractions, no use of accessory muscles and clear to auscultation bilaterally Auscultation: Negative for rales, rhonchi or wheezes Cardio regular rate, regular rhythm, S1 normal heart sound, S2 normal heart sound, no murmurs, no rub and no gallops GI normal to inspection, nondistended, normoactive bowel sounds, soft to palpation, non-tender and non-distended Extremity Extremity Narrative: There are noted 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 Neuro oriented x3, CN's II-XII intact bilaterally, moves all extremities and no focal motor deficits Sensorium / Orientation: awake and alert Speech: speech normal Psych affect normal Assessment & Plan Assessment/Plan (1) Wound of foot: PLAN: Plan 1. Neuropathic wound to the left ankle with osteomyelitis-culture grew out Pseudomonas, gram-negative lactose public speaking professor x 2, Staph aureus, and alphahemolytic organism. I will have infectious diseases see the patient to confirm appropriate antibiotic coverage, patient is on vancomycin and Zosyn at this time. Plastic surgery does not want to entertain doing a below the knee amputation at this time and would rather bring the patient back as an outpatient to have this done. #2 uncontrolled type 2 diabetes with neuropathy-blood sugars will be monitored, sliding scale insulin will be administered as needed #3 class III obesity-complicates care, management, recovery, and prognosis #4 chronic depression-patient will remain on her outpatient psychiatric medications Total clinical time spent by myself addressing the patient's medical issues, reviewing all of her data, and collaborating with patient's care team: 35 minutes Charges/Coding Visit Charges Inpatient E&M: 39499 Subs Hosp L2
[2024-08-22 18:22] LABS: Vancomycin, Trough Level 21.7 ug/mL (5.0-15.0)
--- NOTE | 2024-08-22 18:44 | PHA.PHARE_ITS ---
Consult Antibiotic Management Pharmacy has been consulted to manage selected antibiotic: Vancomycin Type of Intervention Type of Consult: Follow-up Suspected Infection Suspected Infection: Skin/Soft tissue Labs Labs: Sodium 134 mmol/L (136-145) L 08/21/24 05:31 Potassium 3.3 mmol/L (3.5-5.1) L 08/21/24 05:31 Chloride 104 mmol/L (98-107) 08/21/24 05:31 Carbon Dioxide 22.0 mmol/L (21.0-32.0) 08/21/24 05:31 Anion Gap 9 (5-15) 08/21/24 05:31 BUN 8 mg/dL (7-18) 08/21/24 05:31 Creatinine 0.85 mg/dL (0.55-1.02) 08/21/24 05:31 Est GFR (MDRD) Af Amer 93 mL/min (>60) 08/21/24 05:31 Est GFR (MDRD) Non-Af 77 mL/min (>60) 08/21/24 05:31 BUN/Creatinine Ratio 9.4 RATIO (10-20) L 08/21/24 05:31 Glucose 234 mg/dL (74-106) H 08/21/24 05:31 Vancomycin Trough 21.7 ug/mL (5.0-15.0) H 08/22/24 17:49 Microbiology Microbiology: Microbiology 08/20/24 13:50 Wound Abcess - Heel, Left Gram Stain - Final 08/20/24 13:50 Wound Abcess - Heel, Left Wound Culture - Preliminary GNR Poss Pseudomonas sp GNR lactose technical sales representatives GNR lactose technical sales representatives#2 Staphylococcus aureus Alpha hemolytic organism 08/20/24 13:50 Wound Abcess - Heel, Left Anaerobic Culture - Preliminary Checking for anaerobes, further studies to follow. 08/20/24 12:43 Wound - Left Foot Gram Stain - Final 08/20/24 12:43 Wound - Left Foot Wound Culture - Preliminary GNR Poss Pseudomonas sp GNR lactose technical sales representatives GNR lactose technical sales representatives#2 Staphylococcus aureus Staphylococcus aureus#2 Alpha hemolytic organism 08/20/24 12:05 Blood Culture (Wb) - Anticubital Left Blood Culture - Preliminary No growth in 48 hours. 08/20/24 12:05 Blood Culture (Wb) - Left Hand Blood Culture - Preliminary No growth in 48 hours. 08/20/24 10:18 Mucosa - Nose SARS-CoV-2, Influenza & RSV (PCR) - Final Dosing Weight Weight used for dosin.45 kg Goal Trough Goal Trough: 15-20 mcg/mL Pharmacy Plan for Drug Dosing Pharmacy Plan for Drug Dosing: VANCOMYCIN LEVEL RECEIVED Current Vancomycin Dose: 1500 MG Q8H Number of Doses Received: 2 ( 08/22 @0131, 08/22 @0839) Vancomycin Level: 21.7 Hours Since Last Dose: 9.5 Renal Function: SCr 0.85, CrCl 124.9 Renal Function Trend: Stable Lab/Micro: Vancomycin Plan/Comments: Will hold one dose, will redraw level in 8 hours, to recheck and adjust/restart dose accordingly. Pending Level: 08/23/2024 013 Pharmacy Service will continue to monitor and adjust dosing as required. Follow-Up Labs Follow-Up Labs: Trough: Vancomycin Date/Time Labs Ordered Labs to be done on [date and time ordered]: 08/23/2024 @0130
[2024-08-22] MEDS: Temazepam 15 MG Capsule 30 MG PO (20:37)
[2024-08-22 20:41] VITALS: BP 123/75; PULSE 73; RESP 16; TEMP 36.6; O2SAT 98
[2024-08-22 20:58] LABS: Bedside Glucose 125 mg/dL (74-106)
[2024-08-23 01:55] LABS: Vancomycin, Random Level 13.7 ug/mL (0.0-15.0)
--- NOTE | 2024-08-23 02:13 | PCM.RX.CS ---
Consult Antibiotic Management Pharmacy has been consulted to manage selected antibiotic: Vancomycin Type of Intervention Type of Consult: Follow-up Labs Labs: Sodium 134 mmol/L (136-145) L 08/21/24 05:31 Potassium 3.3 mmol/L (3.5-5.1) L 08/21/24 05:31 Chloride 104 mmol/L (98-107) 08/21/24 05:31 Carbon Dioxide 22.0 mmol/L (21.0-32.0) 08/21/24 05:31 Anion Gap 9 (5-15) 08/21/24 05:31 BUN 8 mg/dL (7-18) 08/21/24 05:31 Creatinine 0.85 mg/dL (0.55-1.02) 08/21/24 05:31 Est GFR (MDRD) Af Amer 93 mL/min (>60) 08/21/24 05:31 Est GFR (MDRD) Non-Af 77 mL/min (>60) 08/21/24 05:31 BUN/Creatinine Ratio 9.4 RATIO (10-20) L 08/21/24 05:31 Glucose 234 mg/dL (74-106) H 08/21/24 05:31 Vancomycin Trough 21.7 ug/mL (5.0-15.0) H 08/22/24 17:49 Random Vancomycin 13.7 ug/mL (0.0-15.0) 08/23/24 01:28 Microbiology Microbiology: Microbiology 08/20/24 13:50 Wound Abcess - Heel, Left Gram Stain - Final 08/20/24 13:50 Wound Abcess - Heel, Left Wound Culture - Preliminary GNR Poss Pseudomonas sp GNR lactose wood heel flap inserter GNR lactose wood heel flap inserter#2 Staphylococcus aureus Alpha hemolytic organism 08/20/24 13:50 Wound Abcess - Heel, Left Anaerobic Culture - Preliminary Checking for anaerobes, further studies to follow. 08/20/24 12:43 Wound - Left Foot Gram Stain - Final 08/20/24 12:43 Wound - Left Foot Wound Culture - Preliminary GNR Poss Pseudomonas sp GNR lactose wood heel flap inserter GNR lactose wood heel flap inserter#2 Staphylococcus aureus Staphylococcus aureus#2 Alpha hemolytic organism 08/20/24 12:05 Blood Culture (Wb) - Anticubital Left Blood Culture - Preliminary No growth in 48 hours. 08/20/24 12:05 Blood Culture (Wb) - Left Hand Blood Culture - Preliminary No growth in 48 hours. 08/20/24 10:18 Mucosa - Nose SARS-CoV-2, Influenza & RSV (PCR) - Final Dosing Weight Weight used for dosin kg Estimated Creatinine Clearance Estimated Creatinine Clearance: 125 Goal Trough Goal Trough: 15-20 mcg/mL Pharmacy Plan for Drug Dosing Pharmacy Plan for Drug Dosing: Vancomycin random level was 13.7. This was 17hrs post-dose. Per dosing calculator a new dose of 1000mg q8h should give an estimated trough of 17.5. Will initiate now & draw a trough vanco level prior to fourth dose. Pharmacy Service will continue to monitor and adjust dosing as required. Follow-Up Labs Follow-Up Labs: Trough: Vancomycin Date/Time Labs Ordered Labs to be done on [date and time ordered]: 08/24/24 @0200
[2024-08-23 03:02] VITALS: BP 109/79; PULSE 93; RESP 16; TEMP 36.6; O2SAT 96
[2024-08-23] MEDS: Vancomycin IV 1,000 MG/200 ML BAG 200 MG IV ×3 (03:28→18:16)
[2024-08-23] MEDS: Piperacil/Tazobactam 3.375 GM in 0.9% Normal Saline (50mL MB+) 50 ML IV ×3 (05:58→21:53)
[2024-08-23 06:21] LABS: Bedside Glucose 114 mg/dL (74-106)
[2024-08-23] MEDS: Lisinopril 10 MG Tablet PO (08:01)
[2024-08-23] MEDS: Empagliflozin 25 MG Tablet PO (08:01)
[2024-08-23] MEDS: buPROPion (XL) 150 MG TABLET.XL PO (08:01)
[2024-08-23] MEDS: Cholecalciferol (VIT D3) 25 MCG TABLET (1,000 UNITS) 50 MCG PO (08:01)
[2024-08-23] MEDS: DULoxetine Hcl 60 MG Capsule PO (08:01)
[2024-08-23] MEDS: Cyanocobalamin 500 MCG Tablet 1000 MCG PO (08:01)
[2024-08-23] MEDS: Pantoprazole Sodium 40 MG Tablet PO (08:01)
--- NOTE | 2024-08-23 08:27 | PCM.PROGNOTE ---
Subjective Subjective Patient seen this a.m. resting in bed. She denies pain to the left leg. States she is willing to proceed forward with the BKA. Denies constitutional symptoms. Denies further complaints. Objective Data Objective Data Vital Signs: Vital Signs Temp Pulse Resp BP Pulse Ox O2 Del Method 97.9 F 93 16 109/79 96 Room Air 08/23/24 03:02 08/23/24 03:02 08/23/24 03:02 08/23/24 03:02 08/23/24 03:02 08/23/24 03:02 Oxygen Delivery Method Room Air Weight: 131.451 kg Body Mass Index (BMI) 41.5 Intake & Output: Intake and Output for Last 24 Hours 08/21/24 08/22/24 08/23/24 23:59 23:59 23:59 Intake Total 2960 / 3360 2820 / 2820 850 / 850 Balance 2960 / 3360 2820 / 2820 850 / 850 Lab / Micro Data 08/21/24 05:31 08/21/24 05:31 Labs: Laboratory Results - last 24 hr 08/22/24 11:04: POC Glucose 145 H 08/22/24 16:25: POC Glucose 120 H 08/22/24 17:49: Vancomycin Trough 21.7 H 08/22/24 20:29: POC Glucose 125 H 08/23/24 01:28: Random Vancomycin 13.7 08/23/24 06:02: POC Glucose 114 H Micro: Microbiology 08/20/24 12:43 Wound - Left Foot Gram Stain - Final 08/20/24 12:43 Wound - Left Foot Wound Culture - Preliminary Pseudomonas aeruginosa Serratia marcescens Klebsiella oxytoca Staphylococcus aureus Staphylococcus aureus#2 Alpha hemolytic organism 08/20/24 13:50 Wound Abcess - Heel, Left Gram Stain - Final 08/20/24 13:50 Wound Abcess - Heel, Left Wound Culture - Preliminary GNR Poss Pseudomonas sp Serratia marcescens Klebsiella oxytoca Staphylococcus aureus Alpha hemolytic organism 08/20/24 13:50 Wound Abcess - Heel, Left Anaerobic Culture - Preliminary Checking for anaerobes, further studies to follow. 08/20/24 12:05 Blood Culture (Wb) - Anticubital Left Blood Culture - Preliminary No growth in 48 hours. 08/20/24 12:05 Blood Culture (Wb) - Left Hand Blood Culture - Preliminary No growth in 48 hours. 08/20/24 10:18 Mucosa - Nose SARS-CoV-2, Influenza & RSV (PCR) - Final Physical Exam Const alert, oriented x3 and no apparent distress General Appearance: cooperative HEENT normocephalic Eyes General Eye: normal appearance of both eyes Neck General: normal visual inspection Lymph Lymphatic: no lymphadenopathy noted and no lymphedema noted Resp normal respiratory effort Cardio regular rate and regular rhythm Extremity no calf tenderness and no pedal edema Extremity Narrative: Left lower extremity: Vascular: Anterior tibial arteries palpable at the level of the ankle mortise, PT pulse palpable. Normal temperature gradient. Chopart Amputation noted. Neurologic: Gross sensation intact. Protective sensation is absent secondary to diabetic peripheral polyneuropathy. Musculoskeletal: Chopart Amputation noted. No range of motion secondary to tibial talocalcaneal arthrodesis with intact intramedullary kenji. No pain to palpation about the plantar ulceration site. No pain to palpation of calf. Dermatologic: There is a full-thickness plantar ulceration of the Chopart Amputation stump. Localized erythema about the site of ulceration is starting to recede. Packing in place left plantar calcaneus s/p bedside debridement. 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: (2) Abscess of left foot: (3) Cellulitis of heel, left: (4) Ankle osteomyelitis, left: (5) History of Chopart amputation of left foot: (6) Diabetes mellitus with diabetic polyneuropathy: (7) Diabetic foot ulcer: QUALIFIERS: Diabetes mellitus type: type 2 Diabetic foot ulcer location: toe Laterality: right Non-pressure ulcer stage: with fat layer exposed Qualified Code(s): E11.621 - Type 2 diabetes mellitus with foot ulcer; L97.512 - Non-pressure chronic ulcer of other part of right foot with fat layer exposed; L97.512 - Non-pressure chronic ulcer of other part of right foot with fat layer exposed; L97.512 - Non-pressure chronic ulcer of other part of right foot with fat layer exposed; L97.512 - Non-pressure chronic ulcer of other part of right foot with fat layer exposed PLAN: Plan Patient seen and evaluated Left lower extremity: There is a full-thickness plantar ulceration of the Chopart Amputation stump. Localized erythema about the site of ulceration is starting to recede. Packing in place left plantar calcaneus s/p bedside debridement. WBC 9.7; ESR 120; CRP 136 HgbA1c 10.1% Culture of abscess was obtained and demonstrates PsA, Serratia marcescens, Klebs oxytoca, staph aureus, alpha hemolytic organism. Staph aureus protein A PCR positive; MRSA PCR negative LEAS 08/20/24: Triphasic DP and PT pulses bilateral lower extremity. Right indices PT 1.19, DP 1.09; Left indices PT 1.28, DP 1.10. No evidence of arterial occlusive disease. Radiograph left foot 08/20/2024: Interpretation status post amputation of tarsals metatarsals. Prior arthrodesis of the tibial calcaneal joint. 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 Diffuse soft tissue swelling with air seen in soft tissue suggestive of infection. I have independently reviewed radiographic imaging and findings and do agree with the findings however there does appear to be plantar subsidence of the intramedullary kenji through the plantar calcaneus with evidence of hardware loosening. There is also hazy appearance of the tibia/calcaneal arthrodesis site with posterior fragmentation and cortical erosion consistent with chronic osteomyelitis. There is evidence of diffuse soft tissue swelling and soft tissue air about the lower extremity consistent with ongoing infectious process. CT scan performed of left lower extremity demonstrating subsidence of the intramedullary nail in addition to fragmentation and degenerative changes about the talocrural and subtalar joint arthrodesis sites. Wound site has been packed and a Dakin's dressing applied. Nonweightbearing status left lower extremity Currently on IV vancomycin/Zosyn Medicine team currently following for medical management, they are appreciated Plastic surgery following for likely BKA of the left lower extremity Vascular surgery consult for assessment and optimization of left lower extremity for optimal healing outcome pending BKA ID consulted for antibiotic management Wound nurse consulted for assistance with dressing change I have discussed with the patient attempt of lower extremity salvage versus BKA of her left lower extremity. I discussed with the patient that this would be staged intervention and attempts to perform salvage. Discussed she would require PICC line with 6 to 8 weeks of IV antibiotics; surgical intervention of the left lower extremity to remove infected hardware containing screws and intramedullary kenji, I&D, in addition to bone biopsy of the calcaneus and distal tibia. Discussed post completion of antibiotic she would require intervention for obtaining new bone biopsy to rule out infectious process and ensure clearing of current infection. Discussed following this she would then be returned to the OR to undergo placement of another intramedullary kenji to create stable fusion/fixation and promote stable weightbearing limb. Discussed this also may include continued debridement with applications of advanced wound care product/grafting product to aid in healing of ulcerative sites. Discussed she would most likely require AFO/bracing post intervention to aid in increasing stability/augmenting fusion site for ambulation. Patient states she is understanding of this lengthy process and does not want to undergo another year of multiple surgeries and attempts to salvage current limb. Patient states she is interested in definitive treatment of BKA as she feels despite undergoing multiple surgeries she may end up with a BKA despite intervention. I have discussed that this is a legitimate concern and her reasoning is sound to request BKA. I have discussed with with her my concerns of current osteomyelitis of the calcaneus and distal tibia is most likely extensive tracking along the intramedullary eknji of the lower extremity, in addition to difficulty with continued ambulation of her current Chopart amputation stump salvage of this lower extremity is unlikely. I have discussed the BKA procedure with the patient and she confirms that she would like to undergo this procedure for definitive treatment and to prevent continued spread of the infection proximally in order to avoid potential AKA, sepsis, and loss of life. We discussed the above today 08/23/2024 and patient is still willing to proceed forward with the BKA of the left lower extremity. Findings discussed with plastic surgery, Dr. Dodd. Will coordinate plan of care moving forward to optimize healing status prior to BKA. Podiatry will remain on board following from a distance if needed for removal of the surgical hardware to optimize BKA outcome. Jr. Isabel Abad.P.M. [facility] [phone]
[2024-08-23 09:40] VITALS: BP 115/74; PULSE 91; RESP 16; TEMP 36.4; O2SAT 98
[2024-08-23] MEDS: Insulin Lispro 100 UNIT/ML INSULN.PEN SC (11:04)
[2024-08-23 11:07] VITALS: BP 110/76; PULSE 97; RESP 16; TEMP 36.3; O2SAT 100
[2024-08-23 11:23] LABS: Bedside Glucose 184 mg/dL (74-106)
--- NOTE | 2024-08-23 11:30 | PCM.PN.SRG ---
Subjective Subjective Subjective: No fevers or chills. Pain controlled. Reports better dietary choices over the last couple of days and better BG control. Interval 24 hours: Vascular surgeon has agreed that she can heal a BKA based on the ABIs. Polymicrobial infection on cultures. Objective Data Objective Data Vital Signs: Vital Signs Temp Pulse Resp BP Pulse Ox O2 Del Method 97.4 F L 97 16 110/76 100 Room Air 08/23/24 11:07 08/23/24 11:07 08/23/24 11:07 08/23/24 11:07 08/23/24 11:07 08/23/24 11:07 Oxygen Delivery Method Room Air Weight: 289 lb 12.797 oz Body Mass Index (BMI) 41.5 Intake & Output: Intake and Output for Last 24 Hours 08/21/24 08/22/24 08/23/24 23:59 23:59 23:59 Intake Total 2960 / 3360 2820 / 2820 900 / 900 Balance 2960 / 3360 2820 / 2820 900 / 900 Lab / Micro Data 08/21/24 05:31 08/21/24 05:31 Labs: Laboratory Results - last 24 hr 08/22/24 16:25: POC Glucose 120 H 08/22/24 17:49: Vancomycin Trough 21.7 H 08/22/24 20:29: POC Glucose 125 H 08/23/24 01:28: Random Vancomycin 13.7 08/23/24 06:02: POC Glucose 114 H 08/23/24 11:03: POC Glucose 184 H Micro: Microbiology 08/20/24 13:50 Wound Abcess - Heel, Left Gram Stain - Final 08/20/24 13:50 Wound Abcess - Heel, Left Wound Culture - Preliminary Pseudomonas aeruginosa Serratia marcescens Klebsiella oxytoca Staphylococcus aureus Alpha hemolytic organism 08/20/24 13:50 Wound Abcess - Heel, Left Anaerobic Culture - Preliminary Checking for anaerobes, further studies to follow. 08/20/24 12:43 Wound - Left Foot Gram Stain - Final 08/20/24 12:43 Wound - Left Foot Wound Culture - Preliminary Pseudomonas aeruginosa Serratia marcescens Klebsiella oxytoca Staphylococcus aureus Staphylococcus aureus#2 Alpha hemolytic organism 08/20/24 12:05 Blood Culture (Wb) - Anticubital Left Blood Culture - Preliminary No growth in 48 hours. 08/20/24 12:05 Blood Culture (Wb) - Left Hand Blood Culture - Preliminary No growth in 48 hours. 08/20/24 10:18 Mucosa - Nose SARS-CoV-2, Influenza & RSV (PCR) - Final Physical Exam Narrative Left lower extremity: Inspection/palpation Status post Chopart amputation. Left foot with plantar surface wound over the heel that probes to bone and is 3 x 1 cm. Surrounding induration/cellulitis has dissipated. No remaining fluid in the wound No crepitus or signs of ascending infection. Vascular: No palpable pulses on the distal left lower extremity but the tissue is warm. Sensation: Limited sensation on the plantar surface. Right lower extremity: No wound Const alert, oriented x3 and no apparent distress General Appearance: cooperative HEENT normocephalic Eyes General Eye: normal appearance of both eyes Neck General: normal visual inspection Lymph Lymphatic: no lymphadenopathy noted and no lymphedema noted Resp normal respiratory effort Cardio regular rate and regular rhythm Extremity no calf tenderness and no pedal edema Skin no rashes or lesions noted and skin turgor normal Neuro moves all extremities Assessment & Plan Assessment/Plan (1) History of Chopart amputation of left foot: (2) Wound of foot: PLAN: Wound probes to bone Concern for osteomyelitis Given that there is hardware/potential for undrained fluid collections, recommending CT scan with contrast. I believe I did drain the existing fluid in the wound and I packed the wound with Kerlix. Recommend Dakin's wet to dry dressings twice daily for now as well as pressure offloading. Agree with admission to medicine for IV antibiotics for cellulitis and for workup and tight sugar control. I am recommending ankle-brachial indices to assess lower extremity vascular status and potential vascular surgery intervention to improve blood flow in anticipation for either limb salvage or below-knee amputation. I talked to the patient extensively today about lower extremity salvage and the reasons that we try to save diabetic limbs with wounds. I talked to her about my concerns with her blood glucose control, as well as concerns for healing potential if there is existing vascular insufficiency. I talked to her about the increase in effort and work (25 to 40% increase in energy expenditure with a below-knee amputation). I agree with the podiatry/foot and ankle team consultation to give their input on salvage/assess hardware. Plastic surgery will follow. Plan from 21 Aug 2024: Cellulitis improving. Will discuss ABIs with vascular surgeon, Dr. Murrell (left posterior tibial calcified with 1.28, while dorsalis pedis WNL at 1.1). Podiatry discuss with Ms. Cutler concerns for osteomyelitis and need for hardware remove, bone cultures, long-term IV antibiotics, followed by revision of ankle fusion. She is not interested in limb salvage. [facility] will anticipate discussion with vascular regarding any further studies in setting of calcified LLE vessels. Anticipate elective (scheduled) below-knee amputation once patient is optimized. Continue broad-spectrum antibiotics and f/u cultures. Tight glucose control (sugars have been labile during hospital admission thus far in the 200s) Plan from 23 Aug 2024: Discussed with Dr. Murrell, vascular surgery. We will plan for below knee amputation (potentially later this week, currently coordinating for BKA with possible TMR).
--- NOTE | 2024-08-23 14:28 | CON.PCM.ID_ITS ---
Assessment & Plan Assessment/Plan (1) Diabetes mellitus with diabetic polyneuropathy: (2) Ankle osteomyelitis, left: PLAN: Wound cx with polymicrobial growth. BKA planned, cont with empiric broad coverage with vanc/zosyn Will follow, thank you, d/w employment evaluator/case manager HPI Consult Data Date of Consult: 08/23/24 HPI Narrative Reason for Consultation: osteo HPI Narrative: QUINTIN COBOS, is a 43 F with DM neuropathy, prior RLE amputation, presented with several weeks worsening ulcer on L foot. Seen by podiatry and vascular. No pain in foot. No fever, no n/v/d. Tolerating abx well. Plan is for BKA later this week. Full ROS performed and neg except as noted above. [facility] Medical History Anxiety Depression Kidney disease IBS (irritable bowel syndrome) Type 2 diabetes mellitus Peripheral neuropathy Vitamin B 12 deficiency History of gallstones Microalbuminuria due to type 2 diabetes mellitus Obesity Diabetes Polyneuropathy due to type 2 diabetes mellitus H/O emotional problems UTI (urinary tract infection) Arthritis Amputation of left foot Amputated toe of right foot Amputated toe of left foot Diabetic neuropathy Hypertension Diabetes Anxiety and depression GERD (gastroesophageal reflux disease) Home Medications ?Medication ?Instructions ?Recorded ?Last Taken ?Type cholecalciferol (vitamin D3) 25 2,000 unit PO DAILY HARTMAN PPLEMENT 04/18/16 12/30/20 History mcg (1,000 unit) tablet (Vitamin D3) cyanocobalamin (vitamin B-12) 100 mcg PO DAILY SUPPLEM ENT 04/18/16 12/30/20 History 1,000 mcg tablet duloxetine 60 mg capsule,delayed 60 mg PO DAILY ANXIET Y 04/18/16 12/30/20 History release bupropion HCl 150 mg 24 hr tablet, 150 mg PO DAILY DEP RESSION 06/12/17 12/30/20 History extended release omeprazole 40 mg capsule,delayed 40 mg PO DAILY ACID R EFLUX 06/12/17 12/30/20 History release pen needle, diabetic 32 gauge x #50 ea 07/27/21 Unknow n Rx (BD Ultra-Fine Dhara Pen Needle) OneTouch Verio test strips (blood #50 ea 09/18/22 Unkn own Rx sugar diagnostic) atorvastatin 20 mg tablet 20 mg PO DAILY 08/20/24 Unkn own History docusate sodium 100 mg capsule 100 mg PO BID 08/20/24 Unknown History (Col-Rite) insulin glargine 100 unit/mL (3 20 unit subcut .mornin g 08/20/24 Unknown History mL) subcutaneous pen (Lantus Solostar U-100 Insulin) insulin lispro 100 unit/mL 1 sliding scale dose subcut 08/20/24 Unknown History subcutaneous pen .before meals lisinopril 10 mg tablet 10 mg PO DAILY 08/20/24 Unkn own History Allergy/AdvReac Type Severity Reaction Status Date / Time gabapentin (From Gabarone) Allergy Angioedema Verified 08/20/24 09:48 Family History Mother Diabetes CVA (cerebral vascular accident) Father Hypertension Other Alcohol abuse Anxiety Arthritis Blood clot in vein Depression H/O transfusion of whole blood Mental disorder Surgical History History of 2 sections History of cholecystectomy History of tonsillectomy H/O amputation H/O: hysterectomy Social History household members: spouse, family, children and other details: Father in law Smoking Status: Never smoker alcohol intake: never substance use type: does not use Physical Exam Const alert, oriented x3 and no apparent distress General Appearance: cooperative HEENT normocephalic and head/scalp atraumatic Eyes PERRL and EOMs intact bilaterally Neck supple and No nodes Resp normal air movement and clear to auscultation bilaterally Cardio regular rate and regular rhythm GI soft to palpation, non-tender and non-distended Extremity General Extremity: Negative for edema Skin Skin Narrative: LLE wrapped Lab / Micro Data Attestation: I reviewed the patient's lab results. 08/21/24 05:31 08/21/24 05:31 Labs: Laboratory Results - last 24 hr 08/22/24 16:25: POC Glucose 120 H 08/22/24 17:49: Vancomycin Trough 21.7 H 08/22/24 20:29: POC Glucose 125 H 08/23/24 01:28: Random Vancomycin 13.7 08/23/24 06:02: POC Glucose 114 H 08/23/24 11:03: POC Glucose 184 H Micro: Microbiology 08/20/24 13:50 Wound Abcess - Heel, Left Gram Stain - Final 08/20/24 13:50 Wound Abcess - Heel, Left Wound Culture - Preliminary Pseudomonas aeruginosa Serratia marcescens Klebsiella oxytoca Staphylococcus aureus Alpha hemolytic organism 08/20/24 13:50 Wound Abcess - Heel, Left Anaerobic Culture - Preliminary Checking for anaerobes, further studies to follow. 08/20/24 12:43 Wound - Left Foot Gram Stain - Final 08/20/24 12:43 Wound - Left Foot Wound Culture - Preliminary Pseudomonas aeruginosa Serratia marcescens Klebsiella oxytoca Staphylococcus aureus Staphylococcus aureus#2 Alpha hemolytic organism 08/20/24 12:05 Blood Culture (Wb) - Anticubital Left Blood Culture - Preliminary No growth in 48 hours. 08/20/24 12:05 Blood Culture (Wb) - Left Hand Blood Culture - Preliminary No growth in 48 hours.
[2024-08-23 15:35] VITALS: BP 124/63; PULSE 95; RESP 16; TEMP 36.6; O2SAT 99
[2024-08-23 15:52] LABS: Bedside Glucose 103 mg/dL (74-106)
--- NOTE | 2024-08-23 16:43 | PCM.PN.HOSP ---
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 (08/20/24) Non-pressure chronic ulcer of other part of right foot with fat layer exposed (08/20/24) Osteomyelitis, unspecified (08/20/24) Unspecified open wound, unspecified foot, initial encounter (08/20/24) Acquired absence of left foot (08/20/24) Objective Data Objective Data Vital Signs: Vital Signs Temp Pulse Resp BP Pulse Ox O2 Del Method 97.8 F 95 16 124/63 H 99 Room Air 08/23/24 15:35 08/23/24 15:35 08/23/24 15:35 08/23/24 15:35 08/23/24 15:35 08/23/24 15:35 Oxygen Delivery Method Room Air Weight: 289 lb 12.797 oz Body Mass Index (BMI) 41.5 Intake & Output: Intake and Output for Last 24 Hours 08/21/24 08/22/24 08/23/24 23:59 23:59 23:59 Intake Total 2960 / 3360 2820 / 2820 1350 / 1350 Balance 2960 / 3360 2820 / 2820 1350 / 1350 Lab / Micro Data 08/21/24 05:31 08/21/24 05:31 Labs: Laboratory Results - last 24 hr 08/22/24 16:25: POC Glucose 120 H 08/22/24 17:49: Vancomycin Trough 21.7 H 08/22/24 20:29: POC Glucose 125 H 08/23/24 01:28: Random Vancomycin 13.7 08/23/24 06:02: POC Glucose 114 H 08/23/24 11:03: POC Glucose 184 H 08/23/24 15:27: POC Glucose 103 Micro: Microbiology 08/20/24 13:50 Wound Abcess - Heel, Left Gram Stain - Final 08/20/24 13:50 Wound Abcess - Heel, Left Wound Culture - Final Pseudomonas aeruginosa Serratia marcescens Klebsiella oxytoca Staphylococcus aureus Streptococcus mitis/ oralis 08/20/24 13:50 Wound Abcess - Heel, Left Anaerobic Culture - Preliminary Checking for anaerobes, further studies to follow. 08/20/24 12:43 Wound - Left Foot Gram Stain - Final 08/20/24 12:43 Wound - Left Foot Wound Culture - Final Pseudomonas aeruginosa Serratia marcescens Klebsiella oxytoca Staphylococcus aureus Staphylococcus aureus#2 Streptococcus pseudoporcinus 08/20/24 12:05 Blood Culture (Wb) - Anticubital Left Blood Culture - Preliminary No growth in 48 hours. 08/20/24 12:05 Blood Culture (Wb) - Left Hand Blood Culture - Preliminary No growth in 48 hours. 08/20/24 10:18 Mucosa - Nose SARS-CoV-2, Influenza & RSV (PCR) - Final Physical Exam Narrative Seen and examined Patient with history of diabetes mellitus, diabetic polyneuropathy and nonhealing, worsening left heel ulcer after forefoot amputation for last 2 months. Physical exam General: Alert, Oriented x3, Cooperative HEENT: Atraumatic, PERRLA, EOMI, Normocephalic Oral: No Gingival or Mucosal Lesions/ Ulcerations Neck: Supple, No JVD, Negative Carotid Bruits Chest wall/Lungs: Air entry diminished in bilateral lung bases. No crepitation/rhonchi Cardiovascular: Regular rate, Regular Rhythm, Normal S1, Normal S2, No M/G/R. 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 Abdomen: Bowel Sounds Present, Soft, Non Tender, Non-Distended : No dysuria. No renal angle tenderness. No suprapubic tenderness. Extremities: No edema, Capillary Refill Less than 3 Seconds Skin: Left heel ulcer nonhealing. Covered with a dressing. Right heel amputation stump had healed. Musculoskeletal: No Tenderness to Palpation of Joints or Extremities Neurological: Cranial nerves II-XII grossly intact, DTR 2+/4. Neuropathy. Mild sensation in lower legs. Psych/Mental Status: Flat affect. Assessment & Plan Assessment/Plan (1) Wound of foot: PLAN: Plan 1. 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 Polymicrobial growth. Patient was evaluated by ID and recommended to continue empiric broad-spectrum antibiotic, vancomycin and Zosyn. Plan for BKA later this week. Plastic surgery Dr. Dodd actively involved. 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 Accu-Chek before meals and at bedtime with Humalog sliding scale coverage and hypoglycemia protocol. #3 Chronic peripheral arterial disease: Being followed by vascular surgery 4. Class III obesity-complicates care, management, recovery, and prognosis 5. Chronic anxiety and depression-patient will remain on her outpatient psychiatric medications Microbiology Past 72 Hours 08/20/24 13:50 Wound Abcess - Heel, Left Gram Stain - Final 08/20/24 13:50 Wound Abcess - Heel, Left Wound Culture - Final Pseudomonas aeruginosa Serratia marcescens Klebsiella oxytoca Staphylococcus aureus Streptococcus mitis/ oralis 08/20/24 13:50 Wound Abcess - Heel, Left Anaerobic Culture - Preliminary Checking for anaerobes, further studies to follow. 08/20/24 12:43 Wound - Left Foot Gram Stain - Final 08/20/24 12:43 Wound - Left Foot Wound Culture - Final Pseudomonas aeruginosa Serratia marcescens Klebsiella oxytoca Staphylococcus aureus Staphylococcus aureus#2 Streptococcus pseudoporcinus 08/20/24 12:05 Blood Culture (Wb) - Anticubital Left Blood Culture - Preliminary No growth in 48 hours. 08/20/24 12:05 Blood Culture (Wb) - Left Hand Blood Culture - Preliminary No growth in 48 hours. Laboratory Results 08/22/24 17:49: Vancomycin Trough 21.7 H 08/22/24 20:29: POC Glucose 125 H 08/23/24 01:28: Random Vancomycin 13.7 08/23/24 06:02: POC Glucose 114 H 08/23/24 11:03: POC Glucose 184 H 08/23/24 15:27: POC Glucose 103 Charges/Coding Visit Charges Inpatient E&M: 25830 Subs Hosp L2
[2024-08-23 21:51] VITALS: BP 137/75; PULSE 97; RESP 16; TEMP 36.2; O2SAT 98
[2024-08-23] MEDS: Temazepam 15 MG Capsule 30 MG PO (22:03)
[2024-08-23] MEDS: DAKIN'S SOL HALF STRENGTH (=0.25%) TOPICAL (22:03)
[2024-08-23 22:51] LABS: Bedside Glucose 111 mg/dL (74-106)
[2024-08-24 02:08] VITALS: BP 113/62; PULSE 84; RESP 14; TEMP 36.4; O2SAT 98
[2024-08-24 02:43] LABS: Vancomycin, Trough Level 18.8 ug/mL (5.0-15.0)
--- NOTE | 2024-08-24 02:50 | PCM.RX.CS ---
Consult Antibiotic Management Pharmacy has been consulted to manage selected antibiotic: Vancomycin Type of Intervention Type of Consult: Follow-up Labs Labs: Sodium 134 mmol/L (136-145) L 08/21/24 05:31 Potassium 3.3 mmol/L (3.5-5.1) L 08/21/24 05:31 Chloride 104 mmol/L (98-107) 08/21/24 05:31 Carbon Dioxide 22.0 mmol/L (21.0-32.0) 08/21/24 05:31 Anion Gap 9 (5-15) 08/21/24 05:31 BUN 8 mg/dL (7-18) 08/21/24 05:31 Creatinine 0.85 mg/dL (0.55-1.02) 08/21/24 05:31 Est GFR (MDRD) Af Amer 93 mL/min (>60) 08/21/24 05:31 Est GFR (MDRD) Non-Af 77 mL/min (>60) 08/21/24 05:31 BUN/Creatinine Ratio 9.4 RATIO (10-20) L 08/21/24 05:31 Glucose 234 mg/dL (74-106) H 08/21/24 05:31 Vancomycin Trough 18.8 ug/mL (5.0-15.0) H 08/24/24 02:07 Random Vancomycin 13.7 ug/mL (0.0-15.0) 08/23/24 01:28 Microbiology Microbiology: Microbiology 08/20/24 13:50 Wound Abcess - Heel, Left Gram Stain - Final 08/20/24 13:50 Wound Abcess - Heel, Left Wound Culture - Final Pseudomonas aeruginosa Serratia marcescens Klebsiella oxytoca Staphylococcus aureus Streptococcus mitis/ oralis 08/20/24 13:50 Wound Abcess - Heel, Left Anaerobic Culture - Preliminary Checking for anaerobes, further studies to follow. 08/20/24 12:43 Wound - Left Foot Gram Stain - Final 08/20/24 12:43 Wound - Left Foot Wound Culture - Final Pseudomonas aeruginosa Serratia marcescens Klebsiella oxytoca Staphylococcus aureus Staphylococcus aureus#2 Streptococcus pseudoporcinus 08/20/24 12:05 Blood Culture (Wb) - Anticubital Left Blood Culture - Preliminary No growth in 48 hours. 08/20/24 12:05 Blood Culture (Wb) - Left Hand Blood Culture - Preliminary No growth in 48 hours. 08/20/24 10:18 Mucosa - Nose SARS-CoV-2, Influenza & RSV (PCR) - Final Dosing Weight Weight used for dosin kg Estimated Creatinine Clearance Estimated Creatinine Clearance: 125 Goal Trough Goal Trough: 15-20 mcg/mL Pharmacy Plan for Drug Dosing Pharmacy Plan for Drug Dosing: Vancomycin trough level of 18.8, drawn 8hrs post-dose, was within the target range of 15-20. Will continue dosing at 1000mg q8h, and will draw another trough level in two days. Pharmacy Service will continue to monitor and adjust dosing as required. Follow-Up Labs Follow-Up Labs: Trough: Vancomycin Date/Time Labs Ordered Labs to be done on [date and time ordered]: 08/26/24 @0200
[2024-08-24] MEDS: Vancomycin IV 1,000 MG/200 ML BAG 200 MG IV ×3 (02:58→18:05)
[2024-08-24] MEDS: Piperacil/Tazobactam 3.375 GM in 0.9% Normal Saline (50mL MB+) 50 ML IV ×3 (05:40→22:22)
[2024-08-24 06:02] LABS: Bedside Glucose 100 mg/dL (74-106)
[2024-08-24 06:37] LABS: Absolute Lymphocyte Count 2.19 X10^3/uL (0.83-4.51); Absolute Neutrophil Count 7.3 X10^3/uL (2.0-7.7); Basophil# 0.07 X10^3/uL; Basophil% 0.7 % (0-1); Eosinophil# 0.31 X10^3/uL; Eosinophils% 2.9 % (0-5); Hematocrit 32.1 % (37-47); Hemoglobin 9.4 g/dL (12.0-15.0); Lymphocyte # 2.19 X10^3/ul (0.83-4.51); Lymphocyte % 20.5 % (19-41); Mean Corp Hgb Conc 29.3 g/dL (32-36); Mean Corpuscular Hgb 19.8 pg (27.0-32.0); Mean Corpuscular Volume 67.7 fL (81-99); Mean Platelet Vol. 8.8 fl (6.2-12.0); Monocyte# 0.71 X10^3/uL; Monocyte% 6.6 % (0-10); NRBC Flagged by Analyzer 0 % (0-5); Neutrophil # 7.27 X10^3/uL (2.7-7.7); Neutrophil % 67.9 % (47-70); Platelet Count 392 K/mm3 (150-450); RBC Distribution Width CV 19.3 % (11.6-14.6); Red Blood Count 4.74 M/mm3 (4.2-5.4); White Blood Count 10.7 K/mm3 (4.4-11.0)
[2024-08-24 07:08] LABS: Anion Gap 16 (5-15); BUN 11 mg/dL (7-18); BUN/Creat Ratio 14.7 RATIO (10-20); Calcium,Total 9.1 mg/dL (8.5-10.1); Chloride 100 mmol/L (98-107); Creatinine, Serum 0.75 mg/dL (0.55-1.02); EST Glomerular Filtration Rate 89 mL/min (>60); Est Glom Filt Rate - Afr Amer 108 mL/min (>60); Estimated Creatinine Clearance 141.56 ml/min; Glucose 107 mg/dL (74-106); Potassium 3.5 mmol/L (3.5-5.1); Sodium Level 133 mmol/L (136-145)
[2024-08-24] MEDS: Lisinopril 10 MG Tablet PO (08:39)
[2024-08-24] MEDS: Cyanocobalamin 500 MCG Tablet 1000 MCG PO (08:40)
[2024-08-24] MEDS: Empagliflozin 25 MG Tablet PO (08:40)
[2024-08-24] MEDS: buPROPion (XL) 150 MG TABLET.XL PO (08:40)
[2024-08-24] MEDS: Cholecalciferol (VIT D3) 25 MCG TABLET (1,000 UNITS) 50 MCG PO (08:40)
[2024-08-24] MEDS: Pantoprazole Sodium 40 MG Tablet PO (08:40)
[2024-08-24] MEDS: DULoxetine Hcl 60 MG Capsule PO (08:40)
--- NOTE | 2024-08-24 09:01 | PCM.PN.SRG ---
Subjective Subjective Patient is doing well. She has minimal discomfort. She is denying fever or chills. Objective Data Objective Data Vital Signs: Vital Signs Temp Pulse Resp BP Pulse Ox O2 Del Method 97.2 F L 87 16 109/70 100 Room Air 08/24/24 11:43 08/24/24 11:43 08/24/24 11:43 08/24/24 11:43 08/24/24 11:43 08/24/24 11:43 Oxygen Delivery Method Room Air Weight: 289 lb 12.797 oz Body Mass Index (BMI) 41.5 Intake & Output: Intake and Output for Last 24 Hours 08/22/24 08/23/24 08/24/24 23:59 23:59 23:59 Intake Total 2820 / 2820 1600 / 1600 900 / 900 Balance 2820 / 2820 1600 / 1600 900 / 900 Lab / Micro Data Attestation: I reviewed the patient's lab results. 08/24/24 05:57 08/24/24 05:57 Labs: Laboratory Results - last 24 hr 08/23/24 15:27: POC Glucose 103 08/23/24 21:57: POC Glucose 111 H 08/24/24 02:07: Vancomycin Trough 18.8 H 08/24/24 05:43: POC Glucose 100 08/24/24 05:57: WBC 10.7, RBC 4.74, Hgb 9.4 L, Hct 32.1 L, MCV 67.7 L, MCH 19.8 L, MCHC 29.3 L, RDW Std Deviation 46.0 H, RDW Coeff of Maria E 19.3 H, Plt Count 392, MPV 8.8, Immature Gran % (Auto) 1.400 H, Neut % (Auto) 67.9, Lymph % (Auto) 20.5, Gentry % (Auto) 6.6, Eos % (Auto) 2.9, Baso % (Auto) 0.7, Absolute Neuts (auto) 7.3, Absolute Lymphs (auto) 2.19, Nucleated RBC % 0, Sodium 133 L, Potassium 3.5, Chloride 100, Carbon Dioxide 17.0 L, Anion Gap 16 H, BUN 11, Creatinine 0.75, Estim Creat Clear Calc 141.56, Est GFR (MDRD) Af Amer 108, Est GFR (MDRD) Non-Af 89, BUN/Creatinine Ratio 14.7, Glucose 107 H, Calcium 9.1 08/24/24 10:46: POC Glucose 88 Micro: Microbiology 08/20/24 13:50 Wound Abcess - Heel, Left Gram Stain - Final 08/20/24 13:50 Wound Abcess - Heel, Left Wound Culture - Final Pseudomonas aeruginosa Serratia marcescens Klebsiella oxytoca Staphylococcus aureus Streptococcus mitis/ oralis 08/20/24 13:50 Wound Abcess - Heel, Left Anaerobic Culture - Final Anaerobic cocci 08/20/24 12:43 Wound - Left Foot Gram Stain - Final 08/20/24 12:43 Wound - Left Foot Wound Culture - Final Pseudomonas aeruginosa Serratia marcescens Klebsiella oxytoca Staphylococcus aureus Staphylococcus aureus#2 Streptococcus pseudoporcinus 08/20/24 12:05 Blood Culture (Wb) - Anticubital Left Blood Culture - Preliminary No growth in 48 hours. 08/20/24 12:05 Blood Culture (Wb) - Left Hand Blood Culture - Preliminary No growth in 48 hours. 08/20/24 10:18 Mucosa - Nose SARS-CoV-2, Influenza & RSV (PCR) - Final Physical Exam Const alert and oriented x3 General Appearance: cooperative HEENT normocephalic Eyes General Eye: normal appearance of both eyes Neck full ROM Lymph Lymphatic: no lymphedema noted Resp Effort and Inspection: able to speak in complete sentences Cardio regular rate and regular rhythm Extremity full ROM and normal capillary refill Skin Wound Narrative: Left plantar foot ulcer that probes to bone. No erythema surrounding it any longer. No sensation of pain with dressing changes. Neuro oriented x3 Psych mental status grossly normal and thought process normal Appearance: appropriate Activity / Motor Behavior: appropriate eye contact Speech: normal speech Thought Process: normal thought process Thought Content: normal thought content Attention / Concentration: attention grossly intact Insight: insight good Judgement: judgement good Assessment & Plan Assessment/Plan (1) Wound of foot: (2) Diabetes mellitus with diabetic polyneuropathy: (3) History of Chopart amputation of left foot: PLAN: Plan Patient is is stable. Wound care is Dakin's O.25% moistened gauze packed into the base of the ulcer and covered with ABD/Kerlix twice daily. She is tolerating dressing changes well. Wound cultures from 08/20/24 positive for Pseudomonas aeruginosa, Serratia marcescens, Klebsiella oxytoca, Staphylococcus aureus, Streptococcus mitis/oralis, and Anaerobic cocci. ID is managing antibiotics of Vancomycin and Zosyn. Had in depth conversation about blood sugar control [facility]. 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 HgbA1c 10.1 on 08/20/24. Arterial study 08/20/24 which showed left VICTORIA 1.28 with triphasic wave forms at ankle level. Plan is for surgery 08/26/[address] Murrell for left BKA and Dr. Dodd for TMR.
[2024-08-24 09:29] VITALS: BP 127/79; PULSE 88; RESP 16; TEMP 36.1; O2SAT 100
--- NOTE | 2024-08-24 10:09 | CON.PCM.SX_ITS ---
Assessment & Plan Assessment/Plan (1) Wound of foot: (2) Diabetes mellitus with diabetic polyneuropathy: PLAN: Plan Agree that L BKA is indicated. She appears to have sufficient inflow to expect to heal BKA by exam and arterial study results. I discussed with patient at length BKA procedure details including procedure itself, risks (including but not limited to bleeding, infection, phantom pain) , benefits, and recovery including expectation of minimum of 4-6 weeks for the site to heal (possible this could be delayed or complicated secondary to her diabetes), process of obtaining prosthesis, and the process for returning to ambulation with prosthetic which while possible is not necessarily guaranteed and requires diligent work PT/OT. We discussed that many patients require placement for rehab/SNF postoperatively for a period of time. She acknowledged understanding of all the above, all her questions were answered, and she is agreeable to proceed. Will plan for L BKA with TMR in conjunction with plastic surgery Dr. Dodd, currently on OR scheduled for 08/26. HPI Consult Data Date of Consult: 08/24/24 HPI Narrative HPI Narrative: QUINTIN COBOS, is a 43 F who presented to the [facility] ER with L diabetic foot wound/abscess. She has prior bilateral TMAs. It appears she had L revision of amputation and Charcot joint with ankle fusion revision 07/09/24 and since then has had delayed healing and progressive signs/symptoms of infection. On admission here, IV antibiotics were initiated. She was seen in consultation by podiatry Dr. Yu; it was discussed that while limb salvage may be possible it would be a prolonged process with the need for multiple operations. As such, she determined that she would rather pursue more definitive intervention with BKA. Plastic surgery has also been consulted and concurs with recommendation for BKA with TMR. We are consulted for evaluation of arterial inflow prior to BKA as well as plan for vascular/plastic joint BKA procedure. She had an arterial study 08/20/2024 which demonstrated L VICTORIA 1.28 with triphasic waveforms throughout. No prior history of peripheral vascular intervention. [facility] Medical History Anxiety Depression Kidney disease IBS (irritable bowel syndrome) Type 2 diabetes mellitus Peripheral neuropathy Vitamin B 12 deficiency History of gallstones Microalbuminuria due to type 2 diabetes mellitus Obesity Diabetes Polyneuropathy due to type 2 diabetes mellitus H/O emotional problems UTI (urinary tract infection) Arthritis Amputation of left foot Amputated toe of right foot Amputated toe of left foot Diabetic neuropathy Hypertension Diabetes Anxiety and depression GERD (gastroesophageal reflux disease) Home Medications ?Medication ?Instructions ?Recorded ?Last Taken ?Type cholecalciferol (vitamin D3) 25 2,000 unit PO DAILY HARTMAN PPLEMENT 04/18/16 12/30/20 History mcg (1,000 unit) tablet (Vitamin D3) cyanocobalamin (vitamin B-12) 100 mcg PO DAILY SUPPLEM ENT 04/18/16 12/30/20 History 1,000 mcg tablet duloxetine 60 mg capsule,delayed 60 mg PO DAILY ANXIET Y 04/18/16 12/30/20 History release bupropion HCl 150 mg 24 hr tablet, 150 mg PO DAILY DEP RESSION 06/12/17 12/30/20 History extended release omeprazole 40 mg capsule,delayed 40 mg PO DAILY ACID R EFLUX 06/12/17 12/30/20 History release pen needle, diabetic 32 gauge x #50 ea 07/27/21 Unknow n Rx (BD Ultra-Fine Dhara Pen Needle) OneTouch Verio test strips (blood #50 ea 09/18/22 Unkn own Rx sugar diagnostic) atorvastatin 20 mg tablet 20 mg PO DAILY 08/20/24 Unkn own History docusate sodium 100 mg capsule 100 mg PO BID 08/20/24 Unknown History (Col-Rite) insulin glargine 100 unit/mL (3 20 unit subcut .mornin g 08/20/24 Unknown History mL) subcutaneous pen (Lantus Solostar U-100 Insulin) insulin lispro 100 unit/mL 1 sliding scale dose subcut 08/20/24 Unknown History subcutaneous pen .before meals lisinopril 10 mg tablet 10 mg PO DAILY 08/20/24 Unkn own History Allergy/AdvReac Type Severity Reaction Status Date / Time gabapentin (From Gabarone) Allergy Angioedema Verified 08/20/24 09:48 Family History Mother Diabetes CVA (cerebral vascular accident) Father Hypertension Other Alcohol abuse Anxiety Arthritis Blood clot in vein Depression H/O transfusion of whole blood Mental disorder Surgical History History of 2 sections History of cholecystectomy History of tonsillectomy H/O amputation H/O: hysterectomy Social History household members: spouse, family, children and other details: Father in law Smoking Status: Never smoker alcohol intake: never substance use type: does not use Physical Exam Const alert, oriented x3 and no apparent distress General Appearance: cooperative and comfortable HEENT normocephalic, head/scalp atraumatic, hearing grossly normal bilaterally, external ears normal and external nose normal Eyes General Eye: normal appearance of both eyes Neck General: normal visual inspection and trachea midline Resp normal respiratory effort, normal air movement, no retractions and no use of accessory muscles Cardio regular rate and regular rhythm Extremity Peripheral Pulses: Yes popliteal pulses present Skin Skin Narrative: L foot wound with dressings C/D/I, not removed for exam Neuro oriented x3, CN's II-XII intact bilaterally, moves all extremities, no focal motor deficits and no sensory deficits noted Psych mental status grossly normal Appearance: grossly normal Attitude: calm and engaged Activity / Motor Behavior: appropriate eye contact Speech: normal speech Mood & Affect: euthymic mood Judgement: judgement good Lab / Micro Data 08/24/24 05:57 08/24/24 05:57 Labs: Laboratory Results - last 24 hr 08/23/24 11:03: POC Glucose 184 H 08/23/24 15:27: POC Glucose 103 08/23/24 21:57: POC Glucose 111 H 08/24/24 02:07: Vancomycin Trough 18.8 H 08/24/24 05:43: POC Glucose 100 08/24/24 05:57: WBC 10.7, RBC 4.74, Hgb 9.4 L, Hct 32.1 L, MCV 67.7 L, MCH 19.8 L, MCHC 29.3 L, RDW Std Deviation 46.0 H, RDW Coeff of Maria E 19.3 H, Plt Count 392, MPV 8.8, Immature Gran % (Auto) 1.400 H, Neut % (Auto) 67.9, Lymph % (Auto) 20.5, Giles % (Auto) 6.6, Eos % (Auto) 2.9, Baso % (Auto) 0.7, Absolute Neuts (auto) 7.3, Absolute Lymphs (auto) 2.19, Nucleated RBC % 0, Sodium 133 L, Potassium 3.5, Chloride 100, Carbon Dioxide 17.0 L, Anion Gap 16 H, BUN 11, Creatinine 0.75, Estim Creat Clear Calc 141.56, Est GFR (MDRD) Af Amer 108, Est GFR (MDRD) Non-Af 89, BUN/Creatinine Ratio 14.7, Glucose 107 H, Calcium 9.1 Micro: Microbiology 08/20/24 13:50 Wound Abcess - Heel, Left Gram Stain - Final 08/20/24 13:50 Wound Abcess - Heel, Left Wound Culture - Final Pseudomonas aeruginosa Serratia marcescens Klebsiella oxytoca Staphylococcus aureus Streptococcus mitis/ oralis 08/20/24 13:50 Wound Abcess - Heel, Left Anaerobic Culture - Final Gram Positive Cocci 08/20/24 12:43 Wound - Left Foot Gram Stain - Final 08/20/24 12:43 Wound - Left Foot Wound Culture - Final Pseudomonas aeruginosa Serratia marcescens Klebsiella oxytoca Staphylococcus aureus Staphylococcus aureus#2 Streptococcus pseudoporcinus Charges/Coding Visit Charges Inpatient E&M: 45068 Init Hosp L2
--- NOTE | 2024-08-24 10:18 | WOUNDNOTE ---
wound photo: left foot
[2024-08-24] MEDS: Senna/Docusate Sodium 1 Tablet 2 TABLET PO ×2 (10:36→22:23)
[2024-08-24 11:40] LABS: Bedside Glucose 88 mg/dL (74-106)
[2024-08-24 11:43] VITALS: BP 109/70; PULSE 87; RESP 16; TEMP 36.2; O2SAT 100
[2024-08-24] MEDS: DAKIN'S SOL HALF STRENGTH (=0.25%) TOPICAL ×2 (15:37→22:23)
[2024-08-24 15:50] VITALS: BP 122/81; PULSE 100; RESP 16; TEMP 36.1; O2SAT 97
[2024-08-24 16:02] LABS: Bedside Glucose 124 mg/dL (74-106)
--- NOTE | 2024-08-24 16:21 | PN.HOSP_ITS ---
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 (08/20/24) Non-pressure chronic ulcer of other part of right foot with fat layer exposed (08/20/24) Osteomyelitis, unspecified (08/20/24) Unspecified open wound, unspecified foot, initial encounter (08/20/24) Acquired absence of left foot (08/20/24) Objective Data Objective Data Vital Signs: Vital Signs Temp Pulse Resp BP Pulse Ox O2 Del Method 97 F L 100 16 122/81 H 97 Room Air 08/24/24 15:50 08/24/24 15:50 08/24/24 15:50 08/24/24 15:50 08/24/24 15:50 08/24/24 15:50 Oxygen Delivery Method Room Air Weight: 289 lb 12.797 oz Body Mass Index (BMI) 41.5 Intake & Output: Intake and Output for Last 24 Hours 08/22/24 08/23/24 08/24/24 23:59 23:59 23:59 Intake Total 2820 / 2820 1600 / 1600 1220 / 1220 Balance 2820 / 2820 1600 / 1600 1220 / 1220 Lab / Micro Data 08/24/24 05:57 08/24/24 05:57 Labs: Laboratory Results - last 24 hr 08/23/24 21:57: POC Glucose 111 H 08/24/24 02:07: Vancomycin Trough 18.8 H 08/24/24 05:43: POC Glucose 100 08/24/24 05:57: WBC 10.7, RBC 4.74, Hgb 9.4 L, Hct 32.1 L, MCV 67.7 L, MCH 19.8 L, MCHC 29.3 L, RDW Std Deviation 46.0 H, RDW Coeff of Maria E 19.3 H, Plt Count 392, MPV 8.8, Immature Gran % (Auto) 1.400 H, Neut % (Auto) 67.9, Lymph % (Auto) 20.5, [place] % (Auto) 6.6, Eos % (Auto) 2.9, Baso % (Auto) 0.7, Absolute Neuts (auto) 7.3, Absolute Lymphs (auto) 2.19, Nucleated RBC % 0, Sodium 133 L, Potassium 3.5, Chloride 100, Carbon Dioxide 17.0 L, Anion Gap 16 H, BUN 11, Creatinine 0.75, Estim Creat Clear Calc 141.56, Est GFR (MDRD) Af Amer 108, Est GFR (MDRD) Non-Af 89, BUN/Creatinine Ratio 14.7, Glucose 107 H, Calcium 9.1 08/24/24 10:46: POC Glucose 88 08/24/24 15:34: POC Glucose 124 H Micro: Microbiology 08/20/24 13:50 Wound Abcess - Heel, Left Gram Stain - Final 08/20/24 13:50 Wound Abcess - Heel, Left Wound Culture - Final Pseudomonas aeruginosa Serratia marcescens Klebsiella oxytoca Staphylococcus aureus Streptococcus mitis/ oralis 08/20/24 13:50 Wound Abcess - Heel, Left Anaerobic Culture - Final Anaerobic cocci 08/20/24 12:43 Wound - Left Foot Gram Stain - Final 08/20/24 12:43 Wound - Left Foot Wound Culture - Final Pseudomonas aeruginosa Serratia marcescens Klebsiella oxytoca Staphylococcus aureus Staphylococcus aureus#2 Streptococcus pseudoporcinus 08/20/24 12:05 Blood Culture (Wb) - Anticubital Left Blood Culture - Preliminary No growth in 48 hours. 08/20/24 12:05 Blood Culture (Wb) - Left Hand Blood Culture - Preliminary No growth in 48 hours. 08/20/24 10:18 Mucosa - Nose SARS-CoV-2, Influenza & RSV (PCR) - Final Physical Exam Narrative Seen and examined Plan for left BKA. Seen by plastic surgery and vascular surgery. 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 Physical exam General: Alert, Oriented x3, Cooperative HEENT: Atraumatic, PERRLA, EOMI, Normocephalic Oral: No Gingival or Mucosal Lesions/ Ulcerations Neck: Supple, No JVD, Negative Carotid Bruits Chest wall/Lungs: Air entry diminished in bilateral lung bases. No crepitation/rhonchi Cardiovascular: Regular rate, Regular Rhythm, Normal S1, Normal S2, No M/G/R. Decreased pulsation of left PT and right DIRECTOR GRAPHICS. Abdomen: Bowel Sounds Present, Soft, Non Tender, Non-Distended : No dysuria. No renal angle tenderness. No suprapubic tenderness. Extremities: No edema, Capillary Refill Less than 3 Seconds Skin: Left heel ulcer nonhealing. Covered with a dressing. Right heel amputation stump had healed. Musculoskeletal: No Tenderness to Palpation of Joints or Extremities. Neurological: Cranial nerves II-XII grossly intact, DTR 2+/4. Neuropathy. Mild sensation in lower legs. Psych/Mental Status: Flat affect. Assessment & Plan Assessment/Plan (1) Wound of foot: PLAN: Plan 1. 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 Polymicrobial growth. Patient was evaluated by ID and recommended to continue empiric broad-spectrum antibiotic, vancomycin and Zosyn. Plan for BKA later this week. Plastic surgery Dr. Dodd actively involved. 08/24: Patient was alerted by vascular surgery and discussed left BKA procedure with the patient. Anticipated course of BKA, healing, complication and rehab including processes discussed with the patient. OR rescheduled on 08/26. 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 Accu-Chek before meals and at bedtime with Humalog sliding scale coverage and hypoglycemia protocol. #3 Chronic peripheral arterial disease: Being followed by vascular surgery 08/24: Patient had lower extremity arterial study which shows triphasic Doppler waveform at the ankle level bilaterally though pulse volume diminished at ankle on the right but satisfactory at the left. Resting VICTORIA are normal bilaterally. Right VICTORIA 1.19. Left VICTORIA 1.28. 4. Class III obesity-complicates care, management, recovery, and prognosis 5. Chronic anxiety and depression-patient will remain on her outpatient psychiatric medications Microbiology Past 72 Hours 08/20/24 13:50 Wound Abcess - Heel, Left Gram Stain - Final 08/20/24 13:50 Wound Abcess - Heel, Left Wound Culture - Final Pseudomonas aeruginosa Serratia marcescens Klebsiella oxytoca Staphylococcus aureus Streptococcus mitis/ oralis 08/20/24 13:50 Wound Abcess - Heel, Left Anaerobic Culture - Preliminary Checking for anaerobes, further studies to follow. 08/20/24 12:43 Wound - Left Foot Gram Stain - Final 08/20/24 12:43 Wound - Left Foot Wound Culture - Final Pseudomonas aeruginosa Serratia marcescens Klebsiella oxytoca Staphylococcus aureus Staphylococcus aureus#2 Streptococcus pseudoporcinus 08/20/24 12:05 Blood Culture (Wb) - Anticubital Left Blood Culture - Preliminary No growth in 48 hours. 08/20/24 12:05 Blood Culture (Wb) - Left Hand Blood Culture - Preliminary No growth in 48 hours. Laboratory Results 08/22/24 17:49: Vancomycin Trough 21.7 H 08/22/24 20:29: POC Glucose 125 H 08/23/24 01:28: Random Vancomycin 13.7 08/23/24 06:02: POC Glucose 114 H 08/23/24 11:03: POC Glucose 184 H 08/23/24 15:27: POC Glucose 103 Charges/Coding Visit Charges Inpatient E&M: 15312 Subs Hosp L2
[2024-08-24 22:15] VITALS: BP 114/73; PULSE 91; RESP 18; TEMP 36.4; O2SAT 99
[2024-08-24 23:27] LABS: Bedside Glucose 112 mg/dL (74-106)
[2024-08-25 03:05] VITALS: BP 98/51; PULSE 88; RESP 16; TEMP 36; O2SAT 97
[2024-08-25] MEDS: Vancomycin IV 1,000 MG/200 ML BAG 200 MG IV ×3 (03:06→18:05)
[2024-08-25] MEDS: 0.9% Saline Lock 10 ML Syringe IV ×2 (03:07→10:55)
[2024-08-25] MEDS: Piperacil/Tazobactam 3.375 GM in 0.9% Normal Saline (50mL MB+) 50 ML IV ×2 (06:33→13:16)
[2024-08-25 06:59] LABS: Bedside Glucose 108 mg/dL (74-106)
[2024-08-25] MEDS: DAKIN'S SOL HALF STRENGTH (=0.25%) TOPICAL ×2 (08:21→21:01)
[2024-08-25 10:32] VITALS: BP 113/67; PULSE 92; RESP 18; TEMP 36.9; O2SAT 99
[2024-08-25] MEDS: Pantoprazole Sodium 40 MG Tablet PO (10:50)
[2024-08-25] MEDS: DULoxetine Hcl 60 MG Capsule PO (10:50)
[2024-08-25] MEDS: Empagliflozin 25 MG Tablet PO (10:50)
[2024-08-25] MEDS: buPROPion (XL) 150 MG TABLET.XL PO (10:50)
[2024-08-25] MEDS: Lisinopril 10 MG Tablet PO (10:51)
[2024-08-25] MEDS: Cyanocobalamin 500 MCG Tablet 1000 MCG PO (10:51)
[2024-08-25] MEDS: Cholecalciferol (VIT D3) 25 MCG TABLET (1,000 UNITS) 50 MCG PO (10:51)
[2024-08-25] MEDS: Senna/Docusate Sodium 1 Tablet 2 TABLET PO ×2 (10:51→21:27)
[2024-08-25 11:52] LABS: Bedside Glucose 133 mg/dL (74-106)
[2024-08-25 13:14] VITALS: BP 107/59; PULSE 100; RESP 18; TEMP 36.5; O2SAT 99
--- NOTE | 2024-08-25 15:11 | PCM.PN.SRG ---
Subjective Subjective Patient was seen today. No specific concerns voiced. Remains agreeable to proceed with BKA as planned. Objective Data Objective Data Vital Signs: Vital Signs Temp Pulse Resp BP Pulse Ox O2 Del Method 97.7 F L 100 18 107/59 L 99 Room Air 08/25/24 13:14 08/25/24 13:14 08/25/24 13:14 08/25/24 13:14 08/25/24 13:14 08/25/24 13:14 Oxygen Delivery Method Room Air Weight: 289 lb 12.797 oz Body Mass Index (BMI) 41.5 Intake & Output: Intake and Output for Last 24 Hours 08/23/24 08/24/24 08/25/24 23:59 23:59 23:59 Intake Total 1600 / 1600 2270 / 2270 720 / 720 Balance 1600 / 1600 2270 / 2270 720 / 720 Lab / Micro Data 08/24/24 05:57 08/24/24 05:57 Labs: Laboratory Results - last 24 hr 08/24/24 15:34: POC Glucose 124 H 08/24/24 22:18: POC Glucose 112 H 08/25/24 06:31: POC Glucose 108 H 08/25/24 11:20: POC Glucose 133 H Micro: Microbiology 08/20/24 12:05 Blood Culture (Wb) - Left Hand Blood Culture - Final No growth in 5 days. 08/20/24 12:05 Blood Culture (Wb) - Anticubital Left Blood Culture - Final No growth in 5 days. 08/20/24 13:50 Wound Abcess - Heel, Left Gram Stain - Final 08/20/24 13:50 Wound Abcess - Heel, Left Wound Culture - Final Pseudomonas aeruginosa Serratia marcescens Klebsiella oxytoca Staphylococcus aureus Streptococcus mitis/ oralis 08/20/24 13:50 Wound Abcess - Heel, Left Anaerobic Culture - Final Anaerobic cocci 08/20/24 12:43 Wound - Left Foot Gram Stain - Final 08/20/24 12:43 Wound - Left Foot Wound Culture - Final Pseudomonas aeruginosa Serratia marcescens Klebsiella oxytoca Staphylococcus aureus Staphylococcus aureus#2 Streptococcus pseudoporcinus 08/20/24 10:18 Mucosa - Nose SARS-CoV-2, Influenza & RSV (PCR) - Final Physical Exam Const alert, oriented x3 and no apparent distress General Appearance: cooperative and comfortable HEENT normocephalic, head/scalp atraumatic, hearing grossly normal bilaterally, external ears normal and external nose normal Eyes General Eye: normal appearance of both eyes Neck General: normal visual inspection and trachea midline Resp normal respiratory effort, normal air movement, no retractions and no use of accessory muscles Cardio regular rate and regular rhythm Extremity Peripheral Pulses: Yes popliteal pulses present Skin Skin Narrative: L foot wound with dressings C/D/I, not removed for exam Neuro oriented x3, CN's II-XII intact bilaterally, moves all extremities, no focal motor deficits and no sensory deficits noted Psych mental status grossly normal Appearance: grossly normal Attitude: calm and engaged Activity / Motor Behavior: appropriate eye contact Speech: normal speech Mood & Affect: euthymic mood Judgement: judgement good Assessment & Plan Assessment/Plan (1) Wound of foot: (2) Diabetes mellitus with diabetic polyneuropathy: PLAN: Plan Plan to proceed with L BKA with TMR tomorrow. NPO after midnight. Anticipate placement of rigid protective device to BKA stump on Sunday 08/27 by [facility], paper order will be in patient's chart. Charges/Coding Visit Charges Inpatient E&M: 34634 Subs Hosp L1
--- NOTE | 2024-08-25 15:59 | PCM.PN.HOSP ---
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 (08/20/24) Non-pressure chronic ulcer of other part of right foot with fat layer exposed (08/20/24) Osteomyelitis, unspecified (08/20/24) Unspecified open wound, unspecified foot, initial encounter (08/20/24) Acquired absence of left foot (08/20/24) Objective Data Objective Data Vital Signs: Vital Signs Temp Pulse Resp BP Pulse Ox O2 Del Method 97.7 F L 100 18 107/59 L 99 Room Air 08/25/24 13:14 08/25/24 13:14 08/25/24 13:14 08/25/24 13:14 08/25/24 13:14 08/25/24 13:14 Oxygen Delivery Method Room Air Weight: 289 lb 12.797 oz Body Mass Index (BMI) 41.5 Intake & Output: Intake and Output for Last 24 Hours 08/23/24 08/24/24 08/25/24 23:59 23:59 23:59 Intake Total 1600 / 1600 2270 / 2270 720 / 720 Balance 1600 / 1600 2270 / 2270 720 / 720 Lab / Micro Data 08/24/24 05:57 08/24/24 05:57 Labs: Laboratory Results - last 24 hr 08/24/24 15:34: POC Glucose 124 H 08/24/24 22:18: POC Glucose 112 H 08/25/24 06:31: POC Glucose 108 H 08/25/24 11:20: POC Glucose 133 H Micro: Microbiology 08/20/24 12:05 Blood Culture (Wb) - Left Hand Blood Culture - Final No growth in 5 days. 08/20/24 12:05 Blood Culture (Wb) - Anticubital Left Blood Culture - Final No growth in 5 days. 08/20/24 13:50 Wound Abcess - Heel, Left Gram Stain - Final 08/20/24 13:50 Wound Abcess - Heel, Left Wound Culture - Final Pseudomonas aeruginosa Serratia marcescens Klebsiella oxytoca Staphylococcus aureus Streptococcus mitis/ oralis 08/20/24 13:50 Wound Abcess - Heel, Left Anaerobic Culture - Final Anaerobic cocci 08/20/24 12:43 Wound - Left Foot Gram Stain - Final 08/20/24 12:43 Wound - Left Foot Wound Culture - Final Pseudomonas aeruginosa Serratia marcescens Klebsiella oxytoca Staphylococcus aureus Staphylococcus aureus#2 Streptococcus pseudoporcinus 08/20/24 10:18 Mucosa - Nose SARS-CoV-2, Influenza & RSV (PCR) - Final Physical Exam Narrative Seen and examined Plan for left BKA. Seen by plastic surgery and vascular surgery. No acute change. 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 Physical exam General: Alert, Oriented x3, Cooperative HEENT: Atraumatic, PERRLA, EOMI, Normocephalic Oral: No Gingival or Mucosal Lesions/ Ulcerations Neck: Supple, No JVD, Negative Carotid Bruits Chest wall/Lungs: Air entry diminished in bilateral lung bases. No crepitation/rhonchi Cardiovascular: Regular rate, Regular Rhythm, Normal S1, Normal S2, No M/G/R. Decreased pulsation of left PT and right MEDICAL PARASITOLOGIST. Abdomen: Bowel Sounds Present, Soft, Non Tender, Non-Distended : No dysuria. No renal angle tenderness. No suprapubic tenderness. Extremities: No edema, Capillary Refill Less than 3 Seconds Skin: Left heel ulcer nonhealing. Covered with a dressing. Right heel amputation stump had healed. Musculoskeletal: No Tenderness to Palpation of Joints or Extremities. Neurological: Cranial nerves II-XII grossly intact, DTR 2+/4. Neuropathy. Mild sensation in lower legs. Psych/Mental Status: Flat affect. Assessment & Plan Assessment/Plan (1) Wound of foot: PLAN: Plan 1. 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 Polymicrobial growth. Patient was evaluated by ID and recommended to continue empiric broad-spectrum antibiotic, vancomycin and Zosyn. Plan for BKA later this week. Plastic surgery Dr. Dodd actively involved. 08/24: Patient was alerted by vascular surgery and discussed left BKA procedure with the patient. Anticipated course of BKA, healing, complication and rehab including processes discussed with the patient. OR rescheduled on 08/26. 08/25: Plan 4 OR tomorrow. 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 Accu-Chek before meals and at bedtime with Humalog sliding scale coverage and hypoglycemia protocol. #3 Chronic peripheral arterial disease: Being followed by vascular surgery 08/24: Patient had lower extremity arterial study which shows triphasic Doppler waveform at the ankle level bilaterally though pulse volume diminished at ankle on the right but satisfactory at the left. Resting VICTORIA are normal bilaterally. Right VICTORIA 1.19. Left VICTORIA 1.28. 4. Class III obesity-complicates care, management, recovery, and prognosis 5. Chronic anxiety and depression-patient will remain on her outpatient psychiatric medications 6. DVT prophylaxis, moderate risk heparin 5000 units every 12 hourly. Hold prior to surgery ry Microbiology Past 72 Hours 08/20/24 12:05 Blood Culture (Wb) - Left Hand Blood Culture - Final No growth in 5 days. 08/20/24 12:05 Blood Culture (Wb) - Anticubital Left Blood Culture - Final No growth in 5 days. 08/20/24 13:50 Wound Abcess - Heel, Left Gram Stain - Final 08/20/24 13:50 Wound Abcess - Heel, Left Wound Culture - Final Pseudomonas aeruginosa Serratia marcescens Klebsiella oxytoca Staphylococcus aureus Streptococcus mitis/ oralis 08/20/24 13:50 Wound Abcess - Heel, Left Anaerobic Culture - Final Anaerobic cocci 08/20/24 12:43 Wound - Left Foot Gram Stain - Final 08/20/24 12:43 Wound - Left Foot Wound Culture - Final Pseudomonas aeruginosa Serratia marcescens Klebsiella oxytoca Staphylococcus aureus Staphylococcus aureus#2 Streptococcus pseudoporcinus Laboratory Results 08/24/24 22:18: POC Glucose 112 H 08/25/24 06:31: POC Glucose 108 H 08/25/24 11:20: POC Glucose 133 H Charges/Coding Visit Charges Inpatient E&M: 37915 Subs Hosp L2
[2024-08-25 16:53] LABS: Bedside Glucose 120 mg/dL (74-106)
[2024-08-25 17:26] VITALS: BP 98/57; PULSE 96; RESP 16; TEMP 36.3; O2SAT 95
[2024-08-25 20:02] VITALS: BP 114/78; PULSE 94; RESP 16; TEMP 36.4; O2SAT 98
[2024-08-25 21:00] VITALS: PULSE 94; RESP 16; O2SAT 98
[2024-08-25 21:45] LABS: Bedside Glucose 139 mg/dL (74-106)
[2024-08-26] VITALS (17 sets, daily range): BP systolic 93–123; BP diastolic 49–80; PULSE 89–99; RESP 13–18; TEMP 36.3–36.6; O2SAT 92–99; BMI 41.5
[2024-08-26] MEDS: Polyethylene Glycol 3350 17 GM PACKET PO (00:19)
[2024-08-26] MEDS: Piperacil/Tazobactam 3.375 GM in 0.9% Normal Saline (50mL MB+) 50 ML IV ×4 (00:32→22:06)
[2024-08-26] MEDS: 0.9% Saline Lock 10 ML Syringe IV ×3 (00:35→17:34)
[2024-08-26 02:38] LABS: Absolute Lymphocyte Count 2.77 X10^3/uL (0.83-4.51); Absolute Neutrophil Count 9.6 X10^3/uL (2.0-7.7); Basophil# 0.12 X10^3/uL; Basophil% 0.9 % (0-1); Eosinophil# 0.26 X10^3/uL; Eosinophils% 1.9 % (0-5); Hematocrit 36.8 % (37-47); Hemoglobin 10.6 g/dL (12.0-15.0); Lymphocyte # 2.77 X10^3/ul (0.83-4.51); Lymphocyte % 19.9 % (19-41); Mean Corp Hgb Conc 28.8 g/dL (32-36); Mean Corpuscular Hgb 19.5 pg (27.0-32.0); Mean Corpuscular Volume 67.6 fL (81-99); Mean Platelet Vol. 8.3 fl (6.2-12.0); Monocyte# 0.82 X10^3/uL; Monocyte% 5.9 % (0-10); NRBC Flagged by Analyzer 0 % (0-5); Neutrophil # 9.64 X10^3/uL (2.7-7.7); Neutrophil % 69.4 % (47-70); Platelet Count 459 K/mm3 (150-450); RBC Distribution Width CV 19.9 % (11.6-14.6); RBC Distribution Width SD 45.9 fl (35.1-43.9); Red Blood Count 5.44 M/mm3 (4.2-5.4); White Blood Count 13.9 K/mm3 (4.4-11.0)
[2024-08-26 03:00] LABS: Anion Gap 16 (5-15); BUN 18 mg/dL (7-18); BUN/Creat Ratio 22.4 RATIO (10-20); Calcium,Total 9.9 mg/dL (8.5-10.1); Chloride 101 mmol/L (98-107); EST Glomerular Filtration Rate 82 mL/min (>60); Est Glom Filt Rate - Afr Amer 99 mL/min (>60); Estimated Creatinine Clearance 132.71 ml/min; Glucose 141 mg/dL (74-106); Potassium 3.9 mmol/L (3.5-5.1); Sodium Level 133 mmol/L (136-145)
[2024-08-26 03:14] LABS: Vancomycin, Trough Level 19.5 ug/mL (5.0-15.0)
[2024-08-26] MEDS: Vancomycin IV 1,000 MG/200 ML BAG 200 MG IV (03:30)
--- NOTE | 2024-08-26 04:59 | PCM.RX.CS ---
Consult Antibiotic Management Pharmacy has been consulted to manage selected antibiotic: Vancomycin Type of Intervention Type of Consult: Follow-up Labs Labs: Sodium 133 mmol/L (136-145) L 08/26/24 02:29 Potassium 3.9 mmol/L (3.5-5.1) 08/26/24 02:29 Chloride 101 mmol/L (98-107) 08/26/24 02:29 Carbon Dioxide 16.0 mmol/L (21.0-32.0) L 08/26/24 02:29 Anion Gap 16 (5-15) H 08/26/24 02:29 BUN 18 mg/dL (7-18) 08/26/24 02:29 Creatinine 0.80 mg/dL (0.55-1.02) 08/26/24 02:29 Est GFR (MDRD) Af Amer 99 mL/min (>60) 08/26/24 02:29 Est GFR (MDRD) Non-Af 82 mL/min (>60) 08/26/24 02:29 BUN/Creatinine Ratio 22.4 RATIO (10-20) H 08/26/24 02:29 Glucose 141 mg/dL (74-106) H 08/26/24 02:29 Vancomycin Trough 19.5 ug/mL (5.0-15.0) H 08/26/24 02:29 Random Vancomycin 13.7 ug/mL (0.0-15.0) 08/23/24 01:28 Microbiology Microbiology: Microbiology 08/20/24 12:05 Blood Culture (Wb) - Left Hand Blood Culture - Final No growth in 5 days. 08/20/24 12:05 Blood Culture (Wb) - Anticubital Left Blood Culture - Final No growth in 5 days. 08/20/24 13:50 Wound Abcess - Heel, Left Gram Stain - Final 08/20/24 13:50 Wound Abcess - Heel, Left Wound Culture - Final Pseudomonas aeruginosa Serratia marcescens Klebsiella oxytoca Staphylococcus aureus Streptococcus mitis/ oralis 08/20/24 13:50 Wound Abcess - Heel, Left Anaerobic Culture - Final Anaerobic cocci 08/20/24 12:43 Wound - Left Foot Gram Stain - Final 08/20/24 12:43 Wound - Left Foot Wound Culture - Final Pseudomonas aeruginosa Serratia marcescens Klebsiella oxytoca Staphylococcus aureus Staphylococcus aureus#2 Streptococcus pseudoporcinus 08/20/24 10:18 Mucosa - Nose SARS-CoV-2, Influenza & RSV (PCR) - Final Goal Trough Goal Trough: 15-20 mcg/mL Pharmacy Plan for Drug Dosing Pharmacy Plan for Drug Dosing: Pharmacy Service will continue to monitor and adjust dosing as required. TROUGH 19.5 @ 8.5 HOURS. SCr DECREASED TO 0.80. NO CHANGES, FOLLOW UP TROUGH IN 2 DAYS Follow-Up Labs Follow-Up Labs: Trough: Vancomycin Date/Time Labs Ordered Labs to be done on [date and time ordered]: 08/28 @ 0200
[2024-08-26 06:32] LABS: Bedside Glucose 130 mg/dL (74-106)
[2024-08-26] MEDS: 0.9% Normal Saline (1000mL) 1,000 ML 15 ML IV (07:09)
--- NOTE | 2024-08-26 07:29 | PCM.PRE.AN2 ---
ASA Classification* ASA Classification ASA Classification: 3 Assessment & Plan Anesthesia* Anesthesia Assessment Anesthesia Assessment: Discussed sedation and/or anesthesia options, risks, benefits, and alternatives with patient/parents/legal guardian/POA. Questions invited. The patient/parents/legal guardian/POA seems to understand and agrees to proceed with anesthesia plan. Reviewed the physical assessment, medical history, allergy history and patient home medications list prior to surgery/procedure/anesthetic and documented any changes. Performed airway and anesthesia risk assessments. Anesthesia Type Anesthesia Type: General History Source History Obtained from:: Patient and Chart Anesthesia Focused Assessment* Temperature: 97.3 F Pulse Rate: 92 Blood Pressure: 123/76 Respiratory Rate: 16 Pulse Ox: 98 Oxygen Delivery Method: Room Air Airway Assessment Mouth opens: 2 cm Mallampati Score: IV Teeth Condition: Intact Neck Range of motion (ROM): Limited ROM Comment: Slight limited extension Focused Labs Anesthesia Preop lab: CBC WBC 13.9 K/mm3 (4.4-11.0) H 08/26/24 02:08/26/24 RBC 5.44 M/mm3 (4.2-5.4) H 08/26/24 02:08/26/24 Hgb 10.6 g/dL (12.0-15.0) L 08/26/24 02:08/26/24 Hct 36.8 % (37-47) L 08/26/24 02:08/26/24 Plt Count 459 K/mm3 (150-450) H 08/26/24 02:08/26/24 CHEMISTRY Potassium 3.9 mmol/L (3.5-5.1) 08/26/24 02:08/26/24 Sodium 133 mmol/L (136-145) L 08/26/24 02:08/26/24 Magnesium 2.2 mg/dL (1.6-2.6) 02/23/18 23:28 02/23/18 BUN 18 mg/dL (7-18) 08/26/24 02:08/26/24 Creatinine 0.80 mg/dL (0.55-1.02) 08/26/24 02:08/26/24 Glucose 141 mg/dL (74-106) H 08/26/24 02:08/26/24 POC Glucose 130 mg/dL (74-106) H 08/26/24 06:02 08/26/24 COAG PT 15.3 SECONDS (11.7-14.9) H 10/24/23 11:35 10/24/23 Urine Test Negative Negative 05/18/14 06:30 05/18/14 Pre-Assessment Diagnosis/Proposed Procedure Planned Operative Procedure(s): Below knee amputation, target muscle reinnervation peripheral nerves Anesthesia History Anesthesia History - automation qa analyst: Anesthesia History - automation qa analyst Hx Hospitalization Yes 04/16/19 00:31 Any Problems With Anesthesia No 08/26/24 00:57 Cholinesterase deficiency No 08/26/24 00:57 You/Your Family Experience No 08/26/24 00:57 fever (hyperthermia) with Relationship Recent Exposure to Contagious No 08/26/24 00:57 Disease Does patient have nerve No 08/26/24 00:57 stimulator Patient instructed to have No 08/26/24 00:57 device shut off --Does patient have Pacemaker No 08/26/24 03:41 or ICD? When Was Last Pacemaker Check QUESTION #4 FULL TEXT: You/Your Family Experience fever (hyperthermia) with Anesthesia Last Oral Intake Last Oral intake: Last Oral Intake NPO since 00:00 08/26/24 03:41 Meds taken in AM with sips of No 08/26/24 03:41 water? Meds patient instructed to take am of surgery PONV PONV - automation qa analyst: PONV - automation qa analyst Female HX of Motion Sickness HX of N/V After Surgery Non-Smoker Duration of Surgery greater than 60 minutes Number of Risk Factors PONV Score Height & Weight Height & Weight: Anesthesia: Height & Weight Height 5 ft 10.08 in 08/26/24 03:41 Weight: 131.45 kg 08/26/24 03:41 Body Mass Index (BMI) 41.5 08/26/24 03:41 Respiratory Assessment Respiratory Assessment - automation qa analyst: Respiratory Tract Infection Hx - automation qa analyst Hx Respiratory Tract Infection No 08/26/24 00:57 STOP Sleep Apnea STOP Sleep Apnea - automation qa analyst: STOP Sleep Apnea - automation qa analyst Hx Hypertension Yes 08/20/24 17:30 Hx Sleep Apnea No 08/20/24 17:30 CPAP No 01/02/21 18:04 BIPAP No 01/02/21 18:04 Do you snore loudly (louder No 08/20/24 17:30 than talking or can be heard Do you often feel tired/ No 08/20/24 17:30 fatigued/ sleepy during daytime? Has anyone observed you stop No 08/20/24 17:30 breathing during sleep? STOP Results Negative 08/20/24 17:30 QUESTION #5 FULL TEXT : Do you snore loudly (louder than talking or can be heard through closed doors)? 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 Specify any problems Hx of Preganancy in last 3 N/A 08/20/24 17:30 Months Nurse Filling Out Transfusion TWOLF 08/20/24 17:30 & Questions: Date: 08/20/24 08/20/24 17:30 Time: 17:32 08/20/24 17:30 Patient unable to answer at this time (ie. confused, unrespo /Reproduction History /Reproductive History - automation qa analyst: /Reproductive Hx- automation qa analyst Hx Now No 08/26/24 00:57 Gestational Age (in weeks): EDC: Hx Hx Para Hx Section SAB No 08/26/24 00:57 Active Medications Active Medications: Current Medications Generic Name Dose Route Start Last Admin Trade Name Freq PRN Reason Stop Dose Admin Acetaminophen 650 mg 08/20/24 17:24 08/20/24 22:18 Acetaminophen 325 Mg Tablet PO 650 mg Q6H PRN PRN Administration Pain 1-10 Or Fever >100.7 Bupropion HCl 150 mg 08/21/24 10:00 08/25/24 10:50 Bupropion (Xl) 150 Mg Tablet.Xl PO 150 mg DAILY HUMPHREY Administration Cholecalciferol 50 mcg 08/21/24 10:00 08/25/24 10:51 Cholecalciferol (Vit D3) 25 Mcg Tablet (1,000 Units) PO 50 mcg DAILY HUMPHREY Administration Cyanocobalamin 1,000 mcg 08/21/24 10:00 08/25/24 10:51 Cyanocobalamin 500 Mcg Tablet PO 1,000 mcg DAILY HUMPHREY Administration Duloxetine HCl 60 mg 08/21/24 10:00 08/25/24 10:50 Duloxetine Hcl 60 Mg Capsule PO 60 mg DAILY HUMPHREY Administration Empagliflozin 25 mg 08/21/24 10:00 08/25/24 10:50 Empagliflozin 25 Mg Tablet PO 25 mg DAILY HUMPHREY Administration Glucagon 1 mg 08/20/24 17:24 Glucagon 1 Mg/Ml Syringe IM X1 PRN HYPOGLYCEMIA Protocol Heparin Sodium (Porcine) 5,000 unit 08/25/24 22:00 Heparin Injection (Vial) 5,000 Unit/Ml Vial SC Q12 HUMPHREY Dextrose 250 mls @ 0 mls/hr 08/20/24 17:24 Dextrose 10%-Water IV .Q0M PRN HYPOGLYCEMIA Protocol As Directed Piperacillin Sod/Tazobactam 50 mls @ 12.5 mls/hr 08/20/24 22:00 08/26/24 05:54 Sod 3.375 gm/ Sodium Chloride IV 12.5 mls/hr Q8 HUMPHREY Administration Vancomycin IV-PHARMACY TO DOSE 500 mls @ 250 mls/hr 08/20/24 17:24 1 each/ Sodium Chloride IV PRN PRN Rx to Dose Protocol Sodium Chloride 100 mls @ 15 mls/hr 08/20/24 17:35 IV .Q6H40M PRN Saline Flush Sodium Chloride 100 mls @ 15 mls/hr 08/20/24 17:35 08/22/24 11:07 IV 0 mls/hr .Q6H40M PRN Infusion Additional IVPB Infusion Vancomycin HCl 1,000 mg in 200 mls @ 200 mls/hr 08/23/24 02:30 08/26/24 05:47 Vancomycin IV Infused Q8H HUMPHREY Infusion Sodium Chloride 1,000 mls @ 15 mls/hr 08/26/24 07:10 08/26/24 07:09 IV 08/31/24 20:29 15 mls/hr .Q48H HUMPHREY Administration Protocol Insulin Human Lispro 0 unit 08/20/24 17:24 08/26/24 06:02 Insulin Lispro 100 Unit/Ml Insuln.Pen SC Not Given ACHS HUMPHREY Protocol Lisinopril 10 mg 08/21/24 10:00 08/25/24 10:51 Lisinopril 10 Mg Tablet PO 10 mg DAILY HUMPHREY Administration Protocol Morphine Sulfate 2 - 4 mg 08/20/24 17:24 Morphine 2 Mg/Ml Syringe IV Q3H PRN PRN Pain Score 6-10 Ondansetron HCl 4 mg 08/20/24 17:24 Ondansetron 4 Mg/2 Ml Vial IV Q8H PRN PRN NAUSEA/VOMITING Oxycodone HCl 10 mg 08/20/24 17:24 Oxycodone 5 Mg Tablet PO Q4H PRN PRN Pain Score 4-10 Pantoprazole Sodium 40 mg 08/21/24 10:00 08/25/24 10:50 Pantoprazole Sodium 40 Mg Tablet PO 40 mg DAILY HUMPHREY Administration Polyethylene Glycol 17 gm 08/24/24 10:15 08/26/24 00:19 Polyethylene Glycol 3350 17 Gm Packet PO 17 gm DAILY HUMPHREY Administration Senna/Docusate Sodium 2 tablet 08/24/24 10:15 08/25/24 21:27 Senna/Docusate Sodium 1 Tablet PO 2 tablet BID HUMPHREY Administration Sodium Chloride 10 - 40 ml 08/20/24 17:35 08/26/24 05:53 0.9% Saline Lock 10 Ml Syringe IV 10 ml UD PRN Administration SALINE FLUSH Sodium Hypochlorite 0 ml 08/23/24 22:00 08/25/24 21:01 Dakin's Gloria Half Strength (=0.25%) TOPICAL 1 applic BID HUMPHREY Administration Protocol Temazepam 30 mg 08/20/24 22:00 08/25/24 23:18 Temazepam 15 Mg Capsule PO Not Given QHS [facility] Vancomycin Protocol 1 lab 08/28/24 00:00 Vancomycin Trough/Random Due MC 08/28/24 04:00 DAILY HUMPHREY PFSH Medical History Anxiety Depression Kidney disease IBS (irritable bowel syndrome) Type 2 diabetes mellitus Peripheral neuropathy Vitamin B 12 deficiency History of gallstones Microalbuminuria due to type 2 diabetes mellitus Obesity Diabetes Polyneuropathy due to type 2 diabetes mellitus H/O emotional problems UTI (urinary tract infection) Arthritis Amputation of left foot Amputated toe of right foot Amputated toe of left foot Diabetic neuropathy Hypertension Diabetes Anxiety and depression GERD (gastroesophageal reflux disease) Home Medications ?Medication ?Instructions ?Recorded ?Last Taken ?Type cholecalciferol (vitamin D3) 25 2,000 unit PO DAILY SUPPLEMENT 04/18/16 12/30/20 History mcg (1,000 unit) tablet (Vitamin D3) cyanocobalamin (vitamin B-12) 100 mcg PO DAILY SUPPLEMENT 04/18/16 12/30/20 History 1,000 mcg tablet duloxetine 60 mg capsule,delayed 60 mg PO DAILY ANXIETY 04/18/16 12/30/20 History release bupropion HCl 150 mg 24 hr tablet, 150 mg PO DAILY DEPRESSION 06/12/17 12/30/20 History extended release omeprazole 40 mg capsule,delayed 40 mg PO DAILY ACID REFLUX 06/12/17 12/30/20 History release pen needle, diabetic 32 gauge x #50 ea 07/27/21 Unknown Rx (BD Ultra-Fine Dhara Pen Needle) OneTouch Verio test strips (blood #50 ea 09/18/22 Unknown Rx sugar diagnostic) atorvastatin 20 mg tablet 20 mg PO DAILY 08/20/24 Unknown History docusate sodium 100 mg capsule 100 mg PO BID 08/20/24 Unknown History (Col-Rite) insulin glargine 100 unit/mL (3 20 unit subcut .morning 08/20/24 Unknown History mL) subcutaneous pen (Lantus Solostar U-100 Insulin) insulin lispro 100 unit/mL 1 sliding scale dose subcut 08/20/24 Unknown History subcutaneous pen .before meals lisinopril 10 mg tablet 10 mg PO DAILY 08/20/24 Unknown History Allergy/AdvReac Type Severity Reaction Status Date / Time gabapentin (From Gabarone) Allergy Angioedema Verified 08/20/24 09:48 Family History Mother Diabetes CVA (cerebral vascular accident) Father Hypertension Other Alcohol abuse Anxiety Arthritis Blood clot in vein Depression H/O transfusion of whole blood Mental disorder Surgical History History of 2 sections History of cholecystectomy History of tonsillectomy H/O amputation H/O: hysterectomy Social History household members: spouse, family, children and other details: Father in law Smoking Status: Never smoker alcohol intake: never substance use type: does not use Review of Systems (Anesthesia) ROS Narrative System reviewed and no additional complaints, except as documented.
--- NOTE | 2024-08-26 07:30 | AMP_PTH ---
PATIENT: PAPITOOCTOBER FABIENNE LOC: MS3 U#:[id number] AGE/SX: 43/F ROOM: [facility] [place]08/20/[address]: Dr. Praveen Cui MD : 1980 BED: 1 DIS: 08/30/2024 SPEC #: [id number] RECD: 08/26/24 11:21 STATUS: TATE HERNÁNDEZ #: [id number] JIM: 08/26/24 07:[address]: Gutierrez Murrell DEPT: SURGICAL PATHOLOGY RECD BY: Nestor Pappas ENTERED: 08/26/24 11:56 SP TYPE: Amputation OTHR DR: Ivana Crook, TRACIE Yu, RADHAM DO Dr. Stevan Brown MD Dr. Robert Leininger, MD Dr. Robert Siska, MD Tissues: Left leg Procedures: Decalcification bone/plaque HEADER OPERATION: Amputation, below knee PRE-OP DIAGNOSIS: Wound of foot, diabetes mellitus with diabetic polyneuropathy, history of Chopart amputation of left foot TISSUE SUBMITTED: Left lower leg MICROSCOPIC DIAGNOSIS Left lower leg, below knee amputation: Focal ulceration and acute and chronic inflammation and granulation tissue reaction. Bone underlying the ulceration with chronic inflammation, reactive and reparative changes. Negative for acute osteomyelitis. 09/01/2024 MICROSCOPIC DESCRIPTION Slides are reviewed. GROSS DESCRIPTION Received in fixative is one container labeled with the patient's name and designated Left lower leg. The specimen consists of a below the knee amputation of leg. The foot is not present in the specimen. The leg measures from anterior cutaneous resection margin to distal portion 28cm in length, posterior cutaneous resection margin is 12cm below the anterior resection margin. 4cm tibia and 3cm of fibula are projected beyond the anterior cutaneous resection margin. The distal portion of the specimen shows an area of ulceration measuring 2 x 2cm. Ulcer base shows purulent material. A healed scar is noted at the lateral surface of the specimen 2cm away from the distal resection margin measuring 10.5cm in greatest length. A healed scar is also noted anteriorly measuring 3cm in length. Skin of the distal resection margin shows marked thickening. Anterior tibial vessels and posterior tibial vessels are dissected and do not show any significant luminal obliteration. Supervisor Contingents sections are submitted as follows: 1- ulcerated area, 2- bone marrow at the resection margin after decalcification, 3- anterior tibial vessel, 4- posterior tibial vessel, 5- cutaneous and skeletal resection margin,6&7- bone underlying the ulcer after decalcification. Sections will also be submitted after fixation. 08/26/2024 TC:2 CPT:74459,56346
--- NOTE | 2024-08-26 07:52 | PN.SURG_ITS ---
Objective Data Objective Data Vital Signs: Vital Signs Temp Pulse Resp BP Pulse Ox O2 Del Method 97.3 F L 92 16 123/76 H 98 Room Air 08/26/24 07:31 08/26/24 07:31 08/26/24 07:31 08/26/24 07:31 08/26/24 07:31 08/26/24 07:31 Oxygen Delivery Method Room Air Weight: 289 lb 12.762 oz Body Mass Index (BMI) 41.5 Intake & Output: Intake and Output for Last 24 Hours 08/24/24 08/25/24 08/26/24 23:59 23:59 23:59 Intake Total 2270 / 2270 970 / 970 250 / 250 Balance 2270 / 2270 970 / 970 250 / 250 Lab / Micro Data 08/26/24 02:29 08/26/24 02:29 Labs: Laboratory Results - last 24 hr 08/25/24 11:20: POC Glucose 133 H 08/25/24 16:36: POC Glucose 120 H 08/25/24 20:59: POC Glucose 139 H 08/26/24 02:29: WBC 13.9 H, RBC 5.44 H, Hgb 10.6 L, Hct 36.8 L, MCV 67.6 L, MCH 19.5 L, MCHC 28.8 L, RDW Std Deviation 45.9 H, RDW Coeff of Maria E 19.9 H, Plt Count 459 H, MPV 8.3, Immature Gran % (Auto) 2.000 H, Neut % (Auto) 69.4, Lymph % (Auto) 19.9, [place] % (Auto) 5.9, Eos % (Auto) 1.9, Baso % (Auto) 0.9, Absolute Neuts (auto) 9.6 H, Absolute Lymphs (auto) 2.77, Nucleated RBC % 0, Sodium 133 L , Potassium 3.9, Chloride 101, Carbon Dioxide 16.0 L, Anion Gap 16 H, BUN 18, Creatinine 0.80, Estim Creat Clear Calc 132.71, Est GFR (MDRD) Af Amer 99, Est GFR (MDRD) Non-Af 82, BUN/Creatinine Ratio 22.4 H, Glucose 141 H, Calcium 9.9, V ancomycin Trough 19.5 H 08/26/24 06:02: POC Glucose 130 H Micro: Microbiology 08/20/24 12:05 Blood Culture (Wb) - Left Hand Blood Culture - Final No growth in 5 days. 08/20/24 12:05 Blood Culture (Wb) - Anticubital Left Blood Culture - Final No growth in 5 days. 08/20/24 13:50 Wound Abcess - Heel, Left Gram Stain - Final 08/20/24 13:50 Wound Abcess - Heel, Left Wound Culture - Final Pseudomonas aeruginosa Serratia marcescens Klebsiella oxytoca Staphylococcus aureus Streptococcus mitis/ oralis 08/20/24 13:50 Wound Abcess - Heel, Left Anaerobic Culture - Final Anaerobic cocci 08/20/24 12:43 Wound - Left Foot Gram Stain - Final 08/20/24 12:43 Wound - Left Foot Wound Culture - Final Pseudomonas aeruginosa Serratia marcescens Klebsiella oxytoca Staphylococcus aureus Staphylococcus aureus#2 Streptococcus pseudoporcinus 08/20/24 10:18 Mucosa - Nose SARS-CoV-2, Influenza & RSV (PCR) - Final Assessment & Plan Assessment/Plan (1) Wound of foot: PLAN: Plan I saw this patient today. She remains admitted with an infected foot wound. She is getting a below the knee amputation.
--- NOTE | 2024-08-26 08:26 | HP.PCM.SX_ITS ---
HPI - General General Date of Admission: 08/20/24 Chief Complaint: Left foot wound-nonhealing HPI Narrative QUINTIN COBOS, is a 43 F who presents with a left lower extremity wound that has chronic infection around hardware. Current Encounter (DATE OF SURGERY H&P UPDATE): I saw and examined the patient this morning in pre-operative holding. We discussed risks and benefits of today's surgery and they would like to proceed. NO CHANGE in health history since last seen and evaluated. Ready to proceed with surgery. [facility] Medical History Anxiety Depression Kidney disease IBS (irritable bowel syndrome) Type 2 diabetes mellitus Peripheral neuropathy Vitamin B 12 deficiency History of gallstones Microalbuminuria due to type 2 diabetes mellitus Obesity Diabetes Polyneuropathy due to type 2 diabetes mellitus H/O emotional problems UTI (urinary tract infection) Arthritis Amputation of left foot Amputated toe of right foot Amputated toe of left foot Diabetic neuropathy Hypertension Diabetes Anxiety and depression GERD (gastroesophageal reflux disease) Home Medications ?Medication ?Instructions ?Recorded ?Last Taken ?Type cholecalciferol (vitamin D3) 25 2,000 unit PO DAILY [place]ARTMAN PPLEMENT 04/18/16 12/30/20 History mcg (1,000 unit) tablet (Vitamin D3) cyanocobalamin (vitamin B-12) 100 mcg PO DAILY SUPPLEM ENT 04/18/16 12/30/20 History 1,000 mcg tablet duloxetine 60 mg capsule,delayed 60 mg PO DAILY ANXIET Y 04/18/16 12/30/20 History release bupropion HCl 150 mg 24 hr tablet, 150 mg PO DAILY DEP RESSION 06/12/17 12/30/20 History extended release omeprazole 40 mg capsule,delayed 40 mg PO DAILY ACID R EFLUX 06/12/17 12/30/20 History release pen needle, diabetic 32 gauge x #50 ea 07/27/21 Unknow n Rx (BD Ultra-Fine Dhara Pen Needle) OneTouch Verio test strips (blood #50 ea 09/18/22 Unkn own Rx sugar diagnostic) atorvastatin 20 mg tablet 20 mg PO DAILY 08/20/24 Unkn own History docusate sodium 100 mg capsule 100 mg PO BID 08/20/24 Unknown History (Col-Rite) insulin glargine 100 unit/mL (3 20 unit subcut .alfrediton g 08/20/24 Unknown History mL) subcutaneous pen (Lantus Solostar U-100 Insulin) insulin lispro 100 unit/mL 1 sliding scale dose subcut 08/20/24 Unknown History subcutaneous pen .before meals lisinopril 10 mg tablet 10 mg PO DAILY 08/20/24 Unkn own History Allergy/AdvReac Type Severity Reaction Status Date / Time gabapentin (From Gabarone) Allergy Angioedema Verified 08/20/24 09:48 Family History Mother Diabetes CVA (cerebral vascular accident) Father Hypertension Other Alcohol abuse Anxiety Arthritis Blood clot in vein Depression H/O transfusion of whole blood Mental disorder Surgical History History of 2 sections History of cholecystectomy History of tonsillectomy H/O amputation H/O: hysterectomy Social History household members: spouse, family, children and other details: Father in law Smoking Status: Never smoker alcohol intake: never substance use type: does not use Vital Signs Vital Signs Vital Signs: 08/25/24 10:32 08/25/24 13:14 08/25/24 17:26 Temperature 98.5 F 97.7 F L 97.3 F L Temperature Source Oral Oral Temporal Pulse Rate 92 100 96 Pulse Strength Respiratory Rate 18 18 16 Respiratory Effort Respiratory Depth Respiratory Pattern Blood Pressure 113/67 107/59 L 98/57 L Blood Pressure Mean 82 75 70 Blood Pressure Source Monitor Monitor Monitor Blood Pressure Position Semi-Fowlers Right Lateral Left Lateral Blood Pressure Location Left Arm Left Arm Right Arm Pulse Ox 99 99 95 Oxygen Delivery Method Room Air Room Air Room Air 08/25/24 20:02 08/25/24 20:02 08/25/24 21:00 Temperature 97.5 F L Temperature Source Oral Pulse Rate 94 94 Pulse Strength Normal (2+) Respiratory Rate 16 16 Respiratory Effort Normal Non-Labored Respiratory Depth Normal Respiratory Pattern Normal Blood Pressure 114/78 Blood Pressure Mean 90 Blood Pressure Source Monitor Blood Pressure Position Semi-Fowlers Blood Pressure Location Left Arm Pulse Ox 98 98 Oxygen Delivery Method Room Air Room Air 08/26/24 00:54 08/26/24 01:01 08/26/24 03:41 Temperature 97.7 F L 97.5 F L Temperature Source Oral Oral Pulse Rate 98 90 Pulse Strength Respiratory Rate 16 16 Respiratory Effort Normal Non-Labored Respiratory Depth Normal Respiratory Pattern Normal Blood Pressure 121/80 H 101/64 Blood Pressure Mean 93 76 Blood Pressure Source Monitor Monitor Blood Pressure Position Semi-Fowlers Semi-Fowlers Blood Pressure Location Left Arm Right Arm Pulse Ox 98 97 Oxygen Delivery Method Room Air Room Air Room Air 08/26/24 06:09 08/26/24 07:31 Temperature 97.3 F L 97.3 F L Temperature Source Oral Pulse Rate 92 92 Pulse Strength Respiratory Rate 16 16 Respiratory Effort Respiratory Depth Respiratory Pattern Blood Pressure 123/76 H 123/76 H Blood Pressure Mean 91 Blood Pressure Source Monitor Blood Pressure Position Semi-Fowlers Blood Pressure Location Left Arm Pulse Ox 98 98 Oxygen Delivery Method Room Air Room Air Weight Weight: 289 lb 12.762 oz Body Mass Index (BMI) 41.5 Physical Exam Narrative LLE: No purulent drainage from the Chopart Amputation No signs of ascending infection/cellulitis. Results Lab / Micro Data 08/26/24 02:29 08/26/24 02:29 Labs: Laboratory Results - last 24 hr 08/25/24 11:20: POC Glucose 133 H 08/25/24 16:36: POC Glucose 120 H 08/25/24 20:59: POC Glucose 139 H 08/26/24 02:29: WBC 13.9 H, RBC 5.44 H, Hgb 10.6 L, Hct 36.8 L, MCV 67.6 L, MCH 19.5 L, MCHC 28.8 L, RDW Std Deviation 45.9 H, RDW Coeff of Maria E 19.9 H, Plt Count 459 H, MPV 8.3, Immature Gran % (Auto) 2.000 H, Neut % (Auto) 69.4, Lymph % (Auto) 19.9, [place] % (Auto) 5.9, Eos % (Auto) 1.9, Baso % (Auto) 0.9, Absolute Neuts (auto) 9.6 H, Absolute Lymphs (auto) 2.77, Nucleated RBC % 0, Sodium 133 L , Potassium 3.9, Chloride 101, Carbon Dioxide 16.0 L, Anion Gap 16 H, BUN 18, Creatinine 0.80, Estim Creat Clear Calc 132.71, Est GFR (MDRD) Af Amer 99, Est GFR (MDRD) Non-Af 82, BUN/Creatinine Ratio 22.4 H, Glucose 141 H, Calcium 9.9, V ancomycin Trough 19.5 H 08/26/24 06:02: POC Glucose 130 H Micro: Microbiology 08/20/24 12:05 Blood Culture (Wb) - Left Hand Blood Culture - Final No growth in 5 days. 08/20/24 12:05 Blood Culture (Wb) - Anticubital Left Blood Culture - Final No growth in 5 days. Assessment & Plan Assessment/Plan (1) Wound of foot: PLAN: Plan I talked the patient extensively about the risks of surgery, including bleeding, infection, damage to surrounding structures, surgical site dehiscence and wound formation, need for wound care, need for repeat operations, failure to obtain the desired result, DVT/PE, and the risks of anesthesia including , including stroke (from low blood pressure/ischemia or clot). The benefits and alternatives of this surgery were also discussed. We talked about targeted muscle re-innervation v regenerative peripheral nerve interfaces for neuroma prevention and phantom limb pain/residual nerve pain prevention. We talked about no guarantees that this will prevent these problems. All of their questions were answered, and they agreed to proceed with surgery. INTERVAL H&P PLAN, DATE OF SURGERY: We will proceed with surgery today.
[2024-08-26 08:55] LABS: Bedside Glucose 120 mg/dL (74-106)
--- NOTE | 2024-08-26 10:06 | WOUNDNOTE ---
Pt currently off unit for surgery. had been in to see patient this am with Dr Dodd prior to patient going to OR.
[2024-08-26] MEDS: Bupivacaine 0.5% PF 10 ML VIAL (10:10)
[2024-08-26] MEDS: Vasopressin 20 UNITS/ML Vial (10:26)
[2024-08-26 11:53] LABS: Bedside Glucose 154 mg/dL (74-106)
[2024-08-26 11:53] LABS: Bedside Glucose 100 mg/dL (74-106)
--- NOTE | 2024-08-26 13:00 | PCM.POST.ANE ---
Anesthesia: Postop Eval I Current Vital Signs Temperature: 97.4 F Pulse Rate: 99 Blood Pressure: 94/49 Respiratory Rate: 16 Pulse Ox: 98 Oxygen Delivery Method: Room Air Assessment Airway patent: Yes Spontaneous unlabored respirations: Yes Mental status: Awake and Calm nausea: No Vomiting: No Anesthesia Complication: No Fluid Hydration Crystalloid volume administer (ml): 2,000 Total IV fluid infused: 2,000 Progress Note Anesthesia document: Postop Eval 1 completed: Yes
[2024-08-26 13:04] LABS: Hematocrit 32.4 % (37-47); Hemoglobin 9.2 g/dL (12.0-15.0)
--- NOTE | 2024-08-26 13:26 | SUR.PHASEI ---
on arrival to pacu the wound vac was alarming. Dr. Dodd aware and asked for Wound RN to assess and apply a new vac. Loree Soler called with information. The dressing is dry and intact.
--- NOTE | 2024-08-26 13:33 | PCM.OPRPT ---
Operative Report (Standard) Operative Information Date of Procedure: 08/26/24 Pre-Operative Diagnosis: left foot osteomyelitis Post-Operative Diagnosis: same Surgery/Procedure Performed: left below knee amputation chip mixer: No Type of Anesthesia: General RN Documented Start/Stop Times: Operation Date: 08/26/24 07:30 Case Time Into Pre-Op 08/26/24 06:58 Out of Pre-Op 08/26/24 09:12 Anesthesia Start 08/26/24 09:14 Into Room 08/26/24 09:14 Procedure Start 08/26/24 09:51 Procedure End 08/26/24 12:40 Anesthesia End 08/26/24 12:52 Out of Room 08/26/24 12:52 Into Recovery 08/26/24 12:56 Out of Recovery 08/26/24 14:11 Procedure Start Time: 09:50 Procedure Stop Time: 12:40 Select all DRAINS/GRAFTS/IMPLANTS that apply: None Estimated Blood Loss: 500 Specimen collected: Yes Description of specimen(s) removed: left lower leg Description of surgery: HPI: Patient is a 43-year-old female who has had multiple chronic wounds of the left lower extremity including ongoing osteomyelitis and prior ankle fusion with hardware extending into the distal tibia. She has exhausted options for foot salvage and she presents now for below the knee amputation. In conjunction with the amputation Dr. Dodd will be performing targeted muscle reinnervation and/or RPNI which she will dictate separately. Description of procedure: Upon obtaining form consent and verification correct patient procedure site patient was taken to the operating where she was placed under general anesthesia. She was then positioned prepped and draped in usual sterile fashion and timeout was performed. Skin was marked with posterior flap configuration and skin incision made with scalpel. Bovie electrocautery was dissect down through subcutaneous tissue to the level of the fascia and ultimately down to the anterior surface of the tibia. Dissection was extended medially and laterally and then taken distally along the posterior flap. Bovie was then used to divide the musculature of the anterior and lateral compartment and the nerves identified and marked. The anterior tibial artery was then ligated with silk ties and divided and the fibula dissected free circumferentially. A periosteal elevator was then used to free the connective tissue from the fibula more cephalad. Bovie was then used to dissect the medial aspect of the tibia and the soleus muscle attachments divided entering into the deep posterior space. The posterior tibial and peroneal vascular bundles were then identified and protected. Soft tissue surrounding the tibia was then mobilized with a periosteal elevator cephalad to the point of planned bone transection. Reciprocating saw was then used to divide the tibia with an anterior bevel and then the fibula 2 cm superiorly. The posterior tib and peroneal vessels were then clamped proximally and an amputation knife used to divide the tissue of the posterior flap from the specimen which was then passed off the field. At this point the vessels were ligated with silk ties and the soleus muscle trimmed. Dr. Dodd then identified further nerves then performed his portion of the procedure which he will dictate separately. After this was completed the anterior aspect of the tibia was smoothed with a rasp and the incision inspected for hemostasis. It was then closed with 2-0 PDS, 3-0 PDS, and melany. A Prevena wound VAC was then applied followed by dry sterile dressing and a knee immobilizer. The patient was then awakened from anesthesia taken recovery with anticipated return to the medical surgical floor. Surgical Findings: see above Complications Complications: No
--- NOTE | 2024-08-26 14:47 | WOUNDNOTE ---
wound photo: left leg
--- NOTE | 2024-08-26 14:48 | WOUNDNOTE ---
wound photo: left leg
--- NOTE | 2024-08-26 14:50 | WOUNDNOTE ---
Pt up from PACU with Prevena VAC alarming leak. was ordered to remove the Prevena and place a hospital VAC along the incision line. see intervention.
[2024-08-26 15:28] LABS: Bedside Glucose 149 mg/dL (74-106)
--- NOTE | 2024-08-26 16:23 | POSTOPAN2_ITS ---
Anesthesia Postop Eval I Sum Postop Eval Completion status Anesthesia document: Postop Eval 1 completed: Yes Anesthesia Postop Eval I Summary Anesthesia Postop Eval I Summary: Anesthesia Postop Eval I: Assessment Summary Airway patent Yes 08/26/24 13:11 [email or web address] Spontaneous unlabored Yes 08/26/24 13:11 [email or web address] respirations Mental status Awake,Calm 08/26/24 13:11 [email or web address] nausea No 08/26/24 13:11 BOTTOM [email or web address] Vomiting No 08/26/24 13:11 [email or web address] Anesthesia Postop Eval I: Fluid Summary Crystalloid volume administer 2,000 08/26/24 13:11 BOTTOM [email or web address] (ml) Colloids volume administered ( ml) Blood Product volume administered (ml) Total IV fluid infused 2,000 08/26/24 13:11 [email or web address] [email or web address] Anesthesia Postop Eval I: Summary Notes Anesthesia Complication No 08/26/24 13:11 [email or web address] [email or web address] Anesthesia Complication Comment: Post-operative progress note Anesthesia: Postop Eval II Evaluation Mental status: Awake and Calm Pain Level: 0 nausea: No Vomiting: No Complications Anesthesia Complication: No
--- NOTE | 2024-08-26 16:23 | PCM.POSTANE2 ---
Anesthesia Postop Eval I Sum Postop Eval Completion status Anesthesia document: Postop Eval 1 completed: Yes Anesthesia Postop Eval I Summary Anesthesia Postop Eval I Summary: Anesthesia Postop Eval I: Assessment Summary Airway patent Yes 08/26/24 13:11 RESPIRATORY THERAPY [email or web address] Spontaneous unlabored Yes 08/26/24 13:11 RESPIRATORY THERAPY ASSISTANT.[email or web address] respirations Mental status Awake,Calm 08/26/24 13:11 RESPIRATORY THERAPY ASSISTANT.GDOTT nausea No 08/26/24 13:11 RESPIRATORY THERAPY ASSISTANT.GDOTT Vomiting No 08/26/24 13:11 RESPIRATORY THERAPY [email or web address].GDOTT Anesthesia Postop Eval I: Fluid Summary Crystalloid volume administer 2,000 08/26/24 13:11 RESPIRATORY THERAPY ASSISTANT.GDOTT (ml) Colloids volume administered ( ml) Blood Product volume administered (ml) Total IV fluid infused 2,000 08/26/24 13:11 RESPIRATORY THERAPY ASSISTANT.GDOTT Anesthesia Postop Eval I: Summary Notes Anesthesia Complication No 08/26/24 13:11 RESPIRATORY THERAPY ASSISTANT.GDOTT Anesthesia Complication Comment: Post-operative progress note Anesthesia: Postop Eval II Evaluation Mental status: Awake and Calm Pain Level: 0 nausea: No Vomiting: No Complications Anesthesia Complication: No
--- NOTE | 2024-08-26 16:54 | PN.HOSP_ITS ---
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 (08/20/24) Non-pressure chronic ulcer of other part of right foot with fat layer exposed (08/20/24) Osteomyelitis, unspecified (08/20/24) Unspecified open wound, unspecified foot, initial encounter (08/20/24) Acquired absence of left foot (08/20/24) Objective Data Objective Data Vital Signs: Vital Signs Temp Pulse Resp BP Pulse Ox O2 Del Method 97.7 F L 98 13 107/62 96 Room Air 08/26/24 16:12 08/26/24 16:12 08/26/24 16:12 08/26/24 16:12 08/26/24 16:12 08/26/24 16:12 Oxygen Delivery Method Room Air Weight: 289 lb 12.762 oz Body Mass Index (BMI) 41.5 Intake & Output: Intake and Output for Last 24 Hours 08/24/24 08/25/24 08/26/24 23:59 23:59 23:59 Intake Total 2270 / 2270 970 / 970 2417.75 / 2417.75 Output Total 1250 / 1250 Balance 2270 / 2270 970 / 970 1167.75 / 1167.75 Lab / Micro Data 08/26/24 12:35 08/26/24 16:51 Labs: Laboratory Results - last 24 hr 08/25/24 20:59: POC Glucose 139 H 08/26/24 02:29: WBC 13.9 H, RBC 5.44 H, Hgb 10.6 L, Hct 36.8 L, MCV 67.6 L, MCH 19.5 L, MCHC 28.8 L, RDW Std Deviation 45.9 H, RDW Coeff of Maria E 19.9 H, Plt Count 459 H, MPV 8.3, Immature Gran % (Auto) 2.000 H, Neut % (Auto) 69.4, Lymph % (Auto) 19.9, Howard % (Auto) 5.9, Eos % (Auto) 1.9, Baso % (Auto) 0.9, Absolute Neuts (auto) 9.6 H, Absolute Lymphs (auto) 2.77, Nucleated RBC % 0, Sodium 133 L , Potassium 3.9, Chloride 101, Carbon Dioxide 16.0 L, Anion Gap 16 H, BUN 18, Creatinine 0.80, Estim Creat Clear Calc 132.71, Est GFR (MDRD) Af Amer 99, Est GFR (MDRD) Non-Af 82, BUN/Creatinine Ratio 22.4 H, Glucose 141 H, Calcium 9.9, V ancomycin Trough 19.5 H 08/26/24 06:02: POC Glucose 130 H 08/26/24 08:38: POC Glucose 120 H 08/26/24 09:31: POC Glucose 100 08/26/24 11:33: POC Glucose 154 H 08/26/24 12:35: Hgb 9.2 L, Hct 32.4 L 08/26/24 15:05: POC Glucose 149 H Micro: Microbiology 08/20/24 12:05 Blood Culture (Wb) - Left Hand Blood Culture - Final No growth in 5 days. 08/20/24 12:05 Blood Culture (Wb) - Anticubital Left Blood Culture - Final No growth in 5 days. 08/20/24 13:50 Wound Abcess - Heel, Left Gram Stain - Final 08/20/24 13:50 Wound Abcess - Heel, Left Wound Culture - Final Pseudomonas aeruginosa Serratia marcescens Klebsiella oxytoca Staphylococcus aureus Streptococcus mitis/ oralis 08/20/24 13:50 Wound Abcess - Heel, Left Anaerobic Culture - Final Anaerobic cocci 08/20/24 12:43 Wound - Left Foot Gram Stain - Final 08/20/24 12:43 Wound - Left Foot Wound Culture - Final Pseudomonas aeruginosa Serratia marcescens Klebsiella oxytoca Staphylococcus aureus Staphylococcus aureus#2 Streptococcus pseudoporcinus 08/20/24 10:18 Mucosa - Nose SARS-CoV-2, Influenza & RSV (PCR) - Final Physical Exam Narrative Seen and examined Patient had left BKA today. Resting in the bed Patient with history of diabetes mellitus, diabetic polyneuropathy and nonhealing, worsening left heel ulcer after forefoot amputation for last 2 months. Physical exam General: Alert, Oriented x3, Cooperative HEENT: Atraumatic, PERRLA, EOMI, Normocephalic Oral: No Gingival or Mucosal Lesions/ Ulcerations Neck: Supple, No JVD, Negative Carotid Bruits Chest wall/Lungs: Air entry diminished in bilateral lung bases. No crepitation/rhonchi Cardiovascular: Regular rate, Regular Rhythm, Normal S1, Normal S2, No M/G/R. Decreased pulsation of left PT and right EXTRUSION LINE OPERATOR. Abdomen: Bowel Sounds Present, Soft, Non Tender, Non-Distended : No dysuria. No renal angle tenderness. No suprapubic tenderness. Extremities: No edema, Capillary Refill Less than 3 Seconds Skin: Right heel amputation stump. Left BKA, covered with a dressing. Dressing is dry Musculoskeletal: No Tenderness to Palpation of Joints or Extremities. Neurological: Cranial nerves II-XII grossly intact, DTR 2+/4. Neuropathy. Mild sensation in lower legs. Psych/Mental Status: Flat affect. Assessment & Plan Assessment/Plan (1) Wound of foot: PLAN: Plan 1. 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 Polymicrobial growth. Patient was evaluated by ID and recommended to continue empiric broad-spectrum antibiotic, vancomycin and Zosyn. Plan for BKA later this week. Plastic surgery Dr. Dodd actively involved. 08/24: Patient was alerted by vascular surgery and discussed left BKA procedure with the patient. Anticipated course of BKA, healing, complication and rehab including processes discussed with the patient. OR rescheduled on 08/26. 08/25: Plan 4 OR tomorrow. 08/26: Patient had left below-knee amputation by Dr. Murrell. 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 Accu-Chek before meals and at bedtime with Humalog sliding scale coverage and hypoglycemia protocol. 08/26 in the morning, empagliflozin was held and to remain hold for next 48 hours. #3 Chronic peripheral arterial disease: Being followed by vascular surgery 08/24: Patient had lower extremity arterial study which shows triphasic Doppler waveform at the ankle level bilaterally though pulse volume diminished at ankle on the right but satisfactory at the left. Resting VICTORIA are normal bilaterally. Right VICTORIA 1.19. Left VICTORIA 1.28. 4. Class III obesity-complicates care, management, recovery, and prognosis 5. Chronic anxiety and depression-patient will remain on her outpatient psychiatric medications 6. DVT prophylaxis, moderate risk heparin 5000 units every 12 hourly. Hold prior to surgery Microbiology Past 72 Hours 08/20/24 12:05 Blood Culture (Wb) - Left Hand Blood Culture - Final No growth in 5 days. 08/20/24 12:05 Blood Culture (Wb) - Anticubital Left Blood Culture - Final No growth in 5 days. 08/20/24 13:50 Wound Abcess - Heel, Left Gram Stain - Final 08/20/24 13:50 Wound Abcess - Heel, Left Wound Culture - Final Pseudomonas aeruginosa Serratia marcescens Klebsiella oxytoca Staphylococcus aureus Streptococcus mitis/ oralis 08/20/24 13:50 Wound Abcess - Heel, Left Anaerobic Culture - Final Anaerobic cocci 08/20/24 12:43 Wound - Left Foot Gram Stain - Final 08/20/24 12:43 Wound - Left Foot Wound Culture - Final Pseudomonas aeruginosa Serratia marcescens Klebsiella oxytoca Staphylococcus aureus Staphylococcus aureus#2 Streptococcus pseudoporcinus Laboratory Results 08/25/24 20:59: POC Glucose 139 H 08/26/24 02:29: WBC 13.9 H, RBC 5.44 H, Hgb 10.6 L, Hct 36.8 L, MCV 67.6 L, MCH 19.5 L, MCHC 28.8 L, RDW Std Deviation 45.9 H, RDW Coeff of Maria E 19.9 H, Plt Count 459 H, MPV 8.3, Immature Gran % (Auto) 2.000 H, Neut % (Auto) 69.4, Lymph % (Auto) 19.9, Howard % (Auto) 5.9, Eos % (Auto) 1.9, Baso % (Auto) 0.9, Absolute Neuts (auto) 9.6 H, Absolute Lymphs (auto) 2.77, Nucleated RBC % 0, Sodium 133 L , Potassium 3.9, Chloride 101, Carbon Dioxide 16.0 L, Anion Gap 16 H, BUN 18, Creatinine 0.80, Estim Creat Clear Calc 132.71, Est GFR (MDRD) Af Amer 99, Est GFR (MDRD) Non-Af 82, BUN/Creatinine Ratio 22.4 H, Glucose 141 H, Calcium 9.9, V ancomycin Trough 19.5 H 08/26/24 06:02: POC Glucose 130 H 08/26/24 08:38: POC Glucose 120 H 08/26/24 09:31: POC Glucose 100 08/26/24 11:33: POC Glucose 154 H 08/26/24 12:35: Hgb 9.2 L, Hct 32.4 L 08/26/24 15:05: POC Glucose 149 H 08/26/24 16:51: Sodium 137, Potassium 4.3, Chloride 106, Carbon Dioxide 15.0 L, Anion Gap 16 H, BUN 17, Creatinine 1.05 H, Estim Creat Clear Calc 101.11, Est GFR (MDRD) Af Amer 73, Est GFR (MDRD) Non-Af 60, BUN/Creatinine Ratio 16.2, G lucose 134 H, Calcium 8.7 Charges/Coding Visit Charges Inpatient E&M: 88113 Subs Hosp L2
[2024-08-26 17:21] LABS: Anion Gap 16 (5-15); BUN 17 mg/dL (7-18); BUN/Creat Ratio 16.2 RATIO (10-20); Calcium,Total 8.7 mg/dL (8.5-10.1); Chloride 106 mmol/L (98-107); Creatinine, Serum 1.05 mg/dL (0.55-1.02); EST Glomerular Filtration Rate 60 mL/min (>60); Est Glom Filt Rate - Afr Amer 73 mL/min (>60); Estimated Creatinine Clearance 101.11 ml/min; Glucose 134 mg/dL (74-106); Potassium 4.3 mmol/L (3.5-5.1); Sodium Level 137 mmol/L (136-145)
[2024-08-26] MEDS: Morphine 2 MG/ML Syringe IV (17:34)
--- NOTE | 2024-08-26 20:31 | OP.PCM_ITS ---
Operative Report (Standard) Operative Information Date of Procedure: 08/26/24 Pre-Operative Diagnosis: Left lower extremity wound with exposed bone and hardware on the calcaneus Post-Operative Diagnosis: Same Surgery/Procedure Performed: 1) Targeted Muscle Reinnervation (TMR) for the tibial nerve (to a soleus branch motor nerve), CPT: 82388 2) Regenerative Peripheral Nerve Interface (RPNI), deep peroneal nerve, CPT: 12257 (muscle harvest for tissue graft) and 39172 (implantation of nerve into muscle) 3) Regenerative Peripheral Nerve Interface (RPNI), superficial peroneal nerve, CPT: 47262 (muscle harvest for tissue graft) and 74879 (implantation of nerve into muscle) director of primary care: No Type of Anesthesia: General RN Documented Start/Stop Times: Operation Date: 08/26/24 07:30 Case Time Into Pre-Op 08/26/24 06:58 Out of Pre-Op 08/26/24 09:12 Anesthesia Start 08/26/24 09:14 Into Room 08/26/24 09:14 Procedure Start 08/26/24 09:51 Procedure End 08/26/24 12:40 Anesthesia End 08/26/24 12:52 Out of Room 08/26/24 12:52 Into Recovery 08/26/24 12:56 Out of Recovery 08/26/24 14:11 Procedure Start Time: 11:45 Procedure Stop Time: 12:15 Select all DRAINS/GRAFTS/IMPLANTS that apply: None Estimated Blood Loss: minimal Specimen collected: No Description of surgery: Indications: Lida Cutler is a delightful 43-year-old female with a challenging left lower extremity diabetic foot wound. The foot and ankle surgery team discussed options for an attempt salvage, and she elected for below-knee amputation. Patient presents today for left lower extremity below-knee amputation with vascular surgery, as well as possible TMR/RPNI with plastic surgery. I talked her about the risks, benefits, and alternatives to reconstruction with nerve procedures, including failure to obtain the desired result and have residual phantom limb pain or residual nerve pain. We also talked about the risks of prolonged operative time and infection, including the risk of anesthesia like hypotension and blood clots. She elected to proceed. Procedure Details: Patient was taken back to the operating room by the vascular surgery team and a timeout was performed with plastics and vascular. I was his clinical trial assistant for the below-knee amputation portion of the procedure. Please see Dr. Murrell's note for details regarding the below-knee amputation. Once the below-knee amputation had been performed but before closure, the tibial, deep peroneal, and superficial peroneal nerves have been identified and were isolated for potential targeted muscle reinnervation. Dissection was taken proximally along the tibial nerve through the amputation incision towards the posterior of the knee and a motor branch to the superficial posterior compartment musculature was identified, with confirmation made using the checkpoint nerve stimulator. On a low setting, the nerve stimulator on the nerve branch made the musculature move, confirming that this was an adequate target. This nerve was transected and the proximal portion was rotated into position for connection to the tibial nerve. Under loupe magnification, a horizontal mattress 7-0 Prolene suture was placed as a horizontal mattress from the tibial nerve to the motor nerve branch to enable the size mismatch to be corrected placing the smaller nerve into the center of the tibial nerve. Subsequently four epineurial 7-0 sutures were placed. There were no other motor nerves identified in this area. At this point the surgery, the patient had been under general anesthesia for over 2 hours. Proximal extension of the lateral incision to find more proximal targets was deemed to be a poor option given the patient's A1c of 10 and history of wound healing problems. Decision was then made to perform regenerative peripheral nerve interfaces with the deep and superficial peroneal nerves. Two 1 x 3 and 0.5 cm thick muscle grafts were created with a 10 blade scalpel from anterior compartment musculature that had been removed/amputated. A 7-0 Prolene was used to place both of the nerves within the center of the muscle grafts followed by 3-0 Vicryl to wrap the muscle around the muscle grafts. The patient tolerated the procedure well. The below the knee amputation was closed (please see separate operative note for details). Surgical Findings: Through single amputation incision, there was one identifiable motor branch to the superficial posterior compartment musculature enabling TMR for the tibial nerve Complications Complications: No Admit VTE Documentation VTE Present on Admission: No VTE Mechan Device Prophylaxis: SCD's (On the right )
[2024-08-26 20:34] LABS: Hematocrit 29.7 % (37-47); Hemoglobin 8.6 g/dL (12.0-15.0)
[2024-08-26] MEDS: Senna/Docusate Sodium 1 Tablet 2 TABLET PO (21:41)
[2024-08-26] MEDS: Acetaminophen 325 MG Tablet 650 MG PO (21:50)
[2024-08-26] MEDS: oxyCODONE 5 MG Tablet 10 MG PO (21:50)
[2024-08-26] MEDS: Heparin Injection (Vial) 5,000 UNIT/ML VIAL 5000 UNIT SC (22:05)
[2024-08-26 23:39] LABS: Bedside Glucose 120 mg/dL (74-106)
[2024-08-27] MEDS: Morphine 2 MG/ML Syringe IV (00:05)
[2024-08-27 02:10] VITALS: BP 120/67; PULSE 90; RESP 16; TEMP 36.4; O2SAT 98
[2024-08-27 05:35] VITALS: BMI 41.5
[2024-08-27 05:56] VITALS: BP 112/70; PULSE 69; RESP 16; TEMP 36.8; O2SAT 96
[2024-08-27] MEDS: Piperacil/Tazobactam 3.375 GM in 0.9% Normal Saline (50mL MB+) 50 ML IV ×3 (06:29→21:24)
[2024-08-27 06:40] LABS: Absolute Lymphocyte Count 2.82 X10^3/uL (0.83-4.51); Absolute Neutrophil Count 8.5 X10^3/uL (2.0-7.7); Basophil% 0.8 % (0-1); Eosinophils% 0.8 % (0-5); Hematocrit 28.2 % (37-47); Hemoglobin 8.3 g/dL (12.0-15.0); Lymphocyte # 2.82 X10^3/ul (0.83-4.51); Mean Corp Hgb Conc 29.4 g/dL (32-36); Mean Corpuscular Hgb 20.2 pg (27.0-32.0); Mean Corpuscular Volume 68.8 fL (81-99); Mean Platelet Vol. 8.7 fl (6.2-12.0); NRBC Flagged by Analyzer 0 % (0-5); Neutrophil # 8.46 X10^3/uL (2.7-7.7); Platelet Count 402 K/mm3 (150-450); RBC Distribution Width CV 19.9 % (11.6-14.6); RBC Distribution Width SD 47.6 fl (35.1-43.9); White Blood Count 12.8 K/mm3 (4.4-11.0)
[2024-08-27 07:08] LABS: Anion Gap 15 (5-15); BUN 12 mg/dL (7-18); BUN/Creat Ratio 14.6 RATIO (10-20); Calcium,Total 8.5 mg/dL (8.5-10.1); Chloride 104 mmol/L (98-107); Creatinine, Serum 0.82 mg/dL (0.55-1.02); EST Glomerular Filtration Rate 80 mL/min (>60); Est Glom Filt Rate - Afr Amer 97 mL/min (>60); Estimated Creatinine Clearance 129.48 ml/min; Glucose 119 mg/dL (74-106); Potassium 3.9 mmol/L (3.5-5.1); Sodium Level 135 mmol/L (136-145)
[2024-08-27 07:27] LABS: Bedside Glucose 107 mg/dL (74-106)
[2024-08-27 07:45] VITALS: BP 110/72; PULSE 85; RESP 18; TEMP 36.3; O2SAT 99
[2024-08-27] MEDS: oxyCODONE 5 MG Tablet 10 MG PO ×3 (07:47→21:12)
[2024-08-27] MEDS: Pantoprazole Sodium 40 MG Tablet PO (07:47)
[2024-08-27] MEDS: Senna/Docusate Sodium 1 Tablet 2 TABLET PO ×2 (07:47→21:14)
[2024-08-27] MEDS: buPROPion (XL) 150 MG TABLET.XL PO (07:47)
[2024-08-27] MEDS: Cyanocobalamin 500 MCG Tablet 1000 MCG PO (07:47)
[2024-08-27] MEDS: Heparin Injection (Vial) 5,000 UNIT/ML VIAL 5000 UNIT SC ×2 (07:48→21:15)
[2024-08-27] MEDS: Cholecalciferol (VIT D3) 25 MCG TABLET (1,000 UNITS) 50 MCG PO (07:48)
--- NOTE | 2024-08-27 10:07 | PCM.PN.ID ---
Physical Exam Narrative Feeling ok, no fever, no n/v/d. Pain controlled mostly. Const alert and no apparent distress General Appearance: cooperative Resp normal air movement and clear to auscultation bilaterally Cardio regular rate GI soft to palpation, non-tender and non-distended Extremity Extremity Narrative: LLE wrapped Skin Skin Narrative: no new rash ID ID: Route of nutrition/ use of supplements: [] Nutritional Intake: [] IV Site: [] Meyer Catheter: [] Assessment & Plan Assessment/Plan (1) Diabetes mellitus with diabetic polyneuropathy: (2) Ankle osteomyelitis, left: PLAN: Wound cx with polymicrobial growth. BKA planned, cont with empiric broad coverage with zosyn for 2 more days, stop date 08/29/24. Will follow
[2024-08-27 11:09] LABS: Bedside Glucose 138 mg/dL (74-106)
--- NOTE | 2024-08-27 12:24 | PN.HOSP_ITS ---
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 (08/20/24) Non-pressure chronic ulcer of other part of right foot with fat layer exposed (08/20/24) Osteomyelitis, unspecified (08/20/24) Unspecified open wound, unspecified foot, initial encounter (08/20/24) Acquired absence of left foot (08/20/24) Objective Data Objective Data Vital Signs: Vital Signs Temp Pulse Resp BP Pulse Ox O2 Del Method 97.4 F L 85 18 110/72 99 Room Air 08/27/24 07:45 08/27/24 07:45 08/27/24 07:45 08/27/24 07:45 08/27/24 07:45 08/27/24 07:45 Oxygen Delivery Method Room Air Weight: 289 lb 12.762 oz Body Mass Index (BMI) 41.5 Intake & Output: Intake and Output for Last 24 Hours 08/25/24 08/26/24 08/27/24 23:59 23:59 23:59 Intake Total 970 / 970 2467.75 / 2467.75 100 / 100 Output Total 1825 / 1825 Balance 970 / 970 642.75 / 642.75 100 / 100 Lab / Micro Data 08/27/24 05:31 08/27/24 05:31 Labs: Laboratory Results - last 24 hr 08/26/24 12:35: Hgb 9.2 L, Hct 32.4 L 08/26/24 15:05: POC Glucose 149 H 08/26/24 16:51: Sodium 137, Potassium 4.3, Chloride 106, Carbon Dioxide 15.0 L, Anion Gap 16 H, BUN 17, Creatinine 1.05 H, Estim Creat Clear Calc 101.11, Est GFR (MDRD) Af Amer 73, Est GFR (MDRD) Non-Af 60, BUN/Creatinine Ratio 16.2, G lucose 134 H, Calcium 8.7 08/26/24 20:28: Hgb 8.6 L, Hct 29.7 L 08/26/24 21:49: POC Glucose 120 H 08/27/24 05:31: WBC 12.8 H, RBC 4.10 L, Hgb 8.3 L, Hct 28.2 L, MCV 68.8 L, MCH 20.2 L, MCHC 29.4 L, RDW Std Deviation 47.6 H, RDW Coeff of Maria E 19.9 H, Plt Count 402, MPV 8.7, Immature Gran % (Auto) 3.400 H, Neut % (Auto) 66.0, Lymph % (Auto) 22.0, [place] % (Auto) 7.0, Eos % (Auto) 0.8, Baso % (Auto) 0.8, Absolute Neuts (auto) 8.5 H, Absolute Lymphs (auto) 2.82, Nucleated RBC % 0, Sodium 135 L , Potassium 3.9, Chloride 104, Carbon Dioxide 16.0 L, Anion Gap 15, BUN 12, Creatinine 0.82, Estim Creat Clear Calc 129.48, Est GFR (MDRD) Af Amer 97, Est GFR (MDRD) Non-Af 80, BUN/Creatinine Ratio 14.6, Glucose 119 H, Calcium 8.5 08/27/24 06:36: POC Glucose 107 H 08/27/24 10:51: POC Glucose 138 H Micro: Microbiology 08/20/24 12:05 Blood Culture (Wb) - Left Hand Blood Culture - Final No growth in 5 days. 08/20/24 12:05 Blood Culture (Wb) - Anticubital Left Blood Culture - Final No growth in 5 days. 08/20/24 13:50 Wound Abcess - Heel, Left Gram Stain - Final 08/20/24 13:50 Wound Abcess - Heel, Left Wound Culture - Final Pseudomonas aeruginosa Serratia marcescens Klebsiella oxytoca Staphylococcus aureus Streptococcus mitis/ oralis 08/20/24 13:50 Wound Abcess - Heel, Left Anaerobic Culture - Final Anaerobic cocci 08/20/24 12:43 Wound - Left Foot Gram Stain - Final 08/20/24 12:43 Wound - Left Foot Wound Culture - Final Pseudomonas aeruginosa Serratia marcescens Klebsiella oxytoca Staphylococcus aureus Staphylococcus aureus#2 Streptococcus pseudoporcinus 08/20/24 10:18 Mucosa - Nose SARS-CoV-2, Influenza & RSV (PCR) - Final Physical Exam Narrative Seen and examined Patient had left BKA on 08/26/2024. Complain of mild pain control last 3/10 intensity Patient with history of diabetes mellitus, diabetic polyneuropathy and nonhealing, worsening left heel ulcer after forefoot amputation for last 2 months. Physical exam General: Alert, Oriented x3, Cooperative HEENT: Atraumatic, PERRLA, EOMI, Normocephalic Oral: No Gingival or Mucosal Lesions/ Ulcerations Neck: Supple, No JVD, Negative Carotid Bruits Chest wall/Lungs: Air entry diminished in bilateral lung bases. No crepitation/rhonchi Cardiovascular: Regular rate, Regular Rhythm, Normal S1, Normal S2, No M/G/R. Decreased pulsation of left PT and right SENIOR ART DIRECTOR. Abdomen: Bowel Sounds Present, Soft, Non Tender, Non-Distended : No dysuria. No renal angle tenderness. No suprapubic tenderness. Extremities: No edema, Capillary Refill Less than 3 Seconds Skin: Right heel amputation stump. Left BKA, covered with a dressing. Dressing is dry. Musculoskeletal: No Tenderness to Palpation of Joints or Extremities. Neurological: Cranial nerves II-XII grossly intact, DTR 2+/4. Neuropathy. Mild sensation in lower legs. Psych/Mental Status: Flat affect. Assessment & Plan Assessment/Plan (1) Wound of foot: PLAN: Plan 1. 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 Polymicrobial growth. Patient was evaluated by ID and recommended to continue empiric broad-spectrum antibiotic, vancomycin and Zosyn. Plan for BKA later this week. Plastic surgery Dr. Dodd actively involved. 08/24: Patient was alerted by vascular surgery and discussed left BKA procedure with the patient. Anticipated course of BKA, healing, complication and rehab including processes discussed with the patient. OR rescheduled on 08/26. 08/25: Plan 4 OR tomorrow. 08/26: Patient had left below-knee amputation by Dr. Murrell. 08/27: Patient had left BKA on 08/26. Postop day 1. Mild pain. Patient was seen by plastic surgeon. Patient was seen by ID. Advised 2 more days of Zosyn and then stop, stop date 08/29/2024 #2 uncontrolled type 2 diabetes with neuropathy-: Blood sugar reasonably controlled. Accu-Chek before meals and at bedtime with Humalog sliding scale coverage and hypoglycemia protocol. 08/26 in the morning, empagliflozin was held and to remain hold for next 48 hours. 08/27: Bicarb 16, anion gap 15. Serum sodium 135. Suggestive of metabolic acidosis probably from starvation ketones and patient was on empagliflozin therefore IV fluid D5 half NS started. #3 Chronic peripheral arterial disease: Being followed by vascular surgery 08/24: Patient had lower extremity arterial study which shows triphasic Doppler waveform at the ankle level bilaterally though pulse volume diminished at ankle on the right but satisfactory at the left. Resting VICTORIA are normal bilaterally. Right VICTORIA 1.19. Left VICTORIA 1.28. 4. Class III obesity-complicates care, management, recovery, and prognosis 5. Chronic anxiety and depression-patient will remain on her outpatient psychiatric medications 6. DVT prophylaxis, moderate risk heparin 5000 units every 12 hourly. Hold prior to surgery Microbiology Past 72 Hours 08/20/24 12:05 Blood Culture (Wb) - Left Hand Blood Culture - Final No growth in 5 days. 08/20/24 12:05 Blood Culture (Wb) - Anticubital Left Blood Culture - Final No growth in 5 days. 08/20/24 13:50 Wound Abcess - Heel, Left Gram Stain - Final 08/20/24 13:50 Wound Abcess - Heel, Left Wound Culture - Final Pseudomonas aeruginosa Serratia marcescens Klebsiella oxytoca Staphylococcus aureus Streptococcus mitis/ oralis 08/20/24 13:50 Wound Abcess - Heel, Left Anaerobic Culture - Final Anaerobic cocci Laboratory Results 08/26/24 12:35: Hgb 9.2 L, Hct 32.4 L 08/26/24 15:05: POC Glucose 149 H 08/26/24 16:51: Sodium 137, Potassium 4.3, Chloride 106, Carbon Dioxide 15.0 L, Anion Gap 16 H, BUN 17, Creatinine 1.05 H, Estim Creat Clear Calc 101.11, Est GFR (MDRD) Af Amer 73, Est GFR (MDRD) Non-Af 60, BUN/Creatinine Ratio 16.2, G lucose 134 H, Calcium 8.7 08/26/24 20:28: Hgb 8.6 L, Hct 29.7 L 08/26/24 21:49: POC Glucose 120 H 08/27/24 05:31: WBC 12.8 H, RBC 4.10 L, Hgb 8.3 L, Hct 28.2 L, MCV 68.8 L, MCH 20.2 L, MCHC 29.4 L, RDW Std Deviation 47.6 H, RDW Coeff of Maria E 19.9 H, Plt Count 402, MPV 8.7, Immature Gran % (Auto) 3.400 H, Neut % (Auto) 66.0, Lymph % (Auto) 22.0, [place] % (Auto) 7.0, Eos % (Auto) 0.8, Baso % (Auto) 0.8, Absolute Neuts (auto) 8.5 H, Absolute Lymphs (auto) 2.82, Nucleated RBC % 0, Sodium 135 L , Potassium 3.9, Chloride 104, Carbon Dioxide 16.0 L, Anion Gap 15, BUN 12, Creatinine 0.82, Estim Creat Clear Calc 129.48, Est GFR (MDRD) Af Amer 97, Est GFR (MDRD) Non-Af 80, BUN/Creatinine Ratio 14.6, Glucose 119 H, Calcium 8.5 08/27/24 06:36: POC Glucose 107 H 08/27/24 10:51: POC Glucose 138 H Charges/Coding Visit Charges Inpatient E&M: 25478 Subs Hosp L2
--- NOTE | 2024-08-27 12:56 | PN.SURG_ITS ---
Subjective Subjective I saw October this afternoon sitting up in the bedside chair finishing lunch. Her was at bedside. She reports to feeling well overall, having expected pain at the surgery site but this is well-controlled with oxycodone; she has only had morphine at night to sleep she says. She denies any phantom pains. Prevena vac malfunctioned so standard wound vac was placed instead. There is no significant output in the vac cannister. Her WBC is downtrending. ID has recommended IV abx until 08/29. She had expected postop drop in Hgb; hemodynamically stable. She very much wants to return to her home, not at all interested in rehab/SNF. She worked with PT and this seemed to go well, she is open to [facility]. [employer] is to place the protective device this afternoon, she has worked with them in the past. Objective Data Objective Data Vital Signs: Vital Signs Temp Pulse Resp BP Pulse Ox O2 Del Method 97.4 F L 85 18 110/72 99 Room Air 08/27/24 07:45 08/27/24 07:45 08/27/24 07:45 08/27/24 07:45 08/27/24 07:45 08/27/24 07:45 Oxygen Delivery Method Room Air Weight: 289 lb 12.762 oz Body Mass Index (BMI) 41.5 Intake & Output: Intake and Output for Last 24 Hours 08/25/24 08/26/24 08/27/24 23:59 23:59 23:59 Intake Total 970 / 970 2467.75 / 2467.75 100 / 100 Output Total 1825 / 1825 Balance 970 / 970 642.75 / 642.75 100 / 100 Lab / Micro Data 08/27/24 05:31 08/27/24 05:31 Labs: Laboratory Results - last 24 hr 08/26/24 12:35: Hgb 9.2 L, Hct 32.4 L 08/26/24 15:05: POC Glucose 149 H 08/26/24 16:51: Sodium 137, Potassium 4.3, Chloride 106, Carbon Dioxide 15.0 L, Anion Gap 16 H, BUN 17, Creatinine 1.05 H, Estim Creat Clear Calc 101.11, Est GFR (MDRD) Af Amer 73, Est GFR (MDRD) Non-Af 60, BUN/Creatinine Ratio 16.2, G lucose 134 H, Calcium 8.7 08/26/24 20:28: Hgb 8.6 L, Hct 29.7 L 08/26/24 21:49: POC Glucose 120 H 08/27/24 05:31: WBC 12.8 H, RBC 4.10 L, Hgb 8.3 L, Hct 28.2 L, MCV 68.8 L, MCH 20.2 L, MCHC 29.4 L, RDW Std Deviation 47.6 H, RDW Coeff of Maria E 19.9 H, Plt Count 402, MPV 8.7, Immature Gran % (Auto) 3.400 H, Neut % (Auto) 66.0, Lymph % (Auto) 22.0, [place] % (Auto) 7.0, Eos % (Auto) 0.8, Baso % (Auto) 0.8, Absolute Neuts (auto) 8.5 H, Absolute Lymphs (auto) 2.82, Nucleated RBC % 0, Sodium 135 L , Potassium 3.9, Chloride 104, Carbon Dioxide 16.0 L, Anion Gap 15, BUN 12, Creatinine 0.82, Estim Creat Clear Calc 129.48, Est GFR (MDRD) Af Amer 97, Est GFR (MDRD) Non-Af 80, BUN/Creatinine Ratio 14.6, Glucose 119 H, Calcium 8.5 08/27/24 06:36: POC Glucose 107 H 08/27/24 10:51: POC Glucose 138 H Micro: Microbiology 08/20/24 12:05 Blood Culture (Wb) - Left Hand Blood Culture - Final No growth in 5 days. 08/20/24 12:05 Blood Culture (Wb) - Anticubital Left Blood Culture - Final No growth in 5 days. 08/20/24 13:50 Wound Abcess - Heel, Left Gram Stain - Final 08/20/24 13:50 Wound Abcess - Heel, Left Wound Culture - Final Pseudomonas aeruginosa Serratia marcescens Klebsiella oxytoca Staphylococcus aureus Streptococcus mitis/ oralis 08/20/24 13:50 Wound Abcess - Heel, Left Anaerobic Culture - Final Anaerobic cocci 08/20/24 12:43 Wound - Left Foot Gram Stain - Final 08/20/24 12:43 Wound - Left Foot Wound Culture - Final Pseudomonas aeruginosa Serratia marcescens Klebsiella oxytoca Staphylococcus aureus Staphylococcus aureus#2 Streptococcus pseudoporcinus 08/20/24 10:18 Mucosa - Nose SARS-CoV-2, Influenza & RSV (PCR) - Final Physical Exam Const oriented x3 and no apparent distress Resp normal respiratory effort Cardio regular rate and regular rhythm Extremity Extremity Narrative: L BKA site with wound vac dressings intact. No bleeding noted, no significant drainage in the vac canister. No hematoma, stump is soft to palpation throughout. Reviewed pictures from chart yesterday when new vac was placed, incision site well approximated with melany, no dehiscence, skin edges viable. Assessment & Plan Assessment/Plan (1) S/P BKA (below knee amputation): PLAN: Surgical site is satisfactory in appearance with no hematoma and no bleeding. Her pain is well-controlled, no phantom pain at this time. [employer] is to placed protective device with extension this afternoon, order is in her paper chart. Once protective device is in place, she is OK for discharge from surgical perspective when otherwise medically ready. She plans to return home with [facility] at discharge. The rigid protective device should be in place most of the time; OK to remove to perform knee ROM exercises and for wound care/hygiene. Emphasized the importance of wearing this during transfers/ambulation and at night when sleeping to prevent trauma to the site. Wound vac can be discontinued at discharge. When wound vac discontinued, would apply dry dressing with adaptic to the staple line, ABD pad, and then kerlix wrap; this should be changed daily or more often as needed to keep clean and dry. Continue to dress as long as there is drainage, if no drainage can be left open to air with care taken to keep the area clean. Will plan for outpatient follow-up in 3-4 weeks to begin to assess for staple removal.
[2024-08-27 13:00] VITALS: BP 130/73; PULSE 96; RESP 16; TEMP 36.4; O2SAT 100
[2024-08-27] MEDS: Acetaminophen 325 MG Tablet 650 MG PO ×2 (13:06→21:13)
[2024-08-27] MEDS: KCL 20MEQ in D5.45NS 20 MEQ/1,000 ML IV.SOLN. 50 MEQ IV (13:07)
--- NOTE | 2024-08-27 14:51 | PN.SURG_ITS ---
Subjective Subjective Doing well. Says she's having an itching feeling in the left lower extremity, pain is controlled. Objective Data Objective Data Hgb 8.3 today Vital Signs: Vital Signs Temp Pulse Resp BP Pulse Ox O2 Del Method 97.6 F L 96 16 130/73 H 100 Room Air 08/27/24 13:00 08/27/24 13:00 08/27/24 13:00 08/27/24 13:00 08/27/24 13:00 08/27/24 13:00 Oxygen Delivery Method Room Air Weight: 289 lb 12.762 oz Body Mass Index (BMI) 41.5 Intake & Output: Intake and Output for Last 24 Hours 08/25/24 08/26/24 08/27/24 23:59 23:59 23:59 Intake Total 970 / 970 2467.75 / 2467.75 137 / 137 Output Total 1825 / 1825 Balance 970 / 970 642.75 / 642.75 137 / 137 Lab / Micro Data 08/27/24 05:31 08/27/24 05:31 Labs: Laboratory Results - last 24 hr 08/26/24 15:05: POC Glucose 149 H 08/26/24 16:51: Sodium 137, Potassium 4.3, Chloride 106, Carbon Dioxide 15.0 L, Anion Gap 16 H, BUN 17, Creatinine 1.05 H, Estim Creat Clear Calc 101.11, Est GFR (MDRD) Af Amer 73, Est GFR (MDRD) Non-Af 60, BUN/Creatinine Ratio 16.2, G lucose 134 H, Calcium 8.7 08/26/24 20:28: Hgb 8.6 L, Hct 29.7 L 08/26/24 21:49: POC Glucose 120 H 08/27/24 05:31: WBC 12.8 H, RBC 4.10 L, Hgb 8.3 L, Hct 28.2 L, MCV 68.8 L, MCH 20.2 L, MCHC 29.4 L, RDW Std Deviation 47.6 H, RDW Coeff of Maria E 19.9 H, Plt Count 402, MPV 8.7, Immature Gran % (Auto) 3.400 H, Neut % (Auto) 66.0, Lymph % (Auto) 22.0, [place] % (Auto) 7.0, Eos % (Auto) 0.8, Baso % (Auto) 0.8, Absolute Neuts (auto) 8.5 H, Absolute Lymphs (auto) 2.82, Nucleated RBC % 0, Sodium 135 L , Potassium 3.9, Chloride 104, Carbon Dioxide 16.0 L, Anion Gap 15, BUN 12, Creatinine 0.82, Estim Creat Clear Calc 129.48, Est GFR (MDRD) Af Amer 97, Est GFR (MDRD) Non-Af 80, BUN/Creatinine Ratio 14.6, Glucose 119 H, Calcium 8.5 08/27/24 06:36: POC Glucose 107 H 08/27/24 10:51: POC Glucose 138 H Micro: Microbiology 08/20/24 12:05 Blood Culture (Wb) - Left Hand Blood Culture - Final No growth in 5 days. 08/20/24 12:05 Blood Culture (Wb) - Anticubital Left Blood Culture - Final No growth in 5 days. 08/20/24 13:50 Wound Abcess - Heel, Left Gram Stain - Final 08/20/24 13:50 Wound Abcess - Heel, Left Wound Culture - Final Pseudomonas aeruginosa Serratia marcescens Klebsiella oxytoca Staphylococcus aureus Streptococcus mitis/ oralis 08/20/24 13:50 Wound Abcess - Heel, Left Anaerobic Culture - Final Anaerobic cocci 08/20/24 12:43 Wound - Left Foot Gram Stain - Final 08/20/24 12:43 Wound - Left Foot Wound Culture - Final Pseudomonas aeruginosa Serratia marcescens Klebsiella oxytoca Staphylococcus aureus Staphylococcus aureus#2 Streptococcus pseudoporcinus 08/20/24 10:18 Mucosa - Nose SARS-CoV-2, Influenza & RSV (PCR) - Final Physical Exam Narrative LLE: VAC over incision. No signs of hematoma/bleeding. Const alert and oriented x3 Resp normal respiratory effort Cardio regular rate Assessment & Plan Assessment/Plan (1) S/P BKA (below knee amputation): PLAN: No bleeding today Doing well with pain. She will meet with the record changer team (prosthetics co) for a knee immobilizer/protector. PSU to follow Charges/Coding Procedures Integumentary [id number]: [id number] Global Visit
--- NOTE | 2024-08-27 15:12 | CASEMGMT ---
RN MALINDA into pt room, pt had been working with [employer] . Discussed dc planning, pt states that she wants to go home. She states she plans on w/c mobility at home. Pt is adamant about going home. Pt is agreeable to [facility]. Made pt aware that this YUDITH PETTY would bring her a list. Pt states she doesn't need a list. She states she has had [facility] in the past and would be agreeable to them again. She states if they cannot accept, then she has no preference. Pt denies further needs at this time. TC to Fern at [facility], referral made at this time.
[2024-08-27 16:22] VITALS: BP 127/71; PULSE 94; RESP 16; TEMP 36.6; O2SAT 100
[2024-08-27 18:41] LABS: Bedside Glucose 139 mg/dL (74-106)
[2024-08-27 21:09] VITALS: BP 128/68; PULSE 97; RESP 18; TEMP 36.6; O2SAT 100
[2024-08-27] MEDS: Insulin Lispro 100 UNIT/ML INSULN.PEN SC (21:19)
[2024-08-27] MEDS: 0.9% Saline Lock 10 ML Syringe IV (21:24)
[2024-08-27 21:58] LABS: Bedside Glucose 155 mg/dL (74-106)
[2024-08-28] VITALS (7 sets, daily range): BP systolic 104–114; BP diastolic 48–64; PULSE 83–108; RESP 16–20; TEMP 36.3–36.9; O2SAT 96–100; BMI 41.5
[2024-08-28] MEDS: oxyCODONE 5 MG Tablet 10 MG PO ×4 (01:13→20:13)
[2024-08-28] MEDS: Piperacil/Tazobactam 3.375 GM in 0.9% Normal Saline (50mL MB+) 50 ML IV ×3 (05:27→21:18)
[2024-08-28] MEDS: Acetaminophen 325 MG Tablet 650 MG PO (06:22)
[2024-08-28 06:32] LABS: Absolute Lymphocyte Count 2.37 X10^3/uL (0.83-4.51); Absolute Neutrophil Count 4.1 X10^3/uL (2.0-7.7); Basophil# 0.08 X10^3/uL; Basophil% 1.1 % (0-1); Eosinophil# 0.15 X10^3/uL; Hematocrit 25.8 % (37-47); Hemoglobin 7.5 g/dL (12.0-15.0); Lymphocyte # 2.37 X10^3/ul (0.83-4.51); Lymphocyte % 31.3 % (19-41); Mean Corp Hgb Conc 29.1 g/dL (32-36); Mean Corpuscular Hgb 19.7 pg (27.0-32.0); Mean Corpuscular Volume 67.9 fL (81-99); Mean Platelet Vol. 8.6 fl (6.2-12.0); Monocyte# 0.62 X10^3/uL; Monocyte% 8.2 % (0-10); NRBC Flagged by Analyzer 0 % (0-5); Neutrophil # 4.09 X10^3/uL (2.7-7.7); Platelet Count 314 K/mm3 (150-450); RBC Distribution Width CV 19.6 % (11.6-14.6); RBC Distribution Width SD 46.5 fl (35.1-43.9); White Blood Count 7.6 K/mm3 (4.4-11.0)
[2024-08-28 06:55] LABS: Anion Gap 7 (5-15); BUN 7 mg/dL (7-18); BUN/Creat Ratio 10.4 RATIO (10-20); Calcium,Total 8.5 mg/dL (8.5-10.1); Chloride 106 mmol/L (98-107); Creatinine, Serum 0.67 mg/dL (0.55-1.02); EST Glomerular Filtration Rate 101 mL/min (>60); Est Glom Filt Rate - Afr Amer 122 mL/min (>60); Estimated Creatinine Clearance 158.46 ml/min; Glucose 134 mg/dL (74-106); Potassium 3.5 mmol/L (3.5-5.1); Sodium Level 136 mmol/L (136-145)
[2024-08-28 07:25] LABS: Bedside Glucose 132 mg/dL (74-106)
[2024-08-28] MEDS: Lisinopril 10 MG Tablet PO (08:09)
[2024-08-28] MEDS: Pantoprazole Sodium 40 MG Tablet PO (08:09)
[2024-08-28] MEDS: Cyanocobalamin 500 MCG Tablet 1000 MCG PO (08:09)
[2024-08-28] MEDS: buPROPion (XL) 150 MG TABLET.XL PO (08:09)
[2024-08-28] MEDS: Senna/Docusate Sodium 1 Tablet 2 TABLET PO ×2 (08:09→21:19)
[2024-08-28] MEDS: Cholecalciferol (VIT D3) 25 MCG TABLET (1,000 UNITS) 50 MCG PO (08:09)
[2024-08-28] MEDS: Heparin Injection (Vial) 5,000 UNIT/ML VIAL 5000 UNIT SC ×2 (08:10→21:20)
[2024-08-28 08:12] LABS: Ferritin 21 ng/mL (8-252); Iron 19 ug/dL (50-170); Iron Binding Capacity,Total 363 ug/dL (250-450); PERCENT IRON SATURATION 5.2 % (15.0-55.0)
[2024-08-28 08:32] LABS: Platelet Count 319 K/mm3 (150-450); RET-HE 27.2 pg (30-35)
--- NOTE | 2024-08-28 10:53 | PCM.PN.SRG ---
Subjective Subjective Doing well from pain standpoint overall. No phantom limb pain or nerve pain at this point. Objective Data Objective Data Vital Signs: Vital Signs Temp Pulse Resp BP Pulse Ox O2 Del Method 97.7 F L 86 16 107/57 L 99 Room Air 08/28/24 08:03 08/28/24 08:03 08/28/24 08:03 08/28/24 08:03 08/28/24 08:03 08/28/24 08:03 Oxygen Delivery Method Room Air Weight: 290 lb 5.581 oz Body Mass Index (BMI) 41.5 Intake & Output: Intake and Output for Last 24 Hours 08/26/24 08/27/24 08/28/24 23:59 23:59 23:59 Intake Total 2467.75 / 2467.75 187 / 187 1100 / 1100 Output Total 1825 / 1825 Balance 642.75 / 642.75 187 / 187 1100 / 1100 Lab / Micro Data 08/28/24 05:50 08/28/24 05:50 Labs: Laboratory Results - last 24 hr 08/27/24 10:51: POC Glucose 138 H 08/27/24 16:18: POC Glucose 139 H 08/27/24 21:18: POC Glucose 155 H 08/28/24 05:50: WBC 7.6, RBC 3.80 L, Hgb 7.5 L, Hct 25.8 L, MCV 67.9 L, MCH 19.7 L, MCHC 29.1 L, RDW Std Deviation 46.5 H, RDW Coeff of Maria E 19.6 H, Plt Count 314, MPV 8.6, Immature Gran % (Auto) 3.400 H, Neut % (Auto) 54.0, Lymph % (Auto) 31.3, [place] % (Auto) 8.2, Eos % (Auto) 2.0, Baso % (Auto) 1.1 H, Absolute Neuts (auto) 4.1, Absolute Lymphs (auto) 2.37, Nucleated RBC % 0, Retic Count 2.40 H, Immature Retic Fraction 34.60 H, Retic Hgb Equivalent 27.2 L, Sodium 136, Potassium 3.5, Chloride 106, Carbon Dioxide 23.0, Anion Gap 7, BUN 7, Creatinine 0.67, Estim Creat Clear Calc 158.46, Est GFR (MDRD) Af Amer 122, Est GFR (MDRD) Non-Af 101, BUN/Creatinine Ratio 10.4, Glucose 134 H, Calcium 8.5, Iron 19 L, TIBC 363, Iron Saturation 5.2 L, Ferritin 21 08/28/24 06:20: POC Glucose 132 H Micro: Microbiology 08/20/24 12:05 Blood Culture (Wb) - Left Hand Blood Culture - Final No growth in 5 days. 08/20/24 12:05 Blood Culture (Wb) - Anticubital Left Blood Culture - Final No growth in 5 days. 08/20/24 13:50 Wound Abcess - Heel, Left Gram Stain - Final 08/20/24 13:50 Wound Abcess - Heel, Left Wound Culture - Final Pseudomonas aeruginosa Serratia marcescens Klebsiella oxytoca Staphylococcus aureus Streptococcus mitis/ oralis 08/20/24 13:50 Wound Abcess - Heel, Left Anaerobic Culture - Final Anaerobic cocci 08/20/24 12:43 Wound - Left Foot Gram Stain - Final 08/20/24 12:43 Wound - Left Foot Wound Culture - Final Pseudomonas aeruginosa Serratia marcescens Klebsiella oxytoca Staphylococcus aureus Staphylococcus aureus#2 Streptococcus pseudoporcinus 08/20/24 10:18 Mucosa - Nose SARS-CoV-2, Influenza & RSV (PCR) - Final Physical Exam Narrative LLE: VAC over incision. No signs of hematoma/bleeding. Const alert and oriented x3 Resp normal respiratory effort Cardio regular rate Assessment & Plan Assessment/Plan (1) S/P BKA (below knee amputation): PLAN: No bleeding today Doing well with pain. [id number] team has fitted her for a knee immobilizer/protector, fits well and is excellent Continue antibiotics today per ID, but source control now obtained s/p BKA PSU to follow Continue incisional VAC another day Charges/Coding Procedures Integumentary [id number]: [id number] Global Visit
[2024-08-28 11:04] LABS: Bedside Glucose 151 mg/dL (74-106)
[2024-08-28] MEDS: Insulin Lispro 100 UNIT/ML INSULN.PEN SC ×2 (11:06→21:19)
[2024-08-28] MEDS: Bisacodyl 5 MG Tablet 10 MG PO (11:06)
--- NOTE | 2024-08-28 13:43 | PCM.PN.HOSP ---
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 (08/20/24) Non-pressure chronic ulcer of other part of right foot with fat layer exposed (08/20/24) Osteomyelitis, unspecified (08/20/24) Unspecified open wound, unspecified foot, initial encounter (08/20/24) Acquired absence of left foot (08/20/24) Acquired absence of unspecified leg below knee (08/20/24) Objective Data Objective Data Vital Signs: Vital Signs Temp Pulse Resp BP Pulse Ox O2 Del Method 97.7 F L 86 16 107/57 L 99 Room Air 08/28/24 08:03 08/28/24 08:03 08/28/24 08:03 08/28/24 08:03 08/28/24 08:03 08/28/24 08:03 Oxygen Delivery Method Room Air Weight: 290 lb 5.581 oz Body Mass Index (BMI) 41.5 Intake & Output: Intake and Output for Last 24 Hours 08/26/24 08/27/24 08/28/24 23:59 23:59 23:59 Intake Total 2467.75 / 2467.75 187 / 187 1100 / 1100 Output Total 1825 / 1825 Balance 642.75 / 642.75 187 / 187 1100 / 1100 Lab / Micro Data 08/28/24 05:50 08/28/24 05:50 Labs: Laboratory Results - last 24 hr 08/27/24 16:18: POC Glucose 139 H 08/27/24 21:18: POC Glucose 155 H 08/28/24 05:50: WBC 7.6, RBC 3.80 L, Hgb 7.5 L, Hct 25.8 L, MCV 67.9 L, MCH 19.7 L, MCHC 29.1 L, RDW Std Deviation 46.5 H, RDW Coeff of Maria E 19.6 H, Plt Count 314, MPV 8.6, Immature Gran % (Auto) 3.400 H, Neut % (Auto) 54.0, Lymph % (Auto) 31.3, [place] % (Auto) 8.2, Eos % (Auto) 2.0, Baso % (Auto) 1.1 H, Absolute Neuts (auto) 4.1, Absolute Lymphs (auto) 2.37, Nucleated RBC % 0, Retic Count 2.40 H, Immature Retic Fraction 34.60 H, Retic Hgb Equivalent 27.2 L, Sodium 136, Potassium 3.5, Chloride 106, Carbon Dioxide 23.0, Anion Gap 7, BUN 7, Creatinine 0.67, Estim Creat Clear Calc 158.46, Est GFR (MDRD) Af Amer 122, Est GFR (MDRD) Non-Af 101, BUN/Creatinine Ratio 10.4, Glucose 134 H, Calcium 8.5, Iron 19 L, TIBC 363, Iron Saturation 5.2 L, Ferritin 21 08/28/24 06:20: POC Glucose 132 H 08/28/24 10:47: POC Glucose 151 H Micro: Microbiology 08/20/24 12:05 Blood Culture (Wb) - Left Hand Blood Culture - Final No growth in 5 days. 08/20/24 12:05 Blood Culture (Wb) - Anticubital Left Blood Culture - Final No growth in 5 days. 08/20/24 13:50 Wound Abcess - Heel, Left Gram Stain - Final 08/20/24 13:50 Wound Abcess - Heel, Left Wound Culture - Final Pseudomonas aeruginosa Serratia marcescens Klebsiella oxytoca Staphylococcus aureus Streptococcus mitis/ oralis 08/20/24 13:50 Wound Abcess - Heel, Left Anaerobic Culture - Final Anaerobic cocci 08/20/24 12:43 Wound - Left Foot Gram Stain - Final 08/20/24 12:43 Wound - Left Foot Wound Culture - Final Pseudomonas aeruginosa Serratia marcescens Klebsiella oxytoca Staphylococcus aureus Staphylococcus aureus#2 Streptococcus pseudoporcinus 08/20/24 10:18 Mucosa - Nose SARS-CoV-2, Influenza & RSV (PCR) - Final Physical Exam Narrative Seen and examined Patient had left BKA on 08/26/2024. Complain of mild pain control about 2-3/10 intensity. Seen by plastic surgeon, Dr. Guerra. Discussed with Yousif. 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 Physical exam General: Alert, Oriented x3, Cooperative HEENT: Atraumatic, PERRLA, EOMI, Normocephalic Oral: No Gingival or Mucosal Lesions/ Ulcerations Neck: Supple, No JVD, Negative Carotid Bruits Chest wall/Lungs: Air entry diminished in bilateral lung bases. No crepitation/rhonchi Cardiovascular: Regular rate, Regular Rhythm, Normal S1, Normal S2, No M/G/R. Decreased pulsation of left PT and right POWER LINEWORKER. Abdomen: Bowel Sounds Present, Soft, Non Tender, Non-Distended : No dysuria. No renal angle tenderness. No suprapubic tenderness. Extremities: No edema, Capillary Refill Less than 3 Seconds Skin: Right heel amputation stump. Left BKA, covered with a dressing. Dressing is dry. Musculoskeletal: No Tenderness to Palpation of Joints or Extremities. Neurological: Cranial nerves II-XII grossly intact, DTR 2+/4. Neuropathy. Mild sensation in lower legs. Psych/Mental Status: Flat affect. Assessment & Plan Assessment/Plan (1) Wound of foot: PLAN: Plan 1. 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 Polymicrobial growth. Patient was evaluated by ID and recommended to continue empiric broad-spectrum antibiotic, vancomycin and Zosyn. Plan for BKA later this week. Plastic surgery Dr. Dodd actively involved. 08/24: Patient was alerted by vascular surgery and discussed left BKA procedure with the patient. Anticipated course of BKA, healing, complication and rehab including processes discussed with the patient. OR rescheduled on 08/26. 08/25: Plan 4 OR tomorrow. 08/26: Patient had left below-knee amputation by Dr. Murrell. 08/27: Patient had left BKA on 08/26. Postop day 1. Mild pain. Patient was seen by plastic surgeon. Patient was seen by ID. Advised 2 more days of Zosyn and then stop, stop date 08/29/202408/28: Anxiety meds. For knee mobilization/protector, feet swell. Discussed with plastic surgeon. Antibiotic as per ID and will complete on 08/29. Getting rehab and advised the patient to SNF lower than home PT #2 uncontrolled type 2 diabetes with neuropathy-: Blood sugar reasonably controlled. Accu-Chek before meals and at bedtime with Humalog sliding scale coverage and hypoglycemia protocol. 08/26 in the morning, empagliflozin was held and to remain hold for next 48 hours. 08/27: Bicarb 16, anion gap 15. Serum sodium 135. Suggestive of metabolic acidosis probably from starvation ketones and patient was on empagliflozin therefore IV fluid D5 half NS started. 08/28: Bicarb 23 improved. K3.5. Glucose is about 150, well-controlled. #3 Chronic peripheral arterial disease: Being followed by vascular surgery 08/24: Patient had lower extremity arterial study which shows triphasic Doppler waveform at the ankle level bilaterally though pulse volume diminished at ankle on the right but satisfactory at the left. Resting VICTORIA are normal bilaterally. Right VICTORIA 1.19. Left VICTORIA 1.28. Acute blood loss postoperative anemia with chronic anemia: Patient baseline hemoglobin is around 10 g. It is decreased to 8.6 g%. Reticulocyte panel and immature reticulocyte fraction is high. RDW elevated. Serum iron low, TIBC normal. Iron saturation 12.2%. Ferritin 21 low normal. IV iron ordered 4. Class III obesity-complicates care, management, recovery, and prognosis 5. Chronic anxiety and depression-patient will remain on her outpatient psychiatric medications 6. DVT prophylaxis, moderate risk heparin 5000 units every 12 hourly. Hold prior to surgery Microbiology Past 72 Hours 08/20/24 12:05 Blood Culture (Wb) - Left Hand Blood Culture - Final No growth in 5 days. 08/20/24 12:05 Blood Culture (Wb) - Anticubital Left Blood Culture - Final No growth in 5 days. Laboratory Results 08/27/24 16:18: POC Glucose 139 H 08/27/24 21:18: POC Glucose 155 H 08/28/24 05:50: WBC 7.6, RBC 3.80 L, Hgb 7.5 L, Hct 25.8 L, MCV 67.9 L, MCH 19.7 L, MCHC 29.1 L, RDW Std Deviation 46.5 H, RDW Coeff of Maria E 19.6 H, Plt Count 314, MPV 8.6, Immature Gran % (Auto) 3.400 H, Neut % (Auto) 54.0, Lymph % (Auto) 31.3, [place] % (Auto) 8.2, Eos % (Auto) 2.0, Baso % (Auto) 1.1 H, Absolute Neuts (auto) 4.1, Absolute Lymphs (auto) 2.37, Nucleated RBC % 0, Retic Count 2.40 H, Immature Retic Fraction 34.60 H, Retic Hgb Equivalent 27.2 L, Sodium 136, Potassium 3.5, Chloride 106, Carbon Dioxide 23.0, Anion Gap 7, BUN 7, Creatinine 0.67, Estim Creat Clear Calc 158.46, Est GFR (MDRD) Af Amer 122, Est GFR (MDRD) Non-Af 101, BUN/Creatinine Ratio 10.4, Glucose 134 H, Calcium 8.5, Iron 19 L, TIBC 363, Iron Saturation 5.2 L, Ferritin 21 08/28/24 06:20: POC Glucose 132 H 08/28/24 10:47: POC Glucose 151 H Charges/Coding Visit Charges Inpatient E&M: 04545 Subs Hosp L2
[2024-08-28] MEDS: 0.9% Saline Lock 10 ML Syringe IV (14:12)
[2024-08-28] MEDS: 0.9% Normal Saline (100mL Bag) 100 ML 15 ML IV (14:12)
[2024-08-28] MEDS: Potassium Chloride Oral Tablet 20 MEQ 40 MEQ PO ×2 (14:12→16:45)
[2024-08-28] MEDS: Sodium Ferric Gluconat/Sucrose 250 MG in 0.9% Normal Saline (250mL Bag) 250 ML 135 MG IV (14:47)
[2024-08-28 16:14] LABS: Bedside Glucose 123 mg/dL (74-106)
[2024-08-28] MEDS: Temazepam 15 MG Capsule 30 MG PO (21:19)
--- NOTE | 2024-08-28 21:20 | NURSING ---
heard loud noise in room and entered to find pt on floor. she was attempting to transfer from bed to bsc and fell onto the floor. pt denies injury. denies hitting head. denies injuring knee or operative leg. VS wnl. MD & HS notified.
[2024-08-28 21:49] LABS: Bedside Glucose 161 mg/dL (74-106)
--- NOTE | 2024-08-28 22:09 | PCM.HOSP.N ---
Hospitalist Note Patient with fall with no injury, no LOC. No pain complaints. Will continue to monitor.
[2024-08-29] VITALS (8 sets, daily range): BP systolic 93–119; BP diastolic 53–78; PULSE 73–95; RESP 16–18; TEMP 36.4–36.7; O2SAT 97–100; BMI 40.4
[2024-08-29] MEDS: oxyCODONE 5 MG Tablet 10 MG PO ×3 (02:05→18:46)
[2024-08-29] MEDS: Piperacil/Tazobactam 3.375 GM in 0.9% Normal Saline (50mL MB+) 50 ML IV ×3 (05:52→22:18)
[2024-08-29] MEDS: 0.9% Normal Saline (100mL Bag) 100 ML 15 ML IV (06:52)
[2024-08-29 07:14] LABS: Bedside Glucose 107 mg/dL (74-106)
[2024-08-29 07:17] LABS: Hematocrit 25.5 % (37-47); Hemoglobin 7.4 g/dL (12.0-15.0); Mean Corpuscular Hgb 19.8 pg (27.0-32.0); Mean Corpuscular Volume 68.4 fL (81-99); Mean Platelet Vol. 8.6 fl (6.2-12.0); POSITIVE COUNT YES; POSITIVE MORPHOLOGY YES; Platelet Count 329 K/mm3 (150-450); RBC Distribution Width CV 20.3 % (11.6-14.6); RBC Distribution Width SD 48.4 fl (35.1-43.9); Red Blood Count 3.73 M/mm3 (4.2-5.4); White Blood Count 7.7 K/mm3 (4.4-11.0)
[2024-08-29 07:25] LABS: Differential Indicated MANUAL DIFF
[2024-08-29 07:44] LABS: Anion Gap 9 (5-15); BUN 6 mg/dL (7-18); Calcium,Total 8.7 mg/dL (8.5-10.1); Chloride 108 mmol/L (98-107); EST Glomerular Filtration Rate 115 mL/min (>60); Est Glom Filt Rate - Afr Amer 139 mL/min (>60); Estimated Creatinine Clearance 174.57 ml/min; Glucose 116 mg/dL (74-106); Potassium 3.5 mmol/L (3.5-5.1); Sodium Level 138 mmol/L (136-145)
[2024-08-29] MEDS: Heparin Injection (Vial) 5,000 UNIT/ML VIAL 5000 UNIT SC ×2 (09:14→22:17)
[2024-08-29] MEDS: Polyethylene Glycol 3350 17 GM PACKET PO (09:14)
[2024-08-29] MEDS: buPROPion (XL) 150 MG TABLET.XL PO (09:15)
[2024-08-29] MEDS: Pantoprazole Sodium 40 MG Tablet PO (09:15)
[2024-08-29] MEDS: Senna/Docusate Sodium 1 Tablet 2 TABLET PO ×2 (09:15→22:18)
[2024-08-29] MEDS: Cholecalciferol (VIT D3) 25 MCG TABLET (1,000 UNITS) 50 MCG PO (09:15)
[2024-08-29] MEDS: Cyanocobalamin 500 MCG Tablet 1000 MCG PO (09:15)
[2024-08-29 09:16] LABS: Basophil 1 % (0-1); Eosinophil 2 % (0-5); Lymphocyte 39 % (19-41); Metamyelocyte 2 % (0-1); Monocyte 6 % (0-10); Neutrophil-Band 1 % (0-5); Neutrophil-Segmented 49 % (47-70); Total Cells Counted 100 (MANUAL DIFF)
[2024-08-29] MEDS: Lisinopril 10 MG Tablet PO (09:16)
[2024-08-29 09:17] LABS: Anisocytosis 1+; Ovalocyte 1+; Platelet Estimate A (ADEQ); Platelet Morphology LARGE; Polychromasia 1+; Reactive Lymphocyte 1+; Tear Drop Cell 1+
[2024-08-29 09:18] LABS: Absolute Neutrophil Count 3.9 X10^3/uL (2.0-7.7)
[2024-08-29 11:20] LABS: Bedside Glucose 246 mg/dL (74-106)
[2024-08-29] MEDS: Insulin Lispro 100 UNIT/ML INSULN.PEN SC ×3 (11:27→22:17)
--- NOTE | 2024-08-29 12:03 | PCM.PN.SRG ---
Subjective Subjective Doing well overall, but had a fall from her chair last night. Did not hit the LLE BKA. Sugars have been relatively well controlled, but still some readings in the 200s. Patient adament about going home/not going to rehab. Objective Data Objective Data Vital Signs: Vital Signs Temp Pulse Resp BP Pulse Ox O2 Del Method 97.6 F L 92 18 119/78 100 Room Air 08/29/24 09:10 08/29/24 09:10 08/29/24 09:10 08/29/24 09:10 08/29/24 09:10 08/29/24 09:10 Oxygen Delivery Method Room Air Weight: 282 lb 13.649 oz Body Mass Index (BMI) 40.4 Intake & Output: Intake and Output for Last 24 Hours 08/27/24 08/28/24 08/29/24 23:59 23:59 23:59 Intake Total 187 / 187 2660 / 2660 102.00 / 102.00 Output Total 1500 / 1500 Balance 187 / 187 2660 / 2060 -1398.00 / -1398.00 Lab / Micro Data 08/29/24 06:20 08/29/24 06:20 Labs: Laboratory Results - last 24 hr 08/28/24 15:48: POC Glucose 123 H 08/28/24 21:13: POC Glucose 161 H 08/29/24 06:20: WBC 7.7, RBC 3.73 L, Hgb 7.4 L, Hct 25.5 L, MCV 68.4 L, MCH 19.8 L, MCHC 29.0 L, RDW Std Deviation 48.4 H, RDW Coeff of Maria E 20.3 H, Plt Count 329, MPV 8.6, Neut % (Auto) Not Reportable, Absolute Neuts (auto) 3.9, Absolute Lymphs (auto) 3.00, Total Counted 100, Neutrophils % (Manual) 49, Band Neutrophils % 1, Lymphocytes % (Manual) 39, Monocytes % (Manual) 6, Eosinophils % (Manual) 2, Basophils % (Manual) 1, Metamyelocytes % 2 H, Diff Path Review May foll, Reactive Lymphocytes 1+, Platelet Estimate A, Plt Morphology Comment LARGE, Polychromasia 1+, Anisocytosis 1+, Tear Drop Cells 1+, Ovalocytes 1+, Sodium 138, Potassium 3.5, Chloride 108 H, Carbon Dioxide 21.0, Anion Gap 9, BUN 6 L, Creatinine 0.60, Estim Creat Clear Calc 174.57, Est GFR (MDRD) Af Amer 139, Est GFR (MDRD) Non-Af 115, BUN/Creatinine Ratio 10.0, Glucose 116 H, Calcium 8.7 08/29/24 06:51: POC Glucose 107 H 08/29/24 10:45: Blood Type O POSITIVE, Antibody Screen NEGATIVE, Crossmatch See Detail 08/29/24 10:53: POC Glucose 246 H Micro: Microbiology 08/20/24 12:05 Blood Culture (Wb) - Left Hand Blood Culture - Final No growth in 5 days. 08/20/24 12:05 Blood Culture (Wb) - Anticubital Left Blood Culture - Final No growth in 5 days. 08/20/24 13:50 Wound Abcess - Heel, Left Gram Stain - Final 08/20/24 13:50 Wound Abcess - Heel, Left Wound Culture - Final Pseudomonas aeruginosa Serratia marcescens Klebsiella oxytoca Staphylococcus aureus Streptococcus mitis/ oralis 08/20/24 13:50 Wound Abcess - Heel, Left Anaerobic Culture - Final Anaerobic cocci 08/20/24 12:43 Wound - Left Foot Gram Stain - Final 08/20/24 12:43 Wound - Left Foot Wound Culture - Final Pseudomonas aeruginosa Serratia marcescens Klebsiella oxytoca Staphylococcus aureus Staphylococcus aureus#2 Streptococcus pseudoporcinus 08/20/24 10:18 Mucosa - Nose SARS-CoV-2, Influenza & RSV (PCR) - Final Physical Exam Narrative LLE: VAC over incision. No signs of hematoma/bleeding. Const alert and oriented x3 Resp normal respiratory effort Cardio regular rate Assessment & Plan Assessment/Plan (1) S/P BKA (below knee amputation): PLAN: No bleeding today. Hgb 7.4 and primary team transfusing. Doing well with pain. [facility] team has fitted her for a knee immobilizer/protector, fits well and is excellent Source control now obtained s/p BKA from an infection standpoint [facility] to follow Continue incisional VAC another day Charges/Coding Procedures Integumentary [id number]: [id number] Global Visit
--- NOTE | 2024-08-29 12:40 | PCM.PN.HOSP ---
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 (08/20/24) Non-pressure chronic ulcer of other part of right foot with fat layer exposed (08/20/24) Osteomyelitis, unspecified (08/20/24) Unspecified open wound, unspecified foot, initial encounter (08/20/24) Acquired absence of left foot (08/20/24) Acquired absence of unspecified leg below knee (08/20/24) Objective Data Objective Data Vital Signs: Vital Signs Temp Pulse Resp BP Pulse Ox O2 Del Method 97.6 F L 92 18 119/78 100 Room Air 08/29/24 09:10 08/29/24 09:10 08/29/24 09:10 08/29/24 09:10 08/29/24 09:10 08/29/24 09:10 Oxygen Delivery Method Room Air Weight: 282 lb 13.649 oz Body Mass Index (BMI) 40.4 Intake & Output: Intake and Output for Last 24 Hours 08/27/24 08/28/24 08/29/24 23:59 23:59 23:59 Intake Total 187 / 187 2660 / 2660 102.00 / 102.00 Output Total 1500 / 1500 Balance 187 / 187 2660 / 2060 -1398.00 / -1398.00 Lab / Micro Data 08/29/24 06:20 08/29/24 06:20 Labs: Laboratory Results - last 24 hr 08/28/24 15:48: POC Glucose 123 H 08/28/24 21:13: POC Glucose 161 H 08/29/24 06:20: WBC 7.7, RBC 3.73 L, Hgb 7.4 L, Hct 25.5 L, MCV 68.4 L, MCH 19.8 L, MCHC 29.0 L, RDW Std Deviation 48.4 H, RDW Coeff of Maria E 20.3 H, Plt Count 329, MPV 8.6, Neut % (Auto) Not Reportable, Absolute Neuts (auto) 3.9, Absolute Lymphs (auto) 3.00, Total Counted 100, Neutrophils % (Manual) 49, Band Neutrophils % 1, Lymphocytes % (Manual) 39, Monocytes % (Manual) 6, Eosinophils % (Manual) 2, Basophils % (Manual) 1, Metamyelocytes % 2 H, Diff Path Review May foll, Reactive Lymphocytes 1+, Platelet Estimate A, Plt Morphology Comment LARGE, Polychromasia 1+, Anisocytosis 1+, Tear Drop Cells 1+, Ovalocytes 1+, Sodium 138, Potassium 3.5, Chloride 108 H, Carbon Dioxide 21.0, Anion Gap 9, BUN 6 L, Creatinine 0.60, Estim Creat Clear Calc 174.57, Est GFR (MDRD) Af Amer 139, Est GFR (MDRD) Non-Af 115, BUN/Creatinine Ratio 10.0, Glucose 116 H, Calcium 8.7 08/29/24 06:51: POC Glucose 107 H 08/29/24 10:45: Blood Type O POSITIVE, Antibody Screen NEGATIVE, Crossmatch See Detail 08/29/24 10:53: POC Glucose 246 H Micro: Microbiology 08/20/24 12:05 Blood Culture (Wb) - Left Hand Blood Culture - Final No growth in 5 days. 08/20/24 12:05 Blood Culture (Wb) - Anticubital Left Blood Culture - Final No growth in 5 days. 08/20/24 13:50 Wound Abcess - Heel, Left Gram Stain - Final 08/20/24 13:50 Wound Abcess - Heel, Left Wound Culture - Final Pseudomonas aeruginosa Serratia marcescens Klebsiella oxytoca Staphylococcus aureus Streptococcus mitis/ oralis 08/20/24 13:50 Wound Abcess - Heel, Left Anaerobic Culture - Final Anaerobic cocci 08/20/24 12:43 Wound - Left Foot Gram Stain - Final 08/20/24 12:43 Wound - Left Foot Wound Culture - Final Pseudomonas aeruginosa Serratia marcescens Klebsiella oxytoca Staphylococcus aureus Staphylococcus aureus#2 Streptococcus pseudoporcinus 08/20/24 10:18 Mucosa - Nose SARS-CoV-2, Influenza & RSV (PCR) - Final Physical Exam Narrative Seen and examined Patient had left BKA on 08/26/2024. Hemoglobin dropped to 7.4. No external bleeding. Complain of mild pain control about 2-3/10 intensity. Discussed with Yousif. 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 Physical exam General: Alert, Oriented x3, Cooperative HEENT: Atraumatic, PERRLA, EOMI, Normocephalic Oral: No Gingival or Mucosal Lesions/ Ulcerations Neck: Supple, No JVD, Negative Carotid Bruits Chest wall/Lungs: Air entry diminished in bilateral lung bases. No crepitation/rhonchi Cardiovascular: Regular rate, Regular Rhythm, Normal S1, Normal S2, No M/G/R. Decreased pulsation of left PT and right BEVERAGE SERVER. Abdomen: Bowel Sounds Present, Soft, Non Tender, Non-Distended : No dysuria. No renal angle tenderness. No suprapubic tenderness. Extremities: No edema, Capillary Refill Less than 3 Seconds Skin: Right heel amputation stump. Left BKA, covered with a dressing with knee immobilizer/protector. Dressing is dry. Musculoskeletal: Left hip amputation no Tenderness to Palpation of Joints or Extremities. Neurological: Cranial nerves II-XII grossly intact, DTR 2+/4. Neuropathy. Mild sensation in lower legs. Psych/Mental Status: Flat affect. Assessment & Plan Assessment/Plan (1) Wound of foot: PLAN: Plan 1. 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 Polymicrobial growth. Patient was evaluated by ID and recommended to continue empiric broad-spectrum antibiotic, vancomycin and Zosyn. Plan for BKA later this week. Plastic surgery Dr. Dodd actively involved. 08/24: Patient was alerted by vascular surgery and discussed left BKA procedure with the patient. Anticipated course of BKA, healing, complication and rehab including processes discussed with the patient. OR rescheduled on 08/26. 08/25: Plan 4 OR tomorrow. 08/26: Patient had left below-knee amputation by Dr. Murrell. 08/27: Patient had left BKA on 08/26. Postop day 1. Mild pain. Patient was seen by plastic surgeon. Patient was seen by ID. Advised 2 more days of Zosyn and then stop, stop date 08/29/202408/28: Anxiety meds. For knee mobilization/protector, feet swell. Discussed with plastic surgeon. Antibiotic as per ID and will complete on 08/29. Getting rehab and advised the patient to SNF lower than home PT 08/29: Patient is doing well. Pain is well-controlled. She did not had bowel movement despite senna S, MiraLAX and Dulcolax oral given. Lactulose 20 g 1 dose and Dulcolax suppository ordered.\ #2 uncontrolled type 2 diabetes with neuropathy-: Blood sugar reasonably controlled. Accu-Chek before meals and at bedtime with Humalog sliding scale coverage and hypoglycemia protocol. 08/26 in the morning, empagliflozin was held and to remain hold for next 48 hours. 08/27: Bicarb 16, anion gap 15. Serum sodium 135. Suggestive of metabolic acidosis probably from starvation ketones and patient was on empagliflozin therefore IV fluid D5 half NS started. 08/28: Bicarb 23 improved. K3.5. Glucose is about 150, well-controlled. 08/29: Glucose is 123, 107 and 116 in the BMP. Continue the same day has been. #3 Chronic peripheral arterial disease: Being followed by vascular surgery 08/24: Patient had lower extremity arterial study which shows triphasic Doppler waveform at the ankle level bilaterally though pulse volume diminished at ankle on the right but satisfactory at the left. Resting VICTORIA are normal bilaterally. Right VICTORIA 1.19. Left VICTORIA 1.28. Acute blood loss postoperative anemia with chronic anemia: Patient baseline hemoglobin is around 10 g. It is decreased to 8.6 g%. Reticulocyte panel and immature reticulocyte fraction is high. RDW elevated. Serum iron low, TIBC normal. Iron saturation 12.2%. Ferritin 21 low normal. IV iron ordered 08/29 hemoglobin dropped to 7.4 and similar yesterday therefore 1 unit of PRBC ordered. 4. Class III obesity-complicates care, management, recovery, and prognosis 5. Chronic anxiety and depression-patient will remain on her outpatient psychiatric medications 6. DVT prophylaxis, moderate risk heparin 5000 units every 12 hourly. Hold prior to surgery Laboratory Results 08/28/24 15:48: POC Glucose 123 H 08/28/24 21:13: POC Glucose 161 H 08/29/24 06:20: WBC 7.7, RBC 3.73 L, Hgb 7.4 L, Hct 25.5 L, MCV 68.4 L, MCH 19.8 L, MCHC 29.0 L, RDW Std Deviation 48.4 H, RDW Coeff of Maria E 20.3 H, Plt Count 329, MPV 8.6, Neut % (Auto) Not Reportable, Absolute Neuts (auto) 3.9, Absolute Lymphs (auto) 3.00, Total Counted 100, Neutrophils % (Manual) 49, Band Neutrophils % 1, Lymphocytes % (Manual) 39, Monocytes % (Manual) 6, Eosinophils % (Manual) 2, Basophils % (Manual) 1, Metamyelocytes % 2 H, Diff Path Review May foll, Reactive Lymphocytes 1+, Platelet Estimate A, Plt Morphology Comment LARGE, Polychromasia 1+, Anisocytosis 1+, Tear Drop Cells 1+, Ovalocytes 1+, Sodium 138, Potassium 3.5, Chloride 108 H, Carbon Dioxide 21.0, Anion Gap 9, BUN 6 L, Creatinine 0.60, Estim Creat Clear Calc 174.57, Est GFR (MDRD) Af Amer 139, Est GFR (MDRD) Non-Af 115, BUN/Creatinine Ratio 10.0, Glucose 116 H, Calcium 8.7 08/29/24 06:51: POC Glucose 107 H 08/29/24 10:45: Blood Type O POSITIVE, Antibody Screen NEGATIVE, Crossmatch See Detail 08/29/24 10:53: POC Glucose 246 H Microbiology Past 72 Hours 08/20/24 12:05 Blood Culture (Wb) - Left Hand Blood Culture - Final No growth in 5 days. 08/20/24 12:05 Blood Culture (Wb) - Anticubital Left Blood Culture - Final No growth in 5 days. Laboratory Results 08/27/24 16:18: POC Glucose 139 H 08/27/24 21:18: POC Glucose 155 H 08/28/24 05:50: WBC 7.6, RBC 3.80 L, Hgb 7.5 L, Hct 25.8 L, MCV 67.9 L, MCH 19.7 L, MCHC 29.1 L, RDW Std Deviation 46.5 H, RDW Coeff of Maria E 19.6 H, Plt Count 314, MPV 8.6, Immature Gran % (Auto) 3.400 H, Neut % (Auto) 54.0, Lymph % (Auto) 31.3, [place] % (Auto) 8.2, Eos % (Auto) 2.0, Baso % (Auto) 1.1 H, Absolute Neuts (auto) 4.1, Absolute Lymphs (auto) 2.37, Nucleated RBC % 0, Retic Count 2.40 H, Immature Retic Fraction 34.60 H, Retic Hgb Equivalent 27.2 L, Sodium 136, Potassium 3.5, Chloride 106, Carbon Dioxide 23.0, Anion Gap 7, BUN 7, Creatinine 0.67, Estim Creat Clear Calc 158.46, Est GFR (MDRD) Af Amer 122, Est GFR (MDRD) Non-Af 101, BUN/Creatinine Ratio 10.4, Glucose 134 H, Calcium 8.5, Iron 19 L, TIBC 363, Iron Saturation 5.2 L, Ferritin 21 08/28/24 06:20: POC Glucose 132 H 08/28/24 10:47: POC Glucose 151 H Charges/Coding Visit Charges Inpatient E&M: 88269 Subs Hosp L2
[2024-08-29 16:44] LABS: Bedside Glucose 167 mg/dL (74-106)
[2024-08-29] MEDS: 0.9% Saline Lock 10 ML Syringe IV (17:18)
[2024-08-29 22:49] LABS: Bedside Glucose 192 mg/dL (74-106)
[2024-08-30 05:53] VITALS: BP 91/54; PULSE 76; RESP 14; TEMP 36.4; O2SAT 100
[2024-08-30 05:54] VITALS: BMI 40.8
[2024-08-30] MEDS: Piperacil/Tazobactam 3.375 GM in 0.9% Normal Saline (50mL MB+) 50 ML IV (05:54)
[2024-08-30 06:55] LABS: Bedside Glucose 139 mg/dL (74-106)
[2024-08-30 08:02] LABS: Hematocrit 30.1 % (37-47); Hemoglobin 8.8 g/dL (12.0-15.0); Mean Corp Hgb Conc 29.2 g/dL (32-36); Mean Corpuscular Volume 71.7 fL (81-99); Mean Platelet Vol. 8.7 fl (6.2-12.0); POSITIVE COUNT YES; POSITIVE MORPHOLOGY YES; Platelet Count 340 K/mm3 (150-450); RBC Distribution Width CV 21.9 % (11.6-14.6); RBC Distribution Width SD 52.7 fl (35.1-43.9); White Blood Count 7.4 K/mm3 (4.4-11.0)
[2024-08-30 08:04] LABS: Differential Indicated MANUAL DIFF
--- NOTE | 2024-08-30 08:48 | PCM.PN.SRG ---
Subjective Subjective Doing well overall. Pain well controlled. Wants to go home. No more falls. VS stable, Hgb 8.8 Objective Data Objective Data Vital Signs: Vital Signs Temp Pulse Resp BP Pulse Ox O2 Del Method 97.6 F L 76 14 91/54 L 100 Room Air 08/30/24 05:53 08/30/24 05:53 08/30/24 05:53 08/30/24 05:53 08/30/24 05:53 08/30/24 05:53 Oxygen Delivery Method Room Air Weight: 285 lb 7.978 oz Body Mass Index (BMI) 40.8 Intake & Output: Intake and Output for Last 24 Hours 08/28/24 08/29/24 08/30/24 23:59 23:59 23:59 Intake Total 2660 / 2660 2042.00 / 2592.00 825 / 825 Output Total 1500 / 1500 Balance 2660 / 2060 542.00 / 1092.00 825 / 825 Lab / Micro Data 08/30/24 07:27 08/29/24 06:20 Labs: Laboratory Results - last 24 hr 08/29/24 06:20: Absolute Neuts (auto) 3.9, Absolute Lymphs (auto) 3.00, Total Counted 100, Neutrophils % (Manual) 49, Band Neutrophils % 1, Lymphocytes % (Manual) 39, Monocytes % (Manual) 6, Eosinophils % (Manual) 2, Basophils % (Manual) 1, Metamyelocytes % 2 H, Diff Path Review May foll, Reactive Lymphocytes 1+, Platelet Estimate A, Plt Morphology Comment LARGE, Polychromasia 1+, Anisocytosis 1+, Tear Drop Cells 1+, Ovalocytes 1+ 08/29/24 10:45: Blood Type O POSITIVE, Antibody Screen NEGATIVE, Crossmatch See Detail 08/29/24 10:53: POC Glucose 246 H 08/29/24 16:08: POC Glucose 167 H 08/29/24 22:16: POC Glucose 192 H 08/30/24 05:55: POC Glucose 139 H 08/30/24 07:27: WBC 7.4, RBC 4.20, Hgb 8.8 L, Hct 30.1 L, MCV 71.7 L, MCH 21.0 L, MCHC 29.2 L, RDW Std Deviation 52.7 H, RDW Coeff of Maria E 21.9 H, Plt Count 340, MPV 8.7, Neut % (Auto) Not Reportable Micro: Microbiology 08/20/24 12:05 Blood Culture (Wb) - Left Hand Blood Culture - Final No growth in 5 days. 08/20/24 12:05 Blood Culture (Wb) - Anticubital Left Blood Culture - Final No growth in 5 days. 08/20/24 13:50 Wound Abcess - Heel, Left Gram Stain - Final 08/20/24 13:50 Wound Abcess - Heel, Left Wound Culture - Final Pseudomonas aeruginosa Serratia marcescens Klebsiella oxytoca Staphylococcus aureus Streptococcus mitis/ oralis 08/20/24 13:50 Wound Abcess - Heel, Left Anaerobic Culture - Final Anaerobic cocci 08/20/24 12:43 Wound - Left Foot Gram Stain - Final 08/20/24 12:43 Wound - Left Foot Wound Culture - Final Pseudomonas aeruginosa Serratia marcescens Klebsiella oxytoca Staphylococcus aureus Staphylococcus aureus#2 Streptococcus pseudoporcinus 08/20/24 10:18 Mucosa - Nose SARS-CoV-2, Influenza & RSV (PCR) - Final Physical Exam Narrative LLE: VAC over incision (removed today for exam). No signs of hematoma/bleeding. Suture line is C/D/I. Placed in dry dressing with knee immobilizer Const alert and oriented x3 Resp normal respiratory effort Cardio regular rate Assessment & Plan Assessment/Plan (1) S/P BKA (below knee amputation): PLAN: No bleeding today. Doing well with pain. 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 I talked to her about the risks of falls, opening of the incision, need for shortening of the BKA and possible eventual problems including problems with prosthetics/ambulation if it's shortened. Charges/Coding Procedures Integumentary [id number]: [id number] Global Visit
[2024-08-30 09:04] LABS: Anisocytosis 2+; Eosinophil 4 % (0-5); Hypochromasia 1+; Lymphocyte 38 % (19-41); Metamyelocyte 3 % (0-1); Monocyte 3 % (0-10); Myelocyte 3 % (0-0); Neutrophil-Band 2 % (0-5); Neutrophil-Segmented 47 % (47-70); Nucleated Red Bld Cells,Manual 1 % (0-5); Platelet Estimate ADEQUATE (ADEQ); Total Cells Counted 100 (MANUAL DIFF)
[2024-08-30 09:05] LABS: Absolute Lymphocyte Count 2.82 X10^3/uL (0.83-4.51); Absolute Neutrophil Count 3.6 X10^3/uL (2.0-7.7)
[2024-08-30] MEDS: Acetaminophen 325 MG Tablet 650 MG PO (10:08)
[2024-08-30] MEDS: oxyCODONE 5 MG Tablet 10 MG PO ×2 (10:09→14:12)
[2024-08-30] MEDS: Cyanocobalamin 500 MCG Tablet 1000 MCG PO (10:10)
[2024-08-30] MEDS: Lisinopril 10 MG Tablet PO (10:10)
[2024-08-30] MEDS: buPROPion (XL) 150 MG TABLET.XL PO (10:10)
[2024-08-30] MEDS: Cholecalciferol (VIT D3) 25 MCG TABLET (1,000 UNITS) 50 MCG PO (10:11)
[2024-08-30] MEDS: Pantoprazole Sodium 40 MG Tablet PO (10:11)
[2024-08-30 10:24] VITALS: BP 104/74; PULSE 90; RESP 18; TEMP 36.7; O2SAT 100
[2024-08-30 11:26] LABS: Bedside Glucose 164 mg/dL (74-106)
[2024-08-30 12:00] VITALS: BP 132/58; PULSE 66; RESP 18; TEMP 36.7; O2SAT 95
--- NOTE | 2024-08-30 12:18 | CASEMGMT ---
Addendum entered by Phylicia Alvarado 08/30/24 13:03: Spoke with therapy who reports pt is good to go home. OT treated today and no need for PT to treat. Received tc back that [facility] will accept pt for SOC on Friday. YUDITH CM into pt room, pt sitting up in chair. Pt is aware that [facility] accepted. Pt denies any further needs for homegoing. Pt states she has no further equipment needs at this time. Pt is anxious to dc home. Original Note: TC to Fern at [facility] to check on status of referral. She states they need to review pt. She will call back with an answer.
--- NOTE | 2024-08-30 12:22 | NURSING ---
pt requesting d/c-SWATCH PASTER made aware that Dr jackson waiting for their treatment notes prior to releasing pt.-pt updated on need for SWATCH PASTER treatment-she is agreeable to order lunch
--- NOTE | 2024-08-30 13:00 | DCINST_ITS ---
Discharge Instructions Diet Discharge Diet: Low fat / Low cholesterol and Carb Control Diet DC O2, CPAP, BIPAP needs Home O2 Discharge instructions: No Dressing / Incision Discharge Activity: Return to Normal Activity Dressing / Incision Call your doctor if you observe: Fever of 101 or Higher, Shortness of breath, Dizziness, Fainting spells, Swelling in the ankles, Chest pain and Increased palpitations (irregular heartbeat) Follow Up Care Test Results: Test results from this visit will be discussed in further detail at your follow- up appointment, if applicable. Discharge Plan Admission Admit Date/Time: 08/20/24 12:41 Attending Provider: Praveen Cui Primary Care Provider: Ivana Crook Consulting Providers: Mendoza Dodd; Magen Yu; Mendoza Aviles; Jamshid Clark; Gutierrez Murrell; Stevan Pollack Discharge Orders/Prescriptions Prescriptions: New oxycodone 5 mg Tablet 5 mg PO Q4H PRN PRN (Reason: Pain Score 4-10) 3 Days Qty: 10 0RF Continued (DME) pen needle, diabetic [BD Ultra-Fine Dhara Pen Needle] 32 gauge x 5/32 needle See Rx Instructions .ROUTE .MEDSUPPLY Qty: 50 6RF Rx Instructions: daily cyanocobalamin (vitamin B-12) 1,000 MCG tablet 100 mcg PO DAILY duloxetine 60 MG capsule,delayed release(DR/EC) 60 mg PO DAILY cholecalciferol (vitamin D3) [Vitamin D3] 1,000 UNIT tablet 2,000 unit PO DAILY omeprazole 40 MG capsule,delayed release(DR/EC) 40 mg PO DAILY bupropion HCl 150 MG tablet extended release 24 hr 150 mg PO DAILY atorvastatin 20 mg tablet 20 mg PO DAILY insulin lispro 100 unit/mL insulin pen 1 sliding scale dose SUBCUT .before meals Patient Comments: For blood glucose 143-165 mg/dl 1 Units, 166-188 mg/dl 2 Units,189-211 mg/dl 3 Units, 212-234 mg/dl 4 Units, 235-257 mg/dl 5 Units, 258-280 mg/dl 6 Units, 281-303 mg/dl 7 Units, 304-326 mg/dl 8 Units, 327-349 mg/dl 9 Units insulin glargine [Lantus Solostar U-100 Insulin] 100 unit/mL (3 mL) insulin pen 20 unit subcut .morning lisinopril 10 mg tablet 10 mg PO DAILY docusate sodium [Col-Rite] 100 mg capsule 100 mg PO BID (DME) OneTouch Verio test strips Strip See Rx Instructions .ROUTE .MEDSUPPLY Qty: 50 6RF Rx Instructions: twice a day Referrals / Follow Up: Ivana Crook CNS [Primary Care Provider] - Within 1 Week Mendoza Dodd MD [Med Staff - Active Staff] - Within 2 Weeks Betsy Regan [Studio Operations Engineer In Charge] - Disposition Disposition (needs filled in before D/C Order can be placed): Home Health Service
[2024-08-30 14:08] LABS: Pathologist Review Reviewed
--- NOTE | 2024-08-30 14:14 | PHA.DC_ITS ---
Pharmacy [facility] has performed discharge medication reconciliation and counseling for this patient. 1. OXYCODONE 5MG PO Q4H PRN PAIN The patient's discharge medication list was reviewed for discrepancies and discrepancies were resolved. The patient was counseled on the following discharge medications and changes in medications for homegoing were reviewed. The Reason for Use, instructions for use, and potential side effects were reviewed for all new medications. The patient's questions regarding all of their medications were answered. The patient was able to verbally demonstrate an understanding of their discharge medications. Medications at Discharge Home Medications cholecalciferol (vitamin D3) 25 mcg (1,000 unit) tablet (Vitamin D3) 2,000 unit PO DAILY SUPPLEMENT 04/18/16 cyanocobalamin (vitamin B-12) 1,000 mcg tablet 100 mcg PO DAILY SUPPLEMENT 04/18/16 duloxetine 60 mg capsule,delayed release 60 mg PO DAILY ANXIETY 04/18/16 bupropion HCl 150 mg 24 hr tablet, extended release 150 mg PO DAILY DEPRESSION 06/12/17 omeprazole 40 mg capsule,delayed release 40 mg PO DAILY ACID REFLUX 06/12/17 pen needle, diabetic 32 gauge x 5/32 (BD Ultra-Fine Dhara Pen Needle) #50 ea 07/27/21 OneTouch Verio test strips (blood sugar diagnostic) #50 ea 09/18/22 atorvastatin 20 mg tablet 20 mg PO DAILY 08/20/24 docusate sodium 100 mg capsule (Col-Rite) 100 mg PO BID 08/20/24 insulin glargine 100 unit/mL (3 mL) subcutaneous pen (Lantus Solostar U-100 Insulin) 20 unit subcut .morning 08/20/24 insulin lispro 100 unit/mL subcutaneous pen 1 sliding scale dose subcut .before meals 08/20/24 lisinopril 10 mg tablet 10 mg PO DAILY 08/20/24 oxycodone 5 mg tablet 5 mg PO Q4H PRN PRN Pain Score 4-10 3 days #10 tabs 08/30/24
--- NOTE | 2024-08-30 15:30 | PCM.DC.SUM ---
Providers Date of Admission: 08/20/24 Primary Care Physician: TRACIE Mora Consultations 08/20/24 17:24 Consult: Plastic Surgery Routine Consulting Provider: Mendoza Dodd Reason for Consult: left foot wound EMERGENT Consult: No MD Notified: Yes Date Notified: 08/20/24 Time Notified: 12:47 Method of Notification: Verbal 08/20/24 17:39 Consult: Podiatry Routine Consulting Provider: Magen Yu Reason for Consult: foot infection EMERGENT Consult: No MD Notified: Yes Date Notified: 08/20/24 Time Notified: 17:40 Method of Notification: Verbal 08/22/24 17:40 Consult: Infectious Disease Routine Consulting Provider: Mendoza Aviles Reason for Consult: Appropriate antibiotic coverage for osteomyelitis and cellulitis of L ankle EMERGENT Consult: No MD Notified: Yes Date Notified: 08/23/24 Time Notified: 06:50 Method of Notification: Text 08/23/24 11:47 Consult: Vascular Surgery Routine Consulting Provider: Gutierrez Murrell Reason for Consult: BKA EMERGENT Consult: No MD Notified: Yes Date Notified: 08/23/24 Time Notified: 11:47 Method of Notification: Verbal 08/24/24 10:19 Consult: Onc/Wound/due diligence coordinator Routine Comment: Reason for Consult:: left foot Reason For Visit: INFECTED LEFT FOOT WOUND Diagnosis Discharge Diagnosis (1) S/P BKA (below knee amputation): Status: Acute Code(s): Z89.519 - Acquired absence of unspecified leg below knee Medications at Discharge Home Medications cholecalciferol (vitamin D3) 25 mcg (1,000 unit) tablet (Vitamin D3) 2,000 unit PO DAILY SUPPLEMENT 04/18/16 cyanocobalamin (vitamin B-12) 1,000 mcg tablet 100 mcg PO DAILY SUPPLEMENT 04/18/16 duloxetine 60 mg capsule,delayed release 60 mg PO DAILY ANXIETY 04/18/16 bupropion HCl 150 mg 24 hr tablet, extended release 150 mg PO DAILY DEPRESSION 06/12/17 omeprazole 40 mg capsule,delayed release 40 mg PO DAILY ACID REFLUX 06/12/17 pen needle, diabetic 32 gauge x 5/32 (BD Ultra-Fine Dhara Pen Needle) #50 ea 07/27/21 OneTouch Verio test strips (blood sugar diagnostic) #50 ea 03/15/23 atorvastatin 20 mg tablet 20 mg PO DAILY 08/20/24 docusate sodium 100 mg capsule (Col-Rite) 100 mg PO BID 08/20/24 insulin glargine 100 unit/mL (3 mL) subcutaneous pen (Lantus Solostar U-100 Insulin) 20 unit subcut .morning 08/20/24 insulin lispro 100 unit/mL subcutaneous pen 1 sliding scale dose subcut .before meals 08/20/24 lisinopril 10 mg tablet 10 mg PO DAILY 08/20/24 oxycodone 5 mg tablet 5 mg PO Q4H PRN PRN Pain Score 4-10 3 days #10 tabs 08/30/24 Hospital Course Operations - (1) Targeted Muscle Reinnervation (TMR) for the tibial nerve (to a soleus branch motor nerve), CPT: 26741 2) Regenerative Peripheral Nerve Interface (RPNI), deep peroneal nerve, CPT: 50667 (muscle harvest for tissue graft) and 47060 (implantation of nerve into muscle) 3) Regenerative Peripheral Ne) Procedures None Summary of Care Provided Minutes Spent on Discharge: 33 Hospital Course: Per HPI: QUINTIN COBOS, is a 43 F who presents to the emergency room at [facility] for evaluation of a left foot wound which is chronic in nature and has been draining material and causing discomfort. Patient has a past history of bilateral partial foot amputations that were done at [facility], patient made the decision to come to the hospital here for evaluation of her foot because she felt that it was more convenient. She knows that she may very well have to undergo a below the knee amputation on the left due to the nonhealing nature of the wound. Lab work obtained in the emergency room showed an elevated white blood cell count of 14.5, hemoglobin was 10.2, chemistry profile was remarkable for a glucose of 279, patient's hemoglobin A1c was elevated at 10.1. Patient's lactic acid was normal. C-reactive protein was elevated at 136, left foot x-ray shows status post amputation of the tarsal and metatarsal bones with arthrodesis at the tibial calcaneal joint with evidence of soft tissue bone formation and diffuse soft tissue swelling with air in the soft tissues. Patient was given IV vancomycin and Zosyn, she will be admitted to [place] [address] for further care, the emergency room physician talked with plastic surgery and podiatry, podiatry stated that they would not be of much help if the patient needed a below the knee amputation and recommended the emergency room physician talk with plastic surgery. Plastic surgery agreed to see the patient in consultation. They requested that podiatry also see the patient for recommendations regarding a below the knee amputation however. I talked with Dr. Yu (podiatry) and Dr. Dodd. Dr. Guerra requested that a vascular study be performed on the left leg and that the patient have a left lower extremity CT scan. Hospital Course: 1. 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 Polymicrobial growth. Patient was evaluated by ID and recommended to continue empiric broad-spectrum antibiotic, vancomycin and Zosyn. Plan for BKA later this week. Plastic surgery Dr. Dodd actively involved. 08/24: Patient was alerted by vascular surgery and discussed left BKA procedure with the patient. Anticipated course of BKA, healing, complication and rehab including processes discussed with the patient. OR rescheduled on 08/26. 08/25: Plan 4 OR tomorrow. 08/26: Patient had left below-knee amputation by Dr. Murrell. 08/27: Patient had left BKA on 08/26. Postop day 1. Mild pain. Patient was seen by plastic surgeon. Patient was seen by ID. Advised 2 more days of Zosyn and then stop, stop date 08/29/202408/28: Anxiety meds. For knee mobilization/protector, feet swell. Discussed with plastic surgeon. Antibiotic as per ID and will complete on 08/29. Getting rehab and advised the patient to SNF lower than home PT 08/29: Patient is doing well. Pain is well-controlled. She did not had bowel movement despite senna S, MiraLAX and Dulcolax oral given. Lactulose 20 g 1 dose and Dulcolax suppository ordered.\ 08/30/2024: She is doing well today however PT/OT worked with her and felt that she could go home and she would like to go home, she did not really want to be discharged to a intermediate. She will need to follow-up with plastic surgery in a couple of weeks as well as her primary care doctor. She will go home with home health. I discussed with her the plan for discharge today she expressed understanding of the risk and benefits of going home and would like to go today. 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 Accu-Chek before meals and at bedtime with Humalog sliding scale coverage and hypoglycemia protocol. 08/26 in the morning, empagliflozin was held and to remain hold for next 48 hours. 08/27: Bicarb 16, anion gap 15. Serum sodium 135. Suggestive of metabolic acidosis probably from starvation ketones and patient was on empagliflozin therefore IV fluid D5 half NS started. 08/28: Bicarb 23 improved. K3.5. Glucose is about 150, well-controlled. 08/29: Glucose is 123, 107 and 116 in the BMP. Continue the same day has been. #3 Chronic peripheral arterial disease: Being followed by vascular surgery 08/24: Patient had lower extremity arterial study which shows triphasic Doppler waveform at the ankle level bilaterally though pulse volume diminished at ankle on the right but satisfactory at the left. Resting VICTORIA are normal bilaterally. Right VICTORIA 1.19. Left VICTORIA 1.28. Acute blood loss postoperative anemia with chronic anemia: Patient baseline hemoglobin is around 10 g. It is decreased to 8.6 g%. Reticulocyte panel and immature reticulocyte fraction is high. RDW elevated. Serum iron low, TIBC normal. Iron saturation 12.2%. Ferritin 21 low normal. IV iron ordered 08/29 hemoglobin dropped to 7.4 and similar yesterday therefore 1 unit of PRBC ordered. 4. Class III obesity-complicates care, management, recovery, and prognosis 5. Chronic anxiety and depression-patient will remain on her outpatient psychiatric medications Physical Exam Narrative general: Alert, Oriented x3, Cooperative, No apparent distress HEENT: Atraumatic, PERRLA, EOMI, Normocephalic Oral: Moist Mucosa Neck: Supple, No JVD Lungs: Clear to auscultation, Normal air movement, No rhonchi, No wheeze, No rales Cardiovascular: Regular rate, Regular Rhythm, Normal S1, Normal S2, No murmurs Abdomen: Soft, Non Tender, Non-Distended, No Hepato-splenomegaly Extremities: No edema, Capillary Refill Less than 3 Seconds, status post left BKA. Skin: Incision with the staple line looks good, no cellulitis or drainage Musculoskeletal: No Tenderness to Palpation of Joints or Extremities Neurological: No focal neurological deficits, Motor Exam 5/5 strength throughout, Sensory exam intact to light touch and pain Psych/Mental Status: Normal Affect, Appropriate Weight / BMI Weight Weight: 285 lb 7.978 oz Body Mass Index (BMI) 40.8 ABG / Lab / Microbiology Data 08/30/24 07:27 08/29/24 06:20 Laboratory: Laboratory Results - last 24 hr 08/29/24 06:20: Diff Path Review Reviewed 08/29/24 10:45: Crossmatch See Detail 08/29/24 16:08: POC Glucose 167 H 08/29/24 22:16: POC Glucose 192 H 08/30/24 05:55: POC Glucose 139 H 08/30/24 07:27: WBC 7.4, RBC 4.20, Hgb 8.8 L, Hct 30.1 L, MCV 71.7 L, MCH 21.0 L, MCHC 29.2 L, RDW Std Deviation 52.7 H, RDW Coeff of Maria E 21.9 H, Plt Count 340, MPV 8.7, Neut % (Auto) Not Reportable, Absolute Neuts (auto) 3.6, Absolute Lymphs (auto) 2.82, Total Counted 100, Neutrophils % (Manual) 47, Band Neutrophils % 2, Lymphocytes % (Manual) 38, Monocytes % (Manual) 3, Eosinophils % (Manual) 4, Metamyelocytes % 3 H, Myelocytes % 3 H, Nucleated RBCs/100 WBC 1, Diff Path Review May foll, Platelet Estimate ADEQUATE, Hypochromasia 1+, Anisocytosis 2+ 08/30/24 11:03: POC Glucose 164 H Microbiology: Microbiology 08/20/24 12:05 Blood Culture (Wb) - Left Hand Blood Culture - Final No growth in 5 days. 08/20/24 12:05 Blood Culture (Wb) - Anticubital Left Blood Culture - Final No growth in 5 days. 08/20/24 13:50 Wound Abcess - Heel, Left Gram Stain - Final 08/20/24 13:50 Wound Abcess - Heel, Left Wound Culture - Final Pseudomonas aeruginosa Serratia marcescens Klebsiella oxytoca Staphylococcus aureus Streptococcus mitis/ oralis 08/20/24 13:50 Wound Abcess - Heel, Left Anaerobic Culture - Final Anaerobic cocci 08/20/24 12:43 Wound - Left Foot Gram Stain - Final 08/20/24 12:43 Wound - Left Foot Wound Culture - Final Pseudomonas aeruginosa Serratia marcescens Klebsiella oxytoca Staphylococcus aureus Staphylococcus aureus#2 Streptococcus pseudoporcinus 08/20/24 10:18 Mucosa - Nose SARS-CoV-2, Influenza & RSV (PCR) - Final D/C Instructions Discharge Diet: Low fat / Low cholesterol and Carb Control Diet Call your doctor if you observe: Fever of 101 or Higher, Shortness of breath, Dizziness, Fainting spells, Swelling in the ankles, Chest pain and Increased palpitations (irregular heartbeat) DC O2, CPAP, BIPAP Needs Home O2 Discharge instructions: No Meaningful Use Info Meaningful Use Meaningful Use Diagnoses (Choose all that apply): None applicable Ischemic Stroke Statin Dosing Therapy Reference: STATIN DOSE THERAPY REFERENCE: * Patients > 75 years receive moderate or high dose statin therapy. * Patients 75 years or YOUNGER should receive HIGH intensity statin dose unless contraindicated. You will be required to document reason for non-treatment if statin daily dose does not meet guidelines. HIGH DOSE STATIN THERAPY DAILY Atorvastatin > than or = to 40 mg Rosuvastatin > than or = to 20 mg Amlodipine + Atorvastatin > than or = to 2.5/40 mg Ezetimibe + Simvastatin 10/80 mg Simvastatin 80mg Discharge Plan Admission Admit Date/Time: 08/20/24 12:41 Attending Provider: Praveen Cui Primary Care Provider: Ivana Crook Consulting Providers: Mendoza Dodd; Magen Yu; Mendoza Aviles; Jamshid Clark; Gutierrez Murrell; Stevan Pollack Discharge Orders/Prescriptions Prescriptions: New oxycodone 5 mg Tablet 5 mg PO Q4H PRN PRN (Reason: Pain Score 4-10) 3 Days Qty: 10 0RF Continued (DME) pen needle, diabetic [BD Ultra-Fine Dhara Pen Needle] 32 gauge x 5/32 needle See Rx Instructions .ROUTE .MEDSUPPLY Qty: 50 6RF Rx Instructions: daily cyanocobalamin (vitamin B-12) 1,000 MCG tablet 100 mcg PO DAILY duloxetine 60 MG capsule,delayed release(DR/EC) 60 mg PO DAILY cholecalciferol (vitamin D3) [Vitamin D3] 1,000 UNIT tablet 2,000 unit PO DAILY omeprazole 40 MG capsule,delayed release(DR/EC) 40 mg PO DAILY bupropion HCl 150 MG tablet extended release 24 hr 150 mg PO DAILY atorvastatin 20 mg tablet 20 mg PO DAILY insulin lispro 100 unit/mL insulin pen 1 sliding scale dose SUBCUT .before meals Patient Comments: For blood glucose 143-165 mg/dl 1 Units, 166-188 mg/dl 2 Units,189-211 mg/dl 3 Units, 212-234 mg/dl 4 Units, 235-257 mg/dl 5 Units, 258-280 mg/dl 6 Units, 281-303 mg/dl 7 Units, 304-326 mg/dl 8 Units, 327-349 mg/dl 9 Units insulin glargine [Lantus Solostar U-100 Insulin] 100 unit/mL (3 mL) insulin pen 20 unit subcut .morning lisinopril 10 mg tablet 10 mg PO DAILY docusate sodium [Col-Rite] 100 mg capsule 100 mg PO BID (DME) OneTouch Verio test strips Strip See Rx Instructions .ROUTE .MEDSUPPLY Qty: 50 6RF Rx Instructions: twice a day Referrals / Follow Up: Ivana Crook CNS [Primary Care Provider] - 09/06/24 1:40 pm Mendoza Dodd MD [Med Staff - Active Staff] - 09/09/24 3:15 pm Betsy Regan [Endocrinology Specialist] - Disposition Disposition (needs filled in before D/C Order can be placed): Home Health Service Charges/Coding Visit Charges Inpatient E&M: 44174 Disch Hosp >30min
[2024-08-30 15:32] LABS: Pathologist Review Reviewed
== END 2024-08-30 14:25 | disposition home health service (06) | DRG 617 ==
LOC: ED 14:05 → MS3 15:22
PROVIDERS: Family Medicine; Internal Medicine; Surgery Plastic and Reconstructive Surgery; Surgery Trauma Surgery; Admitting Provider Internal Medicine; Emergency Provider Emergency Medicine; PCP Clinical Nurse Specialist Adult Health; Visit Provider Family Medicine
PROC: 0Y6J0Z2 Detachment at Left Lower Leg, Mid, Open Approach (ICD-10-PCS; 2024-08-26 07:15)
DX: E11.621 Type 2 diabetes mellitus with foot ulcer (principal); L03.116 Cellulitis of left lower limb; Z68.41 Body mass index [BMI] 40.0-44.9, adult; M86.672 Other chronic osteomyelitis, left ankle and foot; L97.422 Non-pressure chronic ulcer of left heel and midfoot with fat layer exposed; L02.612 Cutaneous abscess of left foot; B96.1 Klebsiella pneumoniae [K. pneumoniae] as the cause of diseases classified elsewhere; B96.5 Pseudomonas (aeruginosa) (mallei) (pseudomallei) as the cause of diseases classified elsewhere; E11.51 Type 2 diabetes mellitus with diabetic peripheral angiopathy without gangrene; B95.62 Methicillin resistant Staphylococcus aureus infection as the cause of diseases classified elsewhere; D64.9 Anemia, unspecified; F32.A Depression, unspecified; I10 Essential (primary) hypertension; E11.42 Type 2 diabetes mellitus with diabetic polyneuropathy; Z79.4 Long term (current) use of insulin; L97.512 Non-pressure chronic ulcer of other part of right foot with fat layer exposed; K58.9 Irritable bowel syndrome, unspecified; K21.9 Gastro-esophageal reflux disease without esophagitis; L97.529 Non-pressure chronic ulcer of other part of left foot with unspecified severity; E11.65 Type 2 diabetes mellitus with hyperglycemia; E66.813 Obesity, class 3; Z79.2 Long term (current) use of antibiotics; Z90.710 Acquired absence of both cervix and uterus; B96.89 Other specified bacterial agents as the cause of diseases classified elsewhere; Z98.1 Arthrodesis status
CPT/HCPCS: 36415; 71046; 73630; 73700; 80048; 80053; 80202; 82728; 82962; 83036; 83540; 83550; 83605; 85014; 85018; 85025; 85045; 85652; 86140; 86850; 86900; 86901; 87040; 87070; 87075; 87077; 87184; 87186; 87205; 87631; 87640; 88311; 93005; 93923; 94668; 97162; 97166; 97535; 97802; 97803; 99252; 99283; A4648; P9016; A4216; G0463; J2405; J2916

== ENCOUNTER 2025-01-03 10:30 | Outpatient (RCR) | payer BC, SELFPAY ==
--- NOTE | 2024-12-27 11:59 | HP.PTEVAL ---
Patient's Visit Information Visit Information Visit Information: OCTOBER FABIENNE COBOS is a 44 year old F referred to Physical Therapy by Dr. Mendoza Dodd MD with a diagnosis of S/P L BKA August, pain in L knee. Date of Evaluation: 12/27/24 Physical Therapist: Simon Minaya DPT Visit Plan Frequency: 2x /Week Duration: 6 Weeks Plan: 1) BLE strength 2) gait progression from FWW to SPC to AD as able. 3) Dynamic and static balance. Subjective Subjective: Pt. is here today for her initial evaluation with diagnosis of S/P L BKA August, pain in L knee. Pt. was having chronic infections and ultimately had an amputation. Pt. reports having no issues so far. Pt. has had her prosthetic for ~4 weeks now. Pt. also has all of her toes amputated on the R side. Pt. has been doing well overall. Pt. is sleeping well. Pt. has been walking at home with can, but in community uses FWW in community. Pt. has been ill for a long time with periodic bed rest due to infections. Pt. is hopeful to get back to all previous levels of function and walking without AD in community. Pain L ankle: Pain Intensity (Out of 10): 0 Pain Intensity Range: 0 and 2 L knee: Pain Intensity (Out of 10): 0 Pain Intensity Range: 0 and 2 Objective Objective: POSTURE: Pt. has slight increase in wt. shift to R side. PALPATION: Normal incision, minimal redness at residual limb NEURO: Normal throughout. ROM: R knee: 0-0-125deg, L knee 0-0-95deg, R HS 60deg, L HS 65deg. MMT: RLE: Knee: ext 48.8#, flex 25.2#; hip: flex 39.1#, abd 48.1# LLE: ext: 44.3#, flex: 21.7#; hip: flex 43.9#, abd 53.5# GAIT: Pt. ambulated 205' with out AD with CGA. Pt. has wide RHIANNA with decreased step length bilaterally. Pt. reports fatigue as limiting factor. No pain in her L leg with amnbulation. 1 STEP: good ascending and descending with either leg with use of 2 HR. SLS: LLE 3seconds, RLE 8seconds. Balance/Special Test Scores CATSIB Score (Max score 120 seconds): 55 Lower Extremity Functional Score: 0 TUG Test Time Seconds: 17.7 30 Second Chair Rise Test Seconds: 9 Goals Goal 1:: LTG: Pt. to be I with HEP. Goal Time Frame: 4-6 Weeks Goal 2:: STG: Pt. to have increased B HS length to 90deg bilaterally. Goal Time Frame: 2-4 Weeks Goal 3:: LTG: Pt to have increased BLE strength increased by 10# throughout. Goal Time Frame: 4-6 Weeks Goal 4:: LTG: Pt. to complete TUG with time under 10seconds without AD. Goal Time Frame: 4-6 Weeks Goal 5:: LTG: Pt. to complete 6 MWT with distance of at least 900'. Goal Time Frame: 4-6 Weeks Goal 6:: LTG: Pt. to negotiate 1 flight of stairs with 1 HR with reciprocal pattern. Goal Time Frame: 4-6 Weeks Rehabilitation Potential Physical Therapy Diagnosis: Pt. has signs and symptoms consistent with S/P L BKA August, pain in L knee. Pt. has marked weakness, difficulty walking and decreased balance. She would benefit from PT to address the above limitations progressing to all previous levels of function. Rehabilitation Potential: Excellent Anticipated Interventions Patient/Client Instruction: Educate patient on: Condition, Plan of Care, Risk Factors and Benefits of Fitness Program For the Purpose of:: To improve safety, To improve health and function, To foster healthy habits, To improve decision making, To facilitate caregiver knowledge, To improve self management, To prevent re-injury and To improve ability to perform tasks related to life management Therapeutic Exercise to Include: Strength training, Power training, Endurance training, Balance training, Coordination, Flexibilty training, Gait and locomotor training, Passive ROM and Active ROM For the Purpose of:: To decrease pain, To decrease swelling/inflammation, To increase ROM, To improve nutrient delivery to tissue, To increase oxygenation perfusion, To improve muscle performance and motor function, To improve ability to perform ADL's, To increase tolerance to activity/condition/position, To improve performance and independence with ADL's, To improve health of tissue, To decrease soft tissue restriction, To increase flexibility/ROM, To improve endurance, To improve balance and To improve safety with gait Text: Thank you for the opportunity to evaluate your patient. For Medicare and Medicare HMO plans, please review the plan of care and approve it. It will need to be FAXED BACK to us at [phone] for Medicare purposes. For Medicare only, by signing this I certify the plan of care. Please let me know if there are questions or concerns regarding this plan of care. Physician Signature: Date:
--- NOTE | 2025-01-17 12:02 | HP.PT.NRP ---
Patient Information Patient Information: QUINTIN COBOS was seen in my office for initial evaluation on 12/27/24. The following Plan of Care was established for this patient: POC Established Initial Frequency: 2x /Week Initial Duration: 6 Weeks Anticipated Interventions Patient/Client Instruction: Educate patient on: Condition, Plan of Care, Risk Factors and Benefits of Fitness Program For the Purpose of:: To improve safety, To improve health and function, To foster healthy habits, To improve decision making, To facilitate caregiver knowledge, To improve self management, To prevent re-injury and To improve ability to perform tasks related to life management Therapeutic Exercise to Include: Strength training, Power training, Endurance training, Balance training, Coordination, Flexibilty training, Gait and locomotor training, Passive ROM and Active ROM For the Purpose of:: To decrease pain, To decrease swelling/inflammation, To increase ROM, To improve nutrient delivery to tissue, To increase oxygenation perfusion, To improve muscle performance and motor function, To improve ability to perform ADL's, To increase tolerance to activity/condition/position, To improve performance and independence with ADL's, To improve health of tissue, To decrease soft tissue restriction, To increase flexibility/ROM, To improve endurance, To improve balance and To improve safety with gait Last Seen Last Seen: This patient was last seen in our office 01/03/25. Pertinent comments regarding their Physical therapy will appear below: Pt. was seen in PT for her BKA. Pt. was doing well. Pt. called and cancelled the rest of her appointments due to in the family and had to go to [place]. Pt. will be DC from PT at this point in time. She was walking well without AD with good stability. At this point I will be discontinuing this patient from physical therapy. I would be happy to see this patient again in the future if found appropriate by the physician. Thank you! Simon Minaya, DPT Balance/Gait/Functional tests Balance/Special Test Scores CATSIB Score (Max score 120 seconds): 55 Lower Extremity Functional Score: 0 TUG Test Time Seconds: 17.7 Tug Test: <20 sec.=mostly independent 30 Second Chair Rise Test Seconds: 9
== END 2025-01-03 19:00 | disposition home or self-care (01) ==
LOC: PT 10:30
PROVIDERS: PCP Clinical Nurse Specialist Adult Health; Referring Provider Surgery Plastic and Reconstructive Surgery; Visit Provider Surgery Plastic and Reconstructive Surgery
DX: M25.562 Pain in left knee (principal); Z89.519 Acquired absence of unspecified leg below knee
CPT/HCPCS: 97110; 97161